=== PATIENT | female | born 1950 | race Hispanic/Latino ===

== ENCOUNTER 2021-02-21 16:14 | Inpatient (IN) | payer OTHER ==
--- NOTE | 2021-02-21 17:21 | RAD REPORT ---
EXAM DESCRIPTION: RAD - Chest Single View - 02/21/2021 5:13 pm CLINICAL HISTORY: DYSPNEA COMPARISON: No comparisons FINDINGS: Lines: None. Lungs: Diffuse prominence of the pulmonary interstitium. Vascular engorgement is present. Pleural: No significant pleural effusions or pneumothorax. Cardiac: Cardiomegaly. Bones: No acute fractures. Other: IMPRESSION: Findings most likely representing pulmonary edema. Pneumonia less likely.
[2021-02-21 17:45] LABS: Absolute Lymphocytes (CBC) 1.5 K/uL (0.7-4.9); Basophils % 0.9 % (0-1.3); Hematocrit 32.9 % (36.0-45.0); Lymphocytes % 19.5 % (15.3-44.8); MPV 8.3 fL (7.6-11.3); RBC Red Blood Cell Count 4.25 M/uL (3.86-4.86)
[2021-02-21] MEDS ORDERED: NA CHLORIDE 0.9% 1,000 ML ONE (18:04)
[2021-02-21] MEDS ORDERED: ACETAMINOPHEN 500 MG TAB ONE (18:04)
[2021-02-21] MEDS ORDERED: NA CHLORIDE 0.9% 500 ML ONE (18:05)
[2021-02-21 18:08] LABS: ALT/SGPT 41 U/L (12-78); AST/SGOT 24 U/L (15-37); Albumin 3.1 g/dL (3.4-5.0); Alkaline Phosphatase 175 U/L (45-117); BUN Blood Urea Nitrogen 14 mg/dL (7-18); Bicarbonate 23 mmol/L (21-32); Bilirubin Direct 0.2 mg/dL (0-0.2); Bilirubin Total 0.3 mg/dL (0.2-1.0); Glucose Level 124 mg/dL (74-106); NT PRO-BNP 5430 pg/mL (<125); Protein, Total 7.4 g/dL (6.4-8.2); Sodium Level 141 mmol/L (136-145); Troponin (Emerg Dept Use Only) < 0.02 ng/mL (0.0-0.045)
[2021-02-21 18:41] LABS: Protime INR 1.05
--- NOTE | 2021-02-21 19:33 | EDPHYS ---
Physician Documentation [facility] Name: Yokasta Hill Age: 70 yrs Sex: Female : 1950 Arrival Date: 02/21/2021 Time: 16:19 Bed 30 Private MD: ED Physician Yohan Lockett HPI: 02/21 17:45 This 70 yrs old Female presents to ER via Ambulatory with complaints of kb Breathing Difficulty. 17:45 The patient has shortness of breath at rest. Onset: The symptoms/episode began/occurred kb just prior to arrival. Duration: The symptoms are continuous. The patient's shortness of breath is aggravated by nothing, is alleviated by nothing. Associated signs and symptoms: Pertinent positives: productive cough. Severity of symptoms: At their worst the symptoms were mild moderate in the emergency department the symptoms are unchanged. The patient has not experienced similar symptoms in the past. The patient has not recently seen a physician. Son states pt started having a cough with phlem last night. Today started having shortness of breath. Historical: - Allergies: 16:29 Codeine; jl7 16:29 Ultram; jl7 20:57 Fentanyl; cc4 - Home Meds: 16:29 Metoprolol Tartrate Oral [Active]; leufonimaide [Active]; jl7 - PMHx: 16:29 Rheumatoid arthritis; Hypertensive disorder; Anemia; jl7 - PSHx: 16:29 Bilateral hips; bilateral knees; Cholecystectomy; jl7 - Immunization history:: Adult Immunizations not up to date. - Social history:: Smoking status: Patient denies any tobacco usage or history of. ROS: 17:45 Constitutional: Negative for fever, chills, and weight loss. kb 17:45 Respiratory: Positive for cough, shortness of breath, Negative for dyspnea on exertion, hemoptysis, orthopnea, pleurisy, sputum production, wheezing. 17:45 All other systems are negative. Exam: 17:13 Constitutional: This is a well developed, well nourished patient who is awake, alert, kb and in no acute distress. Head/Face: Normocephalic, atraumatic. ENT: Moist Mucous membranes Cardiovascular: Regular rate and rhythm with a normal S1 and S2. No gallops, murmurs, or rubs. No pulse deficits. Respiratory: Respirations even and unlabored. No increased work of breathing, no retractions or nasal flaring. Skin: Warm, dry with normal turgor. Normal color. MS/ Extremity: Pulses equal, no cyanosis. Neurovascular intact. Full, normal range of motion. Neuro: Awake and alert, GCS 15, oriented to person, place, time, and situation. Moves all extremities. Normal gait. Psych: Awake, alert, with orientation to person, place and time. Behavior, mood, and affect are within normal limits. 17:13 ECG was reviewed by the Attending Physician. Vital Signs: 16:25 BP 146 / 94; Pulse 136; Resp 24; Temp 98.3; Pulse Ox 91% ; Weight 64.86 kg; Height 5 jl7 ft. 8 in. (172.72 cm); Pain 9/10; 17:52 BP 138 / 89; Pulse 130; Resp 16; Temp 98.1(O); Pulse Ox 92% on R/A; kh1 19:44 BP 148 / 100; Pulse 125; Resp 22; Temp 97.1; Pulse Ox 93% on R/A; cc4 16:25 Body Mass Index 21.74 (64.86 kg, 172.72 cm) jl7 MDM: 16:27 Patient medically screened. kb 17:45 Data reviewed: vital signs, nurses notes. Data interpreted: Pulse oximetry: on room air kb is 91 %. Interpretation: borderline. 17:46 Differential diagnosis: Bronchitis pneumonia, pulmonary edema, covid. kb 19:31 Counseling: I had a detailed discussion with the patient and/or guardian regarding: the kb historical points, exam findings, and any diagnostic results supporting the discharge/admit diagnosis, lab results, radiology results, the need for further work-up and treatment in the hospital. Physician consultation: Benjamín ANDRADE was contacted at 19:31, regarding admission, to the telemetry unit. and will see patient in ED, shortly. 02/21 16:28 Order name: Basic Metabolic Panel; Complete Time: 18:13 kb 02/21 16:28 Order name: CBC with Diff; Complete Time: 18:13 kb 02/21 16:28 Order name: LFT's; Complete Time: 18:13 kb 02/21 16:28 Order name: Magnesium; Complete Time: 18:13 kb 02/21 16:28 Order name: NT PRO-BNP; Complete Time: 18:13 kb 02/21 16:28 Order name: PT-INR; Complete Time: 18:51 kb 02/21 16:28 Order name: Troponin (emerg Dept Use Only); Complete Time: 18:13 kb 02/21 19:23 Order name: SARS-COV-2 RT PCR; Complete Time: 19:23 EDMA 02/21 23:27 Order name: Thyroid Stimulating Hormone EDMA 02/22 06:05 Order name: CBC with Automated Diff EDMA 02/22 06:12 Order name: Comprehensive Metabolic Panel EDMA 02/22 06:12 Order name: Phosphorus EDMA 02/22 06:12 Order name: Troponin I EDMA 02/21 16:28 Order name: XRAY Chest (1 view); Complete Time: 17:25 kb 02/21 16:28 Order name: EKG; Complete Time: 16:29 kb 02/21 16:28 Order name: Cardiac monitoring; Complete Time: 17:50 kb 02/21 16:28 Order name: EKG - Nurse/Tech; Complete Time: 16:33 kb 02/21 16:28 Order name: IV Saline Lock; Complete Time: 17:50 kb 02/21 18:55 Order name: EKG; Complete Time: 18:55 kb 02/22 06:12 Order name: Lipid Profile EDMA 02/22 06:12 Order name: T4 Free EDMA 02/22 06:12 Order name: Magnesium EDMA 02/22 06:12 Order name: Transferrin Sat/Iron Binding EDMA 02/22 06:12 Order name: Ferritin EDMA 02/22 06:39 Order name: Hemoglobin A1c EDMA 02/21 16:28 Order name: Labs collected and sent; Complete Time: 17:51 kb 02/21 16:28 Order name: O2 Per Protocol; Complete Time: 17:51 kb 02/21 16:28 Order name: O2 Sat Monitoring; Complete Time: 17:51 kb 02/21 17:26 Order name: Labs - recollect needed: recollect labs; Complete Time: 17:50 bd 02/21 17:53 Order name: Labs - recollect needed: recollect blue top, please fill to the line; bd Complete Time: 18:49 02/21 18:55 Order name: EKG - Nurse/Tech kb 02/21 18:55 Order name: Vital Signs; Complete Time: 19:46 kb EC:13 Rate is 131 beats/min. Rhythm is regular. Left axis deviation noted. CT interval is kb normal at 130 msec. QRS interval is normal at 104 msec. QT interval is normal at 316 msec. Administered Medications: 17:25 CANCELLED (Duplicate Order): NS 0.9% 1000 ml IV at 1000 ml once kb 17:50 Drug: NS 0.9% 500 ml Route: IV; Rate: bolus; Site: right antecubital; kh1 19:38 Drug: Lasix (furosemide) 40 mg Route: IVP; Site: right antecubital; cc4 19:38 Drug: Nitro-Bid (nitroglycerin) Ointment 2 % 0.5 inches Route: Transdermal; Site: cc4 anterior chest wall; Disposition: 02/22 07:19 Co-signature as Attending Physician, Yohan Lockett MD I agree with the assessment and rn plan of care. Attestation: The patient's history, exam findings, diagnostics, and a summary of any interventions or procedures was reviewed in detail with Kathryn CONNELLY. Disposition Summary: 02/21/21 19:32 Hospitalization Ordered Hospitalization Status: Inpatient Admission kb Provider: Jerrell Reyez Condition: Stable kb Problem: new kb Symptoms: are unchanged kb Bed/Room Type: Standard kb Location: Telemetry/MedSurg (Inpatient)(02/22/21 16:37) Room Assignment: [facility](02/22/21 16:38) bd Diagnosis - Unspecified combined systolic (congestive) and diastolic (congestive) heart failure kb - Acute pulmonary edema kb Forms: - Medication Reconciliation Form kb - SBAR form kb Signatures: Dispatcher [employer] [facility] Kathryn White FNP-C FNP-CkSadie Masters Roman, MD MD rn Garcia, Cindy, RN RN cg Leal, Jahala, RN RN jl7 Harris, Kecia [facility] Eriak Mccormick [facility] Corrections: (The following items were deleted from the chart) 02/21 17:25 16:40 NS 0.9% 1000 ml IV at 1000 ml once ordered. kb kb 17:58 16:29 CORONAVIRUS+MR.LAB.BRZ ordered. EDMA EDMA 20:22 19:32 Telemetry/MedSurg (Inpatient) kb cg 20:22 19:32 kb 02/22 16:37 02/21 20:22 [facility] ER HOLD cg bd 02/22 16:37 02/21 20:22 ERHOLD- cg bd 02/22 16:38 16:37 427 bd bd
--- NOTE | 2021-02-21 19:33 | ER ---
Nurse's Notes [facility] Name: Yokasta Hill Age: 70 yrs Sex: Female : 1950 Arrival Date: 02/21/2021 Time: 16:19 Bed 30 Private MD: Diagnosis: Unspecified combined systolic (congestive) and diastolic (congestive) heart failure;Acute pulmonary edema Presentation: 02/21 16:25 Chief complaint: Patient states: Coughing since last night, Shortness of breath x 30 jl7 minutes, reports chest pain that radiates to back. Coronavirus screen: Vaccine status: Patient reports being unvaccinated. PCP suggested no vaccine. Ebola Screen: No symptoms or risks identified at this time. Initial Sepsis Screen: Does the patient meet any 2 criteria? RR > 20 per min. HR > 90 bpm. Yes Does the patient have a suspected source of infection? No. Patient's initial sepsis screen is negative. Risk Assessment: Do you want to hurt yourself or someone else? Patient reports no desire to harm self or others. Onset of symptoms was February 21, 2021 at 16:00. 16:25 Method Of Arrival: Ambulatory [facility] 16:25 Acuity: ROBERTO 2 jl7 Triage Assessment: 16:29 General: Appears in no apparent distress. uncomfortable, Behavior is calm, cooperative, jl7 appropriate for age. Pain: Complains of pain in mid-sternal area Pain radiates to back Pain currently is 9 out of 10 on a pain scale. Neuro: Level of Consciousness is awake, alert, obeys commands, Oriented to person, place, time, situation. Cardiovascular: Patient's skin is warm and dry. Respiratory: Reports shortness of breath Onset: The symptoms/episode began/occurred today, the patient has moderate shortness of breath. Derm: Skin is pink, warm \T\ dry. Historical: - Allergies: 16:29 Codeine; jl7 16:29 Ultram; jl7 20:57 Fentanyl; cc4 - Home Meds: 16:29 Metoprolol Tartrate Oral [Active]; leufonimaide [Active]; jl7 - PMHx: 16:29 Rheumatoid arthritis; Hypertensive disorder; Anemia; jl7 - PSHx: 16:29 Bilateral hips; bilateral knees; Cholecystectomy; jl7 - Immunization history:: Adult Immunizations not up to date. - Social history:: Smoking status: Patient denies any tobacco usage or history of. Screenin:54 Abuse screen: Denies threats or abuse. Nutritional screening: No deficits noted. kh1 Tuberculosis screening: No symptoms or risk factors identified. Fall Risk None identified. IV access (20 points). Ambulatory Aid- Gait- Weak (10 pts.). Assessment: 17:52 General: Appears in no apparent distress. comfortable, Behavior is calm, cooperative, kh1 appropriate for age. Pain: Complains of pain in back Pain radiates to left arm Pain currently is 6 out of 10 on a pain scale. Pain began gradually, 1 day ago. Neuro: No deficits noted. Level of Consciousness is awake, alert, obeys commands, Oriented to person, place, time, situation, Supervisor Particleboard are equal bilaterally Moves all extremities. Full function Gait is Speech is normal. Cardiovascular: No deficits noted. Reports shortness of breath, Capillary refill < 3 seconds. Respiratory: Reports shortness of breath cough that is Airway is patent Respiratory effort is even, unlabored. 17:57 Cardiovascular: Rhythm is sinus tachycardia. 1 17:57 Respiratory: [facility] 18:54 Reassessment: Patient appears in no apparent distress at this time. No changes from [facility] previously documented assessment. Patient and/or family updated on plan of care and expected duration. Pain level reassessed. Patient is alert, oriented x 3, equal unlabored respirations, skin warm/dry/pink. Patient is alert/active/playful, equal unlabored respirations, skin warm/dry/pink. Vital Signs: 16:25 BP 146 / 94; Pulse 136; Resp 24; Temp 98.3; Pulse Ox 91% ; Weight 64.86 kg; Height 5 jl7 ft. 8 in. (172.72 cm); Pain 9/10; 17:52 BP 138 / 89; Pulse 130; Resp 16; Temp 98.1(O); Pulse Ox 92% on R/A; kh1 19:44 BP 148 / 100; Pulse 125; Resp 22; Temp 97.1; Pulse Ox 93% on R/A; cc4 16:25 Body Mass Index 21.74 (64.86 kg, 172.72 cm) jl7 ED Course: 16:19 Patient arrived in ED. mr 16:27 Kathryn White, [facility] kb 16:27 Yohan Lockett MD is Attending Physician. kb 16:29 Triage completed. jl7 16:29 Arm band placed on right wrist. EKG completed in triage. Results shown to MD. jl7 17:13 XRAY Chest (1 view) In Process Unspecified. EDMS 17:28 Jyoti Joya is Primary Nurse. kh1 17:51 Basic Metabolic Panel Sent. kh1 17:51 CBC with Diff Sent. kh1 17:51 LFT's Sent. kh1 17:51 Magnesium Sent. kh1 17:51 NT PRO-BNP Sent. kh1 17:51 PT-INR Sent. kh1 17:51 Troponin (emerg Dept Use Only) Sent. kh1 17:56 Patient has correct armband on for positive identification. Fall risk band placed. kh1 Placed in gown. Bed in low position. Call light in reach. Side rails up X2. Adult w/ patient. cooperative education coordinator on. Pulse ox on. NIBP on. 17:56 No provider procedures requiring assistance completed. Inserted saline lock: 20 gauge kh1 in left antecubital area, using aseptic technique. Blood collected. 19:32 Jerrell Reyez is Hospitalizing Provider. kb 20:01 Gerard cath inserted, using sterile technique, 16 Fr., by ED staff, balloon inflated, to cc4 gravity drainage. Administered Medications: 17:25 CANCELLED (Duplicate Order): NS 0.9% 1000 ml IV at 1000 ml once kb 17:50 Drug: NS 0.9% 500 ml Route: IV; Rate: bolus; Site: right antecubital; kh1 19:38 Drug: Lasix (furosemide) 40 mg Route: IVP; Site: right antecubital; cc4 19:38 Drug: Nitro-Bid (nitroglycerin) Ointment 2 % 0.5 inches Route: Transdermal; Site: cc4 anterior chest wall; Outcome: 19:32 Decision to Hospitalize by Provider. kb 02/22 18:52 Patient left the ED. ss Signatures: Dispatcher [employer] EDMS Kathrny White, MARICEL ARRIAZAP-Hilary MuñozLashaun nogueraRamona, RN RN Kimberly Sanz RN RN jl7 Jyoti Joya 1 Erika Mccormick cc4 Corrections: (The following items were deleted from the chart) 02/21 17:58 17:50 CORONAVIRUS+MR.LAB.BRZ drawn and sent. kh1 EDMS
[2021-02-21] MEDS ORDERED: NITROGLYCERIN 1 GM PKT TD ONE (19:58)
[2021-02-21] MEDS ORDERED: FUROSEMIDE 40 MG/4 ML VIAL ONE (19:58)
--- NOTE | 2021-02-21 20:52 | P.HP ---
Certification for Inpatient Patient admitted to: Inpatient With expected LOS: <2 Midnights Patient will require the following post-hospital care: None Practitioner: I am a practitioner with admitting privileges, knowledge of patient current condition, hospital course, and medical plan of care. Services: Services provided to patient in accordance with Admission requirements found in Title 42 Section 412.3 of the Code of Federal Regulations Patient History Date of Service: 02/21/21 Primary Care Provider: Wendie Reason for admission: new onset CHF History of Present Illness: Ms. Hill is a 70 yo F with HTN, anemia and RA who presents with one day of SOB and BALLARD. She says this morning she was drinking a milkshake when it was suddenly difficult for her to talk. She reports wheezing. Also noted some chest pain which she describes as muscular pain which was relieved with Vicks vapor rub. She went to go lay down but had another episode of SOB so told her son to bring her to the ED. She reports fatigue, orthopnea and PND for the past week. Denies edema. CXR shows pulmonary edema. BNP 5430. - Past Medical/Surgical History Diabetic: No -: HTN -: RA -: anemia -: hip surgery -: knee surgery -: back surgery -: wrist surgery -: cholecystectomy Psychosocial/ Personal History: , two sons - Social History Smoking Status: Never smoker Alcohol use: No CD- Drugs: No Caffeine use: Yes Place of Residence: Home Review of Systems Respiratory: Shortness of Breath, SOB with Excertion, Wheezing Cardiovascular: Chest Pain, Orthopnea, Paroxysmal Noc. Dyspnea Physical Examination - Physical Exam General: Alert, In no apparent distress HEENT: Atraumatic, PERRLA, Mucous membr. moist/pink, EOMI, Sclerae nonicteric Neck: Supple, 2+ carotid pulse no bruit, No LAD, Without JVD or thyroid abnormality Respiratory: Normal air movement, Crackles/rales Cardiovascular: No edema, Normal pulses, Normal S1 S2, No gallops, No rubs, Other (tachycardia), Irregular heart rate/rhythm Gastrointestinal: Normal bowel sounds, No tenderness Musculoskeletal: No tenderness Integumentary: No rashes Neurological: Normal gait, Normal speech, Normal strength at 5/5 x4 extr, Normal tone, Normal affect Lymphatics: No axilla or inguinal lymphadenopathy - Studies Laboratory Data (last 24 hrs) 02/21/21 18:23: PT 12.1, INR 1.05 02/21/21 17:36: WBC 7.70, Hgb 10.6 L, Hct 32.9 L, Plt Count 292 02/21/21 17:36: Sodium 141, Potassium 4.0, BUN 14, Creatinine 0.48 L, Glucose 124 H, Magnesium 2.0, Total Bilirubin 0.3, AST 24, ALT 41, Alkaline Phosphatase 175 H Assessment and Plan - Problems (Diagnosis) (1) New onset of congestive heart failure Current Visit: Yes Status: Acute (2) HTN (hypertension) Current Visit: Yes Status: Chronic Qualifiers: Hypertension type: primary hypertension Qualified Code(s): I10 - Essential (primary) hypertension (3) Anemia Current Visit: Yes Status: Chronic Qualifiers: Anemia type: iron deficiency Iron deficiency anemia type: unspecified iron deficiency Qualified Code(s): D50.9 - Iron deficiency anemia, unspecified (4) Rheumatoid arthritis Current Visit: Yes Status: Chronic Qualifiers: Rheumatoid arthritis location: unspecified site Rheumatoid factor presence: unspecified presence Qualified Code(s): M06.9 - Rheumatoid arthritis, unspecified - Plan on telemetry, ECHO scheduled for the AM IV Lasix BID, low sodium diet, dietitian consulted, fluid restriction, daily weights repeat troponin in AM hydralazine PRN for BP spikes O2 as needed anemia workup pending, A1c pending reconcile and continue home medications DVT ppx Discharge Plan: Home Plan to discharge in: 48 Hours - Advance Directives Does patient have a Living Will: No Does patient have a Durable POA for Healthcare: No - Code Status/Comfort Care Code Status Assessed: Yes (full code ) Critical Care: No Time Spent Managing Pts Care (In Minutes): 70
[2021-02-21] MEDS ORDERED: ONDANSETRON 4 MG/2 ML VIAL IV PRN (21:49)
[2021-02-21] MEDS ORDERED: HYDRALAZINE HCL 20 MG/ML VIAL IV PRN (21:49)
[2021-02-22] MEDS: ACETAMINOPHEN 500 MG TAB PO PRN ×2 (00:25→22:28)
[2021-02-22] MEDS ORDERED: ACETAMINOPHEN 500 MG TAB ONE (00:37)
[2021-02-22 05:59] LABS: Absolute Lymphocytes (CBC) 2.2 K/uL (0.7-4.9); Basophils % 0.8 % (0-1.3); Hematocrit 32.9 % (36.0-45.0); Lymphocytes % 31.6 % (15.3-44.8); MPV 8.9 fL (7.6-11.3); RBC Red Blood Cell Count 4.22 M/uL (3.86-4.86)
[2021-02-22 06:12] LABS: ALT/SGPT 43 U/L (12-78); AST/SGOT 25 U/L (15-37); Albumin 3.1 g/dL (3.4-5.0); Alkaline Phosphatase 185 U/L (45-117); BUN Blood Urea Nitrogen 14 mg/dL (7-18); Bicarbonate 28 mmol/L (21-32); Bilirubin Total 0.5 mg/dL (0.2-1.0); Ferritin 270.9 ng/mL (8-388); Glucose Level 107 mg/dL (74-106); HDL Cholesterol 62 mg/dL (40-60); LDL Cholesterol, Calculated 73 (<130); Magnesium 2.2 mg/dL (1.8-2.4); Phosphorus 3.8 mg/dL (2.5-4.9); Potassium 3.8 mmol/L (3.5-5.1); Protein, Total 7.1 g/dL (6.4-8.2); Sodium Level 142 mmol/L (136-145); Transferrin 187 mg/dL (200-360); Troponin I 0.07 ng/mL (0.0-0.045)
[2021-02-22] MEDS: ENOXAPARIN 40 MG/0.4 ML SQ SCH (09:00)
[2021-02-22] MEDS: FUROSEMIDE 40 MG/4 ML VIAL IV SCH ×2 (09:00→17:00)
[2021-02-22] MEDS ORDERED: ENOXAPARIN 40 MG/0.4 ML SQ ONE (09:40)
[2021-02-22] MEDS ORDERED: FUROSEMIDE 40 MG/4 ML VIAL ONE ×2 (09:40→17:57)
--- NOTE | 2021-02-22 10:24 | EKG ---
Test Date: 2021-02-21 Test Time: 19:24:54 Cross Country Coach: KONSTANTIN MEASUREMENT RESULTS: Intervals: Rate: 121 WA: 158 QRSD: 106 QT: 332 QTc: 471 [place]: P: 68 WA: 158 QRS: -50 T: 104 INTERPRETIVE STATEMENTS: Sinus tachycardia with fusion complexes Left axis deviation Left ventricular hypertrophy with repolarization abnormality Abnormal ECG Compared to ECG 02/21/2021 16:30:06 No significant changes Electronically Signed On 02-22-21 10:21:55 CDT by Avery Moore
--- NOTE | 2021-02-22 10:25 | EKG ---
Test Date: 2021-02-21 Test Time: 16:30:06 Paper Cone Grader: GINGER MEASUREMENT RESULTS: Intervals: Rate: 131 ND: 130 QRSD: 104 QT: 316 QTc: 466 [place]: P: 25 ND: 130 QRS: -37 T: 119 INTERPRETIVE STATEMENTS: Sinus tachycardia with fusion complexes Left axis deviation Left ventricular hypertrophy with repolarization abnormality Abnormal ECG Compared to ECG 03/31/2010 16:14:30 Fusion complex(es) now present Left-axis deviation now present Early repolarization now present Sinus rhythm no longer present Electronically Signed On 02-22-21 10:22:04 CDT by Avery Moore
--- NOTE | 2021-02-22 13:57 | ECHO ---
HEIGHT: 5 ft 7 in WEIGHT: 143 lb 0 oz DATE OF STUDY: 02/22/[address]: Benjamín Quiles 2-DIMENSIONAL: YES M.MODE: YES DOPPLER: YES COLOR FLOW: YES TDS: NO PORTABLE: NO DEFINITY: NO BUBBLE STUDY: NO DIAGNOSIS: PULMONARY EDEMA CARDIAC HISTORY: CATHERIZATION: SURGERY: PROSTHETIC VALVE: PACEMAKER: MEASUREMENTS (cm) DIASTOLIC (NORMALS) SYSTOLIC (NORMALS) IVSd 1.2 (0.6-1.2) LA Diam 3.0 (1.9-4.0) LVEF 26% LVIDd 5.5 (3.5-5.7) LVIDs 4.9 (2.0-3.5) %FS 12% LVPWd 1.1 (0.6-1.2) Ao Diam 2.9 (2.0-3.7) 2 DIMENSIONAL ASSESSMENT: RIGHT ATRIUM: LEFT ATRIUM: RIGHT VENTRICLE: LEFT VENTRICLE: TRICUSPID VALVE: MITRAL VALVE: PULMONIC VALVE: AORTIC VALVE: PERICARDIAL EFFUSION: AORTIC ROOT: LEFT VENTRICULAR WALL MOTION: SEVERE GLOBAL HYPOKINESIS. DOPPLER/COLOR FLOW: NORMAL. COMMENTS: SEVERE GLOBAL HYPOKINESIS. EJECTION FRACTION 26%. NO EFFUSION. TECHNOLOGIST: GIOVANY BECK
--- NOTE | 2021-02-22 18:22 | P.PN ---
Subjective Date of Service: 02/22/21 Primary Care Provider: Wendie Chief Complaint: new onset CHF Patient states she is feeling much better today. She states her shortness of breath has improved. Troponin trended slightly up. She denies any chest pain. Physical Examination - Vital Signs Temperature: 98.4 F Blood Pressure: 106/70 Pulse: 117 Respirations: 16 Pulse Ox (%): 98 - Physical Exam General: Alert, In no apparent distress, Oriented x3 HEENT: Mucous membr. moist/pink Neck: Supple, JVD not distended Respiratory: Normal air movement, Crackles/rales (Mild bibasilar rales) Cardiovascular: No edema, Regular rate/rhythm, Normal S1 S2, No murmurs Gastrointestinal: Soft and benign, Non-distended, No tenderness Musculoskeletal: No swelling, No tenderness Integumentary: No rashes, No erythema Neurological: Normal strength at 5/5 x4 extr - Studies Laboratory Data (last 24 hrs) 02/21/21 18:23: PT 12.1, INR 1.05 Assessment And Plan - Current Problems (Diagnosis) (1) Acute systolic heart failure Current Visit: Yes Status: Acute (2) Anemia Current Visit: Yes Status: Chronic Qualifiers: Anemia type: iron deficiency Iron deficiency anemia type: unspecified iron deficiency Qualified Code(s): D50.9 - Iron deficiency anemia, unspecified (3) HTN (hypertension) Current Visit: Yes Status: Chronic Qualifiers: Hypertension type: primary hypertension Qualified Code(s): I10 - Essential (primary) hypertension (4) Rheumatoid arthritis Current Visit: Yes Status: Chronic Qualifiers: Rheumatoid arthritis location: unspecified site Rheumatoid factor presence: unspecified presence Qualified Code(s): M06.9 - Rheumatoid arthritis, unspecified - Plan Patient with newly diagnosed systolic heart failure. Unknown etiology. Troponin trended up only slightly. Awaiting cardiology input. Continue Lasix. Aspirin, Coreg, lisinopril. Anemia is stable.
[2021-02-23] MEDS: carvediloL 3.125 MG TAB PO SCH ×2 (05:44→17:43)
[2021-02-23] MEDS: ASPIRIN EC 81 MG TAB PO SCH (08:40)
[2021-02-23] MEDS: FUROSEMIDE 40 MG/4 ML VIAL IV SCH ×2 (08:41→17:00)
[2021-02-23] MEDS: ENOXAPARIN 40 MG/0.4 ML SQ SCH (08:42)
[2021-02-23] MEDS ORDERED: lisinopriL 5 MG TAB PO SCH (09:00)
--- NOTE | 2021-02-23 13:17 | P.PN ---
Subjective Date of Service: 02/23/21 Primary Care Provider: Wendie Chief Complaint: new onset CHF Patient with borderline low blood pressure. Nursing staff report patient fell dizzy and vomited when she attempted to stand up. No witnessed fall. She states her shortness of breath has improved. She denies any chest pain. Physical Examination - Vital Signs Temperature: 98.2 F Blood Pressure: 92/58 Pulse: 106 Respirations: 18 Pulse Ox (%): 97 - Physical Exam General: Alert, In no apparent distress, Oriented x3 HEENT: Mucous membr. moist/pink Neck: Supple, JVD not distended Respiratory: Normal air movement, Crackles/rales (Mild bibasilar rales.) Cardiovascular: Normal S1 S2, Other (Regular, tachycardic) Capillary refill: <2 Seconds Gastrointestinal: Normal bowel sounds, Soft and benign, Non-distended, No tenderness Musculoskeletal: No swelling, No tenderness Integumentary: No rashes, No erythema Neurological: Normal speech, Normal strength at 5/5 x4 extr Assessment And Plan - Current Problems (Diagnosis) (1) Acute systolic heart failure Current Visit: Yes Status: Acute (2) Anemia Current Visit: Yes Status: Chronic Qualifiers: Anemia type: iron deficiency Iron deficiency anemia type: unspecified iron deficiency Qualified Code(s): D50.9 - Iron deficiency anemia, unspecified (3) HTN (hypertension) Current Visit: Yes Status: Chronic Qualifiers: Hypertension type: primary hypertension Qualified Code(s): I10 - Essential (primary) hypertension (4) Rheumatoid arthritis Current Visit: Yes Status: Chronic Qualifiers: Rheumatoid arthritis location: unspecified site Rheumatoid factor presence: unspecified presence Qualified Code(s): M06.9 - Rheumatoid arthritis, unspecified - Plan Patient with newly diagnosed systolic heart failure. Unknown etiology. Troponin trended up only slightly. Case discussed with Dr. Moore who will see and evaluate her. Dr. Moore is recommended outpatient stress test Continue Lasix. Aspirin, Coreg, lisinopril. Anemia is stable. Orthostatic precautions. PT to evaluate.
--- NOTE | 2021-02-23 14:18 | RAD REPORT ---
EXAM DESCRIPTION: RAD - Chest Single View - 02/23/2021 2:05 pm CLINICAL HISTORY: Follow pulmonary edema COMPARISON: Chest Single View dated 02/21/2021 FINDINGS: Lines: None. Lungs: No evidence of edema or pneumonia. Pleural: No significant pleural effusions or pneumothorax. Cardiac: Mild cardiomegaly. Bones: No acute fractures. Other: IMPRESSION: No acute cardiopulmonary disease. Improved aeration from prior.
[2021-02-23] MEDS: ACETAMINOPHEN 500 MG TAB PO PRN (17:22)
[2021-02-23] MEDS ORDERED: POTASSIUM 25 MEQ EFFERV TAB PO ONE (20:06)
[2021-02-24] MEDS: MIDODRINE HCL 5 MG TABLET PO SCH ×4 (00:47→20:05)
[2021-02-24 04:58] LABS: Basophils % 0.4 % (0-1.3); Hematocrit 34.3 % (36.0-45.0); Lymphocytes % 35.9 % (15.3-44.8); MPV 8.4 fL (7.6-11.3); RBC Red Blood Cell Count 4.44 M/uL (3.86-4.86)
[2021-02-24 05:03] LABS: Potassium 3.5 mmol/L (3.5-5.1)
[2021-02-24] MEDS: ASPIRIN EC 81 MG TAB PO SCH (08:41)
[2021-02-24] MEDS: ENOXAPARIN 40 MG/0.4 ML SQ SCH (08:42)
[2021-02-24] MEDS: FUROSEMIDE 40 MG/4 ML VIAL IV SCH (08:43)
[2021-02-24] MEDS ORDERED: POTASSIUM 25 MEQ EFFERV TAB PO ONE (09:00)
[2021-02-24] MEDS ORDERED: ALBUMIN HUM 5% 500 ML IV ONE (11:00)
--- NOTE | 2021-02-24 12:08 | RAD REPORT ---
EXAM DESCRIPTION: US - Renal Ultrasound-Complete - 02/24/2021 11:55 am CLINICAL HISTORY: Acute renal failure COMPARISON: None. FINDINGS: The right kidney measures 11 cm with an increased echotexture. The left kidney measures 11 cm with an increased echotexture. Hydronephrosis is not seen. Gerard catheter is present within a collapsed bladder IMPRESSION: Mildly increased renal echotexture may indicate parenchymal disease
--- NOTE | 2021-02-24 13:37 | CON ---
Date of Consultation: 02/24/2021 Reason For Consultation: Elevated BUN and creatinine, fluid management. History Of Present Illness: This is a pleasant 70-year-old female with significant past medical history of hypertension, rheumatoid arthritis, on leflunomide, the patient apparently admitted to the hospital with shortness of breath and chest tightness. Primary workup found to have congestive heart failure with ejection fraction of 26%. The patient denied any cardiac history before. The patient denied taking any nonsteroidal. The patient was started on diuresis. Upon arrival to the hospital, her hemoglobin 10.6, currently 11.2, and creatinine upon admission 0.48, currently 1.2, GFR dropped from above 90 to 44. For that reason, we have been consulted. The patient again denied taking any nonsteroidal. The patient did not have any contrast. Past Medical History: Includes; 1. Hypertension. 2. Rheumatoid arthritis. Social History: Denied smoking, denied drinking, denied drugs abuse. Past Surgical History: Includes hip surgery, knee surgery, back surgery, wrist surgery, and cholecystectomy. Family History: Positive for hypertension. Review of Systems: Head and Neck: No red eye. No ear pain. GI: No nausea. No vomiting. : No polyuria. No dysuria. No hematuria. Rotary Surface Grinder: No vaginal discharge. Respiratory: Has shortness of breath. Cardiovascular: Has chest tightness. Orthopnea. Musculoskeletal: Has knee pain. Neuro: No weakness. No fall. Physical Examination: Vital Signs: When I saw the patient; blood pressure of 110/58. Reviewing the record for the blood pressure, the patient had low blood pressure yesterday down to 90. Pulse of 85, afebrile. Chest: Clear to auscultation. Heart: S1, S2. Regular. Abdomen: Soft, nontender. Extremity: No edema. Neurological: Alert, oriented x3. No focal. Laboratory Data: Upon admission to the hospital; sodium 141, potassium 4, bicarb 23, BUN 14, creatinine 0.4, calcium 8.2. H and H 10.6/32.9. Current lab data; sodium 132, potassium 3.5, bicarb 28, BUN 31, creatinine 1.2, calcium 8.5. Iron saturation 8.4, ferritin 270. TSH 1.7. Chest x-ray on the admission, cardiomegaly with congestion, currently no congestion. Current Medications: The patient on include midodrine, aspirin, Lovenox, Tylenol, Zofran. The patient received lisinopril 2.5 yesterday. She was on Lasix 40 mg b.i.d. Assessment And Plan: 1. Acute kidney injury, multifactorial, secondary to poor perfusion, ATN, low blood pressure/cardiorenal, currently looked to me on the dry side. I agree with holding CHELLE inhibitor, hold Lasix. I am going to go ahead and give the patient gentle hydration and we will follow up the patient closely. We will follow up renal ultrasound to rule out any obstruction. I am going to go ahead and send for CK and uric acid to rule out any other causes. We will send for urinalysis if we see any activity in the urine at that time. I am going to go ahead and send for serology to evaluate if there is any autoimmune disease given the history of rheumatoid arthritis. 2. Hypertension, currently with the presence of low blood pressure and acute kidney injury. I agree with holding all blood pressure medications, especially diuresis and CHELLE inhibitor. 3. Congestive heart failure, new onset. We will follow up with Cardiology. Currently looked to me normal volume. Hold Lasix, hold CHELLE inhibitor. Thank you, Dr. Reyez for allowing us to participate in the care of your patient. Time spent examining the patient [id number] placing order discussing with the patient reviewing data discussing the case with all of our subspecialty including hospitalist 55 minutes JORI Voice ID: [id number] Report ID: [id number] DEBBY
[2021-02-24] MEDS ORDERED: NA CHLORIDE 0.9% 250 ML IV SCH (14:00)
--- NOTE | 2021-02-24 15:32 | P.PN ---
Subjective Date of Service: 02/24/21 Primary Care Provider: Wendie Chief Complaint: new onset CHF Patient with poor urine output overnight. Blood pressure remain borderline low. Patient in Trendelenburg position when I saw her this morning. She has no new complain She states her shortness of breath has improved. She denies any chest pain. Physical Examination - Vital Signs Temperature: 97.1 F Blood Pressure: 110/58 Pulse: 85 Respirations: 16 Pulse Ox (%): 94 - Physical Exam General: Alert, In no apparent distress HEENT: Mucous membr. moist/pink Neck: JVD not distended Respiratory: Clear to auscultation bilaterally, Normal air movement Cardiovascular: No edema, Regular rate/rhythm, Normal S1 S2, No murmurs Gastrointestinal: Soft and benign, Non-distended, No tenderness Musculoskeletal: No swelling Integumentary: No rashes, No erythema Neurological: Normal speech, Normal strength at 5/5 x4 extr Assessment And Plan - Current Problems (Diagnosis) (1) Acute systolic heart failure Current Visit: Yes Status: Acute (2) Anemia Current Visit: Yes Status: Chronic Qualifiers: Anemia type: iron deficiency Iron deficiency anemia type: unspecified iron deficiency Qualified Code(s): D50.9 - Iron deficiency anemia, unspecified (3) HTN (hypertension) Current Visit: Yes Status: Chronic Qualifiers: Hypertension type: primary hypertension Qualified Code(s): I10 - Essential (primary) hypertension (4) Rheumatoid arthritis Current Visit: Yes Status: Chronic Qualifiers: Rheumatoid arthritis location: unspecified site Rheumatoid factor presence: unspecified presence Qualified Code(s): M06.9 - Rheumatoid arthritis, unspecified - Plan Patient with newly diagnosed systolic heart failure. Unknown etiology. Troponin trended negative. Patient seen by Dr. Camden macias planning cardiac catheterization tomorrow if patient and family will agree. Patient with acute renal failure which could be secondary to ATN from hypo tension or cardiorenal syndrome. Nephrology input appreciated. Hold Lasix. Patient is in need of lisinopril for systolic heart failure. Hold on lisinopril today and resume it tomorrow once her blood pressure is stabilize. Patient given albumin infusion for hypotension today. She appeared compensated for CHF. Chest x-ray demonstrates resolved pulmonary edema. Continue aspirin. Coreg discontinued. Anemia is stable. Orthostatic precautions.
--- NOTE | 2021-02-24 16:13 | CON ---
Date of Consultation: 02/24/2021 Reason For Consultation: New onset heart failure. History Of Present Illness: A 70-year-old female with history of hypertension, rheumatoid arthritis, and anemia, presented to the emergency room with shortness of breath and orthopnea, diagnosed with a cute congestive heart failure. Started on IV diuretics. NT-proBNP on admission was 5000 range. She feels much better. I saw her by bedside. She is lying flat without any orthopnea. Denies having a ny active chest pain. No known history of cardiac disease. Past Medical History: Hypertension, rheumatoid arthritis, anemia. Past Surgical History: Hip surgery, knee surgery, back surgery, wrist surgery, cholecystectomy. Medications: Refer reconciliation sheet for detailed list. Allergies: CODEINE, FENTANYL, AND TRAMADOL. Family History: No premature coronary artery disease or cancer. Social History: Does not smoke or drink. Does not use any drugs. Review of Systems: All systems reviewed and they were negative except for mentioned in the HPI. Physical Examination: Vital Signs: Temperature is 97.1, pulse 85, breathing at 16, blood pressure 110/58, saturating 94%. General: Pleasant middle-aged female, in no apparent distress. Head and Neck: Pupils are equal, reactive to light. Intact eye movements. No JVD. No cervical lym phadenopathy. Neck: Supple. Thyroid is not enlarged. Lungs: Clear to auscultation bilaterally. No rhonchi, rales, or crackles. No accessory muscle use. Heart: Regular rate and rhythm with S3. Abdomen: Soft, nontender. Bowel sounds positive. No organomegaly. No masses or hernia. No rigidi ty or rebound. Extremities: No edema, clubbing, or cyanosis. Intact pulses. Skin: No rash noted. Neurologic: Alert, awake, oriented x3. No acute focal deficits appreciated. Investigations: Creatinine 1.22. Troponin less than 0.02. On echo, EF is 20%. Assessment And Recommendations: New onset acute systolic congestive heart failure. She seems to be euvolemic now. Blood pressure is on the low side. I will discontinue IV Lasix, start on Lasix 20 mg once a day and to allow some room to introduce CHELLE inhibitor. Please start lisinopril 2.5 mg daily, gradually up titrate as the blood pressure allows, and recommend coronary angiogram to rule out michele nary artery disease as the etiology of her low ejection fraction. Discussed with the family and with the patient and if they agree, we will proceed with coronary angiogram tomorrow morning. Thank you for the consult. APURVA Voice ID: [id number] Report ID: [id number]
--- NOTE | 2021-02-25 05:31 | P.PN ---
Subjective Date of Service: 02/25/21 Primary Care Provider: Wendie Chief Complaint: new onset CHF Subjective: Other (she underwent left & right heart cath today.) Physical Examination - Vital Signs Temperature: 98.2 F Blood Pressure: 103/56 Pulse: 105 Respirations: 18 Pulse Ox (%): 96 - Physical Exam General: Other (appears as her stated age) HEENT: Atraumatic, Normocephalic Neck: Supple Respiratory: Other (symmetric chest expansion) Cardiovascular: No rubs, No murmurs Gastrointestinal: Soft and benign, No guarding Musculoskeletal: No clubbing Integumentary: No warmth Neurological: Normal tone Urinary: Other (no bladder distention) Assessment And Plan - Plan # PHILOMENA, multifactorial, secondary to poor perfusion, ATN, low blood pressure/cardiorenal Improving Renal ultrasound unremarkable CPK 19, no rhabdo BNP significantly elevated at [address] [place] po fluid intake Monitor input output, renal panel # Non-ischemic cardiomyopathy TTE showed low LVEF 26% LHC/RHC on 02/25 showed non-ischemic CM +Borderline elevated serum protein gap at 4.0; f/u urinalysis & random UPCR to assess for urine protein gap F/u MERCEDES Resume loop diuretic & ACEI prior to hosp dc Low-sodium diet # Htn BP currently low normal Monitor # Macrocytic anemia TSH wnl; LFT unremarkable F/u serum folate # Iron deficiency Tsat low Start po iron bid
[2021-02-25 05:41] LABS: Basophils % 0.8 % (0-1.3); Hematocrit 32.3 % (36.0-45.0); Lymphocytes % 29.6 % (15.3-44.8); MPV 8.3 fL (7.6-11.3); RBC Red Blood Cell Count 4.16 M/uL (3.86-4.86)
[2021-02-25 05:57] LABS: Albumin 3.5 g/dL (3.4-5.0); BUN Blood Urea Nitrogen 18 mg/dL (7-18); Bicarbonate 28 mmol/L (21-32); Creatine Phosphokinase 19 U/L (26-192); Glucose Level 108 mg/dL (74-106); Phosphorus 2.7 mg/dL (2.5-4.9); Potassium 3.9 mmol/L (3.5-5.1); Sodium Level 137 mmol/L (136-145); Uric Acid 5.7 mg/dL (2.6-6.0)
[2021-02-25] MEDS: ENOXAPARIN 40 MG/0.4 ML SQ SCH (08:45)
[2021-02-25] MEDS: MIDODRINE HCL 5 MG TABLET PO SCH (09:00)
[2021-02-25] MEDS ORDERED: POTASSIUM CL SA 10 MEQ TAB PO ONE (09:00)
[2021-02-25] MEDS: ASPIRIN EC 81 MG TAB PO SCH (09:00)
[2021-02-25] MEDS ORDERED: HEPA 1000U/500MLS 2,000 UNIT/1,000 ML BAG IV ONE (11:11)
[2021-02-25] MEDS ORDERED: LIDOCAINE 1% 20 ML MDV ONE (11:11)
[2021-02-25] MEDS ORDERED: NA CHLORIDE 0.9% 500 ML ONE (11:11)
[2021-02-25] MEDS ORDERED: ATROPINE SULF 1 MG/10 ML SYR IV ONE (11:17)
[2021-02-25] MEDS ORDERED: HEPARIN 5000 UNIT/ML 1 ML VIAL ONE (11:17)
[2021-02-25] MEDS ORDERED: VERAPAMIL HCL 10 MG/4 ML VIAL IV ONE (11:17)
[2021-02-25] MEDS ORDERED: MIDAZOLAM HCL 2 MG/2 ML INJ ONE (11:17)
[2021-02-25] MEDS ORDERED: NA CHLORIDE 0.9% 100 ML IV ONE (11:38)
--- NOTE | 2021-02-25 11:41 | P.PN ---
Subjective Date of Service: 02/25/21 Primary Care Provider: Wendie Chief Complaint: new onset CHF Urine output improved yesterday. Patient given IV fluid briefly. Blood pressure has been stable. She has no new complain She denies shortness of breath and chest pain. Physical Examination - Vital Signs Temperature: 98.5 F Blood Pressure: 112/65 Pulse: 111 Respirations: 16 Pulse Ox (%): 96 - Physical Exam General: Alert, In no apparent distress, Oriented x3 HEENT: Mucous membr. moist/pink, Sclerae nonicteric Neck: JVD not distended Respiratory: Clear to auscultation bilaterally, Normal air movement Cardiovascular: No edema, Regular rate/rhythm, Normal S1 S2, Other (Tachycardia) Gastrointestinal: Soft and benign, Non-distended, No tenderness Musculoskeletal: No swelling, No tenderness Integumentary: No rashes, No erythema Neurological: Normal speech, Normal strength at 5/5 x4 extr, Cranial nerves 3-12 intact Lymphatics: No axilla or inguinal lymphadenopathy Assessment And Plan - Current Problems (Diagnosis) (1) Acute systolic heart failure Current Visit: Yes Status: Acute (2) Anemia Current Visit: Yes Status: Chronic Qualifiers: Anemia type: iron deficiency Iron deficiency anemia type: unspecified iron deficiency Qualified Code(s): D50.9 - Iron deficiency anemia, unspecified (3) HTN (hypertension) Current Visit: Yes Status: Chronic Qualifiers: Hypertension type: primary hypertension Qualified Code(s): I10 - Essential (primary) hypertension (4) Rheumatoid arthritis Current Visit: Yes Status: Chronic Qualifiers: Rheumatoid arthritis location: unspecified site Rheumatoid factor presence: unspecified presence Qualified Code(s): M06.9 - Rheumatoid arthritis, unspecified - Plan Patient with newly diagnosed systolic heart failure. EF 26% by echocardiogram. Troponin trended negative. Patient seen by Dr. Hannah who is planning cardiac catheterization today. Patient with acute renal failure which could be secondary to ATN from hypotension or cardiorenal syndrome. Acute renal failure resolved with IV hydration. Nephrology input appreciated. Lasix on hold. Resume low dose lisinopril. Continue to hold Coreg. It appears patient's heart rate was quite sensitive to Coreg. Status post albumin infusion for hypotension yesterday. She appear compensated for CHF. Chest x-ray demonstrates resolved pulmonary edema. Continue aspirin. Anemia is stable. Orthostatic precautions.
[2021-02-25] MEDS ORDERED: NA CHLORIDE 0.9% 250 ML IV PRN (12:08)
--- NOTE | 2021-02-25 13:00 | OP ---
Date of Procedure: 02/25/2021 Surgeon: MICHAEL PERSAUD Procedures Performed: 1.Selective coronary angiogram. 2.Left heart catheterization. 3.Right heart catheterization. Indication: New-onset severe systolic heart failure with ejection fraction 26% Access: Right radial artery 6-Uzbek closed with TR band. Right femoral vein 7-Uzbek closed with m anual pressure. Complications: None. Bleeding: Less than 10 mL. Anesthesia: Total sedation time was 35 minutes. Description Of Procedure: After risks, benefits, and alternatives were explained, the patient agreed to proceed and signed informed consent. The patient was brought to the cardiac catheterization [facility], prepped and draped in usual sterile fashion. We accessed right radial artery using pediatric micropuncture kit to place a 6-Uzbek slender sheath and took a 5-Uzbek Woosung 4.0 catheter into the aortic root, engaged left main, right coronary artery, took standard views and then the catheter was advanced across aortic valve into the LV over the wire. LVEDP was measured and upon pullback, there was no gradient. Then, I accessed the right femoral vein using micropuncture kit and placed a 7-Jose [facility] [place] sheath and took a 7-Uzbek balloon tipped [place] catheter into the RA and took pressure wa veform, then RV, recorded pressure waveform, then PA, recorded pressure waveform to obtain PA sat and then wedge pressure waveforms were obtained and then obtained cardiac output through the thermodilut ion method. Then, we removed the [place] catheter. The femoral vein sheath was removed. Manual pressu re was done to obtain hemostasis and the right radial sheath was removed and placed TR band with good hemostasis. Findings: 1.Left main: Large, normal. 2.LAD: moderate to large size vessel, is normal entirely with the diagonal branches being normal. 3.Left circumflex is normal. 4.RCA: Dominant and normal. 5.LVEDP of 16 mmHg. 6.Right heart catheterization numbers: RA pressure was 3 mmHg. RV pressure was 34/2 with a mean of 3. PA pressure was 29/11 with a mean of 19 mmHg. Pulmonary wedge pressure was 11 mmHg. Cardiac ou tput mean was 6.1 L/minute. Conclusion: 1.Nonischemic cardiomyopathy. 2.Normal filling pressures and normal cardiac output. Recommendation: Guideline directed medical therapy for heart failure. SR/MODL Voice ID: [id number] Report ID: [id number]
[2021-02-25] MEDS: SACUBITRIL/VALSARTAN 24/26 MG TAB PO SCH ×2 (14:26→20:16)
--- NOTE | 2021-02-25 15:26 | PN ---
Date of Progress Note: 02/25/2021 Subjective: Seen by bedside. She is euvolemic, status post left and right heart cath today with a l ow filling pressures, Review of Systems: No chest pain, shortness of breath, orthopnea, cough. No nausea, vomiting, diarrhea. No abdominal p ain. All other systems reviewed are negative. Physical Examination: Vital Signs: Temperature is 98.5, pulse 111, breathing at 16, blood pressure is 112/65, satting 96%. General: Pleasant, elderly female, no apparent distress. Head and Neck: Pupils are equal, reactive to light. Intact eye movements. No JVD. No cervical lym phadenopathy. Neck: Supple. Thyroid is not enlarged. Lungs: Clear to auscultation bilaterally. No rhonchi, rales, or crackles. No accessory muscle use. Heart: Regular rate and rhythm. No extra sounds. Abdomen: Soft, nontender. Bowel sounds positive. No organomegaly. No masses or hernia. No rigidi ty or rebound. Extremities: No edema, clubbing, or cyanosis. Intact pulses. Skin: No rash noted. Neurologic: Alert, awake, oriented x3. No acute focal deficits appreciated. Investigations: Creatinine 0.58. Coronary angiogram showed normal coronary arteries with cardiac ou tput of 6.1 L/minute. Assessment And Recommendation: 1.Nonischemic severe cardiomyopathy. Filling pressures are low. Her RA pressure is only 3 and wedg e is below 10. Hold the Lasix and hold spironolactone and introduce a low-dose Entresto and also att empt to introduce a low-dose beta eliot with Toprol-XL 25 mg daily. She could not tolerate Coreg v lul well, it dropped her blood pressure significantly and I will plan to up titrate those medications slowly and discontinue the lisinopril and we will follow the patient with you on daily basis. Thank you for the consult. /JAYJAY Voice ID: [id number] Report ID: [id number]
[2021-02-25] MEDS: ACETAMINOPHEN 500 MG TAB PO PRN (20:16)
[2021-02-26 04:49] LABS: Absolute Lymphocytes (CBC) 2.2 K/uL (0.7-4.9); Basophils % 0.8 % (0-1.3); Hematocrit 33.2 % (36.0-45.0); Lymphocytes % 35.9 % (15.3-44.8); MPV 8.8 fL (7.6-11.3); RBC Red Blood Cell Count 4.25 M/uL (3.86-4.86)
[2021-02-26 05:16] LABS: Albumin 3.3 g/dL (3.4-5.0); BUN Blood Urea Nitrogen 15 mg/dL (7-18); Bicarbonate 24 mmol/L (21-32); Glucose Level 115 mg/dL (74-106); Magnesium 2.2 mg/dL (1.8-2.4); Phosphorus 2.8 mg/dL (2.5-4.9); Potassium 3.7 mmol/L (3.5-5.1); Sodium Level 136 mmol/L (136-145)
[2021-02-26 06:13] LABS: Urine Appearance CLEAR (Clear); Urine Bilirubin NEGATIVE (Negative); Urine Blood NEGATIVE (Negative); Urine Color YELLOW (Yellow); Urine Glucose NEGATIVE (Negative); Urine Protein TRACE (Negative); Urine Specific Gravity >=1.030 (1.005-1.030); Urine Urobilinogen 0.2 mg/dL (0.2-1.0)
[2021-02-26 06:14] LABS: Urine Microscopic Reflex ORDER UMIC
[2021-02-26 06:16] LABS: Urine Protein/Creatinine Ratio 0.4 ratio (<0.15)
[2021-02-26 07:41] LABS: Urine Bacteria >50 /HPF (<20); Urine RBC <5 /HPF (NONE SEEN); Urine Urothelial Cells <5 /HPF (NONE SEEN)
[2021-02-26] MEDS ORDERED: POTASSIUM CL SA 10 MEQ TAB PO ONE (09:00)
[2021-02-26] MEDS: ASPIRIN EC 81 MG TAB PO SCH (09:00)
[2021-02-26] MEDS ORDERED: lisinopriL 5 MG TAB PO SCH (09:00)
[2021-02-26] MEDS ORDERED: FERROUS SULFATE 325 MG TAB PO SCH (09:00)
[2021-02-26] MEDS: ENOXAPARIN 40 MG/0.4 ML SQ SCH (09:03)
[2021-02-26] MEDS: SACUBITRIL/VALSARTAN 24/26 MG TAB PO SCH (09:03)
[2021-02-26] MEDS ORDERED: CEFTRIAXONE 1 GM/NS 50 ML 1 GM/50 ML BAG IV SCH (12:00)
--- NOTE | 2021-02-26 12:13 | PN ---
Subjective: The patient was admitted with acute kidney injury secondary to over diuresis. The patie nt is lying flat. Kidney function after hydration has been normalized. Physical Examination: Vital Signs: When I saw the patient; blood pressure 102/63, pulse of 75, afebrile. The patient had good urine output of 2400, negative of 300. Chest: Clear to auscultation. Heart: S1, S2. Regular. Abdomen: Soft, nontender. Extremity: No edema. Neurological: Alert, oriented x3. No focal. Laboratory Data: WBC 6.2, H and H 10.8/33.2. Sodium 136, potassium 3.7, bicarb 24, BUN 15, creatini ne 0.4, calcium 8.9, phosphorus 2.8, magnesium 2.2, albumin 3.3. Corrected calcium is 9.6. Current Medications: The patient on include aspirin, Lovenox, ferrous sulfate, Entresto, hydralazine . Zofran. Assessment And Plan: 1.Acute kidney injury secondary to prerenal, recovered, resolved. Looked to me currently on the nor mal size. I am going to keep holding on the diuresis for the time being and we will monitor the ismael ent. I agree with Entresto. 2.Hypertension, controlled, optimal. Continue current treatment. We will follow up. 3.Hypokalemia. We will supplement. 4.Congestive heart failure, euvolemic. Keep holding Lasix. Continue Entresto. The patient cleared from the Renal standpoint for discharge planning. JORI Voice ID: [id number] Report ID: [id number]
--- NOTE | 2021-02-26 12:37 | P.DS ---
Admission Date: 02/21/21 Discharge Date: 02/26/21 Primary Care Provider: Wendie Disposition: ROUTINE DISCHARGE Discharge Condition: FAIR Reason for Admission: new onset CHF - Problems (1) Acute systolic heart failure Current Visit: Yes Status: Acute (2) Anemia Current Visit: Yes Status: Chronic Qualifiers: Anemia type: iron deficiency Iron deficiency anemia type: unspecified iron deficiency Qualified Code(s): D50.9 - Iron deficiency anemia, unspecified (3) HTN (hypertension) Current Visit: Yes Status: Chronic Qualifiers: Hypertension type: primary hypertension Qualified Code(s): I10 - Essential (primary) hypertension (4) Rheumatoid arthritis Current Visit: Yes Status: Chronic Qualifiers: Rheumatoid arthritis location: unspecified site Rheumatoid factor presence: unspecified presence Qualified Code(s): M06.9 - Rheumatoid arthritis, unspecified (5) Cardiogenic shock Current Visit: Yes Status: Acute (6) Acute renal failure Current Visit: Yes Status: Acute (7) UTI (urinary tract infection) Current Visit: Yes Status: Acute Brief History of Present Illness: Ms. Hill is a 70 yo F with HTN, anemia and RA who presents with one day of SOB and BALLARD. She says this morning she was drinking a milkshake when it was suddenly difficult for her to talk. She reports wheezing. Also noted some chest pain which she describes as muscular pain which was relieved with Vicks vapor rub. She went to go lay down but had another episode of SOB so told her son to bring her to the ED. She reports fatigue, orthopnea and PND for the past week. Denies edema. CXR shows pulmonary edema. BNP 5430. Hospital Course: Patient with newly diagnosed systolic heart failure. EF 26% by echocardiogram. Troponin trended negative. Patient treated with IV Lasix for pulmonary edema. Repeat chest x-ray showed resolution of the pulmonary edema. She was then placed on low-dose lisinopril and Coreg. She developed hypotension and bradycardia, so the lisinopril and Coreg were held. Patient seen by Dr. Hannah, cardiac catheterization performed which showed normal coronary arteries. Patient noted to have low filling volumes suggesting dehydration. She was initially given albumin infusion for hypotension and later given 250 mL normal saline bolus. She also developed acute renal failure which could be secondary to ATN from hypotension or cardiorenal syndrome. Acute renal failure resolved with IV hydration. Patient seen by nephrology who assisted with management. Lasix was held and patient later placed on Entresto per cardiology recommendation. It appears patient's heart rate was quite sensitive to Coreg. She is bradycardic today and have not been able to reintroduce beta-eliot. She currently appear compensated for CHF. Placed on aspirin. Anemia was stable. Also started on iron replacement for iron deficiency. UA suggested UTI. Patient given a dose of IV Rocephin and discharged with oral Levaquin. Patient was orthostatic. Orthostatic precautions advised. She will follow with Dr. Hannah for further CHF management. Vital Signs/Physical Exam: Temp Pulse Resp BP Pulse Ox 98.4 F 75 17 102/63 98 02/26/21 08:00 02/26/21 08:00 02/26/21 08:00 02/26/21 08:00 02/26/21 08:00 General: Alert, In no apparent distress, Oriented x3 HEENT: Mucous membr. moist/pink Neck: JVD not distended Respiratory: Clear to auscultation bilaterally, Normal air movement Cardiovascular: No edema, Regular rate/rhythm, Normal S1 S2 Gastrointestinal: Normal bowel sounds, Soft and benign, Non-distended, No tenderness Musculoskeletal: No swelling, No erythema Integumentary: No rashes Neurological: Normal strength at 5/5 x4 extr Laboratory Data at Discharge: WBC 6.20 K/uL (4.3-10.9) 02/26/21 04:08 Hgb 10.8 g/dL (12.0-15.0) L 02/26/21 04:08 Hct 33.2 % (36.0-45.0) L 02/26/21 04:08 Plt Count 301 K/uL (152-406) 02/26/21 04:08 PT 12.1 SECONDS (9.5-12.5) 02/21/21 18:23 INR 1.05 02/21/21 18:23 Sodium 136 mmol/L (136-145) 02/26/21 04:08 Potassium 3.7 mmol/L (3.5-5.1) 02/26/21 04:08 BUN 15 mg/dL (7-18) 02/26/21 04:08 Creatinine 0.45 mg/dL (0.55-1.3) L 02/26/21 04:08 Glucose 115 mg/dL (74-106) H 02/26/21 04:08 Uric Acid 5.7 mg/dL (2.6-6.0) 02/25/21 05:26 Phosphorus 2.8 mg/dL (2.5-4.9) 02/26/21 04:08 Magnesium 2.2 mg/dL (1.8-2.4) 02/26/21 04:08 Total Bilirubin 0.5 mg/dL (0.2-1.0) 02/22/21 05:00 AST 25 U/L (15-37) 02/22/21 05:00 ALT 43 U/L (12-78) 02/22/21 05:00 Alkaline Phosphatase 185 U/L (45-117) H 02/22/21 05:00 Troponin I < 0.02 ng/mL (0.0-0.045) 02/24/21 11:20 Triglycerides 98 mg/dL (<150) 02/22/21 05:00 Cholesterol 155 mg/dL (<200) 02/22/21 05:00 HDL Cholesterol 62 mg/dL (40-60) H 02/22/21 05:00 Cholesterol/HDL Ratio 2.50 02/22/21 05:00 Home Medications: Acetaminophen [Tylenol Extra Strength] 500 mg PO PRN PRN 02/22/21 Leflunomide 20 mg PO DAILY 02/22/21 Aspirin [Aspirin EC 81 MG] 81 mg PO DAILY #30 tablet. 02/26/21 Ferrous Sulfate [Ferrous Sulfate*] 325 mg PO BID #60 tab 02/26/21 Sacubitril/Valsartan [Entresto 24 mg-26 mg Tablet] 1 tab PO BID #60 tab 02/26/21 levoFLOXacin [Levaquin] 500 mg PO DAILY #5 tab 02/26/21 New Medications: Aspirin [Aspirin EC 81 MG] 81 mg PO DAILY #30 tablet.[address] Mcdanielitril/Valsartan [Entresto 24 mg-26 mg Tablet] 1 tab PO BID #60 tab Ferrous Sulfate [Ferrous Sulfate*] 325 mg PO BID #60 tab levoFLOXacin [Levaquin] 500 mg PO DAILY #5 tab Diet: AHA Activity: Ad socorro Followup: Gm CABELLOOT [Primary Care Provider] - Christoph Hannah MD [ACTIVE - CAN ADMIT] - 1-2 Weeks Time spent managing pt's care (in minutes): 45
[2021-02-26 17:13] VITALS: O2SAT 96
[2021-02-26 17:32] VITALS: BP 92/54; TEMP 97.5
== END 2021-02-26 17:41 | disposition home or self-care (01) | DRG 286 ==
LOC: ER 16:14 → ERHOLD 19:39 → 2ND 02-22 17:23
PROVIDERS: ADMIT Internal Medicine; ATTEND Internal Medicine
PROC: 4A023N8 Measurement of Cardiac Sampling and Pressure, Bilateral, Percutaneous Approach (ICD-10-PCS; principal; 2021-02-25)
PROC: B201YZZ Plain Radiography of Multiple Coronary Arteries using Other Contrast (ICD-10-PCS; 2021-02-25)
PROC: B206YZZ Plain Radiography of Right and Left Heart using Other Contrast (ICD-10-PCS; 2021-02-25)
DX: I11.0 Hypertensive heart disease with heart failure (principal); I50.21 Acute systolic (congestive) heart failure; N17.0 Acute kidney failure with tubular necrosis; R57.0 Cardiogenic shock; N39.0 Urinary tract infection, site not specified; D50.9 Iron deficiency anemia, unspecified; M06.9 Rheumatoid arthritis, unspecified; I42.8 Other cardiomyopathies; E87.6 Hypokalemia; Z20.822 Contact with and (suspected) exposure to COVID-19
CPT/HCPCS: 36415; 51702; 71045; 76770; 80048; 80053; 80061; 80069; 80076; 81003; 81015; 82550; 82570; 82728; 83036; 83540; 83735; 83880; 84100; 84156; 84439; 84443; 84466; 84484; 84550; 85025; 85610; 86038; 87077; 87086; 87088; 87186; 93005; 93306; 93460; 94760; 96374; 97116; 97161; 97530; 99285; C1893; J0696; J1644; J1650; J1940; J2250; J2405; J7030; J7040; P9045; U0003

== ENCOUNTER 2024-01-26 13:21 | Inpatient (IN) | payer OTHER ==
--- OUTSIDE RECORDS SUMMARY | 2024-01-26 13:24 | XMS REPORT | Clinical Summary ---
Author Name Unknown Organization [facility] Address [address] [place] [address] Care Team Providers Care Cartridge Belt Puncher Name Role Phone Xiomara Cardenas MD Primary Care Provider + [phone] Alexus Guerrero MD Unavailable [place] vailable Alexus Guerrero MD Unavailable [place] vailable Allergies Active Allergy Reactions Criticality Noted Date Comments Codeine GI Intolerance 01/17/2017 vomiting Medications Medication Sig Dispensed Refills Start Date End Date Status leflunomide (ARAVA) 20 mg tablet Take 20 mg by mouth daily. Active metoprolol tartrate (LOPRESSOR) 50 mg tablet Take 50 mg by mouth daily. Active acetaminophen (TYLENOL) 325 mg tablet Take 325 mg by mouth as needed for mild pain. Active Active Problems Problem Noted Date Diagnosed Date Mild cervical dysplasia 01/17/2017 Atypical squamous cells malaika ot exclude high grade squamous intraepithelial lesion on cytologic smear of vagina (ASC-H) 01/17/2017 Rheumatoid arthritis 01/17/2017 Personal history of immunosuppression therapy Surgical History Surgery Date Site/Laterality Comments KNEE DEBRIDEMENT Bilateral 2016 TOTAL KNEE ARTHROPLASTY 06/04/2016 - 07/04/2016 Left WRIST SURGERY 06/04/2006 - 06/03/2007 Left ROBOTIC ASSISTED CHOLYCYSTECTOMY 06/04/2006 - 06/03/2007 BACK SURGERY 06/04/1993 - 06/03/1994 Medical History Medical History Date Comments Hypertension Arthritis Family History Medical History Relation Name Comments -Breast cancer Mother Dx age 55 -Breast cancer Sister Dx age 53 Alzheimer's disease Sister Relation Name Status Comments Mother Sister Social History Tobacco Use Types Packs/Day Years Used Date Smoking Tobacco: Never Smokeless Tobacco: Never Alcohol Use Standard Drinks/Week Comments No 0 (1 standard drink = 0.6 oz pur e alcohol) Sex and Gender Information Value Date Recorded Sex Assigned at Not on file Gender Identity Not on file Sexual Orientation Not on file Obstetrics History Para Term AB IAB SAB Ectopic Multiple Livin g Live Births 4 4 4 4 Date Outcome GA Total Labor Labor/2nd/3rd Weight Sex Type Anes PTL Astrid A1 A5 Name Clin Term Term Term Term Plan of Treatment Health Maintenance Due Date Last Done Comments Pneumococcal Vaccine: 65+ Years (1 of 1 - PCV) 018 COVID-19 Vaccine ( season) 2023 Influenza Vaccine 02/03/2024 Care Teams Cartridge Belt Puncher Relationship Specialty Start Date End Date Xiomara Cardenas MD [email or web address] PCP - General Gynecologic Medical Oncology 12/22/16 Alexus Guerrero MD PCP - External Referring Obstetrics/Gynecology 12/22/16 Alexus Guerrero MD RUSTY - C[facility]ri[facility] Obstetrics/Gynecology 12/22/16
[2024-01-26] MEDS ORDERED: FUROSEMIDE 20 MG/ 2ML VIAL ONE (13:53)
[2024-01-26 14:18] LABS: Absolute Eosinophils 0.2 K/uL (0-0.5); Absolute Lymphocytes (CBC) 1.7 K/uL (0.7-4.9); Absolute Monocytes 0.3 K/uL (0.1-1.3); Absolute Neutrophil 3.9 K/uL (1.8-8.0); Basophils % 0.3 % (0-1.3); Eosinophils % 3.3 % (0-4.4); Hematocrit 33.5 % (36.0-45.0); Hemoglobin 10.7 g/dL (12.0-15.0); Lymphocytes % 28.1 % (15.3-44.8); MCH 27.9 pg (27.0-35.0); MCV 87.2 fL (80-100); MPV 9.7 fL (7.6-11.3); Neutrophils % 63.3 % (41.7-73.7); Platelets 241 thou/uL (152-406); RBC Red Blood Cell Count 3.84 M/uL (3.86-4.86); Red Cell Distribution Width 19.2 % (12.1-15.2)
[2024-01-26 14:31] LABS: SARS-CoV-2 Antigen CONTROL BLUE LINE VIS/BG OK; SARS-CoV-2 Antigen Rapid Res Negative (Negative)
[2024-01-26 14:32] LABS: PT Prothrombin Time 11.3 SECONDS (9.4-12.5); Protime INR 1.01
[2024-01-26 14:36] LABS: Albumin 3.7 g/dL (3.4-5.0); Albumin/Globulin Ratio 0.8 (1.1-1.8); Anion Gap 11.4 mEq/L (5.0-15.0); Bilirubin Direct 0.2 mg/dL (0-0.2); Bilirubin Indirect, Calculated 0.3 mg/dL (0.2-0.8); Bilirubin Total 0.5 mg/dL (0.2-1.0); Globulin 4.7 g/dL (2.3-3.5); Magnesium 2.1 mg/dL (1.6-2.4); Potassium 4.4 mEq/L (3.5-5.1); Protein, Total 8.4 g/dL (6.4-8.2); Troponin High Sensitivity 23.4 pg/mL (<58.9)
--- NOTE | 2024-01-26 15:44 | RAD REPORT ---
EXAM DESCRIPTION: RAD - Chest Single View - 01/26/2024 3:01 pm CLINICAL HISTORY: CHEST PAIN Chest pain. COMPARISON: Chest Single View dated 02/23/2021; Chest Single View dated 02/21/2021 FINDINGS: Portable technique limits examination quality. Moderate pulmonary edema is seen. The heart is moderately enlarged in size. No displaced fractures. IMPRESSION: Moderate CHF pattern.
--- NOTE | 2024-01-26 16:10 | EDPHYS ---
Physician Documentation [facility] Name: Yokasta Hill Age: 73 yrs Sex: Female : 1950 Arrival Date: 01/26/2024 Time: 13:21 Bed 14 Private MD: ED Physician Thaddeus Mary HPI: 01/25 13:50 This 73 yrs old Female presents to ER via Wheelchair with complaints of cp Shortness Of Breath, Chest Pain. 13:50 The patient has shortness of breath at rest. Onset: The symptoms/episode began/occurred cp gradually, and became worse today. Duration: The symptoms are continuous, and are steadily getting worse. The patient's shortness of breath is aggravated by light activity. Associated signs and symptoms: Pertinent positives: chest pain, productive cough, fever, Pertinent negatives: diaphoresis, vomiting, diarrhea. Severity of symptoms: in the emergency department the symptoms are unchanged despite home interventions. Historical: - Allergies: 13:24 Codeine; ll1 13:24 Fentanyl; ll1 13:24 Ultram; ll1 - PMHx: 13:24 Anemia; Hypertensive disorder; Rheumatoid Arthritis; ll1 - PSHx: 13:24 Bilateral hips; bilateral knees; Cholecystectomy; ll1 - Immunization history:: Adult Immunizations up to date. - Infectious Disease History:: Denies. - Social history:: Smoking status: Patient denies any tobacco usage or history of. ROS: 13:55 Constitutional: Positive for fever, Negative for body aches, chills, cp 13:55 Eyes: Negative for injury, pain, redness, and discharge, cp 13:55 ENT: Negative for drainage from ear(s), ear pain, difficulty swallowing, difficulty handling secretions, 13:55 Cardiovascular: Positive for chest pain, edema, palpitations, 13:55 Respiratory: Positive for cough, with white sputum, shortness of breath, at rest. 13:55 Abdomen/GI: Negative for abdominal pain, vomiting, diarrhea, constipation, 13:55 Neuro: Positive for weakness, Negative for altered mental status, dizziness, headache, syncope, 13:55 All other systems are negative, Exam: 14:00 Constitutional: The patient appears in no acute distress, alert, awake, cp non-diaphoretic, non-toxic, well developed, well nourished, uncomfortable, 14:00 Head/Face: Normocephalic, atraumatic. cp 14:00 Eyes: Periorbital structures: appear normal, Conjunctiva: normal, no exudate, no injection, Sclera: no appreciated abnormality, Lids and lashes: appear normal, bilaterally, 14:00 ENT: External ear(s): are unremarkable, Nose: is normal, Mouth: Lips: moist, Oral mucosa: pink and intact, moist, Posterior pharynx: Airway: no evidence of obstruction, patent, 14:00 Neck: ROM/movement: is normal, is supple, without pain, no range of motions limitations, 14:00 Chest/axilla: Inspection: normal, Palpation: is normal, no crepitus, no tenderness, 14:00 Cardiovascular: Rate: tachycardic, Rhythm: regular, Edema: ankle edema, that is mild, JVD: is not appreciated, 14:00 Respiratory: mild respiratory distress is noted, Respirations: labored breathing, that is mild, Breath sounds: rales, that are moderate, are heard in the right posterior middle lobe and right posterior lower lobe, decreased breath sounds, that are mild, throughout, stridor, is not appreciated, 14:00 Abdomen/GI: Inspection: abdomen appears normal, Palpation: abdomen is soft and non-tender, in all quadrants, 14:00 Back: pain, is absent, ROM is normal, 14:00 Neuro: Orientation: to person, place \T\ time. Mentation: is normal, Motor: moves all fours, no focal deficits, Vital Signs: 13:39 BP 148 / 90; Pulse 121; Resp 32; Temp 97.9; Pulse Ox 95% on 3 lpm NC; Weight 71.21 kg cm10 (M); Height 5 ft. 7 in. ; 14:00 BP 129 / 79; Pulse 111; Resp 22; Pulse Ox 100% on 3 lpm NC; cm10 14:30 BP 129 / 80; Pulse 108; Resp 22; Pulse Ox 100% on 3 lpm NC; cm10 15:00 BP 128 / 75; Pulse 103; Resp 25; Pulse Ox 100% on 3 lpm NC; cm10 15:30 BP 121 / 78; Pulse 104; Resp 25; Pulse Ox 96% on 3 lpm NC; cm10 17:22 BP 110 / 65; Pulse 87; Resp 15; Pulse Ox 97% on R/A; cm10 13:39 Body Mass Index 24.59 (71.21 kg, 170.18 cm) cm10 MDM: 13:27 Patient medically screened. 16:10 Data reviewed: vital signs, nurses notes, lab test result(s), EKG, radiologic studies, cp CT scan, plain films, and as a result, I will admit patient. 16:10 Consideration of Admission/Observation Patient was admitted/placed on observation. cp Management of patient was discussed with the following: Hospitalist: DR Garland will admit after discussion. 01/25 13:47 Order name: Basic Metabolic Panel; Complete Time: 15:48 cp 01/25 15:48 Interpretation: Normal except: NA 133; GLUC 150; GFR 67. cp 01/25 13:47 Order name: CBC with Diff; Complete Time: 15:48 cp 01/25 15:49 Interpretation: Normal except: RBC 3.84; HGB 10.7; HCT 33.5; RDW 19.2. 01/25 13:47 Order name: LFT's; Complete Time: 15:48 cp 01/25 13:47 Order name: Magnesium; Complete Time: 15:48 cp 01/25 13:47 Order name: NT PRO-BNP; Complete Time: 15:48 cp 01/25 15:49 Interpretation: Reviewed. 01/25 13:47 Order name: PT-INR; Complete Time: 15:48 cp 01/25 13:47 Order name: Troponin HS; Complete Time: 15:48 cp 01/25 13:47 Order name: Influenza Screen (a \T\ B); Complete Time: 15:48 cp 01/25 13:47 Order name: SARS RAPID; Complete Time: 15:48 cp 01/25 13:47 Order name: Lactate w/ 2H reflex if indic.; Complete Time: 15:48 cp 01/25 13:47 Order name: Blood Culture Adult (2) cp 01/25 13:47 Order name: Urinalysis w/ reflexes cp 01/25 17:08 Order name: CBC with Automated Diff EDMS 01/25 17:08 Order name: CBC with Automated Diff EDMS 01/25 17:08 Order name: Comprehensive Metabolic Panel EDMS 01/25 17:08 Order name: Comprehensive Metabolic Panel EDMS 01/25 17:08 Order name: Magnesium EDMS 01/25 17:08 Order name: Magnesium [facility] 01/25 17:08 Order name: NT PRO-BNP [facility] 01/25 17:08 Order name: NT PRO-BNP [facility] 01/25 17:08 Order name: Troponin High Sensitivity [facility] 01/25 17:08 Order name: Troponin High Sensitivity [facility] 01/25 17:09 Order name: Troponin High Sensitivity [facility] 01/25 13:47 Order name: XRAY Chest (1 view); Complete Time: 15:48 cp 01/25 16:01 Order name: CT Chest For PE Angio cp 01/25 17:08 Order name: Echo with Doppler [facility] 01/25 13:47 Order name: Cardiac monitoring; Complete Time: 13:47 cp 01/25 13:47 Order name: EKG - Nurse/Tech; Complete Time: 13:47 cp 01/25 13:47 Order name: IV Saline Lock; Complete Time: 14:03 cp 01/25 13:47 Order name: Labs collected and sent; Complete Time: 14:03 cp 01/25 13:47 Order name: O2 Per Protocol; Complete Time: 13:47 cp 01/25 13:47 Order name: O2 Sat Monitoring; Complete Time: 13:47 cp Administered Medications: 14:03 Drug: Furosemide IVP 20 mg IVP once; give over 2 minutes Route: IVP; Site: right cm10 antecubital; 14:17 Follow up: Response: No adverse reaction; Marked relief of symptoms cm10 Disposition Summary: 01/26/24 16:09 Hospitalization Ordered Notes: Hospitalization Status: Inpatient Admission cp Provider: Gabrielle Garland cp [facility] cp Condition: Fair cp Problem: an acute exacerbation cp Symptoms: have improved cp Bed/Room Type: Standard cp Room Assignment: 406(01/26/24 17:15) eb Diagnosis - Unspecified combined systolic (congestive) and diastolic (congestive) heart failure cp - Chest pain, unspecified cp - Hypoxemia cp Forms: - Medication Reconciliation Form cp - SBAR form cp - Leadership Thank You Letter cp Addendum: 02/06/2024 04:47 Co-signature as Attending Physician, Thaddeus Mary MD I agree with the assessment and c vernon plan of care. Signatures: Dispatcher [employer] Thaddeus Hawk MD MD cha Page, Corey, PA PA cp Botello, Elizabeth eb Felix, Lynsay, RN RN ll1 Caitlyn Welch RN RN cm10 Corrections: (The following items were deleted from the chart) 01/25 13:48 13:47 BASIC METABOLIC PANEL+C.LAB.BRZ ordered. EDMS EDMS 13:48 13:47 CBC+H.LAB.BRZ ordered. EDMS EDMS 13:48 13:47 HEPATIC FUNCTION+C.LAB.BRZ ordered. EDMS EDMS 13:48 13:47 MAGNESIUM+C.LAB.BRZ ordered. EDMS EDMS 13:48 13:47 PROBNP+C.LAB.BRZ ordered. EDMS EDMS 13:48 13:47 PROTIME (+INR)+COAG.LAB.BRZ ordered. EDMS EDMS 13:48 13:47 Troponin High Sensitivity+C.LAB.BRZ ordered. EDMS EDMS 13:48 13:47 Influenza Screen (A \T\ B)+BA.LAB.BRZ ordered. EDMS EDMS 13:48 13:47 SARS-COV-2 Antigen Rapid+I.LAB.BRZ ordered. EDMS EDMS 13:48 13:47 LACTATE+C.LAB.BRZ ordered. EDMS EDMS 13:48 13:47 BLOOD CULTURE*+BA.LAB.BRZ ordered. EDMS EDMS 13:48 13:47 Urinalysis+U.LAB.BRZ ordered. EDMS EDMS 16:01 16:01 Chest For PE Angio+CT.RAD.BRZ ordered. EDMS EDMS 17:15 16:09 marah sullivan
--- NOTE | 2024-01-26 16:10 | ER ---
Nurse's Notes [facility] Name: Yokasta Hill Age: 73 yrs Sex: Female : 1950 Arrival Date: 01/26/2024 Time: 13:21 Bed 14 Private MD: Diagnosis: Unspecified combined systolic (congestive) and diastolic (congestive) heart failure;Chest pain, unspecified;Hypoxemia Presentation: 01/25 13:39 Chief complaint: Patient states: Shortness of breath onset 2 hours [employer]. Pt's son cm10 reports giving patient lasix with no relief. Coronavirus screen: Client denies travel out of the [place] in the last 14 days. Ebola Screen: Patient denies travel to an Ebola-affected area in the 21 days before illness onset. No symptoms or risks identified at this time. Initial Sepsis Screen: Does the patient meet any 2 criteria? RR > 20 per min. HR > 90 bpm. Does the patient have a suspected source of infection? No. Patient's initial sepsis screen is negative. Risk Assessment: Do you want to hurt yourself or someone else? Patient reports no desire to harm self or others. Onset of symptoms was January 26, 2024. 13:39 Method Of Arrival: Wheelchair cm10 13:39 Acuity: ROBERTO 2 cm10 Triage Assessment: 13:40 General: Appears in no apparent distress. uncomfortable, Behavior is calm, appropriate cm10 for age. Neuro: No deficits noted. Level of Consciousness is awake, alert, obeys commands, Oriented to person, place, time, situation, Appropriate for age. Cardiovascular: Reports chest pain, shortness of breath, Rhythm is sinus tachycardia. Respiratory: Reports shortness of breath at rest Breath sounds are clear bilaterally. Onset: The symptoms/episode began/occurred today, the patient has moderate shortness of breath. 13:40 Respiratory: Airway is patent Respiratory effort is labored, Respiratory pattern is cm10 tachypnea. 18:03 Pain: Denies pain. cm10 Historical: - Allergies: 13:24 Codeine; ll1 13:24 Fentanyl; ll1 13:24 Ultram; ll1 - PMHx: 13:24 Anemia; Hypertensive disorder; Rheumatoid Arthritis; ll1 - PSHx: 13:24 Bilateral hips; bilateral knees; Cholecystectomy; ll1 - Immunization history:: Adult Immunizations up to date. - Infectious Disease History:: Denies. - Social history:: Smoking status: Patient denies any tobacco usage or history of. Screenin:41 [facility] ED Fall Risk Assessment (Adult) History of falling in the last 3 months, cm10 including since admission No falls in past 3 months (0 pts) Confusion or Disorientation No (0 pts) Intoxicated or Sedated No (0 pts) Impaired Gait Yes (1 pt) Mobility Assist Device Used Yes (1 pt) Altered Elimination No (0 pt) Score/Fall Risk Level 0 - 2 = Low Risk Oriented to surroundings, Maintained a safe environment, Hourly rounding (assess needs \T\ fall precautionary measures) done. Abuse screen: Denies threats or abuse. Denies injuries from another. Nutritional screening: No deficits noted. Tuberculosis screening: No symptoms or risk factors identified. Assessment: 14:17 Reassessment: No changes from previously documented assessment. Patient and/or family cm10 updated on plan of care and expected duration. Pain level reassessed. Pt reports that her shortness of breath has improved after receiving Lasix IV. 15:41 Reassessment: Pt taken off of NC at this time. Pt's O2 sat 94-96% on RA. cm10 17:22 Reassessment: Patient appears in no apparent distress at this time. No changes from cm10 previously documented assessment. Patient and/or family updated on plan of care and expected duration. Pain level reassessed. Patient states feeling better. Patient states symptoms have improved. Vital Signs: 13:39 BP 148 / 90; Pulse 121; Resp 32; Temp 97.9; Pulse Ox 95% on 3 lpm NC; Weight 71.21 kg cm10 (M); Height 5 ft. 7 in. ; 14:00 BP 129 / 79; Pulse 111; Resp 22; Pulse Ox 100% on 3 lpm NC; cm10 14:30 BP 129 / 80; Pulse 108; Resp 22; Pulse Ox 100% on 3 lpm NC; cm10 15:00 BP 128 / 75; Pulse 103; Resp 25; Pulse Ox 100% on 3 lpm NC; cm10 15:30 BP 121 / 78; Pulse 104; Resp 25; Pulse Ox 96% on 3 lpm NC; cm10 17:22 BP 110 / 65; Pulse 87; Resp 15; Pulse Ox 97% on R/A; cm10 13:39 Body Mass Index 24.59 (71.21 kg, 170.18 cm) cm10 ED Course: 13:23 Patient arrived in ED. ra3 13:24 Arm band placed on Patient placed in an exam room, on a stretcher. ll1 13:25 Caitlyn Welch, RN is Primary Nurse. cm10 13:26 Thaddeus Green PA is PHCP. cp 13:26 Thaddeus Mary MD is Attending Physician. cp 13:30 Oxygen administration via nasal cannula \T\ 3L/min Response to oxygen therapy: symptoms cm10 improved. 13:40 Triage completed. cm10 13:41 Patient has correct armband on for positive identification. Placed in gown. Bed in low cm10 position. Call light in reach. Side rails up X2. Provided Education on: ER process and procedures.. Client placed on continuous cardiac and pulse oximetry monitoring. NIBP monitoring applied. ekg monitor on. 13:41 Inserted saline lock: 20 gauge in right antecubital area, using aseptic technique. cm10 Blood collected. Flushed with 10 mL NS. 13:41 Initial lab(s) drawn, by me, sent to lab. First set of blood cultures drawn. cm10 13:48 EKG done, by ED staff, reviewed by Thaddeus ANDRADE. oh1 14:03 Lactate w/ 2H reflex if indic. Sent. cm10 14:03 SARS RAPID Sent. cm10 14:03 Influenza Screen (a \T\ B) Sent. cm10 14:03 Basic Metabolic Panel Sent. cm10 14:03 CBC with Diff Sent. cm10 14:03 LFT's Sent. cm10 14:03 Troponin HS Sent. cm10 14:03 PT-INR Sent. cm10 14:03 NT PRO-BNP Sent. cm10 14:03 Magnesium Sent. cm10 14:03 COVID swab sent to lab. Flu and/or RSV swab sent to lab. cm10 14:16 Warm blanket given. Cleaned of incontinence. Linen changed. Purewick placed. cm10 15:03 XRAY Chest (1 view) In Process Unspecified. EDMS 16:05 Second set of blood cultures drawn by me. cm10 16:08 Gabrielle Garland MD is Hospitalizing Provider. cp 16:30 CT Chest For PE Angio In Process Unspecified. EDMS 17:27 Report faxed to 4th floor at [phone]. Marbella confirmed fax was received. cm10 18:02 No provider procedures requiring assistance completed. Patient admitted, IV remains in cm10 place. Administered Medications: 14:03 Drug: Furosemide IVP 20 mg IVP once; give over 2 minutes Route: IVP; Site: right cm10 antecubital; 14:17 Follow up: Response: No adverse reaction; Marked relief of symptoms cm10 Medication: 13:41 VIS not applicable for this client. cm10 Output: 15:28 Urine: 1100ml; Total: 1100ml. cm10 17:03 Urine: 900ml (Voided); Total: 2000ml. cm10 18:02 Urine: 400ml (Voided); Total: 2400ml. cm10 Outcome: 16:09 Decision to Hospitalize by Provider. cp 18:02 Admitted to Tele accompanied by tech, via wheelchair, room 406, cm10 18:03 Condition: good cm10 18:03 Instructed on the need for admit, 18:03 Patient left the ED. cm10 Signatures: Dispatcher [employer] EDMS Thaddeus Green PA PA cp Margie Washington RN RN ll1 Caitlyn Welch RN RN cm10 Darcy Araujo ra3 Eryn Ashford oh1 Corrections: (The following items were deleted from the chart) 14:19 13:40 Cardiovascular: Reports chest pain, shortness of breath, Rhythm is sinus cm10 tachycardia cm10
--- NOTE | 2024-01-26 16:36 | RAD REPORT ---
EXAM DESCRIPTION: CT - Chest For Pe Angio - 01/26/2024 4:28 pm CLINICAL HISTORY: Chest pain. SOB COMPARISON: <Comparisons> TECHNIQUE: CT angiogram of the pulmonary arteries was performed with MIP. All CT scans are performed using dose optimization technique as appropriate and may include automated exposure control or mA/KV adjustment according to patient size. FINDINGS: No evidence of pulmonary thromboembolism. No acute aortic finding demonstrated. Mild pulmonary edema suspected. Trace bilateral pleural effusions. No concerning bony finding. IMPRESSION: No evidence of pulmonary thromboembolism. Mild CHF versus volume overload pattern.
[2024-01-26] MEDS ORDERED: ONDANSETRON 4 MG/2 ML VIAL IV PRN (16:57)
[2024-01-26] MEDS: FUROSEMIDE 40 MG/4 ML VIAL IV SCH (17:00)
[2024-01-26] MEDS: ACETAMINOPHEN 500 MG TAB PO PRN (19:04)
[2024-01-26 20:40] VITALS: BMI 24.5
[2024-01-26] MEDS: POTASSIUM 25 MEQ EFFERV TAB PO SCH (21:00)
[2024-01-26] MEDS ORDERED: PANTOPRAZOLE SODIUM 20 MG PO PRN (23:56)
[2024-01-26] MEDS ORDERED: [UNRECOGNIZED DRUG - REMARK] OPTH PRN (23:56)
[2024-01-26] MEDS ORDERED: CELECOXIB 100 MG CAPSULE PO PRN (23:56)
[2024-01-27] MEDS: GUAIFENESIN/DM 5 ML UCUP PO PRN (03:44)
[2024-01-27 03:50] LABS: Sqamous Epithelial <5 /HPF (None Seen); Urine Bacteria None Seen /HPF (<20); Urine Bilirubin NEGATIVE (Negative); Urine Blood Negative (Negative); Urine Clarity Clear (Clear); Urine Color Light-Yellow (Yellow); Urine Culture Reflex Order NOT NEEDED; Urine Glucose NEGATIVE (Negative); Urine Ketones NEGATIVE (Negative); Urine Microscopic Reflex YN ORDER UMIC; Urine Nitrite NEGATIVE (Negative); Urine Protein TRACE (Negative); Urine RBC <5 /HPF (None Seen); Urine Urobilinogen Normal (Normal); Urine WBC <5 /HPF (<5); Urine pH 5.5 (5.0-7.0)
[2024-01-27 04:01] LABS: Specific Gravity > 1.030 (1.005-1.030)
[2024-01-27 08:02] LABS: Absolute Eosinophils 0.2 K/uL (0-0.5); Absolute Lymphocytes (CBC) 1.7 K/uL (0.7-4.9); Absolute Monocytes 0.4 K/uL (0.1-1.3); Absolute Neutrophil 3.4 K/uL (1.8-8.0); Basophils % 0.4 % (0-1.3); Eosinophils % 3.4 % (0-4.4); Hematocrit 30.2 % (36.0-45.0); Hemoglobin 9.8 g/dL (12.0-15.0); MCH 28.1 pg (27.0-35.0); MCHC 32.4 g/dL (32.0-36.0); MCV 86.8 fL (80-100); MPV 9.5 fL (7.6-11.3); Monocytes % 7.3 % (3.3-12.3); Neutrophils % 58.9 % (41.7-73.7); Platelets 222 thou/uL (152-406); RBC Red Blood Cell Count 3.48 M/uL (3.86-4.86); Red Cell Distribution Width 19.4 % (12.1-15.2)
[2024-01-27] MEDS: FERROUS SULFATE 325 MG TAB PO SCH (08:27)
[2024-01-27] MEDS: ATORVASTATIN 80 MG TAB PO SCH (08:27)
[2024-01-27] MEDS: CLOPIDOGREL 75 MG TABLET PO SCH (08:27)
[2024-01-27] MEDS: ENOXAPARIN 40 MG/0.4 ML SQ SCH (08:28)
[2024-01-27] MEDS: ASPIRIN 81 MG CHEWABLE TABLET PO SCH (08:28)
[2024-01-27] MEDS: VALSARTAN 80 MG TAB PO SCH (08:28)
[2024-01-27] MEDS: LEFLUNOMIDE 20 MG PO SCH (08:28)
[2024-01-27 08:30] LABS: Albumin 3.5 g/dL (3.4-5.0); Albumin/Globulin Ratio 0.8 (1.1-1.8); Anion Gap 11.5 mEq/L (5.0-15.0); Bilirubin Total 0.5 mg/dL (0.2-1.0); Globulin 4.4 g/dL (2.3-3.5); Potassium 3.5 mEq/L (3.5-5.1); Protein, Total 7.9 g/dL (6.4-8.2)
[2024-01-27] MEDS: POTASSIUM CL SA 10 MEQ TAB PO ONE (08:47)
[2024-01-27] MEDS ORDERED: ASPIRIN EC 81 MG TAB PO SCH (09:00)
[2024-01-27] MEDS: METHYLPREDNISOLONE 40 MG INJ IV ONE (10:44)
[2024-01-27] MEDS: MIDODRINE HCL 5 MG TABLET PO ONE (11:18)
[2024-01-27] MEDS: MIDODRINE HCL 5 MG TABLET PO SCH (14:00)
[2024-01-27] MEDS: SPIRONOLACTONE 25 MG TABLET PO SCH (20:14)
[2024-01-27] MEDS: BENZONATATE 100 MG CAP PO PRN (22:22)
--- NOTE | 2024-01-27 22:43 | P.HP ---
Certification for Inpatient Patient admitted to: Inpatient With expected LOS: >2 Midnights Patient will require the following post-hospital care: Home Health Services Practitioner: I am a practitioner with admitting privileges, knowledge of patient current condition, hospital course, and medical plan of care. Services: Services provided to patient in accordance with Admission requirements found in Title 42 Section 412.3 of the Code of Federal Regulations Patient History Date of Service: 01/26/24 Reason for admission: Acute CHF exacerbation, systolic dysfunction History of Present Illness: Patient is a 73-year-old female who presents to the hospital with shortness of breath. Patient has been feeling short of breath for the last couple of days an d patient was seen by PCP and chest x-ray revealed pulmonary edema so patient was sent into the emergency room. In the ER patient was slightly hypoxic and was given IV diuretics. Patient's respiratory status has improved. Patient has a history of coronary artery disease with prior stent placement as well as mitral valve regurgitation. Patient also had an echocardiogram which revealed an ejection fraction of 25%. ADY was also performed which revealed patient's degree of mitral regurgitation. Patient has been on medication for cardiomyopathy, and patient has also been advised to get mitral clip. Patient has an appointment with her fruit and vegetable classer on Sunday. At this time, patient will be admitted to the hospital for acute CHF exacerbation, systolic dysfunction with severe mitral regurgitation. Patient will be admitted for inpatient hospitalization. Allergies adhesive tape Allergy (Verified 01/26/24 21:19) Rash Sulfa (Sulfonamide Antibiotics) Allergy (Verified 01/26/24 21:19) Rash dextromethorphan Adverse Reaction (Intermediate, Verified 01/27/24 09:20) Nausea/Vomiting codeine Adverse Reaction (Verified 01/26/24 21:19) Rash egg Adverse Reaction (Verified 01/26/24 21:19) Nausea/Vomiting fentanyl Adverse Reaction (Verified 01/26/24 21:19) Rash hydrocodone Adverse Reaction (Verified 01/26/24 21:19) Nausea/Vomiting sulfasalazine Adverse Reaction (Verified 01/26/24 21:20) caused anemia tramadol [From Ultram] Adverse Reaction (Verified 01/26/24 21:19) Rash Home Medications: Acetaminophen [Tylenol Extra Strength] 500 mg PO Q6HP PRN 01/26/24 Aspirin Chewable [Aspirin Chewable*] 81 mg PO DAILY 01/26/24 Atorvastatin Calcium [Lipitor] 80 mg PO DAILY 01/26/24 Celecoxib [Celebrex*] 100 mg PO Q12HP PRN 01/26/24 Clopidogrel Bisulfate [Plavix*] 75 mg PO DAILY 01/26/24 Ergocalciferol (Vitamin D2) [Vitamin D2] 50,000 unit PO Q7D 01/26/24 Ferrous Sulfate [Ferrous Sulfate*] 325 mg PO DAILY 01/26/24 Leflunomide [Arava] 20 mg PO DAILY 01/26/24 Olopatadine HCl [Eye Allergy Itch Relief] 1 gtt EACH EYE BID PRN 01/26/24 Pantoprazole Sodium [Protonix] 20 mg PO DAILY PRN 01/26/24 Spironolactone [Aldactone*] 25 mg PO BEDTIME 01/26/24 - Past Medical/Surgical History Has patient received pneumonia vaccine in the past: No Diabetic: No -: HTN -: RA -: Anemia of chronic disease -: Cardiomyopathy with an ejection fraction of 25% -: Coronary artery disease -: Mitral regurgitation -: hip surgery -: knee surgery -: back surgery -: wrist surgery -: cholecystectomy -: Cardiac catheterization -: ADY Psychosocial/ Personal History: , two sons - Family History Mother Medical History: Cancer Notes: breast cancer Father Medical History: Lung disease Notes: emphysema - Social History Smoking Status: Never smoker Alcohol use: No CD- Drugs: No Caffeine use: Yes Place of Residence: Home Review of Systems 10-point ROS is otherwise unremarkable Physical Examination - Vital Signs Temperature: 97.8 F Blood Pressure: 115/63 Pulse: 92 Respirations: 17 Pulse Ox (%): 95 - Physical Exam General: Alert, In no apparent distress, Oriented x3 HEENT: Atraumatic, PERRLA, Mucous membr. moist/pink, EOMI, Sclerae nonicteric Neck: Supple, 2+ carotid pulse no bruit, No LAD, Without JVD or thyroid abnormality Respiratory: Diminished, Crackles/rales Cardiovascular: Regular rate/rhythm, Normal S1 S2, Systolic murmur Gastrointestinal: Normal bowel sounds, Soft and benign, Non-distended, No tenderness Musculoskeletal: No clubbing, No swelling, No tenderness Integumentary: No rashes Neurological: Normal speech, Normal tone, Sensation intact, Cranial nerves 3-12 intact, Normal affect, Abnormal gait, Abnormal strength Lymphatics: No axilla or inguinal lymphadenopathy Assessment & Plan - Problems (Diagnosis) (1) Acute systolic heart failure Current Visit: No Status: Acute (2) Severe mitral regurgitation Current Visit: Yes Status: Acute (3) Anemia Current Visit: No Status: Chronic Qualifiers: Anemia type: iron deficiency Iron deficiency anemia type: unspecified iron deficiency Qualified Code(s): D50.9 - Iron deficiency anemia, unspecified (4) HTN (hypertension) Current Visit: No Status: Chronic Qualifiers: Hypertension type: primary hypertension Qualified Code(s): I10 - Essential (primary) hypertension (5) Rheumatoid arthritis Current Visit: No Status: Chronic Qualifiers: Rheumatoid arthritis location: unspecified site Rheumatoid factor presence: unspecified presence Qualified Code(s): M06.9 - Rheumatoid arthritis, unspecified - Plan PLAN: 1. Echocardiogram has been reviewed; ejection fraction of 25%; continue with diuresing. 2. Repeat chest x-ray. As long as respiratory status is stable anticipate discharge home soon 3. Continue with beta-eliot therapy along with Aldactone 4. Cardiology consultation appreciated; outpatient appointment on Sunday 5. Aggressive diuresis 6. Strict I's and O's 7. Repeat CXR 8. Daily weights 9. Education regarding diet and treatment of congestive heart failure 10. Patient will need outpatient follow-up with cardiology for possible mitral clip placement. Discharge Plan: Home Plan to discharge in: Greater than 2 days - Advance Directives Does patient have a Living Will: Yes Does patient have a Durable POA for Healthcare: No - Code Status/Comfort Care Code Status Assessed: Yes Code Status: Full Code Critical Care: No Time Spent Managing PTS Care (In Minutes): 45
--- NOTE | 2024-01-27 23:00 | P.PN ---
Date of Service: 01/27/24 Subjective Patient clinically doing well with no new complaints. Respiratory status is improved. Requesting wheelchair and outpatient PT. Anticipate discharge in the morning with outpatient cardiology follow-up. Physical Examination - Vital Signs Reviewed - Physical Exam General: Alert, In no apparent distress, Oriented x3 Respiratory: Clear bilaterally Cardiovascular: Regular rate/rhythm, Normal S1 S2, Systolic murmur 3/6 Gastrointestinal: Normal bowel sounds, Soft and benign, Non-distended, No tenderness Musculoskeletal: No clubbing, No swelling, No tenderness Neurological: No focal deficits Assessment & Plan - Problems (Diagnosis) (1) Acute systolic heart failure Current Visit: No Status: Acute (2) Severe mitral regurgitation Current Visit: Yes Status: Acute (3) Anemia Current Visit: No Status: Chronic Anemia type: iron deficiency Iron deficiency anemia type: unspecified iron deficiency Qualified Code(s): D50.9 - Iron deficiency anemia, unspecified (4) HTN (hypertension) Current Visit: No Status: Chronic Hypertension type: primary hypertension Qualified Code(s): I10 - Essential (primary) hypertension (5) Rheumatoid arthritis Current Visit: No Status: Chronic Rheumatoid arthritis location: unspecified site Rheumatoid factor presence: unspecified presence Qualified Code(s): M06.9 - Rheumatoid arthritis, unspecified - Plan Continue with plan of care as mentioned below: 1. Echocardiogram has been reviewed; ejection fraction of 25%; continue with diuresing. Clinically feeling much better. 2. Repeat chest x-ray. As long as respiratory status is stable anticipate discharge home soon 3. Continue with beta-eliot therapy along with Aldactone and Lasix 4. Cardiology consultation appreciated; outpatient appointment on Sunday 5. Continue with diuresing 6. Strict I's and O's 7. Repeat CXR 8. Daily weights 9. Education regarding diet and treatment of congestive heart failure 10. Patient will need outpatient follow-up with cardiology for possible mitral clip placement. Discharge Plan: Home Plan to discharge in: Greater than 2 days - Advance Directives Does patient have a Living Will: Yes Does patient have a Durable POA for Healthcare: No - Code Status/Comfort Care Code Status Assessed: Yes Code Status: Full Code Critical Care: No Time Spent Managing PTS Care (In Minutes): 30
--- NOTE | 2024-01-27 23:09 | P.DS ---
Discharge Date: 01/28/24 Disposition: ROUTINE DISCHARGE Discharge Condition: GOOD Reason for Admission: Acute CHF exacerbation, systolic dysfunction - Problems (1) Acute systolic heart failure Current Visit: No Status: Acute (2) Severe mitral regurgitation Current Visit: Yes Status: Acute (3) Anemia Current Visit: No Status: Chronic Qualifiers: Anemia type: iron deficiency Iron deficiency anemia type: unspecified iron deficiency Qualified Code(s): D50.9 - Iron deficiency anemia, unspecified (4) HTN (hypertension) Current Visit: No Status: Chronic Qualifiers: Hypertension type: primary hypertension Qualified Code(s): I10 - Essential (primary) hypertension (5) Rheumatoid arthritis Current Visit: No Status: Chronic Qualifiers: Rheumatoid arthritis location: unspecified site Rheumatoid factor presence: unspecified presence Qualified Code(s): M06.9 - Rheumatoid arthritis, unspecified Brief History of Present Illness: Patient is a 73-year-old female who presents to the hospital with shortness of breath. Patient has been feeling short of breath for the last couple of days and patient was seen by PCP and chest x-ray revealed pulmonary edema so patient was sent into the emergency room. In the ER patient was slightly hypoxic and was given IV diuretics. Patient's respiratory status has improved. Patient has a history of coronary artery disease with prior stent placement as well as mitral valve regurgitation. Patient also had an echocardiogram which revealed an ejection fraction of 25%. ADY was also performed which revealed patient's degree of mitral regurgitation. Patient has been on medication for cardiomyopathy, and patient has also been advised to get mitral clip. Patient has an appointment with her restaurant operations manager on Sunday. At this time, patient will be admitted to the hospital for acute CHF exacerbation, systolic dysfunction with severe mitral regurgitation. Patient will be admitted for inpatient hospitalization. Hospital Course: Patient is a 73-year-old female with a history of cardiomyopathy with an ej ection fraction of 25% and severe mitral regurgitation who came to the hospital with acute CHF exacerbation related to systolic dysfunction. Patient was diuresed and patient is clinically doing much better. Patient is scheduled for outpatient follow-up with his restaurant operations manager on Sunday for evaluation of a mitral clip. At this time, patient is clinically doing well and compensated from the heart failure. Patient will discharge home with outpatient follow-up. Patient will also get home health as an outpatient for her shoulder injury. Vital Signs/Physical Exam: Temp Pulse Resp BP Pulse Ox 97.8 F 92 H 17 115/63 95 01/27/24 22:49 01/27/24 22:49 01/27/24 22:49 01/27/24 22:49 01/27/24 22:49 General: Alert, In no apparent distress, Oriented x3 Laboratory Data at Discharge: WBC 5.80 thou/uL (4.3-10.9) 01/27/24 07:24 Hgb 9.8 g/dL (12.0-15.0) L D 01/27/24 07:24 Hct 30.2 % (36.0-45.0) L 01/27/24 07:24 Plt Count 222 thou/uL (152-406) 01/27/24 07:24 PT 11.3 SECONDS (9.4-12.5) 01/26/24 13:58 INR 1.01 01/26/24 13:58 Sodium 136 mEq/L (136-145) 01/27/24 07:24 Potassium 3.5 mEq/L (3.5-5.1) D 01/27/24 07:24 BUN 22 mg/dL (7-18) H 01/27/24 07:24 Creatinine 0.89 mg/dL (0.55-1.02) 01/27/24 07:24 Glucose 92 mg/dL (74-106) 01/27/24 07:24 Magnesium 2.0 mg/dL (1.6-2.4) 01/27/24 07:24 Total Bilirubin 0.5 mg/dL (0.2-1.0) 01/27/24 07:24 AST 13 U/L (15-37) L 01/27/24 07:24 ALT 20 U/L (13-56) 01/27/24 07:24 Alkaline Phosphatase 109 U/L (45-117) 01/27/24 07:24 Home Medications: Acetaminophen [Tylenol Extra Strength] 500 mg PO Q6HP PRN 01/26/24 Aspirin Chewable [Aspirin Chewable*] 81 mg PO DAILY 01/26/24 Atorvastatin Calcium [Lipitor] 80 mg PO DAILY 01/26/24 Celecoxib [Celebrex*] 100 mg PO Q12HP PRN 01/26/24 Clopidogrel Bisulfate [Plavix*] 75 mg PO DAILY 01/26/24 Ergocalciferol (Vitamin D2) [Vitamin D2] 50,000 unit PO Q7D 01/26/24 Ferrous Sulfate [Ferrous Sulfate*] 325 mg PO DAILY 01/26/24 Leflunomide [Arava] 20 mg PO DAILY 01/26/24 Olopatadine HCl [Eye Allergy Itch Relief] 1 gtt EACH EYE BID PRN 01/26/24 Pantoprazole Sodium [Protonix] 20 mg PO DAILY PRN 01/26/24 Spironolactone [Aldactone*] 25 mg PO BEDTIME 01/26/24 Benzonatate [Tessalon Perle*] 100 mg PO TID PRN #30 cap 01/27/24 Furosemide 40 mg PO BIDL #60 tab 01/27/24 Losartan Potassium 25 mg PO DAILY #30 tab 01/27/24 Midodrine HCl [Proamatine*] 5 mg PO BID #60 tab 01/27/24 Potassium Chloride 10 meq PO DAILY #30 tab 01/27/24 New Medications: Furosemide 40 mg PO BIDL #60 tab Losartan Potassium 25 mg PO DAILY #30 tab Potassium Chloride 10 meq PO DAILY #30 tab Midodrine HCl [Proamatine*] 5 mg PO BID #60 tab Benzonatate [Tessalon Perle*] 100 mg PO TID PRN #30 cap PRN Reason: Cough Physician Discharge Instructions: -DC IV and DC home -Follow-up with PCP in 1 to 2 weeks -Follow-up with Cardiology in 1 to 2 weeks -Please call Dr. Garland at [phone] if any questions regarding hospital stay -Please call nursing station at [phone] if any nursing or medication questions -Return to the emergency room if symptoms worsen Diet: Low sodium Activity: Fall precautions Followup: Shelbi Packer PA [Primary Care Provider] - Time spent managing pt's care (in minutes): 35
[2024-01-28 07:17] LABS: Anion Gap 8.3 mEq/L (5.0-15.0); Potassium 4.3 mEq/L (3.5-5.1)
--- NOTE | 2024-01-28 11:57 | P.DS ---
Discharge Date: 01/28/24 Disposition: ROUTINE DISCHARGE Discharge Condition: GOOD Reason for Admission: Acute CHF exacerbation, systolic dysfunction - Problems (1) Acute systolic heart failure Current Visit: No Status: Acute (2) Severe mitral regurgitation Current Visit: Yes Status: Acute (3) Anemia Current Visit: No Status: Chronic Qualifiers: Anemia type: iron deficiency Iron deficiency anemia type: unspecified iron deficiency Qualified Code(s): D50.9 - Iron deficiency anemia, unspecified (4) HTN (hypertension) Current Visit: No Status: Chronic Qualifiers: Hypertension type: primary hypertension Qualified Code(s): I10 - Essential (primary) hypertension (5) Rheumatoid arthritis Current Visit: No Status: Chronic Qualifiers: Rheumatoid arthritis location: unspecified site Rheumatoid factor presence: unspecified presence Qualified Code(s): M06.9 - Rheumatoid arthritis, unspecified Brief History of Present Illness: Patient is a 73-year-old female who presents to the hospital with shortness of breath. Patient has been feeling short of breath for the last couple of days and patient was seen by PCP and chest x-ray revealed pulmonary edema so patient was sent into the emergency room. In the ER patient was slightly hypoxic and was given IV diuretics. Patient's respiratory status has improved. Patient has a history of coronary artery disease with prior stent placement as well as mitral valve regurgitation. Patient also had an echocardiogram which revealed an ejection fraction of 25%. ADY was also performed which revealed patient's degree of mitral regurgitation. Patient has been on medication for cardiomyopathy, and patient has also been advised to get mitral clip. Patient has an appointment with her hair worker on Sunday. At this time, patient will be admitted to the hospital for acute CHF exacerbation, systolic dysfunction with severe mitral regurgitation. Patient will be admitted for inpatient hospitalization. Hospital Course: Patient is a 73-year-old female with a history of cardiomyopathy with an ej ection fraction of 25% and severe mitral regurgitation who came to the hospital with acute CHF exacerbation related to systolic dysfunction. Patient was diuresed and patient is clinically doing much better. Patient is scheduled for outpatient follow-up with his hair worker on Sunday for evaluation of a mitral clip. At this time, patient is clinically doing well and compensated from the heart failure. Patient will discharge home with outpatient follow-up. Patient will also get home health as an outpatient for her shoulder injury. Vital Signs/Physical Exam: Temp Pulse Resp BP Pulse Ox 97.0 F 81 12 110/68 92 01/28/24 08:00 01/28/24 08:57 01/28/24 08:00 01/28/24 08:57 01/28/24 08:00 General: Alert, In no apparent distress, Oriented x3 Laboratory Data at Discharge: WBC 5.80 thou/uL (4.3-10.9) 01/27/24 07:24 Hgb 9.8 g/dL (12.0-15.0) L D 01/27/24 07:24 Hct 30.2 % (36.0-45.0) L 01/27/24 07:24 Plt Count 222 thou/uL (152-406) 01/27/24 07:24 PT 11.3 SECONDS (9.4-12.5) 01/26/24 13:58 INR 1.01 01/26/24 13:58 Sodium 133 mEq/L (136-145) L 01/28/24 06:15 Potassium 4.3 mEq/L (3.5-5.1) D 01/28/24 06:15 BUN 30 mg/dL (7-18) H 01/28/24 06:15 Creatinine 1.03 mg/dL (0.55-1.02) H 01/28/24 06:15 Glucose 120 mg/dL (74-106) H 01/28/24 06:15 Magnesium 2.0 mg/dL (1.6-2.4) 01/27/24 07:24 Total Bilirubin 0.5 mg/dL (0.2-1.0) 01/27/24 07:24 AST 13 U/L (15-37) L 01/27/24 07:24 ALT 20 U/L (13-56) 01/27/24 07:24 Alkaline Phosphatase 109 U/L (45-117) 01/27/24 07:24 Home Medications: Acetaminophen [Tylenol Extra Strength] 500 mg PO Q6HP PRN 01/26/24 Aspirin Chewable [Aspirin Chewable*] 81 mg PO DAILY 01/26/24 Atorvastatin Calcium [Lipitor] 80 mg PO DAILY 01/26/24 Celecoxib [Celebrex*] 100 mg PO Q12HP PRN 01/26/24 Clopidogrel Bisulfate [Plavix*] 75 mg PO DAILY 01/26/24 Ergocalciferol (Vitamin D2) [Vitamin D2] 50,000 unit PO Q7D 01/26/24 Ferrous Sulfate [Ferrous Sulfate*] 325 mg PO DAILY 01/26/24 Leflunomide [Arava] 20 mg PO DAILY 01/26/24 Olopatadine HCl [Eye Allergy Itch Relief] 1 gtt EACH EYE BID PRN 01/26/24 Pantoprazole Sodium [Protonix] 20 mg PO DAILY PRN 01/26/24 Spironolactone [Aldactone*] 25 mg PO BEDTIME 01/26/24 Benzonatate [Tessalon Perle*] 100 mg PO TID PRN #30 cap 01/27/24 Furosemide 40 mg PO BIDL #60 tab 01/27/24 Losartan Potassium 25 mg PO DAILY #30 tab 01/27/24 Midodrine HCl [Proamatine*] 5 mg PO BID #60 tab 01/27/24 Potassium Chloride 10 meq PO DAILY #30 tab 01/27/24 New Medications: Furosemide 40 mg PO BIDL #60 tab Losartan Potassium 25 mg PO DAILY #30 tab Potassium Chloride 10 meq PO DAILY #30 tab Midodrine HCl [Proamatine*] 5 mg PO BID #60 tab Benzonatate [Tessalon Perle*] 100 mg PO TID PRN #30 cap PRN Reason: Cough Physician Discharge Instructions: -DC IV and DC home -Follow-up with PCP in 1 to 2 weeks -Follow-up with Cardiology in 1 to 2 weeks -Please call Dr. Garland at [phone] if any questions regarding hospital stay -Please call nursing station at [phone] if any nursing or medication questions -Return to the emergency room if symptoms worsen [facility]- [address] [place] [address] Diet: Low sodium Activity: Fall precautions Followup: Shelbi Packer PA [Primary Care Provider] - Time spent managing pt's care (in minutes): 35
[2024-01-28 12:10] VITALS: O2SAT 95
--- NOTE | 2024-01-28 12:40 | EKG ---
Test Date: 2024-01-26 Test Time: 13:34:22 Coating Mixer Supervisor: MINI MEASUREMENT RESULTS: Intervals: Rate: 127 TX: 192 QRSD: 140 QT: 308 QTc: 447 Tucker: P: -15 TX: 192 QRS: -32 T: 124 INTERPRETIVE STATEMENTS: Sinus tachycardia with fusion complexes Left axis deviation Left bundle branch block Abnormal ECG Compared to ECG 02/23/2021 17:46:45 Fusion complex(es) now present Left bundle-branch block now present Sinus rhythm no longer present Left ventricular hypertrophy no longer present Early repolarization no longer present Prolonged QT interval no longer present Electronically Signed On 01-28-24 12:38:59 CDT by Tarun Menjivar
[2024-01-28 14:06] VITALS: BP 106/64; TEMP 97.5
--- NOTE | 2024-01-29 07:08 | ECHO ---
HEIGHT: 5 ft 7 in WEIGHT: 157 lb 0 oz DATE OF STUDY: 01/28/[address]: Gabrielle Garland MD 2-DIMENSIONAL: YES M.MODE: YES DOPPLER: YES COLOR FLOW: YES TDS: PORTABLE: YES DEFINITY: BUBBLE STUDY: DIAGNOSIS: CONGESTIVE HEART FAILURE CARDIAC HISTORY: CATHERIZATION: YES SURGERY: NO PROSTHETIC VALVE: NO PACEMAKER: NO MEASUREMENTS (cm) DIASTOLIC (NORMALS) SYSTOLIC (NORMALS) IVSd 1.2 (0.6-1.2) LA Diam 2.6 (1.9-4.0) LVEF 10-15% LVIDd 4.5 (3.5-5.7) LVIDs 3.8 (2.0-3.5) %FS LVPWd 1.2 (0.6-1.2) Ao Diam 2.7 (2.0-3.7) 2 DIMENSIONAL ASSESSMENT: RIGHT ATRIUM: NORMAL LEFT ATRIUM: MILD DILATED RIGHT VENTRICLE: NORMAL LEFT VENTRICLE: SEVERE DILATED TRICUSPID VALVE: MILD TRICUSPID REGURGITATION MITRAL VALVE: MODERATE MITRAL REGURGITATION PULMONIC VALVE: NORMAL AORTIC VALVE: NORMAL PERICARDIAL EFFUSION: NONE AORTIC ROOT: NORMAL LEFT VENTRICULAR WALL MOTION: SEVERE GLOBAL HYPOKINESIS DOPPLER/COLOR FLOW: GRADE II DIASTOLIC DYSFUNCTION COMMENTS: 1. SEVERE REDUCED LEFT VENTRICULAR SYSTOLIC FUNCTION, EJECTION FRACTION 10-15%, SEVERE GLOBAL HYPOKINESIS 2. GRADE II DIASTOLIC DYSFUNCTION 3. NORMAL FILLING PRESSURE (RIGHT ATRIAL PRESSURE 0-5 mmHg) TECHNOLOGIST: DOUGIE OWEN
== END 2024-01-28 14:00 | disposition home or self-care (01) | DRG 291 ==
LOC: ER 13:21 → ERHOLD 16:57 → 4TH 17:31
PROVIDERS: ADMIT Hospitalist; ATTEND Hospitalist
DX: I11.0 Hypertensive heart disease with heart failure (principal); I50.23 Acute on chronic systolic (congestive) heart failure; D50.9 Iron deficiency anemia, unspecified; I42.9 Cardiomyopathy, unspecified; M06.9 Rheumatoid arthritis, unspecified; I34.0 Nonrheumatic mitral (valve) insufficiency; I25.10 Atherosclerotic heart disease of native coronary artery without angina pectoris; Z88.5 Allergy status to narcotic agent; Z88.2 Allergy status to sulfonamides; Z95.5 Presence of coronary angioplasty implant and graft; Z79.82 Long term (current) use of aspirin; Z11.52 Encounter for screening for COVID-19; Z79.02 Long term (current) use of antithrombotics/antiplatelets; Z90.49 Acquired absence of other specified parts of digestive tract; Z91.012 Allergy to eggs; Z79.899 Other long term (current) drug therapy; Z91.048 Other nonmedicinal substance allergy status
CPT/HCPCS: 36415; 71045; 71275; 80048; 80053; 80076; 81001; 83605; 83735; 83880; 84484; 85025; 85610; 87040; 87804; 87811; 93005; 93306; 96374; 99285; J1650; J1940; J2919; Q9967

== ENCOUNTER 2024-03-07 13:50 | Inpatient (IN) | payer OTHER ==
--- OUTSIDE RECORDS SUMMARY | 2024-03-07 13:54 | XMS REPORT | Clinical Summary ---
Author Name Unknown Organization [facility] [place] Address [address] [place] [address] Care Team Providers Care Material Planner Name Role Phone Xiomara Cardenas MD Primary Care Provider + [phone] Alexus Guerrero MD Unavailable Blossom vailable Alexus [...] 1 - PCV) 018 COVID-19 Vaccine ( - 2023- season) 2024 Influenza Vaccine (#1) 2024 Insurance Payer Benefit Plan / Group Subscriber ID Effective Dates Phone Address Type MEDICARE MEDICARE PART A AND B [id number] 2009-Pres ent [employer] [address] [facility] [id number] Medicare MEDICAID [place] TRADITIONAL MEDICA[place] [facility] STAR PLUS SSI [id number] 2016-Pres ent [address] [place] [address] Medicaid Care Teams Material Planner Relationship Specialty Start Date End Date Xiomara Cardenas MD [email or web address] PCP - General Gynecologic Medical Oncology 12/22/16 Alexus Guerrero MD PCP - External Referring Obstetrics/Gynecology 12/22/16 Alexus Guerrero MD RUSTY - [facility] Obstetrics/Gynecology 12/22/16
[2024-03-07] MEDS ORDERED: NA CHLORIDE 0.9% 250 ML ONE ×2 (14:06→14:07)
[2024-03-07] MEDS ORDERED: ACETAMINOPHEN 500 MG TAB ONE (14:06)
[2024-03-07] MEDS ORDERED: AZITHROMYCIN 500 MG INJ IVPB ONE (14:06)
[2024-03-07] MEDS ORDERED: CEFTRIAXONE 1000 MG/VIAL ONE (14:06)
[2024-03-07 14:25] LABS: Absolute Basophils 0.1 K/uL (0-0.5); Absolute Eosinophils 0.4 K/uL (0-0.5); Absolute Lymphocytes (CBC) 3.8 K/uL (0.7-4.9); Absolute Monocytes 0.7 K/uL (0.1-1.3); Absolute Neutrophil 6.5 K/uL (1.8-8.0); Basophils % 0.7 % (0-1.3); Eosinophils % 3.7 % (0-4.4); Hematocrit 33.2 % (36.0-45.0); Hemoglobin 10.7 g/dL (12.0-15.0); Lymphocytes % 32.7 % (15.3-44.8); MCH 28.3 pg (27.0-35.0); MCHC 32.4 g/dL (32.0-36.0); MCV 87.5 fL (80-100); MPV 9.6 fL (7.6-11.3); Monocytes % 6.3 % (3.3-12.3); Neutrophils % 56.6 % (41.7-73.7); Nucleated Red Blood Cells % 0.2 % (0-0); Platelets 346 thou/uL (152-406); RBC Red Blood Cell Count 3.79 M/uL (3.86-4.86); Red Cell Distribution Width 19.4 % (12.1-15.2)
[2024-03-07 14:32] LABS: PT Prothrombin Time 11.6 SECONDS (9.4-12.5); Protime INR 1.04
--- NOTE | 2024-03-07 14:39 | RAD REPORT ---
EXAMINATION: ONE VIEW CHEST XR CLINICAL INDICATION: DYSPNEA TECHNIQUE: Frontal chest projection is submitted. Examination is limited by patient positioning and t echnique. COMPARISON: 02/18/2024 FINDINGS: Moderate to severe bilateral pulmonary opacities are present suggesting pulmonary edema or pneumonia. The heart is moderately enlarged. Prominent degenerative change in both shoulders. IMPRESSION: Moderate bilateral pulmonary opacities may represent pulmonary edema or pneumonia.
[2024-03-07 14:47] LABS: Albumin 3.7 g/dL (3.4-5.0); Albumin/Globulin Ratio 0.8 (1.1-1.8); Anion Gap 15.7 mEq/L (5.0-15.0); Bilirubin Total 0.4 mg/dL (0.2-1.0); Globulin 4.9 g/dL (2.3-3.5); Protein, Total 8.6 g/dL (6.4-8.2)
[2024-03-07 14:48] LABS: Potassium 4.7 mEq/L (3.5-5.1)
[2024-03-07 14:53] LABS: Blood Gas Oxyhemoglobin 96.8 % (94-97); Blood Gas THB 9.9 g/dl (12-18); Blood O2 Saturation 99.3 % (92-98.5)
[2024-03-07 14:54] LABS: Arterial Blood Carboxyhemoglob 0.7 % (0-1.5)
[2024-03-07 14:55] LABS: Troponin High Sensitivity 24.5 pg/mL (<58.9)
--- NOTE | 2024-03-07 15:19 | ER ---
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 Pt's son states that patient took her lasix today. Coronavirus screen: Client denies travel out of the [place] in the last 14 days. Ebola Screen: No symptoms or risks identified at this time. Initial Sepsis Screen: Does the patient meet any 2 criteria? RR > 20 per min. HR > 90 bpm. Yes Does the patient have a suspected source of infection? No. Patient's initial sepsis screen is negative. Risk Assessment: Do you want to hurt yourself or someone else? Patient reports no desire to harm self or others. Onset of symptoms was March 07, 2024. 14:01 Acuity: ROBERTO 2 cm10 14:01 Method Of Arrival: Wheelchair cm10 Triage Assessment: 14:04 General: Appears distressed. cm10 Historical: - Allergies: 14:03 Codeine; cm10 14:03 Fentanyl; cm10 14:03 Ultram; cm10 14:03 Sulfa (Sulfonamide Antibiotics); cm10 14:03 dextromethorphan; cm10 14:03 EGG DERIVED; cm10 14:03 Sulfasalazine; cm10 - PMHx: 14:03 Anemia; Hypertensive disorder; Rheumatoid Arthritis; cm10 - PSHx: 14:03 Bilateral hips; bilateral knees; Cholecystectomy; cm10 - Immunization history:: Adult Immunizations up to date. - Infectious Disease History:: Denies. - Social history:: Smoking status: Patient denies any tobacco usage or history of. Screenin:23 [facility] ED Fall Risk Assessment (Adult) History of falling in the last 3 months, mb9 including since admission No falls in past 3 months (0 pts) Confusion or Disorientation No (0 pts) Intoxicated or Sedated No (0 pts) Impaired Gait Yes (1 pt) Mobility Assist Device Used No (0 pt) Altered Elimination No (0 pt) Score/Fall Risk Level 3 or more points = High Risk Oriented to surroundings, Maintained a safe environment, Educated pt \T\ family on fall prevention, incl call for assistance when getting out of bed, Assessed \T\ reinforced patient's understanding of fall precautions. Abuse screen: Denies threats or abuse. Nutritional screening: No deficits noted. Tuberculosis screening: No symptoms or risk factors identified. Assessment: 14:00 General: CODE SEPSIS CALLED AT THIS TIME.. cm10 14:39 Respiratory: Patient placed on BiPAP: Inspiratory Pressure: 14 Expiratory (EPAP) mb9 Pressure: 6 FiO2%: 40 Respiratory Rate: 18. 14:39 Pain: Denies pain. Neuro: Cullen Agitation-Sedation Scale (RASS): 0 - Alert and Calm mb9 Level of Consciousness is awake, alert, obeys commands, Oriented to person, place, time, situation, Appropriate for age. Cardiovascular: Heart tones S1 S2 present Patient's skin is warm and dry. Rhythm is sinus tachycardia. Respiratory: Airway is patent Respiratory effort is labored, Respiratory pattern is tachypnea Breath sounds are coarse bilaterally. Respiratory: Reports shortness of breath at rest. GI: Abdomen is round non-distended, Bowel sounds present X 4 quads. Abd is soft and non tender X 4 quads. : No signs and/or symptoms were reported regarding the genitourinary system. EENT: No signs and/or symptoms were reported regarding the EENT system. Derm: Skin is fragile, is thin, Skin is dry, Skin is pale, Skin temperature is cool. Musculoskeletal: Range of motion: intact in all extremities. 15:09 Reassessment: Patient appears in no apparent distress at this time. Patient and/or mb9 family updated on plan of care and expected duration. Pain level reassessed. Patient is alert, oriented x 3, equal unlabored respirations, skin warm/dry/pink. Patient states symptoms have improved. 16:15 Reassessment: Patient appears in no apparent distress at this time. No changes from mb9 previously documented assessment. Patient and/or family updated on plan of care and expected duration. Pain level reassessed. Patient is alert, oriented x 3, equal unlabored respirations, skin warm/dry/pink. Vital Signs: 14:01 BP 161 / 102; Pulse 160; Resp 29; Temp 97.6(O); Pulse Ox 89% on R/A; Weight 69.4 kg; cm10 Height 5 ft. 8 in. ; 14:38 BP 129 / 82; Pulse 122; Resp 24; Pulse Ox 100% on R/A; FiO2 40 %; mb9 15:32 BP 118 / 90; Pulse 111; Resp 20; Pulse Ox 100% ; FiO2 40 %; mb9 15:55 BP 121 / 71; Pulse 99; ec2 16:42 BP 125 / 79; Pulse 108; Resp 20; Temp 98; Pulse Ox 100% ; FiO2 40 %; mb9 14:01 Body Mass Index 23.26 (69.40 kg, 172.72 cm) cm10 ED Course: 13:52 Patient arrived in ED. sj2 13:55 Kelby Marquez MD is Attending Physician. ec2 14:03 Triage completed. cm10 14:04 Arm band placed on Patient placed in an exam room, on a stretcher, on oxygen, on pulse cm10 oximetry. 14:15 ABG Sent. ko1 14:15 Blood Culture Adult (2) Sent. ko1 14:15 CBC with Diff Sent. ko1 14:15 CMP Sent. ko1 14:15 Lactate w/ 2H reflex if indic. Sent. ko1 14:15 Protime (+inr) Sent. ko1 14:15 Ptt, Activated Sent. ko1 14:23 Placed in gown. Bed in low position. Call light in reach. Side rails up X 1. Provided mb9 Education on: press call light if needing anything. Client placed on continuous cardiac and pulse oximetry monitoring. NIBP monitoring applied. 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 14:23 Initial lab(s) drawn, by ny, sent to lab. Inserted saline lock: 18 gauge in left mb9 antecubital area, using aseptic technique. Blood collected. Flushed with 10 mL NS. 14:28 Chest Single View XRAY In Process Unspecified. EDMS 14:30 Lashaun Alvarado, SHERI is Primary Nurse. mb9 14:38 EKG done, by ED staff, reviewed by Kelby Marquez MD. mb9 14:41 No provider procedures requiring assistance completed. mb9 14:43 BiPap ([employer] Only) Sent. ko1 15:19 Gabrielle Garland MD is Hospitalizing Provider. ec2 15:32 Assisted to bathroom. Cleaned of incontinence. pt placed on pur wic. mb9 16:44 Patient admitted, IV remains in place. mb9 Administered Medications: 14:15 Drug: Rocephin IV 1 grams IV at calculated rate once; Given slow IV push per pharmacy ko1 instructions Route: IV; Rate: calculated rate; Site: left antecubital; 14:30 Follow up: Response: No adverse reaction; IV Status: Completed infusion; IV Intake: [id number] 14:15 Drug: NS 0.9% IV 250 ml IV at bolus once Route: IV; Rate: bolus; Site: left antecubital;ko1 14:51 Follow up: Response: No adverse reaction; IV Status: Completed infusion; IV Intake: ko1 250ml 14:45 Drug: AZITHromycin IVPB 500 mg IVPB once over 1 hrs; (mix in 250 mL NS) Route: IVPB; ko1 Infused Over: 1 hrs; Site: left antecubital; 16:45 Follow up: Response: No adverse reaction; IV Status: Completed infusion mb9 15:09 Drug: Acetaminophen PO 1000 mg PO once Route: PO; mb9 15:32 Follow up: Response: No adverse reaction mb9 Medication: 14:23 VIS not applicable for this client. mb9 Intake: 14:30 IV: 10ml; Total: 10ml. ko1 14:51 IV: 250ml; Total: 260ml. ko1 Outcome: 15:19 Decision to Hospitalize by Provider. ec2 16:44 Admitted to ICU accompanied by nurse, accompanied by tech, family with patient, via mb9 stretcher, room 1, Report called to marquis 16:44 Condition: stable 16:44 Instructed on the need for admit, 17:15 Patient left the ED. 9 Signatures: Dispatcher [employer] Georgina Weaver, RN RN ko1 Lashaun Alvarado RN RN mb9 Caitlyn Welch, RN RN cm10 Kelby Marquez MD MD ec2 Georgiana Bridges2 Corrections: (The following items were deleted from the chart) 14:03 14:01 Chief complaint: Patient states: Chest pressure and shortness of breath onset cm10 today. Pt's son states that patient took her lasix today. cm10
--- NOTE | 2024-03-07 15:19 | EDPHYS ---
Physician Documentation [facility] Name: Yokasta Hill Age: 73 yrs Sex: Female : 1950 Arrival Date: 03/07/2024 Time: 13:50 Bed 2 Private MD: ED Physician Kelby Marquez HPI: 03/07 14:02 This 73 yrs old Female presents to ER via Unassigned with complaints of ec2 Breathing Difficulty. 14:02 Patient with history of CHF arrives today for progressive shortness of breath. Patient ec2 with history of CHF, concerned that they are volume overloaded. Patient reports symptoms been progressively worse, complains of orthopnea as well.. Historical: - Allergies: 14:03 Codeine; cm10 14:03 Fentanyl; cm10 14:03 Ultram; cm10 14:03 Sulfa (Sulfonamide Antibiotics); cm10 14:03 dextromethorphan; cm10 14:03 EGG DERIVED; cm10 14:03 Sulfasalazine; cm10 - PMHx: 14:03 Anemia; Hypertensive disorder; Rheumatoid Arthritis; cm10 - PSHx: 14:03 Bilateral hips; bilateral knees; Cholecystectomy; cm10 - Immunization history:: Adult Immunizations up to date. - Infectious Disease History:: Denies. - Social history:: Smoking status: Patient denies any tobacco usage or history of. ROS: 14:02 Constitutional: as per hpi ec2 Exam: 14:02 Constitutional: Head: atraumatic Eyes: EOMI Ears: External ears are normal. CV: ec2 Tachycardia LUNGS: Tachypnea, rales in the bilateral lower lung briones. ABD: non-distended SKIN: no evidence of rashes MSK: no evidence of trauma Vital Signs: 14:01 BP 161 / 102; Pulse 160; Resp 29; Temp 97.6(O); Pulse Ox 89% on R/A; Weight 69.4 kg; cm10 Height 5 ft. 8 in. ; 14:38 BP 129 / 82; Pulse 122; Resp 24; Pulse Ox 100% on R/A; FiO2 40 %; mb9 15:32 BP 118 / 90; Pulse 111; Resp 20; Pulse Ox 100% ; FiO2 40 %; mb9 15:55 BP 121 / 71; Pulse 99; ec2 16:42 BP 125 / 79; Pulse 108; Resp 20; Temp 98; Pulse Ox 100% ; FiO2 40 %; mb9 14:01 Body Mass Index 23.26 (69.40 kg, 172.72 cm) cm10 MDM: 13:57 Patient medically screened. ec2 14:03 Data reviewed: vital signs. ED course: Patient arrives today for evaluation of ec2 worsening shortness of breath. Examination remarkable for tachypneic individual who is tachycardic. Will obtain a septic workup, start the patient on BiPAP given the patient's significant work of breathing. Differential includes CHF exacerbation, pneumonia, viral infection. Will give the patient 250 cc of crystalloid, will avoid giving aggressive fluid resuscitation given the patient is likely volume overloaded . 14:33 ED course: On reassessment after BiPAP initiation, patient with marked improvement in ec2 respiratory status. . 14:43 ED course: EKG independently reviewed and interpreted by me, shows tachycardia, sinus, ec2 rate of 120, left bundle branch block noted.. 15:05 ED course: CBC shows reassuring blood counts, metabolic profile shows slight anion gap ec2 elevation, renal dysfunction with a GFR 50. Lactic acid at 5.0. ABG shows slight acidosis at 7.34. BNP elevated at 9400. 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 Additionally we will not initiate pressors given patient's reassuring blood pressures and improving tachycardia . 15:18 ED course: Chest x-ray independently reviewed and interpreted by me, shows ec2 cardiomegaly, bilateral pulmonary opacities likely volume overload. Will admit for CHF exacerbation, volume overload. Discussed case with hospitalist, pending admission. . 03/07 14:01 Order name: Blood Culture Adult (2) ec2 03/07 14:01 Order name: CBC with Diff; Complete Time: 15:04 ec2 03/07 14:01 Order name: CMP; Complete Time: 15:04 ec2 03/07 14:01 Order name: Lactate w/ 2H reflex if indic.; Complete Time: 15:04 ec2 03/07 14:01 Order name: Protime (+inr); Complete Time: 15:04 ec2 03/07 14:01 Order name: Ptt, Activated; Complete Time: 15:04 ec2 03/07 14:01 Order name: ABG; Complete Time: 15: ec2 03/07 14:31 Order name: Troponin High Sensitivity; Complete Time: 15:04 ec2 03/07 14:40 Order name: NT PRO-BNP; Complete Time: 15:04 EDMS 03/07 16:18 Order name: Basic Metabolic Panel EDMS 03/07 16:18 Order name: Basic Metabolic Panel EDMS 03/07 16:18 Order name: Basic Metabolic Panel EDMS 03/07 16:18 Order name: Basic Metabolic Panel EDMS 03/07 16:18 Order name: Basic Metabolic Panel EDMS 03/07 16:18 Order name: CBC with Automated Diff EDMS 03/07 16:18 Order name: CBC with Automated Diff EDMS 03/07 16:18 Order name: CBC with Automated Diff EDMS 03/07 16:18 Order name: CBC with Automated Diff EDMS 03/07 16:18 Order name: CBC with Automated Diff EDMS 03/07 16:18 Order name: Lipid Profile EDMS 03/07 16:18 Order name: Lipid Profile EDMS 03/07 16:18 Order name: Magnesium EDMS 03/07 16:18 Order name: Magnesium EDMS 03/07 16:18 Order name: Magnesium EDMS 03/07 16:18 Order name: Magnesium EDMS 03/07 16:18 Order name: Magnesium EDMS 03/07 16:18 Order name: NT PRO-BNP EDMS 03/07 16:18 Order name: NT PRO-BNP EDMS 03/07 16:18 Order name: NT PRO-BNP EDMS 03/07 16:18 Order name: NT PRO-BNP EDMS 03/07 16:18 Order name: NT PRO-BNP EDMS 03/07 16:18 Order name: Troponin High Sensitivity EDMS 03/07 16:18 Order name: Troponin High Sensitivity EDMS 03/07 16:18 Order name: Troponin High Sensitivity EDMS 03/07 16:18 Order name: Troponin High Sensitivity EDMS 03/07 16:40 Order name: Lactate w/ 2H reflex if indic. EDMS 03/07 16:40 Order name: Lactate w/ 2H reflex if indic. EDMS 03/07 16:40 Order name: Lactate w/ 2H reflex if indic. EDMS 03/07 16:58 Order name: Ghost Lactate-NO COLLECT Timer EDMS 03/07 14:01 Order name: Chest Single View XRAY; Complete Time: 15:04 ec2 03/07 14:41 Order name: BiPap ([employer] Only) EDMS 03/07 14:01 Order name: EKG; Complete Time: 14:02 ec2 03/07 16:14 Order name: CONS Physician Consult EDHI 03/07 14:01 Order name: Accucheck; Complete Time: 14:16 ec2 03/07 14:01 Order name: Cardiac monitoring; Complete Time: 14:03 ec2 03/07 14:01 Order name: EKG - Nurse/Tech; Complete Time: 14:45 ec2 03/07 14:01 Order name: IV Saline Lock - Large Bore; Complete Time: 14:15 ec2 03/07 14:01 Order name: Labs collected and sent; Complete Time: 14:15 ec2 03/07 14:01 Order name: O2 Per Protocol; Complete Time: 14:03 ec2 03/07 14:01 Order name: O2 Sat Monitoring; Complete Time: 14:03 ec2 03/07 14:01 Order name: Vital Signs; Complete Time: 14:03 ec2 Administered Medications: 14:15 Drug: Rocephin IV 1 grams IV at calculated rate once; Given slow IV push per pharmacy ko1 instructions Route: IV; Rate: calculated rate; Site: left antecubital; 14:30 Follow up: Response: No adverse reaction; IV Status: Completed infusion; IV Intake: [id number] 14:15 Drug: NS 0.9% IV 250 ml IV at bolus once Route: IV; Rate: bolus; Site: left antecubital;ko1 14:51 Follow up: Response: No adverse reaction; IV Status: Completed infusion; IV Intake: ko1 250ml 14:45 Drug: AZITHromycin IVPB 500 mg IVPB once over 1 hrs; (mix in 250 mL NS) Route: IVPB; ko1 Infused Over: 1 hrs; Site: left antecubital; 16:45 Follow up: Response: No adverse reaction; IV Status: Completed infusion mb9 15:09 Drug: Acetaminophen PO 1000 mg PO once Route: PO; mb9 15:32 Follow up: Response: No adverse reaction mb9 Disposition: 14:46 Critical Care:. ec2 Disposition Summary: 03/07/24 15:19 Hospitalization Ordered Notes: Hospitalization Status: Inpatient Admission ec2 Provider: Gabrielle Garland ec2 Condition: Fair ec2 Problem: an acute exacerbation ec2 Symptoms: have improved ec2 Bed/Room Type: Standard ec2 Location: Intensive Care Unit(03/07/24 16:25) [facility] Room Assignment: 1-(03/07/24 16:25) [facility] Diagnosis - Acute on chronic systolic (congestive) heart failure ec2 Forms: - Medication Reconciliation Form ec2 - SBAR form ec2 - Leadership Thank You Letter ec2 Critical care time excluding procedures: 14:46 Critical care time: Bedside Care: 45 minutes, Consultation: 5 minutes. Total time: 50 ec2 minutes Signatures: Dispatcher [employer] EDNneka Donohue 4 Georgina Ta, RN RN ko1 Lashaun Alvarado, RN RN mb9 Caitlyn Welch RN RN cm10 Kelby Marquez MD MD ec2 Corrections: (The following items were deleted from the chart) 14:40 14:29 PROBNP+C.LAB.BRZ ordered. EDHI EDHI 16:25 15:19 Telemetry/MedSurg (Inpatient) ec2 4 16:25 15:19 ec2 4
--- NOTE | 2024-03-07 15:32 | P.HP ---
Certification for Inpatient Patient admitted to: Inpatient Practitioner: I am a practitioner with admitting privileges, knowledge of patient current condition, hospital course, and medical plan of care. Services: Services provided to patient in accordance with Admission requirements found in Title 42 Section 412.3 of the Code of Federal Regulations Patient History Date of Service: 03/07/24 Reason for admission: acute on chronic heart failure History of Present Illness: 73-year-old female with a past medical history systolic heart failure with reduced ejection fraction, HTN, anemia and RA presents to the emergency room with shortness of breath. Shortness of breath is worse with exertion. worse while laying flat, Son is a bedside is primary historian She reports frequent hospital admissions due to heart failure. He reports she is scheduled for pace maker in the near future.. No reported chest pain, abdominal pain, dizziness, fever. Plan to admit to ICU on BiPAP for acute systolic respiratory failure with reduced ejection fraction, hypoxic respiratory failure secondary to decompensated heart failure. Will cardiology to consult Allergies adhesive tape Allergy (Verified 01/26/24 21:19) Rash Sulfa (Sulfonamide Antibiotics) Allergy (Verified 01/26/24 21:19) Rash dextromethorphan Adverse Reaction (Intermediate, Verified 01/27/24 09:20) Nausea/Vomiting codeine Adverse Reaction (Verified 01/26/24 21:19) Rash egg Adverse Reaction (Verified 01/26/24 21:19) Nausea/Vomiting fentanyl Adverse Reaction (Verified 01/26/24 21:19) Rash hydrocodone Adverse Reaction (Verified 01/26/24 21:19) Nausea/Vomiting sulfasalazine Adverse Reaction (Verified 01/26/24 21:20) caused anemia tramadol [From Ultram] Adverse Reaction (Verified 01/26/24 21:19) Rash Home Medications: Acetaminophen [Tylenol Extra Strength] 500 mg PO Q6HP PRN 01/26/24 Aspirin Chewable [Aspirin Chewable*] 81 mg PO DAILY 01/26/24 Atorvastatin Calcium [Lipitor] 80 mg PO DAILY 01/26/24 Celecoxib [Celebrex*] 100 mg PO Q12HP PRN 01/26/24 Clopidogrel Bisulfate [Plavix*] 75 mg PO DAILY 01/26/24 Ergocalciferol (Vitamin D2) [Vitamin D2] 50,000 unit PO Q7D 01/26/24 Ferrous Sulfate [Ferrous Sulfate*] 325 mg PO DAILY 01/26/24 Leflunomide [Arava] 20 mg PO DAILY 01/26/24 Olopatadine HCl [Eye Allergy Itch Relief] 1 gtt EACH EYE BID PRN 01/26/24 Pantoprazole Sodium [Protonix] 20 mg PO DAILY PRN 01/26/24 Spironolactone [Aldactone*] 25 mg PO BEDTIME 01/26/24 Midodrine HCl [Proamatine*] 5 mg PO BID #60 tab 01/27/24 Potassium Chloride 10 meq PO DAILY #30 tab 01/27/24 Furosemide 20 mg PO BIDL 02/18/24 Losartan Potassium 25 mg PO DAILY PRN 02/18/24 carvediloL [Coreg*] 3.125 mg PO BID #60 tab 02/20/24 - Past Medical/Surgical History Diabetic: No -: HTN -: RA -: Anemia of chronic disease -: Cardiomyopathy with an ejection fraction of 25% -: Coronary artery disease -: Mitral regurgitation -: hip surgery -: knee surgery -: back surgery -: wrist surgery -: cholecystectomy -: Cardiac catheterization -: ADY Psychosocial/ Personal History: , two sons - Family History Mother -: Cancer Notes: breast cancer Father -: Lung disease Notes: emphysema - Social History Alcohol use: No CD- Drugs: No Caffeine use: Yes Review of Systems as per HPI Physical Examination - Vital Signs Pulse: 123 Pulse Ox (%): 100 - Physical Exam General: Alert, In no apparent distress, Moderate distress HEENT: Atraumatic, Normocephalic Neck: 2+ carotid pulse no bruit, JVD not distended Respiratory: Diminished, Crackles/rales Cardiovascular: Normal pulses, Regular rate/rhythm, Other (tachycardia) Gastrointestinal: Normal bowel sounds, Soft and benign Musculoskeletal: No swelling, No contractures Integumentary: No breakdown, No significant lesion Neurological: Normal speech, Normal strength at 5/5 x4 extr, Normal affect - Studies Laboratory Data (last 24 hrs) 03/07/24 03/07/24 03/07/24 14:12 14:12 14:12 WBC 11.60 H Hgb 10.7 L Hct 33.2 L Plt Count 346 PT 11.6 INR 1.04 APTT 30.0 Sodium 134 L Potassium 4.7 BUN 23 H Creatinine 1.03 H Glucose 214 H Total Bilirubin 0.4 AST 19 ALT 19 Alkaline Phosphatase 115 Assessment and Plan - Plan Assessment and Plan - Problems (Diagnosis) (1) Sinus tachycardia Current Visit: Yes Status: Acute - Problems (Diagnosis) (1) Acute systolic heart failure with reduced ejection fraction Current Visit: No Status: Acute (2) Severe mitral regurgitation Current Visit: Yes Status: Acute (3) Anemia Current Visit: No Status: Chronic Qualifiers: Anemia type: iron deficiency Iron deficiency anemia type: unspecified iron deficiency Qualified Code(s): D50.9 - Iron deficiency anemia, unspecified (5) HTN (hypertension) Current Visit: No Status: Chronic Qualifiers: Hypertension type: primary hypertension Qualified Code(s): I10 - Essential (primary) hypertension (6) Rheumatoid arthritis Current Visit: No Status: Chronic Qualifiers: Rheumatoid arthritis location: unspecified site Rheumatoid factor presence: unspecified presence Qualified Code(s): M06.9 - Rheumatoid arthritis, unspecified (7) hypokalemia Current Visit: Yes Status: Acute (8)PHILOMENA, CKD Current Visit: Yes Status: Acute - Plan -Admit to ICU on BiPAP -Cardiology consult -Aggressive diuresis, resume beta-eliot, along with Aldactone, -nephrology consult -Strict I&O's -Daily weights -Trend electrolytes replace as needed -Educate on low-sodium diet for congestive heart failure -Follow-up outpatient with cardiology for severe mitral stenosis, heart failure Discharge Plan: Home - Advance Directives Does patient have a Living Will: Yes Does patient have a Durable POA for Healthcare: No - Code Status/Comfort Care Code Status: Full Code Critical Care: Yes Time Spent Managing Pts Care (In Minutes): 65 Discharge Plan: Home - Advance Directives Does patient have a Living Will: Yes Does patient have a Durable POA for Healthcare: No - Code Status/Comfort Care Code Status: Full Code Critical Care: Yes Time Spent Managing Pts Care (In Minutes): 65
[2024-03-07 18:06] VITALS: BMI 24.5
[2024-03-07] MEDS: FUROSEMIDE 40 MG/4 ML VIAL IV SCH (18:24)
[2024-03-07] MEDS: ACETAMINOPHEN 500 MG TAB PO PRN (21:38)
[2024-03-08 05:35] LABS: Absolute Eosinophils 0.2 K/uL (0-0.5); Absolute Lymphocytes (CBC) 1.8 K/uL (0.7-4.9); Absolute Monocytes 0.4 K/uL (0.1-1.3); Absolute Neutrophil 3.3 K/uL (1.8-8.0); Basophils % 0.5 % (0-1.3); Eosinophils % 3.4 % (0-4.4); Hematocrit 26.4 % (36.0-45.0); Lymphocytes % 32.1 % (15.3-44.8); MCH 29.1 pg (27.0-35.0); MCHC 34.1 g/dL (32.0-36.0); MCV 85.5 fL (80-100); MPV 8.9 fL (7.6-11.3); Monocytes % 6.9 % (3.3-12.3); Neutrophils % 57.1 % (41.7-73.7); Nucleated Red Blood Cells % 0.1 % (0-0); Platelets 249 thou/uL (152-406); RBC Red Blood Cell Count 3.09 M/uL (3.86-4.86)
[2024-03-08 05:51] LABS: Anion Gap 10.6 mEq/L (5.0-15.0); Magnesium 2.1 mg/dL (1.6-2.4); Potassium 3.6 mEq/L (3.5-5.1)
[2024-03-08 06:13] LABS: Phosphorus 3.7 mg/dL (2.5-4.9)
[2024-03-08] MEDS: POTASSIUM CL SA 10 MEQ TAB PO ONE (07:44)
[2024-03-08] MEDS: ONDANSETRON 4 MG/2 ML VIAL IV PRN (12:11)
--- NOTE | 2024-03-08 13:39 | CON ---
Date of Consultation: 03/08/2024 Reason For Consultation: Elevated BUN, creatinine. Fluid management. History Of Present Illness: This is a 73-year-old female with significant past medical history of hypertension, rheumatoid arthritis, anemia, CAD complicated with congestive heart failure, ejection fraction of 25%. The patient came to the hospital complaining of shortness of breath, found to be over volume with elevated BUN and creatinine. For that reason, we have been consulted. Over the night, patient has been diuresed. The patient's shortness of breath has been subsided. Hypoxemia improved. The patient had good urine output of 1700. Past Medical History: Include: 1. Hypertension. 2. Rheumatoid arthritis. 3. CAD complicated with congestive heart failure, ejection fraction of 25%. 4. Mitral regurgitation. Allergies: SULFA, , CODEINE, FENTANYL, EGGSHELL, HYDROCODONE, SULFASALAZINE, TRAMADOL. Home Medications: Include Tylenol, aspirin, atorvastatin, Celebrex, Plavix, ferrous sulfate, spironolactone, pantoprazole, KCl, Lasix, losartan, carvedilol. Past Surgical History: Includes cholecystectomy, wrist surgery, back surgery, knee surgery, hip surgery, cardiac cath, ADY. Family History: Positive for cancer and lung disease. Social History: Denied smoking. Denied drinking. Denied drugs abuse. Lives with family. Review of Systems: Head and Neck: No red eye. No ear pain. GI: No nausea or vomiting. : No polyuria, no dysuria, no hematuria. LOCATOR SPECIALIST: No vaginal discharge. Respiratory: Has shortness of breath. Cardiovascular: Has orthopnea. Endocrine: No polydipsia. Skin: No rash. Physical Examination: Vital Signs: When I saw the patient, blood pressure 120/75, pulse of 98, afebrile. Chest: Crackles, bilateral in the base. Heart: S1, S2. Regular. Systolic murmur. Abdomen: Soft, nontender. Extremities: No edema. Neuro: Alert. No focality. Laboratory Data: WBC 5.7, hemoglobin of 9. Sodium 137, potassium 3.6, bicarb 26, BUN 23, creatinine 0.7, calcium 9.1. Phosphorus 3.7, magnesium 2.1. Current Medications: The patient is on include Lasix 40 mg, Tylenol. Assessment And Plan: 1. Acute kidney injury secondary to cardiorenal on the over volume side. I am going to agree with current dose of Lasix. We will continue to monitor the patient. 2. Hypertension. We will utilize blood pressure for more diuresis. 3. Hypokalemia. I am going to start the patient on spironolactone. 4. Congestive heart failure with advanced cardiomyopathy. Add spironolactone. We will add Entresto. Time spent examining the patient [id number], reviewing data, lab and radiology, placing order, discussing the case with the patient and patient's family by bedside, discussing the case with the juice bar team member including ICU and nursing staff in ICU more than 75 minutes. JORI Voice ID: [id number] Report ID: [id number] MTDD
[2024-03-09 05:33] LABS: Absolute Eosinophils 0.3 K/uL (0-0.5); Absolute Lymphocytes (CBC) 1.7 K/uL (0.7-4.9); Absolute Monocytes 0.5 K/uL (0.1-1.3); Absolute Neutrophil 3.4 K/uL (1.8-8.0); Basophils % 0.7 % (0-1.3); Eosinophils % 4.2 % (0-4.4); Hematocrit 27.6 % (36.0-45.0); Hemoglobin 9.2 g/dL (12.0-15.0); Lymphocytes % 29.2 % (15.3-44.8); MCH 28.9 pg (27.0-35.0); MCHC 33.3 g/dL (32.0-36.0); MCV 86.8 fL (80-100); MPV 8.7 fL (7.6-11.3); Monocytes % 8.5 % (3.3-12.3); Neutrophils % 57.4 % (41.7-73.7); Nucleated Red Blood Cells % 0.1 % (0-0); Platelets 219 thou/uL (152-406); RBC Red Blood Cell Count 3.18 M/uL (3.86-4.86); Red Cell Distribution Width 18.6 % (12.1-15.2)
[2024-03-09 05:54] LABS: Albumin 3.2 g/dL (3.4-5.0); Anion Gap 10.4 mEq/L (5.0-15.0); Phosphorus 4.5 mg/dL (2.5-4.9); Potassium 4.4 mEq/L (3.5-5.1)
[2024-03-09] MEDS: SPIRONOLACTONE 25 MG TABLET PO SCH (08:35)
[2024-03-09 10:09] VITALS: O2SAT 99
[2024-03-09 12:14] VITALS: BP 101/69; TEMP 97.5
--- NOTE | 2024-03-09 12:45 | RAD REPORT ---
EXAMINATION: ONE VIEW CHEST XR CLINICAL INDICATION: Female, 73 years old.,pneumonia TECHNIQUE: Frontal chest projection is submitted. Examination is limited by patient positioning and t echnique. COMPARISON: 03/07/2024 chest radiograph FINDINGS: The lungs are well inflated and clear with near complete improvement of Central predominant airspace and interstitial opacities seen on the prior exam. No pneumothorax or sizable effusion. The heart is normal in size. IMPRESSION: Interval improvement of probable pulmonary edema pattern seen on the prior exam. No acute findings
--- NOTE | 2024-03-09 13:54 | PN ---
Date of Progress Note: 03/09/2024 Subjective: The patient was admitted to the hospital with acute kidney injury secondary to cardiorenal. The patient was diuresed, very well responded. Yesterday, we added spironolactone, switched the patient to p.o. The patient on room air. Objective: Vital Signs: Blood pressure 101/69, pulse of 100, afebrile, saturation 100 on room air. Chest: Clear to auscultation. Heart: S1, S2. Systolic murmur. Abdomen: Soft, nontender. Extremity: Trace edema. Neurologic: Alert. No focality. Laboratory Data: Hemoglobin 9.2, sodium 135, potassium 4.4, bicarb 28, BUN 26, creatinine 1, GFR of 59, BNP 1200, albumin 3.2. Current Medications: The patient on, it includes spironolactone 25 mg daily, Lasix 40 b.i.d., KCl. Assessment And Plan: 1. Acute kidney injury secondary to cardiorenal, normal-sized kidney, currently normal volume. I am going to go ahead and switch the patient to oral. Continue spironolactone. We will monitor the patient. The patient cleared from the Renal standpoint for discharge planning. Follow up in the office in 2- 3 weeks. 2. Hypertension, controlled, optimal. Continue to utilize the blood pressure for more diuresis. 3. Congestive heart failure with ejection fraction of 26% with exacerbation. Continue current diuresis, currently normal volume. 4. Hyponatremia, dilutional, resolved. 5. Hypokalemia, status post adding spironolactone, resolved. Time spent examining the patient [id number], reviewing data, lab, and radiology, placing order, discussing the case with the patient, discussing the case with the store team member including hospitalist and nursing staff more than 55 minutes. JORI Voice ID: [id number] Report ID: [id number] DEBBY
[2024-03-09] MEDS ORDERED: FUROSEMIDE 40 MG TABLET PO SCH (17:00)
--- NOTE | 2024-03-10 12:01 | EKG ---
Test Date: 2024-03-07 Test Time: 14:34:59 Teacher Ballet: MB MEASUREMENT RESULTS: Intervals: Rate: 120 ID: [id number] QRSD: 136 QT: 304 QTc: 429 Benson: P: 35 ID: [id number] QRS: -8 T: 157 INTERPRETIVE STATEMENTS: Sinus tachycardia with fusion complexes Left ventricular hypertrophy with QRS widening and repolarization abnormality Abnormal ECG Compared to ECG 02/18/2024 02:20:08 Fusion complex(es) now present Left-axis deviation no longer present Electronically Signed On 03-10-24 11:55:40 CDT by Tarun Menjivar
== END 2024-03-09 14:30 | disposition home or self-care (01) | DRG 291 ==
LOC: ER 13:50 → 3RD-ICU 16:11
PROVIDERS: ADMIT Hospitalist; ATTEND Hospitalist
PROC: 4A033R1 Measurement of Arterial Saturation, Peripheral, Percutaneous Approach (ICD-10-PCS; principal; 2024-03-07)
PROC: 5A09457 Assistance with Respiratory Ventilation, 24-96 Consecutive Hours, Continuous Positive Airway Pressure (ICD-10-PCS; 2024-03-07)
DX: I13.0 Hypertensive heart and chronic kidney disease with heart failure and stage 1 through stage 4 chronic kidney disease, or unspecified chronic kidney disease (principal); I50.23 Acute on chronic systolic (congestive) heart failure; J96.01 Acute respiratory failure with hypoxia; E87.20 Acidosis, unspecified; N17.9 Acute kidney failure, unspecified; E87.1 Hypo-osmolality and hyponatremia; N18.9 Chronic kidney disease, unspecified; D63.1 Anemia in chronic kidney disease; D50.9 Iron deficiency anemia, unspecified; I44.7 Left bundle-branch block, unspecified; E87.6 Hypokalemia; I34.0 Nonrheumatic mitral (valve) insufficiency; M06.9 Rheumatoid arthritis, unspecified; I25.10 Atherosclerotic heart disease of native coronary artery without angina pectoris; Z88.2 Allergy status to sulfonamides; Z88.5 Allergy status to narcotic agent; Z88.8 Allergy status to other drugs, medicaments and biological substances; Z79.82 Long term (current) use of aspirin; Z79.02 Long term (current) use of antithrombotics/antiplatelets; Z90.49 Acquired absence of other specified parts of digestive tract; Z91.012 Allergy to eggs; Z79.899 Other long term (current) drug therapy
CPT/HCPCS: 36415; 36600; 71045; 80048; 80053; 80061; 80069; 82805; 83605; 83735; 83880; 84100; 84484; 85025; 85610; 85730; 87040; 93005; 94660; 96365; 96366; 96375; 99285; J0696; J1940; J2405; J7050

== ENCOUNTER 2024-03-18 23:18 | Emergency (ER) | payer OTHER ==
--- OUTSIDE RECORDS SUMMARY | 2024-03-18 23:21 | XMS REPORT | Clinical Summary ---
Author Name Unknown Organization [facility] [place] Address [address] [place] [address] Care Team Providers Care Cna Per Diem Name Role Phone Xiomara Cardenas MD Primary Care Provider + [phone] Alexus Guerrero MD Unavailable Blossom vailable Alexus [...] 2023- season) 2024 Influenza Vaccine (#1) 2024 Care Teams Cna Per Diem Relationship Specialty Start Date End Date Xiomara Cardenas MD [email or web address] PCP - General Gynecologic Medical Oncology 12/22/16 Alexus Guerrero MD PCP - External Referring Obstetrics/Gynecology 12/22/16 Alexus Guerrero MD RUSTY - Cipriano Shelton Obstetrics/Gynecology 12/22/16
--- NOTE | 2024-03-18 23:36 | EDPHYS ---
Physician Documentation [facility] Name: Yokasta Hill Age: 73 yrs Sex: Female : 1950 Arrival Date: 03/18/2024 Time: 23:18 Bed DX3 Private MD: ED Physician Parveen Fung HPI: 03/18 23:31 This 73 yrs old Female presents to ER via Unassigned with complaints of kb Allergic Reaction - Hives. 23:31 Pt is a 73 year old female who presents for rash that started while hospitalized last kb week. Son states pt is allergic to adhesives and they had a bandage to left chest that caused a rash. States pt has been home for 3 days and the rash has spread. Pt complains of itching. . Historical: - Allergies: 03/19 00:00 Codeine; vc1 00:00 dextromethorphan; vc1 00:00 Egg Derived; vc1 00:00 Fentanyl; vc1 00:00 Sulfa (Sulfonamide Antibiotics); vc1 00:00 Sulfasalazine; vc1 00:00 Ultram; vc1 - PMHx: 00:00 Anemia; Hypertensive disorder; Rheumatoid Arthritis; vc1 - PSHx: 00:00 Bilateral hips; bilateral knees; Cholecystectomy; vc1 - Immunization history:: Client reports receiving the 2nd dose of the Covid vaccine. - Infectious Disease History:: Denies. - Social history:: Smoking status: Patient denies any tobacco usage or history of. ROS: 03/18 23:30 Constitutional: As per HPI kb Exam: 23:30 Constitutional: This is a well developed, well nourished patient who is awake, alert, kb and in no acute distress. Head/Face: Normocephalic, atraumatic. ENT: Moist Mucous membranes Cardiovascular: Regular rate Respiratory: Respirations even and unlabored. No increased work of breathing. Talking in full sentences MS/ Extremity: Pulses equal, no cyanosis. Neurovascular intact. Full, normal range of motion. Neuro: Awake and alert, GCS 15, oriented to person, place, time, and situation. 23:30 Skin: rash a moderate rash is noted, consistent with contact dermatitis, Vital Signs: 03/19 00:00 BP 120 / 65; Pulse 81; Resp 15; Temp 96.8; Pulse Ox 98% ; Weight 67.59 kg; Height 5 ft. vc1 7 in. ; 00:00 Body Mass Index 23.34 (67.59 kg, 170.18 cm) vc1 MDM: 03/18 23:27 Medical Screening Exam initiated kb 23:31 Differential diagnosis: anaphylaxis, angioedema, urticaria, contact dermatitis. Data kb reviewed: vital signs, nurses notes. Historians other than the Patient: Daughter/Son: son. Counseling: I had a detailed discussion with the patient and/or guardian regarding the historical points, exam findings, and any diagnostic results supporting the discharge/admit diagnosis, the need for outpatient follow up, a family practitioner, to return to the emergency department if symptoms worsen or persist or if there are any questions or concerns that arise at home. Administered Medications: 03/19 00:14 Drug: Dexamethasone IM 10 mg IM once Route: IM; Site: right gluteus; vc1 00:38 Follow up: Response: No adverse reaction vc1 00:14 Drug: Famotidine PO 20 mg PO once Route: PO; vc1 00:38 Follow up: Response: No adverse reaction vc1 Disposition: 03:54 Co-signature as Attending Physician, Parveen Fung MD I agree with the assessment sp4 and plan of care. I reviewed the patient's care provided by the Advanced Practice Provider and agree with the diagnosis and treatment plan. Disposition Summary: 03/18/24 23:36 Discharge Ordered Notes: Location: Home kb Condition: Stable kb Diagnosis - Rash and other nonspecific skin eruption kb Followup: kb - With: Emergency Department - When: As needed - Reason: Worsening of condition Followup: kb - With: Private Physician - When: 2 - 3 days - Reason: Recheck today's complaints, Continuance of care, Re-evaluation by your physician Discharge Instructions: - Discharge Summary Sheet kb - Rash, Adult, [id number] kb Forms: - Medication Reconciliation Form kb - Antibiotic Education kb - Prescription Opioid Use kb - Patient Portal Instructions kb - Leadership Thank You Letter kb Prescriptions: - Pepcid 20 mg Oral Tablet - take 1 tablet ORAL route every 12 hours for 5 days; 10 tablet; Refills: 0, kb Product Selection Permitted - Prednisone 20 mg Oral Tablet - take 1 tablet ORAL route once daily for 5 days; 5 tablet; Refills: 0, Product kb Selection Permitted Signatures: Kathryn White FNP-C FNP-Ckb Opal Rucker, RN RN vc1 Parveen Fung MD MD sp4
[2024-03-19] MEDS ORDERED: dexAMETHasone 10 MG/ML VIAL ONE (00:02)
[2024-03-19] MEDS ORDERED: FAMOTIDINE 20 MG TAB ONE (00:03)
--- NOTE | 2024-03-19 00:39 | ER ---
Nurse's Notes [facility] Name: Yokasta Hill Age: 73 yrs Sex: Female : 1950 Arrival Date: 03/18/2024 Time: 23:18 Bed DX3 Private MD: Diagnosis: Rash and other nonspecific skin eruption Presentation: 03/19 00:00 Chief complaint: Patient's son or daughter states: She started taking bumex yesterday vc1 and after the 2nd dose she started breaking out in a rash. 00:00 Coronavirus screen: Client denies travel out of the [place] in the last 14 days. At this vc1 time, the client does not indicate any symptoms associated with coronavirus-19. Ebola Screen: Patient negative for fever greater than or equal to 101.5 degrees Fahrenheit, and additional compatible Ebola Virus Disease symptoms Patient denies exposure to infectious person. Patient denies travel to an Ebola-affected area in the 21 days before illness onset. No symptoms or risks identified at this time. Onset: The symptoms/episode began/occurred yesterday. Anaphylaxis evaluation, no signs or symptoms of anaphylaxis were noted. Initial Sepsis Screen: Does the patient meet any 2 criteria? No. Patient's initial sepsis screen is negative. Does the patient have a suspected source of infection? No. Patient's initial sepsis screen is negative. Risk Assessment: Do you want to hurt yourself or someone else? Patient reports no desire to harm self or others. Onset of symptoms was March 19, 2024. Care prior to arrival: None. Activity prior to arrival: None. 00:00 Method Of Arrival: Wheelchair vc1 00:00 Acuity: ROBERTO 4 vc1 Triage Assessment: 00:19 General: Appears in no apparent distress. uncomfortable, slender, well groomed, well vc1 developed, Behavior is calm, cooperative, appropriate for age. Pain: Denies pain. EENT: No deficits noted. No signs and/or symptoms were reported regarding the EENT system. Neuro: Level of Consciousness is awake, alert, obeys commands, Oriented to person, place, time, situation, Appropriate for age. Cardiovascular: Heart tones S1 S2 present Capillary refill < 3 seconds Patient's skin is warm and dry. Respiratory: Airway is patent Respiratory effort is even, unlabored, Respiratory pattern is regular, symmetrical, Breath sounds are clear bilaterally. GI: No deficits noted. No signs and/or symptoms were reported involving the gastrointestinal system. : No deficits noted. No signs and/or symptoms were reported regarding the genitourinary system. Derm: Skin is intact, is healthy with good turgor, Skin is dry, Skin is normal, Skin temperature is warm. Derm: Rash noted that is itchy, red, urticaria, on chest, abdomen and neck. Musculoskeletal:. Historical: - Allergies: 00:00 Codeine; vc1 00:00 dextromethorphan; vc1 00:00 Egg Derived; vc1 00:00 Fentanyl; vc1 00:00 Sulfa (Sulfonamide Antibiotics); vc1 00:00 Sulfasalazine; vc1 00:00 Ultram; vc1 - PMHx: 00:00 Anemia; Hypertensive disorder; Rheumatoid Arthritis; vc1 - PSHx: 00:00 Bilateral hips; bilateral knees; Cholecystectomy; vc1 - Immunization history:: Client reports receiving the 2nd dose of the Covid vaccine. - Infectious Disease History:: Denies. - Social history:: Smoking status: Patient denies any tobacco usage or history of. Screenin:00 [facility] ED Fall Risk Assessment (Adult) History of falling in the last 3 months, vc1 including since admission No falls in past 3 months (0 pts) Confusion or Disorientation No (0 pts) Intoxicated or Sedated No (0 pts) Impaired Gait Yes (1 pt) Mobility Assist Device Used Yes (1 pt) Altered Elimination No (0 pt) Score/Fall Risk Level 0 - 2 = Low Risk Oriented to surroundings, Maintained a safe environment, Educated pt \T\ family on fall prevention, incl call for assistance when getting out of bed. Abuse screen: Denies threats or abuse. Nutritional screening: No deficits noted. Tuberculosis screening: No symptoms or risk factors identified. Vital Signs: 00:00 BP 120 / 65; Pulse 81; Resp 15; Temp 96.8; Pulse Ox 98% ; Weight 67.59 kg; Height 5 ft. vc1 7 in. ; 00:00 Body Mass Index 23.34 (67.59 kg, 170.18 cm) vc1 ED Course: 03/18 23:21 Patient arrived in ED. ra3 23:27 Kathryn [facility]C [facility]. kb 23:27 Parveen Fung MD is Attending Physician. kb 03/19 00:14 Opal Rucker, SHERI is Primary Nurse. vc1 00:18 Triage completed. vc1 00:19 Arm band placed on right wrist. vc1 00:21 Patient has correct armband on for positive identification. Adult w/ patient. Seated in vc1 wheelchair. Provided Education on: dont use benadryl cream with benadryl oral. 00:37 No provider procedures requiring assistance completed. Patient did not have IV access vc1 during this emergency room visit. Administered Medications: 00:14 Drug: Dexamethasone IM 10 mg IM once Route: IM; Site: right gluteus; vc1 00:38 Follow up: Response: No adverse reaction vc1 00:14 Drug: Famotidine PO 20 mg PO once Route: PO; vc1 00:38 Follow up: Response: No adverse reaction vc1 Medication: 00:22 VIS not applicable for this client. vc1 Outcome: 03/18 23:36 Discharge ordered by . kb 03/19 00:37 Discharged to home via wheelchair, with family, vc1 Condition: good Discharge instructions given to patient, family, Instructed on discharge instructions, follow up and referral plans. medication usage, Demonstrated understanding of instructions, follow-up care, medications, Prescriptions given X 2, 00:38 Patient left the ED. vc1 Signatures: Kathryn White, CHRISTMAS TREE FARM MANAGER-C CHRISTMAS TREE FARM MANAGER-Ckb Opal Rucker, RN RN vc1 Darcy Araujo ra3
[2024-03-19 07:33] VITALS: BP 120/65; TEMP 96.8; O2SAT 98
== END 2024-03-19 00:38 | disposition home or self-care (01) ==
LOC: ER 23:18
DX: R21 Rash and other nonspecific skin eruption (principal)
CPT/HCPCS: 96372; 99284; J1100

== ENCOUNTER 2024-03-26 14:42 | Emergency (ER) | payer OTHER ==
--- OUTSIDE RECORDS SUMMARY | 2024-03-26 14:45 | XMS REPORT | Clinical Summary ---
Author Name Unknown Organization [facility] [place] Address [address] [place] [address] Care Team Providers Care Administrative Associate Name Role Phone Xiomara Cardenas MD Primary Care Provider + [phone] Alexus Guerrero MD Unavailable Blossom vailable Alexus [...] 2024 Influenza Vaccine (#1) 2024 Care Teams Administrative Associate Relationship Specialty Start Date End Date Xiomara Cardenas MD [email or web address] PCP - General Gynecologic Medical Oncology 12/22/16 Alexus Guerrero MD PCP - External Referring Obstetrics/Gynecology 12/22/16 Alexus Guerrero MD RUSTY - [facility] Obstetrics/Gynecology 12/22/16
[2024-03-26] MEDS ORDERED: dexAMETHasone 10 MG/ML VIAL ONE (14:50)
--- NOTE | 2024-03-26 14:55 | EDPHYS ---
Physician Documentation [facility] Name: Yokasta Hill Age: 73 yrs Sex: Female : 1950 Arrival Date: 03/26/2024 Time: 14:42 Bed IW5 Private MD: ED Physician Thaddeus Mary HPI: 03/26 14:50 This 73 yrs old Female presents to ER via Unassigned with complaints of Rash. kb 14:50 Pt is a 73 year old female who presents for continued rash and itching to face, neck kb and abd. Pt was seen here 7 days ago when the rash first started and given steroids. States they were helping but after completion the rash started spreading again, now it is affecting right upper eyelid. . Historical: - Allergies: 15:01 Codeine; cm10 15:01 dextromethorphan; cm10 15:01 Egg Derived; cm10 15:01 Fentanyl; cm10 15:01 Sulfa (Sulfonamide Antibiotics); cm10 15:01 Sulfasalazine; cm10 15:01 Ultram; cm10 - PMHx: 15:01 Hypertensive disorder; Rheumatoid Arthritis; Anemia; cm10 - PSHx: 15:01 Bilateral hips; bilateral knees; Cholecystectomy; cm10 - Immunization history:: Adult Immunizations up to date. - Infectious Disease History:: Denies. - Social history:: Smoking status: Patient denies any tobacco usage or history of. ROS: 14:50 Constitutional: As per HPI kb Exam: 14:50 Constitutional: This is a well developed, well nourished patient who is awake, alert, kb and in no acute distress. Head/Face: Normocephalic, atraumatic. ENT: Moist Mucous membranes Cardiovascular: Regular rate Respiratory: Respirations even and unlabored. No increased work of breathing. Talking in full sentences MS/ Extremity: Pulses equal, no cyanosis. Neurovascular intact. Full, normal range of motion. Neuro: Awake and alert, GCS 15, oriented to person, place, time, and situation. 14:50 Skin: rash a moderate rash is noted, contact dermatitis, on the right upper eyelid, chest, abdomen and neck, Vital Signs: 14:59 BP 110 / 55; Pulse 84; Resp 16; Temp 97.6; Pulse Ox 98% ; Weight 68.04 kg; Height 5 ft. cm10 7 in. ; Pain 0/10; 14:59 Body Mass Index 23.49 (68.04 kg, 170.18 cm) cm10 14:59 Pain Scale: Adult cm10 MDM: 14:45 Medical Screening Exam initiated kb 14:52 Differential diagnosis: allergic reaction, parasite infection, contact dermatitis, kb candidiasis. Data reviewed: vital signs, nurses notes. Historians other than the Patient: Daughter/Son: son. Counseling: I had a detailed discussion with the patient and/or guardian regarding the historical points, exam findings, and any diagnostic results supporting the discharge/admit diagnosis, the need for outpatient follow up, an allergy/auditing specialist, a criminal defense lawyer, to return to the emergency department if symptoms worsen or persist or if there are any questions or concerns that arise at home. ED course: I saw pt initially last week. Rash today has improved from first visit. The rash to upper eyelid is new. Will repeat steroids. Recommended follow up with dermatology if symptoms persist after that. Administered Medications: 14:58 Drug: Dexamethasone IM 10 mg IM once Route: IM; Site: right gluteus; cm10 14:58 Follow up: Response: Medication administered at discharge. cm10 Disposition Summary: 03/26/24 14:54 Discharge Ordered Notes: Location: Home kb Condition: Stable kb Diagnosis - Allergic contact dermatitis, unspecified cause kb Followup: kb - With: Emergency Department - When: As needed - Reason: Worsening of condition Followup: kb - With: Private Physician - When: 2 - 3 days - Reason: Recheck today's complaints, Continuance of care, Re-evaluation by your physician Discharge Instructions: - Discharge Summary Sheet kb - Contact Dermatitis, [id number] kb Forms: - Medication Reconciliation Form kb - Antibiotic Education kb - Prescription Opioid Use kb - Patient Portal Instructions kb - Leadership Thank You Letter kb Prescriptions: - Medrol (Adrian) 4 mg Oral Tablets, Dose Pack - take 1 tablet ORAL route as directed - follow package instructions; 1 packet; kb Refills: 0, Product Selection Permitted Signatures: Kathryn White FNP-C FNP-Ckb Martinez, Clarissa, RN RN cm10
--- NOTE | 2024-03-26 15:03 | ER ---
Nurse's Notes [facility] Name: Yokasta Hill Age: 73 yrs Sex: Female : 1950 Arrival Date: 03/26/2024 Time: 14:42 Bed IW5 Private MD: Diagnosis: Allergic contact dermatitis, unspecified cause Presentation: 03/26 14:59 Chief complaint: Patient states: rash to her chest, neck, abdomen and eyes onset 1 week cm10 ago. Pt reports that it was getting better but now getting worse. Coronavirus screen: Client denies travel out of the [place] in the last 14 days. Ebola Screen: Patient denies travel to an Ebola-affected area in the 21 days before illness onset. No symptoms or risks identified at this time. Initial Sepsis Screen: Does the patient meet any 2 criteria? No. Patient's initial sepsis screen is negative. Does the patient have a suspected source of infection? No. Patient's initial sepsis screen is negative. Risk Assessment: Do you want to hurt yourself or someone else? Patient reports no desire to harm self or others. Onset of symptoms was March 26, 2024. 14:59 Method Of Arrival: Wheelchair cm10 14:59 Acuity: ROBERTO 4 cm10 Triage Assessment: 15:01 General: Appears in no apparent distress. comfortable, Behavior is calm, cooperative. cm10 Pain: Denies pain. Neuro: No deficits noted. Level of Consciousness is awake, alert, obeys commands, Oriented to person, place, time, situation, Appropriate for age. Derm: Rash noted that is itchy, papular, on neck and abdomen and chest and right eye and right upper eyelid. Historical: - Allergies: 15:01 Codeine; cm10 15:01 dextromethorphan; cm10 15:01 Egg Derived; cm10 15:01 Fentanyl; cm10 15:01 Sulfa (Sulfonamide Antibiotics); cm10 15:01 Sulfasalazine; cm10 15:01 Ultram; cm10 - PMHx: 15:01 Hypertensive disorder; Rheumatoid Arthritis; Anemia; cm10 - PSHx: 15:01 Bilateral hips; bilateral knees; Cholecystectomy; cm10 - Immunization history:: Adult Immunizations up to date. - Infectious Disease History:: Denies. - Social history:: Smoking status: Patient denies any tobacco usage or history of. Screenin:02 [facility] ED Fall Risk Assessment (Adult) History of falling in the last 3 months, cm10 including since admission No falls in past 3 months (0 pts) Confusion or Disorientation No (0 pts) Intoxicated or Sedated No (0 pts) Impaired Gait Yes (1 pt) Mobility Assist Device Used Yes (1 pt) Altered Elimination No (0 pt) Score/Fall Risk Level 0 - 2 = Low Risk Oriented to surroundings, Maintained a safe environment, Hourly rounding (assess needs \T\ fall precautionary measures) done. Abuse screen: Denies threats or abuse. Denies injuries from another. Nutritional screening: No deficits noted. Tuberculosis screening: No symptoms or risk factors identified. Vital Signs: 14:59 BP 110 / 55; Pulse 84; Resp 16; Temp 97.6; Pulse Ox 98% ; Weight 68.04 kg; Height 5 ft. cm10 7 in. ; Pain 0/10; 14:59 Body Mass Index 23.49 (68.04 kg, 170.18 cm) cm10 14:59 Pain Scale: Adult cm10 ED Course: 14:44 Patient arrived in ED. im 14:45 [facility] kb 14:45 Thaddeus Mary MD is Attending Physician. kb 15:01 Triage completed. cm10 15:01 Arm band placed on Patient placed in waiting room. cm10 15:02 Patient has correct armband on for positive identification. Provided Education on: cm10 Follow-up instructions. 15:02 No provider procedures requiring assistance completed. Patient did not have IV access cm10 during this emergency room visit. Administered Medications: 14:58 Drug: Dexamethasone IM 10 mg IM once Route: IM; Site: right gluteus; cm10 14:58 Follow up: Response: Medication administered at discharge. cm10 Medication: 15:02 VIS not applicable for this client. cm10 Outcome: 14:54 Discharge ordered by . kb 15:02 Discharged to home via wheelchair, with family, cm10 15:02 Condition: good 15:02 Discharge instructions given to patient, Instructed on discharge instructions, follow up and referral plans. medication usage, Demonstrated understanding of instructions, follow-up care, medications, Prescriptions given X 1, 15:02 Patient left the ED. cm10 Signatures: Kathryn White FNP-C FNP-Ckb Sandy Gaytan Clarissa, RN RN cm10
[2024-03-26 19:40] VITALS: BP 110/55; TEMP 97.6; O2SAT 98
== END 2024-03-26 15:02 | disposition home or self-care (01) ==
LOC: ER 14:42
DX: L23.9 Allergic contact dermatitis, unspecified cause (principal); I10 Essential (primary) hypertension
CPT/HCPCS: 96372; 99284; J1100

== ENCOUNTER 2024-05-14 15:28 | Inpatient (IN) | payer OTHER ==
--- OUTSIDE RECORDS SUMMARY | 2024-05-14 15:33 | XMS REPORT | Clinical Summary ---
Author Name Unknown Organization [facility] Address [address] [place] [address] Care Team Providers Care Aquac[employer] Fis[employer] Professor Name Role Phone Xiomara Cardenas MD Primary Care Provider + [phone] Alexus Guerrero MD Unavailable Blossom vailable Alexus Guerrero MD Unavailable Blossom vailable Allergies Active Allergy Reactions Criticality Noted Date Comments Codeine GI Intolerance 01/17/2017 vomiting Medications leflunomide (ARAVA) 20 mg tablet Take 20 [...] drink = 0.6 oz pur e alcohol) Comments No Sex and Gender Information Value Date Recorded Sex Assigned at Not on file Legal Sex Female 11:13 AM CDT Gender Identity Not on file Sexual Orientation Not on file Obstetrics History Para Term AB IAB SAB Ectopic Multiple Livin g Live Births 4 4 4 4 Date Outcome GA Total Labor Labor/2nd/3rd Weight Sex Type Anes PTL Astrid A1 A5 Name Clin Term Term Term Term Plan of Treatment Health Maintenance Due Date Last Done Comments Pneumococcal Vaccine: 65+ Years (1 of - PCV) 018 COVID-19 Vaccine (2023- season) 2024 Influenza Vaccine (#1) 2024 Insurance MEDICARE [place] B [place] [employer]ITION[place] [employer] [employer] Care Teams Aqu[employer]ulture [employer] 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 PCP - General Gynecologic Medical Oncology 12/22/16 Alexus Guerrero MD PCP - External Referring Obstetrics/Gynecology 12/22/16 Alexus Guerrero MD PCP - Cipriano Shelton Obstetrics/Gynecology 12/22/16
--- NOTE | 2024-05-14 17:22 | RAD REPORT ---
EXAMINATION: ONE VIEW CHEST XR CLINICAL INDICATION: shortness of breath TECHNIQUE: Frontal chest projection is submitted. Examination is limited by patient positioning and t echnique. COMPARISON: 03/09/2024 FINDINGS: Mild pulmonary edema. The heart is moderately enlarged in size. No displaced fractures identified. M ultilead pacer/stimulator device. IMPRESSION: Mild CHF.
[2024-05-14 18:16] LABS: Absolute Eosinophils 0.1 K/uL (0-0.5); Absolute Lymphocytes (CBC) 1.1 K/uL (0.7-4.9); Absolute Monocytes 0.4 K/uL (0.1-1.3); Absolute Neutrophil 5.3 K/uL (1.8-8.0); Basophils % 0.5 % (0-1.3); Eosinophils % 2.1 % (0-4.4); Hematocrit 27.8 % (36.0-45.0); Hemoglobin 9.3 g/dL (12.0-15.0); Lymphocytes % 15.6 % (15.3-44.8); MCH 29.6 pg (27.0-35.0); MCHC 33.4 g/dL (32.0-36.0); MCV 88.8 fL (80-100); MPV 8.4 fL (7.6-11.3); Monocytes % 5.6 % (3.3-12.3); Neutrophils % 76.2 % (41.7-73.7); Nucleated Red Blood Cells % 0.1 % (0-0); Platelets 290 thou/uL (152-406); RBC Red Blood Cell Count 3.13 M/uL (3.86-4.86)
[2024-05-14 18:35] LABS: Anion Gap 10.1 mEq/L (5.0-15.0); Potassium 4.1 mEq/L (3.5-5.1); Troponin High Sensitivity 47.8 pg/mL (<58.9)
--- NOTE | 2024-05-14 19:25 | ER ---
Nurse's Notes [facility] Name: Yokasta Hill Age: 73 yrs Sex: Female : 1950 Arrival Date: 05/14/2024 Time: 15:28 Bed 23 Private MD: Diagnosis: Heart failure, unspecified Presentation: 05/14 15:44 Chief complaint: Patient's son or daughter states: he has been concerned about the ap3 patient wheezing when she sleeps for approx a week and a half. Coronavirus screen: At this time, the client does not indicate any symptoms associated with coronavirus-19. Ebola Screen: No symptoms or risks identified at this time. Initial Sepsis Screen: Does the patient meet any 2 criteria? HR > 90 bpm. Does the patient have a suspected source of infection? No. Patient's initial sepsis screen is negative. Risk Assessment: Do you want to hurt yourself or someone else? Patient reports no desire to harm self or others. Onset of symptoms is unknown. 15:44 Method Of Arrival: Wheelchair ap3 15:44 Acuity: ROBERTO 3 ap3 Triage Assessment: 15:45 General: Appears in no apparent distress. Behavior is calm, cooperative, appropriate ap3 for age. Pain: Denies pain. Neuro: Level of Consciousness is awake, alert, obeys commands, Oriented to person, place, time, situation, Appropriate for age. Cardiovascular: Patient's skin is warm and dry. Respiratory: Reports wheezing when sleeping for approx 1.5 weeks Airway is patent Respiratory effort is even, unlabored, Respiratory pattern is regular, symmetrical, Breath sounds are clear in left posterior upper lobe, right posterior upper lobe, left posterior lower lobe and right posterior middle lobe Onset: The symptoms/episode began/occurred gradually, the patient has mild shortness of breath. Historical: - Allergies: 15:45 Codeine; ap3 15:45 dextromethorphan; ap3 15:45 Egg Derived; ap3 15:45 Fentanyl; ap3 15:45 Sulfa (Sulfonamide Antibiotics); ap3 15:45 Sulfasalazine; ap3 15:45 Ultram; ap3 - PMHx: 15:45 Anemia; Hypertensive disorder; Rheumatoid Arthritis; ap3 - PSHx: 15:45 Bilateral hips; bilateral knees; Cholecystectomy; ap3 - Immunization history:: Client reports receiving the 2nd dose of the Covid vaccine. - Infectious Disease History:: Denies. - Social history:: Smoking status: Patient denies any tobacco usage or history of. Screenin:46 Abuse screen: Denies threats or abuse. Nutritional screening: No deficits noted. ap3 Tuberculosis screening: No symptoms or risk factors identified. Vital Signs: 15:43 Pulse 108; Resp 18; Temp 98.1; Pulse Ox 97% ; Weight 69.4 kg; Height 5 ft. 7 in. ; Pain ap3 0/10; 15:44 BP 122 / 66; ap3 18:56 BP 129 / 84; Pulse 116; Resp 24; Pulse Ox 95% ; bp 15:43 Body Mass Index 23.96 (69.40 kg, 170.18 cm) ap3 15:43 Pain Scale: Adult ap3 ED Course: 15:34 Patient arrived in ED. sj2 15:45 Triage completed. ap3 15:46 Arm band placed on left wrist. ap3 15:48 Luis Miguel Dennis DO is Attending Physician. ms3 17:14 XRAY Chest (1 view) In Process Unspecified. EDMS 17:21 Attending Physician role handed off by Luis Miguel Dennis DO ec2 17:21 Kelby Marquez MD is Attending Physician. ec2 17:49 Patient placed in an exam room, on a stretcher. ll1 17:51 Kali Mejia, SHERI is Primary Nurse. bp 18:18 Initial lab(s) drawn, by me, sent to lab. EKG done, by ED staff, reviewed by Kelby Marquez MD. Inserted saline lock: 22 gauge in right wrist, using aseptic technique. Blood collected. Flushed with 10 mL NS. 19:25 Gabrielle Garland MD is Hospitalizing Provider. ec2 05/15 12:28 Diet: Patient given a regular meal tray. ty 14:35 No provider procedures requiring assistance completed. Patient admitted, IV remains in rs5 place. Administered Medications: 05/14 21:31 Drug: Furosemide IVP 40 mg IVP once; give over 2 minutes Route: IVP; Site: right jb4 antecubital; 23:05 Follow up: Response: No adverse reaction al5 Outcome: 19:25 Decision to Hospitalize by Provider. ec2 05/15 14:35 Admitted to Med/surg accompanied by tech, with chart, rs5 Condition: stable Instructed on the need for admit, Demonstrated understanding of instructions, 14:43 Patient left the ED. rs5 Signatures: Dispatcher [employer] Marcelo Avila, RN RN jb4 Kali Mejia RN RN bp Mague Robb RN RN ap3 Margie Washington RN RN ll1 Luis Miguel Dennis, DO ms3 Luis Alberto Jorge RN RN rs5 Kelby Marquez MD MD 2 Anatoliy Khan Amanda, RN RN al5 Georgiana Bridges 2 Corrections: (The following items were deleted from the chart) 05/14 15:45 15:44 Chief complaint: Patient's son or daughter states: he has been concerned about ap3 the patient wheezing when she sleeps. ap3 17:49 17:37 Patient placed in an exam room, on a stretcher, ll1 ll1
--- NOTE | 2024-05-14 19:25 | EDPHYS ---
Physician Documentation [facility] Name: Yokasta Hill Age: 73 yrs Sex: Female : 1950 Arrival Date: 05/14/2024 Time: 15:28 Bed 23 Private MD: ED Physician Kelby Marquez HPI: 05/14 16:36 This 73 yrs old Female presents to ER via Wheelchair with complaints of ms3 Wheezing > 1 Year, Congestion, GOT PACEMAKER 2 MONTHS AGO. 16:36 73 year old female with a history of bronchitis, rheumatoid arthritis, and congestive ms3 heart failure. She had a defibrillator and pacemaker placement approximately three months ago. Her son reported that about a week ago, he noticed the patient breathing heavily and wheezing at night. Upon waking her, her heart rate was elevated, though her blood pressure remained normal. Throughout the night, her heart rate decreased. She has been experiencing excessive sweating for the past two nights. The patient also reports difficulty breathing while lying down.. Historical: - Allergies: 15:45 Codeine; ap3 15:45 dextromethorphan; ap3 15:45 Egg Derived; ap3 15:45 Fentanyl; ap3 15:45 Sulfa (Sulfonamide Antibiotics); ap3 15:45 Sulfasalazine; ap3 15:45 Ultram; ap3 - PMHx: 15:45 Anemia; Hypertensive disorder; Rheumatoid Arthritis; ap3 - PSHx: 15:45 Bilateral hips; bilateral knees; Cholecystectomy; ap3 - Immunization history:: Client reports receiving the 2nd dose of the Covid vaccine. - Infectious Disease History:: Denies. - Social history:: Smoking status: Patient denies any tobacco usage or history of. ROS: 16:36 Constitutional: Negative for fever, and chills. Cardiovascular: Negative for chest ms3 pain, and palpitations. 16:36 Abdomen/GI: Negative for abdominal pain, nausea, vomiting, diarrhea, and constipation, MS/Extremity: Negative for injury and deformity, Skin: Negative for injury, rash, and discoloration, 16:36 Respiratory: Positive for shortness of breath, Exam: 16:36 Constitutional: This is a well developed, well nourished patient who is awake, alert, ms3 and in no acute distress. Head/Face: Normocephalic, atraumatic. Chest/axilla: Normal chest wall appearance and motion. Nontender with no deformity. Cardiovascular: Regular rate and rhythm with a normal S1 and S2. No gallops, murmurs, or rubs. Normal PMI, no JVD. No pulse deficits. Respiratory: Lungs have equal breath sounds bilaterally, clear to auscultation and percussion. No rales, rhonchi or wheezes noted. No increased work of breathing, no retractions or nasal flaring. Abdomen/GI: Soft, non-tender, with normal bowel sounds. No distension or tympany. No guarding or rebound. No evidence of tenderness throughout. Skin: Warm, dry with normal turgor. Normal color with no rashes, no lesions, and no evidence of cellulitis. Vital Signs: 15:43 Pulse 108; Resp 18; Temp 98.1; Pulse Ox 97% ; Weight 69.4 kg; Height 5 ft. 7 in. ; Pain ap3 0/10; 15:44 BP 122 / 66; ap3 18:56 BP 129 / 84; Pulse 116; Resp 24; Pulse Ox 95% ; bp 15:43 Body Mass Index 23.96 (69.40 kg, 170.18 cm) ap3 15:43 Pain Scale: Adult ap3 MDM: 16:04 Medical Screening Exam initiated ms3 16:36 Differential diagnosis: reactive airway, CHF, URI. ms3 17:22 ED course: Patient signed out to me by previous physician, in brief arrives today for ec2 dyspnea, reports that she has some orthopnea. Plans to follow-up lab work and reassess.. 17:27 Transition of care: After a detail discussion of the patient's case, care is ms3 transferred to Kelbysuzi Marquez MD. 18:17 Data reviewed: vital signs, nurses notes. ED course: EKG independently reviewed and ec2 interpreted by me, shows sinus tachycardia, rate 116, no acute ST segment elevations, intervals are nonactionable, does have ST depressions in the inferolateral leads.. 18:49 ED course: Lab work revealing for reassuring metabolic profile, CBC with slight anemia, ec2 BNP elevation at 18,000, troponin within normal ranges. Chest x-ray shows some component of CHF. . 19:24 ED course: On reassessment patient with slight tachypnea, slight tachycardia, will ec2 admit for diuresis, will give 40 of IV Lasix, discussed with hospitalist who will accept for admission. Patient and family updated on the plan of care.. 05/14 16:03 Order name: Basic Metabolic Panel; Complete Time: 18:48 ms3 05/14 16:03 Order name: CBC with Diff; Complete Time: 18:48 ms3 05/14 16:03 Order name: NT PRO-BNP; Complete Time: 18:48 ms3 05/14 16:03 Order name: Troponin HS; Complete Time: 18:48 ms3 05/14 22:00 Order name: Urinalysis w/ reflexes EDMS 05/14 22:00 Order name: CBC with Automated Diff EDMS 05/14 22:00 Order name: CBC with Automated Diff EDMS 05/14 22:00 Order name: Comprehensive Metabolic Panel EDMS 05/14 22:00 Order name: Comprehensive Metabolic Panel EDMS 05/14 22:00 Order name: Troponin High Sensitivity EDMS 05/14 22:00 Order name: Troponin High Sensitivity EDMS 05/14 22:00 Order name: Troponin High Sensitivity EDMS 05/14 22:00 Order name: Troponin High Sensitivity EDMS 05/14 22:01 Order name: Influenza Screen (A EDMS 05/14 16:03 Order name: XRAY Chest (1 view); Complete Time: 17:27 ms3 05/14 22:00 Order name: Thorax Wo Con EDMS 05/14 22:00 Order name: Echo without Doppler (2D) EDMS 05/14 16:03 Order name: EKG; Complete Time: 16:04 ms3 05/14 16:03 Order name: Cardiac monitoring; Complete Time: 18:17 ms3 05/14 16:03 Order name: EKG - Nurse/Tech; Complete Time: 18:17 ms3 05/14 16:03 Order name: IV Saline Lock; Complete Time: 18:17 ms3 05/14 16:03 Order name: Labs collected and sent; Complete Time: 18:18 ms3 05/14 16:03 Order name: O2 Per Protocol; Complete Time: 18:17 ms3 05/14 16:03 Order name: O2 Sat Monitoring; Complete Time: 18:17 ms3 Administered Medications: 21:31 Drug: Furosemide IVP 40 mg IVP once; give over 2 minutes Route: IVP; Site: right jb4 antecubital; 23:05 Follow up: Response: No adverse reaction al5 Disposition Summary: 05/14/24 19:25 Hospitalization Ordered Notes: Hospitalization Status: Inpatient Admission ec2 Provider: Gabrielle Garland ec2 Condition: Stable ec2 Problem: an acute exacerbation ec2 Symptoms: have improved ec2 Bed/Room Type: Standard ec2 Location: Telemetry/MedSurg (observation)(05/15/24 13:06) bc6 Room Assignment: 224(05/15/24 13:06) 6 Diagnosis - Heart failure, unspecified ec2 Forms: - Medication Reconciliation Form ec2 - SBAR form ec2 - Leadership Thank You Letter ec2 Signatures: Dispatcher [employer] Marcelo Avila RN RN jb4 Mague Robb RN RN ap3 Luis Miguel Dennis DO DO ms3 Yesenia Archibald rv1 Guadalupe Walter bc6 Kelby Marquez MD MD ec2 Mague Wilson RN al5 Corrections: (The following items were deleted from the chart) 05/15 04:18 05/14 19:25 Telemetry/MedSurg (Inpatient) ec2 rv1 05/15 04:18 05/14 19:25 ec2 rv1 05/15 13:06 04:18 [facility] ER HOLD rv1 bc6 13:06 04:18 ERHOLD- rv1 bc6
[2024-05-14] MEDS ORDERED: FUROSEMIDE 40 MG/4 ML VIAL ONE (21:21)
--- NOTE | 2024-05-14 21:49 | P.HP ---
Certification for Inpatient Patient admitted to: Inpatient With expected LOS: >2 Midnights Practitioner: I am a practitioner with admitting privileges, knowledge of patient current condition, hospital course, and medical plan of care. Services: Services provided to patient in accordance with Admission requirements found in Title 42 Section 412.3 of the Code of Federal Regulations Patient History Date of Service: 05/14/24 Reason for admission: chf exacerbation History of Present Illness: 73-year-old female history of rheumatoid arthritis, severe systolic heart failure with defibrillator, coronary artery disease presents to the ER with 10- day history of progressive shortness of breath. She did report having a productive cough with clear and white sputum. She does have some orthopnea and dyspnea on exertion. She follows with cardiology in [facility]. Reports that her defibrillator was placed March 2024. Her last echocardiogram in the EMR was January 2024 which showed an EF between 10 and 15%. She does report feeling feverish. Allergies adhesive tape Allergy (Verified 01/26/24 21:19) Rash Sulfa (Sulfonamide Antibiotics) Allergy (Verified 01/26/24 21:19) Rash dextromethorphan Adverse Reaction (Intermediate, Verified 01/27/24 09:20) Nausea/Vomiting codeine Adverse Reaction (Verified 01/26/24 21:19) Rash egg Adverse Reaction (Verified 01/26/24 21:19) Nausea/Vomiting fentanyl Adverse Reaction (Verified 01/26/24 21:19) Rash hydrocodone Adverse Reaction (Verified 01/26/24 21:19) Nausea/Vomiting sulfasalazine Adverse Reaction (Verified 01/26/24 21:20) caused anemia tramadol [From Ultram] Adverse Reaction (Verified 01/26/24 21:19) Rash Home Medications: Acetaminophen [Tylenol Extra Strength] 500 mg PO Q6HP PRN 01/26/24 Aspirin Chewable [Aspirin Chewable*] 81 mg PO DAILY 01/26/24 Atorvastatin Calcium [Lipitor] 80 mg PO DAILY 01/26/24 Celecoxib [Celebrex*] 100 mg PO Q12HP PRN 01/26/24 Clopidogrel Bisulfate [Plavix*] 75 mg PO DAILY 01/26/24 Ergocalciferol (Vitamin D2) [Vitamin D2] 50,000 unit PO Q7D 01/26/24 Ferrous Sulfate [Ferrous Sulfate*] 325 mg PO DAILY 01/26/24 Leflunomide [Arava] 20 mg PO DAILY 01/26/24 Olopatadine HCl [Eye Allergy Itch Relief] 1 gtt EACH EYE BID PRN 01/26/24 Pantoprazole Sodium [Protonix] 20 mg PO DAILY PRN 01/26/24 Spironolactone [Aldactone*] 25 mg PO BEDTIME 01/26/24 Midodrine HCl [Proamatine*] 5 mg PO BID #60 tab 01/27/24 Potassium Chloride 10 meq PO DAILY #30 tab 01/27/24 Furosemide 20 mg PO BIDL 02/18/24 carvediloL [Coreg*] 3.125 mg PO BID #60 tab 02/20/24 Ondansetron [Zofran] 4 mg PO Q6H PRN #20 tab 03/09/24 - Past Medical/Surgical History Diabetic: No -: HTN -: RA -: Anemia of chronic disease -: Cardiomyopathy with an ejection fraction of 25% -: Coronary artery disease -: Mitral regurgitation -: hip surgery -: knee surgery -: back surgery -: wrist surgery -: cholecystectomy -: Cardiac catheterization -: ADY Psychosocial/ Personal History: , two sons - Family History Mother -: Cancer Notes: breast cancer Father -: Lung disease Notes: emphysema - Social History Alcohol use: No CD- Drugs: No Caffeine use: Yes Review of Systems 10-point ROS is otherwise unremarkable Respiratory: Cough, Shortness of Breath Physical Examination - Physical Exam General: Alert, Oriented x3 HEENT: Atraumatic, Normocephalic Respiratory: Normal air movement, Crackles/rales Cardiovascular: Regular rate/rhythm, Normal S1 S2 Gastrointestinal: Soft and benign Musculoskeletal: Other (deformities noted) Integumentary: No rashes Neurological: Normal speech - Studies Laboratory Data (last 24 hrs) 05/14/24 05/14/24 18:11 18:11 WBC 7.00 Hgb 9.3 L Hct 27.8 L Plt Count 290 Sodium 135 L Potassium 4.1 BUN 20 H Creatinine 0.83 Glucose 128 H Assessment and Plan - Problems (Diagnosis) (1) Acute on chronic systolic heart failure Current Visit: No Status: Acute - Plan #acute on chronic systolic heart failure #Dyspnea on exertion #history of defibrillator #CAD #abnormal EKG #Rheumatoid arthritis plan: 1. admit to med surg with telemetry 2 check ECHO 3. order iv lasix 4. check CT chest wo contrast 5. consider cardiology consultation 6. await medication reconciliation 7. check viral panel code:full - Advance Directives Does patient have a Living Will: No Does patient have a Durable POA for Healthcare: No - Code Status/Comfort Care Code Status: Full Code
--- NOTE | 2024-05-14 22:32 | RAD REPORT ---
EXAMINATION: CT CHEST WITHOUT CONTRAST CLINICAL INDICATION: dyspnea TECHNIQUE: Routine CT scan of the chest without intravenous contrast. One or more of the following do se reduction techniques were used: Automated exposure control, adjustment of the mA and/or kV according to patient size, and/or iterative reconstruction. Unless otherwise specified, incidental fi ndings do not require dedicated imaging follow-up. COMPARISON: No prior exam. FINDINGS: LOWER NECK: Several small thyroid nodules noted. LUNGS: Mild interstitial pulmonary edema. The heart is mildly enlarged in size. Pacer wires are prese nt. PLEURA: No pleural effusion. No pneumothorax. . MEDIASTINUM AND LYMPH NODES: No mediastinal mass or fluid collection. Normal size mediastinal, hilar, and axillary lymph nodes. OSSEOUS STRUCTURES AND CHEST WALL: Intact. UPPER ABDOMEN: Cholecystectomy clips. IMPRESSION: Mild CHF is possible. Examination limited by lack of IV contrast.
[2024-05-15 03:55] VITALS: BMI 23.9
[2024-05-15] MEDS: FLU (Fluarix Triv) TS24-25(6MOS UP)/PF 45 MCG/0.5 ML Syringe IM ONE (07:15)
[2024-05-15] MEDS ORDERED: FUROSEMIDE 40 MG/4 ML VIAL ONE (07:46)
[2024-05-15] MEDS ORDERED: ENOXAPARIN 40 MG/0.4 ML SQ ONE (07:47)
--- NOTE | 2024-05-15 07:49 | P.PN ---
Subjective Date of Service: 05/17/24 Chief Complaint: chf exacerbation Reports shortness of breath with exertion improving, pending echo, <Michelle Taylor - Last Filed: 05/17/24 21:55> Date of Service: 05/15/24 <Gabrielle Garland - Last Filed: 05/19/24 16:36> Review of Systems 10-point ROS is otherwise unremarkable <Michelle Taylor - Last Filed: 05/17/24 21:55> Physical Examination - Vital Signs Temperature: 98 F Blood Pressure: 116/70 Pulse: 100 Respirations: 19 Pulse Ox (%): 96 - Physical Exam General: Alert, Oriented x3, Mild distress, Other (Rheumatoid arthritis, chronic pain) HEENT: Atraumatic, Normocephalic Neck: Supple, 2+ carotid pulse no bruit Respiratory: Diminished, Crackles/rales Cardiovascular: Normal pulses, Regular rate/rhythm, Normal S1 S2 Capillary refill: <2 Seconds Gastrointestinal: Normal bowel sounds, Soft and benign Musculoskeletal: Other (Rheumatoid arthritis, moderate generalized weakness,) Neurological: Normal speech, Normal strength at 5/5 x4 extr, Cranial nerves 3-12 intact, Abnormal gait, Abnormal strength - Studies Laboratory Data (last 24 hrs) 05/14/24 05/14/24 18:11 18:11 WBC 7.00 Hgb 9.3 L Hct 27.8 L Plt Count 290 Sodium 135 L Potassium 4.1 BUN 20 H Creatinine 0.83 Glucose 128 H <BrandonMichelle - Last Filed: 05/17/24 21:55> Assessment And Plan - Current Problems (Diagnosis) (1) Heart failure with reduced ejection fraction (HFrEF, <= 40%) Status: Acute (2) Hypotension Status: Acute Qualifiers: Hypotension type: unspecified hypotension type Qualified Code(s): I95.9 - Hypotension, unspecified (3) Rheumatoid arthritis Status: Chronic Qualifiers: Rheumatoid arthritis location: unspecified site Rheumatoid factor presence: unspecified presence Qualified Code(s): M06.9 - Rheumatoid arthritis, unspecified - Plan Assessment plan Admit to MedSurg, telemetry, Cardiology consult, echo ordered Daily weights, midodrine for hypotension Gentle diuretics, As needed analgesics patient refused pain meds, Tylenol, lidocaine patches ordered Patient will need to follow-up with cardiology after discharge Fall precautions, Full code DVT SCD Diet cardiac Disposition Home independent prior Discharge Plan: Home - Code Status/Comfort Care Code Status: Full Code Critical Care: No Time Spent Managing PTS Care (In Minutes): 35 <Michelle Taylor - Last Filed: 05/17/24 21:55> Date of Service: 05/15/24 Patient was seen and examined. Events of the last 24 hours have been noted. Spoke with with ROMANA regarding patient's clinical picture after evaluating and examining the patient independently. I performed a substantial part of the MDM during this patient's care today. I personally made or approved the documented management plan and acknowledge its risk of complications. I agree with the findings and documentation provided in the ROMANA's notes. <Gabrielle Garland - Last Filed: 05/19/24 16:36>
[2024-05-15] MEDS: ENOXAPARIN 40 MG/0.4 ML SQ SCH (08:04)
[2024-05-15] MEDS: FUROSEMIDE 40 MG/4 ML VIAL IV SCH (08:04)
[2024-05-15] MEDS: MIDODRINE HCL 5 MG TABLET PO PRN (08:30)
[2024-05-15] MEDS ORDERED: MIDODRINE HCL 5 MG TABLET ONE (08:44)
[2024-05-15] MEDS: ACETAMINOPHEN 500 MG TAB PO SCH (09:00)
[2024-05-15] MEDS ORDERED: SPIRONOLACTONE 25 MG TABLET PO SCH (09:00)
[2024-05-15] MEDS: FUROSEMIDE 20 MG TABLET PO SCH (09:00)
[2024-05-15] MEDS ORDERED: FUROSEMIDE 40 MG/4 ML VIAL IV SCH (09:00)
[2024-05-15] MEDS ORDERED: ACETAMINOPHEN 500 MG TAB ONE (09:20)
[2024-05-15 11:38] LABS: Absolute Eosinophils 0.3 K/uL (0-0.5); Absolute Lymphocytes (CBC) 1.3 K/uL (0.7-4.9); Absolute Monocytes 0.6 K/uL (0.1-1.3); Absolute Neutrophil 7.9 K/uL (1.8-8.0); Basophils % 0.4 % (0-1.3); Eosinophils % 2.5 % (0-4.4); Hematocrit 29.9 % (36.0-45.0); Hemoglobin 9.5 g/dL (12.0-15.0); Lymphocytes % 12.8 % (15.3-44.8); MCH 28.5 pg (27.0-35.0); MCHC 31.8 g/dL (32.0-36.0); MCV 89.4 fL (80-100); MPV 9.1 fL (7.6-11.3); Monocytes % 5.8 % (3.3-12.3); Neutrophils % 78.5 % (41.7-73.7); Platelets 330 thou/uL (152-406); RBC Red Blood Cell Count 3.34 M/uL (3.86-4.86); Red Cell Distribution Width 17.3 % (12.1-15.2)
[2024-05-15 11:55] LABS: Albumin 3.4 g/dL (3.4-5.0); Albumin/Globulin Ratio 0.7 (1.1-1.8); Anion Gap 11.6 mEq/L (5.0-15.0); Bilirubin Total 0.7 mg/dL (0.2-1.0); Globulin 4.9 g/dL (2.3-3.5); Potassium 3.6 mEq/L (3.5-5.1); Protein, Total 8.3 g/dL (6.4-8.2)
[2024-05-15] MEDS: PANTOPRAZOLE 40MG TABLET PO ONE (18:02)
[2024-05-15] MEDS: GUAIFENESIN 600 MG SA TAB PO SCH (23:11)
[2024-05-16 04:41] LABS: Absolute Eosinophils 0.3 K/uL (0-0.5); Absolute Lymphocytes (CBC) 1.5 K/uL (0.7-4.9); Absolute Monocytes 0.5 K/uL (0.1-1.3); Absolute Neutrophil 6.3 K/uL (1.8-8.0); Basophils % 0.6 % (0-1.3); Eosinophils % 3.1 % (0-4.4); Hematocrit 27.6 % (36.0-45.0); Hemoglobin 9.5 g/dL (12.0-15.0); Lymphocytes % 16.9 % (15.3-44.8); MCH 30.2 pg (27.0-35.0); MCHC 34.5 g/dL (32.0-36.0); MCV 87.7 fL (80-100); MPV 8.5 fL (7.6-11.3); Monocytes % 5.4 % (3.3-12.3); Platelets 316 thou/uL (152-406); RBC Red Blood Cell Count 3.15 M/uL (3.86-4.86); Red Cell Distribution Width 17.2 % (12.1-15.2)
[2024-05-16 04:52] LABS: Albumin 3.2 g/dL (3.4-5.0); Anion Gap 7.6 mEq/L (5.0-15.0); Phosphorus 3.9 mg/dL (2.5-4.9); Potassium 3.6 mEq/L (3.5-5.1); Troponin High Sensitivity 53.1 pg/mL (<58.9)
[2024-05-16] MEDS: PANTOPRAZOLE 40MG TABLET PO SCH (08:32)
[2024-05-16 12:50] VITALS: O2SAT 98
--- NOTE | 2024-05-16 15:49 | EKG ---
Test Date: 2024-05-14 Test Time: 18:07:41 District Fire Chief: BP MEASUREMENT RESULTS: Intervals: Rate: 116 CT: 122 QRSD: 122 QT: 354 QTc: 492 [place]: P: 63 CT: 122 QRS: 19 T: 188 INTERPRETIVE STATEMENTS: Sinus tachycardia Anterior infarct, age undetermined Marked ST abnormality, possible inferior subendocardial injury Abnormal ECG Compared to ECG 03/07/2024 14:34:59 Myocardial infarct finding now present ST (T wave) deviation now present Fusion complex(es) no longer present Left ventricular hypertrophy no longer present Early repolarization no longer present Electronically Signed On 05-16-24 15:47:31 MOVING CONSULTANT by Tarun Menjivar
--- NOTE | 2024-05-16 16:46 | P.CNS ---
Date of Consult: 05/16/24 Chief Complaint: chf exacerbation History of Present Illness: Patient with PMH of CAD s/p PCI, HFrEF s/p ICD/PM, presented with wheezes, mild SOB, denies chest pain, no palpitations, no syncope. Allergies adhesive tape Allergy (Verified 01/26/24 21:19) Rash Sulfa (Sulfonamide Antibiotics) Allergy (Verified 01/26/24 21:19) Rash dextromethorphan Adverse Reaction (Intermediate, Verified 01/27/24 09:20) Nausea/Vomiting bumetanide [From Bumex] Adverse Reaction (Verified 05/15/24 16:43) Rash codeine Adverse Reaction (Verified 01/26/24 21:19) Rash egg Adverse Reaction (Verified 01/26/24 21:19) Nausea/Vomiting fentanyl Adverse Reaction (Verified 01/26/24 21:19) Rash hydrocodone Adverse Reaction (Verified 01/26/24 21:19) Nausea/Vomiting sulfasalazine Adverse Reaction (Verified 01/26/24 21:20) caused anemia tramadol [From Ultram] Adverse Reaction (Verified 01/26/24 21:19) Rash Home medications list reviewed: Yes Home Medications: Aspirin Chewable [Aspirin Chewable*] 81 mg PO DAILY 01/26/24 Atorvastatin Calcium [Lipitor] 80 mg PO BEDTIME 01/26/24 Clopidogrel Bisulfate [Plavix*] 75 mg PO DAILY 01/26/24 Ergocalciferol (Vitamin D2) [Vitamin D2] 50,000 unit PO Q7D 01/26/24 Ferrous Sulfate [Ferrous Sulfate*] 325 mg PO DAILY 01/26/24 Spironolactone [Aldactone*] 25 mg PO DAILY 01/26/24 Midodrine HCl [Proamatine*] 5 mg PO BID #60 tab 01/27/24 Potassium Chloride 10 meq PO DAILY #30 tab 01/27/24 Furosemide 20 mg PO BID PRN 02/18/24 Folic Acid 1 mg PO DAILY 05/15/24 Magnesium Oxide [Mag 0X Tab] 400 mg PO DAILY PRN 05/15/24 - Past Medical/Surgical History Diabetic: No -: HTN -: RA -: Anemia of chronic disease -: Cardiomyopathy with an ejection fraction of 25% -: Coronary artery disease -: Mitral regurgitation -: hip surgery -: knee surgery -: back surgery -: wrist surgery -: cholecystectomy -: Cardiac catheterization -: ADY Psychosocial/ Personal History: , two sons - Family History Mother Medical History: Cancer Notes: breast cancer Father Medical History: Lung disease Notes: emphysema - Social History Alcohol use: No CD- Drugs: No Caffeine use: Yes Review of Systems 10-point ROS is otherwise unremarkable Physical Examination Temp Pulse Resp BP Pulse Ox 98.1 F 120 H 16 119/70 95 05/16/24 16:00 05/16/24 16:00 05/16/24 16:00 05/16/24 16:00 05/16/24 16:00 General: Alert, In no apparent distress HEENT: Atraumatic, PERRLA, Mucous membr. moist/pink, EOMI, Sclerae nonicteric Neck: Supple, 2+ carotid pulse no bruit, No LAD, Without JVD or thyroid abnormality Respiratory: Clear to auscultation bilaterally, Normal air movement Cardiovascular: Regular rate/rhythm, Normal S1 S2 Gastrointestinal: Normal bowel sounds, No tenderness Musculoskeletal: No tenderness Integumentary: No rashes Neurological: Normal gait, Normal speech, Normal tone, Normal affect Lymphatics: No axilla or inguinal lymphadenopathy - Problems (1) Chronic combined systolic and diastolic heart failure Current Visit: Yes Status: Acute Plan: Patient looks euvolemic on exam, she takes lasix 40 alternating with 20 , advised family to give her lasix 40 mg daily for 7 days, use midodrine if BP is low, continue her home medications
[2024-05-16] MEDS: LIDOCAINE 4% PATCH TOP SCH (17:10)
--- NOTE | 2024-05-16 17:24 | P.DS ---
Admission Date: 05/14/24 Discharge Date: 05/16/24 Reason for Admission: chf exacerbation Brief History of Present Illness: 73-year-old female history of rheumatoid arthritis, severe systolic heart failure with defibrillator, coronary artery disease presents to the ER with 10- day history of progressive shortness of breath. She did report having a productive cough with clear and white sputum. She does have some orthopnea and dyspnea on exertion. She follows with cardiology in [facility]. Reports that her defibrillator was placed March 2024. Her last echocardiogram in the EMR was January 2024 which showed an EF between 10 and 15%. She does report feeling feverish. Physical Exam General: Alert, Oriented x3 HEENT: Atraumatic, Normocephalic Respiratory: Normal air movement, Crackles/rales Cardiovascular: Regular rate/rhythm, Normal S1 S2 Gastrointestinal: Soft and benign Musculoskeletal: Other (deformities noted) Integumentary: No rashes Neurological: Normal speech Hospital Course: 73-year-old female history of rheumatoid arthritis, severe systolic heart failure with defibrillator, coronary artery disease presents to the ER with 10- day history of progressive shortness of breath. She did report having a productive cough with clear and white sputum. She does have some orthopnea and dyspnea on exertion. She follows with cardiology in [facility]. Reports that her defibrillator was placed March 2024. Her last echocardiogram in the EMR was January 2024 which showed an EF between 10 and 15%. Noted to have acute on chronic heart failure, hypotension, was last seen by cardiology, stable to discharge home, follow-up with cardiology after discharge. Discharge medications Lasix 40 mg daily for 7 days, use midodrine for hypotension, Then return to Lasix 40 mg daily alternate with 20 mg every other day Prescription, Mucinex 3 times daily as needed for cough Prescription of Lasix 20 mg tablets take as instructed Potassium 20 mg daily Midodrine as needed hypotension systolic blood pressure less than 100 Lidocaine patch for chronic pain Assessment Acute on chronic heart failure with reduced ejection fraction Hypotension-midrodine for systolic less than 100 Rheumatoid arthritis, patient will only take Tylenol for pain, refused as needed analgesics, discharged home on lidocaine patch Echo completed, pending report Continue home medicines as previously prescribed GOAL: Clear understanding of disease process INSTRUCTIONS: Physician Discharge Instructions: -Cardiology after discharge-call office for appointment -Follow-up with PCP in 1 to 2 weeks -Please call Dr. Garland at [phone] if any questions regarding hospital stay -Please call nursing station at [phone] if any nursing or medication questions -Return to the emergency room if symptoms worsen Diet: ADA, low sodium Activity: Fall precautions <Michelle Taylor - Last Filed: 05/17/24 21:45> Admission Date: 05/14/24 Discharge Date: 05/16/24 Hospital Course: Patient was seen and examined. Events of the last 24 hours have been noted. Spoke with with ROMANA regarding patient's clinical picture after evaluating and examining the patient independently. I performed a substantial part of the MDM during this patient's care today. I personally made or approved the documented management plan and acknowledge its risk of complications. I agree with the findings and documentation provided in the ROMANA's notes. <Gabrielle Garland - Last Filed: 05/19/24 16:38> Disposition: ROUTINE DISCHARGE Discharge Condition: GOOD Vital Signs/Physical Exam: Temp Pulse Resp BP Pulse Ox 98.1 F 120 H 16 119/70 95 05/16/24 16:00 05/16/24 17:12 05/16/24 16:00 05/16/24 17:12 05/16/24 16:00 Laboratory Data at Discharge: WBC 8.60 thou/uL (4.3-10.9) 05/16/24 04:14 Hgb 9.5 g/dL (12.0-15.0) L 05/16/24 04:14 Hct 27.6 % (36.0-45.0) L 05/16/24 04:14 Plt Count 316 thou/uL (152-406) 05/16/24 04:14 Sodium 132 mEq/L (136-145) L 05/16/24 04:14 Potassium 3.6 mEq/L (3.5-5.1) 05/16/24 04:14 BUN 26 mg/dL (7-18) H 05/16/24 04:14 Creatinine 0.83 mg/dL (0.55-1.02) 05/16/24 04:14 Glucose 119 mg/dL (74-106) H 05/16/24 04:14 Phosphorus 3.9 mg/dL (2.5-4.9) 05/16/24 04:14 Total Bilirubin 0.7 mg/dL (0.2-1.0) 05/15/24 11:16 AST 13 U/L (15-37) L 05/15/24 11:16 ALT 20 U/L (13-56) 05/15/24 11:16 Alkaline Phosphatase 141 U/L (45-117) H 05/15/24 11:16 <Michelle Taylor - Last Filed: 05/17/24 21:45> Vital Signs/Physical Exam: Temp Pulse Resp BP Pulse Ox 98 F 100 H 19 116/70 96 05/17/24 21:55 05/17/24 21:55 05/17/24 21:55 05/17/24 21:55 05/17/24 21:55 Laboratory Data at Discharge: WBC 8.60 thou/uL (4.3-10.9) 05/16/24 04:14 Hgb 9.5 g/dL (12.0-15.0) L 05/16/24 04:14 Hct 27.6 % (36.0-45.0) L 05/16/24 04:14 Plt Count 316 thou/uL (152-406) 05/16/24 04:14 Sodium 132 mEq/L (136-145) L 05/16/24 04:14 Potassium 3.6 mEq/L (3.5-5.1) 05/16/24 04:14 BUN 26 mg/dL (7-18) H 05/16/24 04:14 Creatinine 0.83 mg/dL (0.55-1.02) 05/16/24 04:14 Glucose 119 mg/dL (74-106) H 05/16/24 04:14 Phosphorus 3.9 mg/dL (2.5-4.9) 05/16/24 04:14 Total Bilirubin 0.7 mg/dL (0.2-1.0) 05/15/24 11:16 AST 13 U/L (15-37) L 05/15/24 11:16 ALT 20 U/L (13-56) 05/15/24 11:16 Alkaline Phosphatase 141 U/L (45-117) H 05/15/24 11:16 <Gabrielle Garland - Last Filed: 05/19/24 16:38> Diet: AHA Activity: Fall precautions Time spent managing pt's care (in minutes): 45 <Michelle Taylor - Last Filed: 05/17/24 21:45> <Gabrielle Garland - Last Filed: 05/19/24 16:38> Home Medications: Aspirin Chewable [Aspirin Chewable*] 81 mg PO DAILY 01/26/24 Atorvastatin Calcium [Lipitor] 80 mg PO BEDTIME 01/26/24 Clopidogrel Bisulfate [Plavix*] 75 mg PO DAILY 01/26/24 Ergocalciferol (Vitamin D2) [Vitamin D2] 50,000 unit PO Q7D 01/26/24 Ferrous Sulfate [Ferrous Sulfate*] 325 mg PO DAILY 01/26/24 Spironolactone [Aldactone*] 25 mg PO DAILY 01/26/24 Midodrine HCl [Proamatine*] 5 mg PO BID #60 tab 01/27/24 Potassium Chloride 10 meq PO DAILY #30 tab 01/27/24 Furosemide 20 mg PO BID PRN 02/18/24 Folic Acid 1 mg PO DAILY 05/15/24 Magnesium Oxide [Mag 0X Tab] 400 mg PO DAILY PRN 05/15/24 Furosemide [Lasix] 20 mg PO BIDL 30 Days #60 tab 05/16/24 Lidocaine 4% Patch [Lidoderm 5% Patch*] 1 patch TOP DAILY 30 Days #30 pat 05/16/24 Midodrine HCl 10 mg PO TID PRN 30 Days #90 tab 05/16/24 Nystatin Cream [Mycostatin 100MU/Gm Cream*] 15 appl TOP BID 7 Days #1 tube 05/16/24 Potassium Chloride 20 meq PO DAILY #30 05/16/24 guaiFENesin [Guaifenesin] 400 mg PO BID 30 Days #60 tab 05/16/24 New Medications: guaiFENesin [Guaifenesin] 400 mg PO BID 30 Days #60 tab Furosemide [Lasix] 20 mg PO BIDL 30 Days #60 tab Lidocaine 4% Patch [Lidoderm 5% Patch*] 1 patch TOP DAILY 30 Days #30 pat Midodrine HCl 10 mg PO TID PRN 30 Days #90 tab PRN Reason: Titrate To Sbp (Must Define) Nystatin Cream [Mycostatin 100MU/Gm Cream*] 15 appl TOP BID 7 Days #1 tube Potassium Chloride 20 meq PO DAILY #30 Followup: Tarun Menjivar MD [ACTIVE - CAN ADMIT] - Shelbi Packer PA [Primary Care Provider] -
[2024-05-17 21:53] VITALS: BP 116/70; TEMP 98
--- NOTE | 2024-05-20 14:36 | ECHO ---
HEIGHT: 5 ft 7 in WEIGHT: 153 lb 0.013 oz DATE OF STUDY: 05/16/[address]: Norma Starkey MD 2-DIMENSIONAL: YES M.MODE: YES DOPPLER: YES COLOR FLOW: YES TDS: NO PORTABLE: YES DEFINITY: NO BUBBLE STUDY: NO DIAGNOSIS: CONGESTIVE HEART FAILURE EXACERBATION CARDIAC HISTORY: CATHERIZATION:YES SURGERY: NO PROSTHETIC VALVE: NO PACEMAKER: YES MEASUREMENTS (cm) DIASTOLIC (NORMALS) SYSTOLIC (NORMALS) IVSd 1.2 (0.6-1.2) LA Diam 2.5 (1.9-4.0) LVEF 15-20% LVIDd 6.1 (3.5-5.7) LVIDs 5.6 (2.0-3.5) %FS 8% LVPWd 1.2 (0.6-1.2) Ao Diam 3.0 (2.0-3.7) 2 DIMENSIONAL ASSESSMENT: RIGHT ATRIUM: NORMAL LEFT ATRIUM: NORMAL RIGHT VENTRICLE: NORMAL LEFT VENTRICLE: SEVERELY DILATED TRICUSPID VALVE: TRACE TRICUSPID REGURGITATION MITRAL VALVE: MILD TO MODERATE MITRAL REGURGITATION PULMONIC VALVE: NORMAL AORTIC VALVE: NORMAL PERICARDIAL EFFUSION: NONE AORTIC ROOT: NORMAL LEFT VENTRICULAR WALL MOTION: SEVERE GLOBAL HYPOKINESIS. DOPPLER/COLOR FLOW: DIASTOLIC DYSFUNCTION. COMMENTS: 1. SEVERELY REDUCED LEFT VENTRICULAR SYSTOLIC FUNCTION. LEFT VENTRICULAR EJECTION FRACTION 15-20%. SEVERE GLOBAL HYPOKINESIS. 2. DIASTOLIC DYSFUNCTION. 3. MILD TO MODERATE MITRAL REGURGITATION. 4. NORMAL FILLING PRESSURES. TECHNOLOGIST: DOUGIE OWEN
== END 2024-05-16 07:20 | disposition home or self-care (01) | DRG 291 ==
LOC: ER 15:28 → ERHOLD 21:53 → 2ND 05-15 13:39
PROVIDERS: ADMIT Internal Medicine; ATTEND Hospitalist
DX: I11.0 Hypertensive heart disease with heart failure (principal); I50.43 Acute on chronic combined systolic (congestive) and diastolic (congestive) heart failure; I25.10 Atherosclerotic heart disease of native coronary artery without angina pectoris; Z98.61 Coronary angioplasty status; Z90.49 Acquired absence of other specified parts of digestive tract; Z95.810 Presence of automatic (implantable) cardiac defibrillator; M06.9 Rheumatoid arthritis, unspecified; Z88.5 Allergy status to narcotic agent; Z88.2 Allergy status to sulfonamides; Z88.6 Allergy status to analgesic agent; Z88.1 Allergy status to other antibiotic agents; Z91.012 Allergy to eggs; I42.9 Cardiomyopathy, unspecified; I34.0 Nonrheumatic mitral (valve) insufficiency; G89.29 Other chronic pain; I95.9 Hypotension, unspecified
CPT/HCPCS: 36415; 71045; 71250; 80048; 80053; 80069; 83880; 84484; 85025; 93005; 93306; 96374; 97110; 97161; 99285; J1650; J1940; J2003

== ENCOUNTER 2024-05-27 12:27 | Emergency (ER) | payer OTHER ==
--- OUTSIDE RECORDS SUMMARY | 2024-05-27 12:31 | XMS REPORT | Clinical Summary ---
Author Name Unknown Organization [facility] Address [address] [place] [address] Care Team Providers Care Bridge Ironworker Name Role Phone Xiomara Cardenas MD Primary Care Provider + [phone] Alexus Guerrero MD Unavailable Blossom vailable Alexus [...] [place] [employer] Care Teams Bridge Ironworker Relationship Specialty Start Date End Date Xiomara Cardenas MD [email or web address] PCP - General Gynecologic Medical Oncology 12/22/16 Alexus Guerrero MD PCP - External Referring Obstetrics/Gynecology 12/22/16 Alexus Guerrero MD PCP - Cipriano Shelton Obstetrics/Gynecology 12/22/16
--- NOTE | 2024-05-27 15:00 | RAD REPORT ---
Procedure: Chest Single View HISTORY: Cough COMPARISON: May 14, 2024 FINDINGS: Mild bilateral interstitial lung opacities. No significant pleural effusion noted. The heart is moderately to markedly enlarged. Pacemaker leads in place. IMPRESSION: These findings probably indicate mild CHF
[2024-05-27] MEDS ORDERED: PANTOPRAZOLE 40 MG INJ ONE (16:35)
[2024-05-27] MEDS ORDERED: ACETAMINOPHEN 500 MG TAB ONE (16:36)
[2024-05-27] MEDS ORDERED: NA CHLORIDE 0.9% 500 ML ONE (16:36)
[2024-05-27 16:39] LABS: Absolute Basophils 0.1 K/uL (0-0.5); Absolute Eosinophils 0.2 K/uL (0-0.5); Absolute Lymphocytes (CBC) 1.4 K/uL (0.7-4.9); Absolute Monocytes 0.4 K/uL (0.1-1.3); Absolute Neutrophil 4.2 K/uL (1.8-8.0); Basophils % 0.8 % (0-1.3); Eosinophils % 2.5 % (0-4.4); Hematocrit 25.5 % (36.0-45.0); Hemoglobin 8.6 g/dL (12.0-15.0); Lymphocytes % 22.9 % (15.3-44.8); MCH 29.5 pg (27.0-35.0); MCHC 33.7 g/dL (32.0-36.0); MCV 87.6 fL (80-100); MPV 8.8 fL (7.6-11.3); Monocytes % 5.7 % (3.3-12.3); Neutrophils % 68.1 % (41.7-73.7); Nucleated Red Blood Cells % 0.1 % (0-0); Platelets 300 thou/uL (152-406); RBC Red Blood Cell Count 2.91 M/uL (3.86-4.86); Red Cell Distribution Width 17.3 % (12.1-15.2)
[2024-05-27 16:43] LABS: Specific Gravity 1.006 (1.005-1.030); Sqamous Epithelial <5 /HPF (None Seen); Urine Bacteria <20 /HPF (<20); Urine Bilirubin NEGATIVE (Negative); Urine Blood Negative (Negative); Urine Clarity Clear (Clear); Urine Color Colorless (Yellow); Urine Culture Reflex Order NOT NEEDED; Urine Glucose NEGATIVE (Negative); Urine Ketones NEGATIVE (Negative); Urine Microscopic Reflex YN ORDER UMIC; Urine Nitrite NEGATIVE (Negative); Urine Protein NEGATIVE (Negative); Urine RBC <5 /HPF (None Seen); Urine Urobilinogen Normal (Normal); Urine WBC <5 /HPF (<5); Urine Yeast (Budding) Trace /HPF (None Seen); Urine pH 5.5 (5.0-7.0)
[2024-05-27 17:01] LABS: PT Prothrombin Time 13.3 SECONDS (9.4-12.5); Protime INR 1.19
[2024-05-27 17:04] LABS: Albumin 3.2 g/dL (3.4-5.0); Albumin/Globulin Ratio 0.8 (1.1-1.8); Bilirubin Direct 0.2 mg/dL (0-0.2); Bilirubin Indirect, Calculated 0.3 mg/dL (0.2-0.8); Bilirubin Total 0.5 mg/dL (0.2-1.0); Magnesium 2.4 mg/dL (1.6-2.4); Protein, Total 7.2 g/dL (6.4-8.2)
[2024-05-27 17:10] LABS: SARS-CoV-2 Antigen CONTROL BLUE LINE VIS/BG OK; SARS-CoV-2 Antigen Rapid Res Negative (Negative)
--- NOTE | 2024-05-27 17:33 | ER ---
Nurse's Notes [facility] Name: Yokasta Hill Age: 73 yrs Sex: Female : 1950 Arrival Date: 05/27/2024 Time: 12:27 Bed 20 Private MD: Diagnosis: Combined systolic (congestive) and diastolic (congestive) heart failure;Hypoxemia;Presence of cardiac pacemaker;Dyspnea;Non ST elevation ID Presentation: 05/27 12:41 Chief complaint: Patient's son or daughter states: difficulty breathing x 3-4 days, jl7 worse when laying down, denies cough, denies fever, reports nasal congestion. Coronavirus screen: Client presents with at least one sign or symptom that may indicate coronavirus-19. Ebola Screen: No symptoms or risks identified at this time. Initial Sepsis Screen: Does the patient meet any 2 criteria? HR > 90 bpm. No. Patient's initial sepsis screen is negative. Does the patient have a suspected source of infection? No. Patient's initial sepsis screen is negative. Risk Assessment: Do you want to hurt yourself or someone else? Patient reports no desire to harm self or others. Onset of symptoms was May 23, 2024. 12:41 Method Of Arrival: Wheelchair jl7 12:41 Acuity: ROBERTO 3 jl7 Triage Assessment: 12:43 General: Appears in no apparent distress. uncomfortable, Behavior is calm, cooperative, jl7 appropriate for age. Pain: Complains of pain in chronic joint pain. Respiratory: Reports shortness of breath at rest Airway is patent Respiratory effort is even, unlabored, Respiratory pattern is regular, symmetrical, Onset: The symptoms/episode began/occurred gradually, the patient has mild shortness of breath. Historical: - Allergies: 12:43 Codeine; jl7 12:43 dextromethorphan; jl7 12:43 Egg Derived; jl7 12:43 Fentanyl; jl7 12:43 Sulfa (Sulfonamide Antibiotics); jl7 12:43 Sulfasalazine; jl7 12:43 Ultram; jl7 - PMHx: 12:43 Anemia; Hypertensive disorder; Rheumatoid Arthritis; Congestive heart failure; jl7 - PSHx: 12:43 Bilateral hips; bilateral knees; Cholecystectomy; jl7 - Immunization history:: Adult Immunizations unknown. - Infectious Disease History:: Denies. - Social history:: Smoking status: Patient denies any tobacco usage or history of. Screenin:00 [facility] ED Fall Risk Assessment (Adult) History of falling in the last 3 months, tm6 including since admission No falls in past 3 months (0 pts) Confusion or Disorientation No (0 pts) Intoxicated or Sedated No (0 pts) Impaired Gait No (0 pts) Mobility Assist Device Used No (0 pt) Altered Elimination No (0 pt) Score/Fall Risk Level 0 - 2 = Low Risk Oriented to surroundings, Maintained a safe environment, Educated pt \T\ family on fall prevention, incl call for assistance when getting out of bed. Abuse screen: Denies threats or abuse. Denies injuries from another. Nutritional screening: No deficits noted. Tuberculosis screening: No symptoms or risk factors identified. Assessment: 13:00 General: Appears in no apparent distress. Behavior is calm, cooperative. Pain: Denies tm6 pain. Neuro: Level of Consciousness is awake, alert, obeys commands, Oriented to person, place, time, situation. Cardiovascular: Reports shortness of breath, Patient's skin is warm and dry. Rhythm is regular. Respiratory: Reports shortness of breath since 2-3 days Airway is patent Respiratory effort is even, unlabored, Respiratory pattern is regular, symmetrical, Breath sounds are clear. GI: No signs and/or symptoms were reported involving the gastrointestinal system. Abdomen is flat, non-distended. : No signs and/or symptoms were reported regarding the genitourinary system. EENT: No signs and/or symptoms were reported regarding the EENT system. Derm: No signs and/or symptoms reported regarding the dermatologic system. Musculoskeletal: No signs and/or symptoms reported regarding the musculoskeletal system. 19:30 General: Appears in no apparent distress. comfortable, Behavior is calm, cooperative. rg5 19:30 Pain: Denies pain. Neuro: Level of Consciousness is awake, alert, Oriented to person, rg5 place. Cardiovascular: Patient's skin is warm and dry. Respiratory: Airway is patent Trachea midline Respiratory effort is Respiratory pattern is regular, symmetrical. Respiratory: Breath sounds are clear bilaterally. GI: Abdomen is flat, non-distended. : No signs and/or symptoms were reported regarding the genitourinary system. EENT: No signs and/or symptoms were reported regarding the EENT system. Derm: No signs and/or symptoms reported regarding the dermatologic system. Musculoskeletal: Range of motion: limited in all extremities. Vital Signs: 12:41 BP 115 / 76; Pulse 105; Resp 19; Temp 97.2; Pulse Ox 95% ; Weight 69.4 kg; Height 5 ft. jl7 0 in. ; Pain 8/10; 16:31 BP 111 / 69; Pulse 110; Pulse Ox 93% on R/A; MAP 82 mmHg; Pain 5/10; tm6 19:30 BP 127 / 77; Pulse 100; Resp 18; Temp 98.3; Pulse Ox 99% on R/A; Pain 0/10; rg5 12:41 Body Mass Index 29.88 (69.40 kg, 152.4 cm) jl7 12:41 Pain Scale: Adult jl7 16:31 Pain Scale: Adult tm6 19:30 Pain Scale: Adult rg5 ED Course: 12:30 Patient arrived in ED. al6 12:31 Thaddeus Mary MD is Attending Physician. [facility] 12:43 Triage completed. jl7 12:43 Arm band placed on right wrist. Patient placed in waiting room, Patient notified of jl7 wait time. 13:00 Patient has correct armband on for positive identification. Bed in low position. Call tm6 light in reach. Side rails up X2. Provided Education on: plan of care. Client placed on continuous cardiac and pulse oximetry monitoring. NIBP monitoring applied. quality assurance monitor chassis on. Pulse ox on. NIBP on. Door closed. Noise minimized. Warm blanket given. Pillow given. 13:57 XRAY Chest (1 view) In Process Unspecified. EDMS 15:31 Carlito Lauren, RN is Primary Nurse. tm6 16:32 Flu Sent. tm6 16:32 SARS RAPID Sent. tm6 16:32 Basic Metabolic Panel Sent. tm6 16:32 CBC with Diff Sent. tm6 16:32 LFT's Sent. tm6 16:32 Magnesium Sent. tm6 16:32 NT PRO-BNP Sent. tm6 16:32 Troponin HS Sent. tm6 16:32 PT-INR Sent. tm6 16:33 Urinalysis w/ reflexes Sent. tm6 16:33 Type And Screen Sent. tm6 16:33 Blood Culture Adult (2) Sent. tm6 16:50 Inserted saline lock: 20 gauge in right antecubital area, using aseptic technique. tm6 Blood collected. Flushed with 10 mL NS. 17:[address] Mary with [facility] from the [facility].eb 20:24 No provider procedures requiring assistance completed. Patient transferred, IV remains rg5 in place. intact. Administered Medications: 17:24 Discontinued: ns 0.9% 500 ml 500 ml IV at 1 bolus once; to be given as a bolus over 30 letty minutes 16:49 Drug: Pantoprazole IVP 40 mg IVP once Route: IVP; Site: right antecubital; tm6 17:53 Follow up: Response: No adverse reaction tm6 16:49 Drug: Acetaminophen PO 1000 mg PO once Route: PO; tm6 17:53 Follow up: Response: No adverse reaction tm6 16:50 Drug: NS 0.9% IV 500 ml 500 ml IV at 1 bolus once; to be given as a bolus over 30 tm6 minutes Volume: 500 ml; Route: IV; Rate: 1 bolus; Site: right antecubital; 17:53 Follow up: IV Status: Order to discontinue infusion tm6 17:46 Drug: Furosemide IVP 40 mg IVP once; give over 2 minutes Route: IVP; Site: right tm6 antecubital; 18:52 Follow up: Response: No adverse reaction tm6 17:46 Drug: Enoxaparin Sub-Q 50 mg Sub-Q once Route: Sub-Q; Site: right lower abdomen; tm6 18:52 Follow up: Response: No adverse reaction tm6 18:52 Drug: Aspirin PO Chewable Tablet 81 mg PO once Route: PO; tm6 19:21 Follow up: Response: No adverse reaction rg5 Medication: 13:00 VIS not applicable for this client. tm6 Outcome: 17:32 ER care complete, transfer ordered by . letty 20:24 Transferred by ground EMS to [facility], [facility], rg5 20:24 Condition: stable 20:24 Instructed on the need for transfer, 20:25 Patient left the ED. rg5 Signatures: Dispatcher [employer] Thaddeus Hawk MD MD cha Leal, Jahala RN RN jl7 Stacy Hall Tawney RN RN tm6 Clayton Cox RN RN rg5 Sonya, Guadalupe al6
--- NOTE | 2024-05-27 17:33 | EDPHYS ---
Physician Documentation [facility] Name: Yokasta Hill Age: 73 yrs Sex: Female : 1950 Arrival Date: 05/27/2024 Time: 12:27 Bed 20 Private MD: ED Physician Thaddeus Mary HPI: 05/27 15:31 This 73 yrs old Female presents to ER via Wheelchair with complaints of ltety Breathing Difficulty. Historical: - Allergies: 12:43 Codeine; jl7 12:43 dextromethorphan; jl7 12:43 Egg Derived; jl7 12:43 Fentanyl; jl7 12:43 Sulfa (Sulfonamide Antibiotics); jl7 12:43 Sulfasalazine; jl7 12:43 Ultram; jl7 - PMHx: 12:43 Anemia; Hypertensive disorder; Rheumatoid Arthritis; Congestive heart failure; jl7 - PSHx: 12:43 Bilateral hips; bilateral knees; Cholecystectomy; jl7 - Immunization history:: Adult Immunizations unknown. - Infectious Disease History:: Denies. - Social history:: Smoking status: Patient denies any tobacco usage or history of. ROS: 15:35 Constitutional: Negative for fever, chills, and weight loss, Eyes: Negative for injury, letty pain, redness, and discharge, ENT: Negative for injury, pain, and discharge, Neck: Negative for injury, pain, and swelling, Cardiovascular: Negative for chest pain, palpitations, and edema, Abdomen/GI: Negative for abdominal pain, nausea, vomiting, diarrhea, and constipation, Back: Negative for injury and pain, : Negative for injury, bleeding, discharge, and swelling, MS/Extremity: Negative for injury and deformity, Neuro: Negative for headache, weakness, numbness, tingling, and seizure, Psych: Negative for depression, anxiety, suicide ideation, homicidal ideation, and hallucinations, Allergy/Immunology: Negative for hives, rash, and allergies, Endocrine: Negative for neck swelling, polydipsia, polyuria, polyphagia, and marked weight changes, Hematologic/Lymphatic: Negative for swollen nodes, abnormal bleeding, and unusual bruising, 15:35 Respiratory: Positive for cough, shortness of breath, at rest. 15:35 Skin: Positive for pallor, Exam: 15:35 Constitutional: This is a well developed, well nourished patient who is awake, alert, letty and in no acute distress. Head/Face: Normocephalic, atraumatic. Eyes: Pupils equal round and reactive to light, extra-ocular motions intact. Lids and lashes normal. Conjunctiva and sclera are non-icteric and not injected. Cornea within normal limits. Periorbital areas with no swelling, redness, or edema. ENT: Nares patent. No nasal discharge, no septal abnormalities noted. Tympanic membranes are normal and external auditory canals are clear. Oropharynx with no redness, swelling, or masses, exudates, or evidence of obstruction, uvula midline. Mucous membranes moist. Neck: Trachea midline, no thyromegaly or masses palpated, and no cervical lymphadenopathy. Supple, full range of motion without nuchal rigidity, or vertebral point tenderness. No Meningismus. Chest/axilla: Normal chest wall appearance and motion. Nontender with no deformity. No lesions are appreciated. Respiratory: Lungs have equal breath sounds bilaterally, clear to auscultation and percussion. No rales, rhonchi or wheezes noted. No increased work of breathing, no retractions or nasal flaring. Abdomen/GI: Soft, non-tender, with normal bowel sounds. No distension or tympany. No guarding or rebound. No evidence of tenderness throughout. Back: No spinal tenderness. No costovertebral tenderness. Full range of motion. Female : Normal external genitalia. MS/ Extremity: Pulses equal, no cyanosis. Neurovascular intact. Full, normal range of motion., bilateral aka Neuro: Awake and alert, GCS 15, oriented to person, place, time, and situation. Cranial nerves II-XII grossly intact. Motor strength 5/5 in all extremities. Sensory grossly intact. Cerebellar exam normal. Normal gait. Psych: Awake, alert, with orientation to person, place and time. Behavior, mood, and affect are within normal limits. 15:35 Cardiovascular: Rate: tachycardic, actual rate is 105 bpm, 15:35 Skin: Appearance: Color: pale, 17:46 ECG was reviewed by the Attending Physician. [facility] Vital Signs: 12:41 BP 115 / 76; Pulse 105; Resp 19; Temp 97.2; Pulse Ox 95% ; Weight 69.4 kg; Height 5 ft. jl7 0 in. ; Pain 8/10; 16:31 BP 111 / 69; Pulse 110; Pulse Ox 93% on R/A; MAP 82 mmHg; Pain 5/10; tm6 19:30 BP 127 / 77; Pulse 100; Resp 18; Temp 98.3; Pulse Ox 99% on R/A; Pain 0/10; rg5 12:41 Body Mass Index 29.88 (69.40 kg, 152.4 cm) jl7 12:41 Pain Scale: Adult jl7 16:31 Pain Scale: Adult tm6 19:30 Pain Scale: Adult rg5 MDM: 12:31 Medical Screening Exam initiated [facility] 12:42 Medical Screening Exam initiated [facility] 15:37 Differential diagnosis: Anemia CHF exacerbation, Chronic Obstructive Pulmonary Disease letty Myocardial Infarction pneumonia, Psychogenic reactive airway disease, Sepsis Unstable Angina. Antibiotic administration: Rocephin and Zithromax given. Immunization status: Pneumococcal vaccine: within last 5 years. Influenza vaccine: Data reviewed: vital signs, nurses notes, lab test result(s), EKG, radiologic studies, plain films. Consideration of Admission/Observation Patient was admitted/placed on observation. Escalation of care including admission/observation considered. I considered the following discharge prescriptions or medication management in the emergency department Medications were administered in the Emergency Department. See MAR. Independent interpretation of the following test(s) in the Emergency Department EKG: See my EKG interpretation above. Test considered but Not performed: CT: ct pe. 05/27 12:31 Order name: Basic Metabolic Panel; Complete Time: 17:24 [facility] 05/27 12:31 Order name: CBC with Diff; Complete Time: 17:24 [facility] 05/27 12:31 Order name: LFT's; Complete Time: 17:24 [facility] 05/27 12:31 Order name: Magnesium; Complete Time: 17:24 [facility] 05/27 12:31 Order name: NT PRO-BNP; Complete Time: 17:24 [facility] 05/27 12:31 Order name: PT-INR; Complete Time: 17:24 [facility] 05/27 12:31 Order name: Troponin HS; Complete Time: 17:24 [facility] 05/27 12:31 Order name: Flu [facility] 05/27 12:31 Order name: SARS RAPID; Complete Time: 17:24 [facility] 05/27 12:32 Order name: Urinalysis w/ reflexes; Complete Time: 17:24 [facility] 05/27 15:05 Order name: Type And Screen; Complete Time: 18:35 [facility] 05/27 15:05 Order name: Blood Culture Adult (2) [facility] 05/27 18:16 Order name: ABO/RH no charge; Complete Time: 18:35 EDPR 05/27 12:31 Order name: XRAY Chest (1 view); Complete Time: 17:24 [facility] 05/27 12:31 Order name: Cardiac monitoring; Complete Time: 16:32 [facility] 05/27 12:31 Order name: EKG - Nurse/Tech; Complete Time: 16:32 [facility] 05/27 12:31 Order name: IV Saline Lock; Complete Time: 16:32 [facility] 05/27 12:31 Order name: Labs collected and sent; Complete Time: 16:32 [facility] 05/27 12:31 Order name: O2 Per Protocol; Complete Time: 16:32 [facility] 05/27 12:31 Order name: O2 Sat Monitoring; Complete Time: 16:32 [facility] EC:46 Rate is 104 beats/min. Rhythm is regular. QRS [place] is Normal. [place] interval is normal. [facility] QRS interval is normal. QT interval is normal. No Q waves. T waves are Normal. No ST changes noted. Clinical impression: Abnormal EKG without significant change and No evidence of ischemia. Interpreted by me. Reviewed by me. Administered Medications: 17:24 Discontinued: ns 0.9% 500 ml 500 ml IV at 1 bolus once; to be given as a bolus over 30 letty minutes 16:49 Drug: Pantoprazole IVP 40 mg IVP once Route: IVP; Site: right antecubital; tm6 17:53 Follow up: Response: No adverse reaction tm6 16:49 Drug: Acetaminophen PO 1000 mg PO once Route: PO; tm6 17:53 Follow up: Response: No adverse reaction tm6 16:50 Drug: NS 0.9% IV 500 ml 500 ml IV at 1 bolus once; to be given as a bolus over 30 tm6 minutes Volume: 500 ml; Route: IV; Rate: 1 bolus; Site: right antecubital; 17:53 Follow up: IV Status: Order to discontinue infusion tm6 17:46 Drug: Furosemide IVP 40 mg IVP once; give over 2 minutes Route: IVP; Site: right tm6 antecubital; 18:52 Follow up: Response: No adverse reaction tm6 17:46 Drug: Enoxaparin Sub-Q 50 mg Sub-Q once Route: Sub-Q; Site: right lower abdomen; tm6 18:52 Follow up: Response: No adverse reaction tm6 18:52 Drug: Aspirin PO Chewable Tablet 81 mg PO once Route: PO; tm6 19:21 Follow up: Response: No adverse reaction rg5 Disposition Summary: 05/27/24 17:32 Transfer Ordered Notes: Transfer Location: [facility] letty Reason: Higher level of care letty Condition: Fair letty Problem: new letty Symptoms: have improved letty Accepting Physician: to ccu(05/27/24 20:25) rg5 Diagnosis - Combined systolic (congestive) and diastolic (congestive) heart failure letty - Hypoxemia letty - Presence of cardiac pacemaker letty - Dyspnea letty - Non ST elevation [place] letty Forms: - Medication Reconciliation Form letty - SBAR form letty Signatures: Dispatcher [employer] EDMS Thaddeus Mary MD MD cha Leal, Jahala RN RN jl7 Carlito Lauren RN RN tm6 Clayton Cox RN RN rg5 Corrections: (The following items were deleted from the chart) 12:32 12:32 BASIC METABOLIC PANEL+C.LAB.BRZ ordered. EDMS EDMS 12:32 12:32 CBC+H.LAB.BRZ ordered. EDMS EDMS 12:32 12:32 HEPATIC FUNCTION+C.LAB.BRZ ordered. EDMS EDMS 12:32 12:32 MAGNESIUM+C.LAB.BRZ ordered. EDMS EDMS 12:32 12:32 PROBNP+C.LAB.BRZ ordered. EDMS EDMS 12:32 12:32 PROTIME (+INR)+COAG.LAB.BRZ ordered. EDMS EDMS 12:32 12:32 Troponin High Sensitivity+C.LAB.BRZ ordered. EDMS EDMS 12:32 12:32 Influenza Screen (A \T\ B)+BA.LAB.BRZ ordered. EDMS EDMS 12:32 12:32 SARS-COV-2 Antigen Rapid+I.LAB.BRZ ordered. EDMS EDMS 12:32 12:32 Chest Single View+RAD.RAD.BRZ ordered. EDMS EDMS 12:32 12:32 Urinalysis+U.LAB.BRZ ordered. EDMS EDMS 20:25 17:32 to ccu letty rg5
[2024-05-27] MEDS ORDERED: FUROSEMIDE 40 MG/4 ML VIAL ONE (17:39)
[2024-05-27] MEDS ORDERED: ENOXAPARIN 60 MG/0.6 ML SQ ONE (17:40)
[2024-05-27] MEDS ORDERED: ASPIRIN 81 MG CHEWABLE TABLET ONE (18:48)
[2024-05-27 20:54] VITALS: BP 127/77; TEMP 98.3; O2SAT 99
--- NOTE | 2024-05-30 13:43 | EKG ---
Test Date: 2024-05-27 Test Time: 15:47:14 Pulley Man: TM MEASUREMENT RESULTS: Intervals: Rate: 104 TN: 122 QRSD: 118 QT: 384 QTc: 504 Stanley: P: 75 TN: 122 QRS: 51 T: 153 INTERPRETIVE STATEMENTS: Sinus tachycardia Septal infarct, age undetermined ST & T wave abnormality, consider inferior ischemia Abnormal ECG Compared to ECG 05/14/2024 18:07:41 Possible ischemia now present Myocardial infarct finding still present ST (T wave) deviation still present Electronically Signed On 05-30-24 13:37:48 [employer] by Christoph Hannah
== END 2024-05-27 20:25 | disposition short-term general hospital (02) ==
LOC: ER 12:27
DX: I21.4 Non-ST elevation (NSTEMI) myocardial infarction (principal); I11.0 Hypertensive heart disease with heart failure; I50.40 Unspecified combined systolic (congestive) and diastolic (congestive) heart failure; R09.02 Hypoxemia; R06.00 Dyspnea, unspecified; D64.9 Anemia, unspecified; M06.9 Rheumatoid arthritis, unspecified; Z95.0 Presence of cardiac pacemaker; Z88.2 Allergy status to sulfonamides; Z88.5 Allergy status to narcotic agent; Z88.8 Allergy status to other drugs, medicaments and biological substances; Z91.012 Allergy to eggs
CPT/HCPCS: 96361; 93005; 87040 ×2; 85025; 81001; 80048; 36415; 86900; 83735; 86850; 85610; 86901; 80076; 84484; 83880; 87804 ×2; 71045; 96375; 96372; 96374; 99285; 87811; J1650; J1940; J2470; J7040

== ENCOUNTER 2024-06-12 14:59 | Inpatient (IN) | payer OTHER ==
--- OUTSIDE RECORDS SUMMARY | 2024-06-12 15:03 | XMS REPORT | Clinical Summary ---
Author Name Unknown Organization [facility] Address [address] [place] [address] Care Team Providers Care Gas Meter Installer Helper Name Role Phone Xiomara Cardenas MD Primary Care Provider + [phone] Alexus Guerrero MD Unavailable Blossom vailable Alexus [...] [place] [employer] Care Teams Gas Meter Installer Helper Relationship Specialty Start Date End Date Xiomara Cardenas MD [email or web address] PCP - General Gynecologic Medical Oncology 12/22/16 Alexus Guerrero MD PCP - External Referring Obstetrics/Gynecology 12/22/16 Alexus Guerrero MD PCP - Cipriano Shelton Obstetrics/Gynecology 12/22/16
[2024-06-12 15:42] LABS: Absolute Eosinophils 0.1 K/uL (0-0.5); Absolute Lymphocytes (CBC) 1.6 K/uL (0.7-4.9); Absolute Monocytes 0.3 K/uL (0.1-1.3); Absolute Neutrophil 3.4 K/uL (1.8-8.0); Basophils % 0.8 % (0-1.3); Eosinophils % 2.4 % (0-4.4); Hematocrit 27.6 % (36.0-45.0); Lymphocytes % 28.9 % (15.3-44.8); MCH 29.6 pg (27.0-35.0); MCHC 32.7 g/dL (32.0-36.0); MCV 90.4 fL (80-100); MPV 9.6 fL (7.6-11.3); Monocytes % 6.1 % (3.3-12.3); Neutrophils % 61.8 % (41.7-73.7); Nucleated Red Blood Cells % 0.2 % (0-0); Platelets 240 thou/uL (152-406); RBC Red Blood Cell Count 3.05 M/uL (3.86-4.86); Red Cell Distribution Width 18.6 % (12.1-15.2)
[2024-06-12 15:46] LABS: PT Prothrombin Time 13.4 SECONDS (9.4-12.5); Protime INR 1.2
--- NOTE | 2024-06-12 16:12 | RAD REPORT ---
EXAMINATION: ONE VIEW CHEST XR CLINICAL INDICATION: vomiting TECHNIQUE: Frontal chest projection is submitted. Examination is limited by patient positioning and t echnique. COMPARISON: 05/27/2024 FINDINGS: Mild interstitial pulmonary edema. The heart is moderately enlarged. No displaced fractures identifie d. Multilead pacer/defibrillator device present. IMPRESSION: Mild CHF.
[2024-06-12 16:13] LABS: Albumin 3.3 g/dL (3.4-5.0); Albumin/Globulin Ratio 0.8 (1.1-1.8); Anion Gap 9.8 mEq/L (5.0-15.0); Bilirubin Direct 0.3 mg/dL (0-0.2); Bilirubin Indirect, Calculated 0.3 mg/dL (0.2-0.8); Bilirubin Total 0.6 mg/dL (0.2-1.0); Globulin 3.9 g/dL (2.3-3.5); Magnesium 2.3 mg/dL (1.6-2.4); Phosphorus 3.2 mg/dL (2.5-4.9); Potassium 3.8 mEq/L (3.5-5.1); Protein, Total 7.2 g/dL (6.4-8.2)
[2024-06-12 16:15] LABS: Troponin High Sensitivity 60.4 pg/mL (<58.9)
[2024-06-12] MEDS ORDERED: ONDANSETRON 4 MG/2 ML VIAL ONE (16:41)
[2024-06-12] MEDS ORDERED: FAMOTIDINE 20 MG/2 ML VIAL IV ONE (16:41)
--- NOTE | 2024-06-12 17:23 | RAD REPORT ---
EXAM: CT brain without contrast HISTORY: vomiting;Headache COMPARISON: None TECHNIQUE: Multiple contiguous axial images were obtained and a CT of the brain without contrast. Sag ittal and coronal reformats were performed. One or more of the following dose reduction techniques were used: Automated exposure control, adjust ment of the mA and/or kV according to patient size, and/or iterative reconstruction. FINDINGS: No evidence of hydrocephalus, intracranial hemorrhage, or extra-axial fluid collection. Mild brain atrophy with mild periventricular and deep white matter chronic microvascular ischemic ch anges present. No evidence of midline shift or areas of brain edema. The calvarium is intact. The visualized paranasal sinuses and mastoid air cells are essentially clear . IMPRESSION: No evidence of acute intracranial abnormality.
--- NOTE | 2024-06-12 17:26 | RAD REPORT ---
EXAM: CT CHEST, ABDOMEN AND PELVIS WITH CONTRAST CLINICAL INDICATION: nausea/vomiting TECHNIQUE: CT chest, abdomen and pelvis was performed, following the administration of contrast, as p er department protocol. Axial, sagittal and coronal reconstructions were obtained. One or more of the following dose reduction techniques were used: Automated exposure control, adjustment of the mA a nd/or kV according to patient size, and/or iterative reconstruction. Unless otherwise specified, incidental findings do not require dedicated imaging follow-up. COMPARISON: No prior exam. FINDINGS: LUNGS: Mild interstitial edema suspected. Cardiac size is prominent with pacer device present. PLEURA: No pleural effusion. No pneumothorax. MEDIASTINUM AND LYMPH NODES: No mediastinal mass or fluid collection. Normal size mediastinal, hilar, and axillary lymph nodes. OSSEOUS STRUCTURES AND CHEST WALL: Intact. LIVER: The liver demonstrates mild fatty infiltration. No focal lesion or biliary dilatation is seen. Cholecystectomy clips. PANCREAS: No mass, ductal dilation, or bernardo-pancreatic fluid. SPLEEN: Normal size. No focal lesion. ADRENALS: Normal; no mass. KIDNEYS: Normal size and contour. No hydronephrosis. URINARY BLADDER: Normal contour. GASTROINTESTINAL TRACT: No bowel obstruction, free air, significant free fluid or abscess. APPENDIX: Appendix not visualized, but no inflammatory changes in region of appendix. LYMPH NODES: No lymphadenopathy. MUSCULOSKELETAL: Advanced dextroscoliosis of the lumbar spine. Bilateral total hip arthroplasties. OTHER: IMPRESSION: No acute or significant abnormalities seen in the chest, abdomen or pelvis. Mild CHF.
[2024-06-12] MEDS ORDERED: CLOPIDOGREL 75 MG TABLET ONE (18:08)
[2024-06-12] MEDS ORDERED: FUROSEMIDE 20 MG/ 2ML VIAL ONE (18:08)
--- NOTE | 2024-06-12 18:45 | ER ---
Nurse's Notes [facility] Name: Yokasta Hill Age: 73 yrs Sex: Female : 1950 Arrival Date: 06/12/2024 Time: 14:59 Bed 5 Private MD: Diagnosis: Nausea with vomiting, unspecified;Unspecified combined systolic (congestive) and diastolic (congestive) heart failure;Orthopnea Presentation: 06/12 15:13 Chief complaint: Patient's son or daughter states: N/V x 3 weeks. Pt was seen in ER 2 ss weeks ago and admitted to electrolyte imbalance. Coronavirus screen: Client denies travel out of the [place] in the last 14 days. Ebola Screen: Patient denies exposure to infectious person. Patient denies travel to an Ebola-affected area in the 21 days before illness onset. Initial Sepsis Screen: Does the patient meet any 2 criteria? No. Patient's initial sepsis screen is negative. Does the patient have a suspected source of infection? No. Patient's initial sepsis screen is negative. Risk Assessment: Do you want to hurt yourself or someone else? Patient reports no desire to harm self or others. Onset of symptoms was May 22, 2024. 15:13 Method Of Arrival: Wheelchair ss 15:13 Acuity: ROBERTO 3 ss Triage Assessment: 15:15 General: Appears in no apparent distress. Behavior is cooperative, appropriate for age, bp anxious. Pain: Denies pain. EENT: No deficits noted. Neuro: No deficits noted. Cardiovascular: No deficits noted. Respiratory: No deficits noted. GI: Reports nausea, vomiting. : No signs and/or symptoms were reported regarding the genitourinary system. Derm: No deficits noted. Musculoskeletal: No deficits noted. Historical: - Allergies: 15:13 Codeine; ss 15:13 dextromethorphan; ss 15:13 Egg Derived; ss 15:13 Fentanyl; ss 15:13 Sulfa (Sulfonamide Antibiotics); ss 15:13 Sulfasalazine; ss 15:13 Ultram; ss - PMHx: 15:13 Anemia; Congestive heart failure; Hypertensive disorder; Rheumatoid Arthritis; ss - PSHx: 15:13 Bilateral hips; bilateral knees; Cholecystectomy; ss - Immunization history:: Adult Immunizations up to date. - Infectious Disease History:: Denies. - Social history:: Smoking status: Patient denies any tobacco usage or history of. Screenin:15 [facility] ED Fall Risk Assessment (Adult) History of falling in the last 3 months, bp including since admission No falls in past 3 months (0 pts) Confusion or Disorientation No (0 pts) Intoxicated or Sedated No (0 pts) Impaired Gait No (0 pts) Mobility Assist Device Used No (0 pt) Altered Elimination No (0 pt) Score/Fall Risk Level 0 - 2 = Low Risk Oriented to surroundings. Abuse screen: Denies threats or abuse. Denies injuries from another. Nutritional screening: No deficits noted. Tuberculosis screening: No symptoms or risk factors identified. Assessment: 15:15 General: Appears in no apparent distress. Behavior is calm, cooperative, appropriate bp for age. GI: Abdomen is non-distended. 17:00 Reassessment: Patient appears in no apparent distress at this time. Patient is alert, bp oriented x 3, equal unlabored respirations, skin warm/dry/pink. 18:33 Reassessment: pt placed on purewick at this time and provided dinner tray. kc6 18:34 Reassessment: Patient appears in no apparent distress at this time. No changes from kc6 previously documented assessment. Patient and/or family updated on plan of care and expected duration. Pain level reassessed. Patient is alert, oriented x 3, equal unlabored respirations, skin warm/dry/pink. 19:51 Reassessment: Patient appears in no apparent distress at this time. No changes from cp4 previously documented assessment. Patient and/or family updated on plan of care and expected duration. Pain level reassessed. Patient is alert, oriented x 3, equal unlabored respirations, skin warm/dry/pink. 21:00 Reassessment: Patient appears in no apparent distress at this time. Patient and/or cp4 family updated on plan of care and expected duration. Pain level reassessed. Patient is alert, oriented x 3, equal unlabored respirations, skin warm/dry/pink. 21:50 Reassessment: Admission orders not complete to flip patient. Charge nurse notified. cp4 22:00 Reassessment: Patient appears in no apparent distress at this time. Patient and/or cp4 family updated on plan of care and expected duration. Pain level reassessed. Patient is alert, oriented x 3, equal unlabored respirations, skin warm/dry/pink. 23:00 Reassessment: Patient appears in no apparent distress at this time. Patient and/or cp4 family updated on plan of care and expected duration. Pain level reassessed. Patient is alert, oriented x 3, equal unlabored respirations, skin warm/dry/pink. Vital Signs: 15:17 Pulse 106; Resp 16; Temp 97.7(TE); Pulse Ox 98% on R/A; Weight 67.59 kg; Height 5 ft. 7 ss in. ; Pain 0/10; 15:19 BP 105 / 69; ss 17:38 BP 111 / 75; Pulse 89; Resp 16; Pulse Ox 97% ; bp 18:34 BP 107 / 77; Pulse 112; Resp 16 S; Pulse Ox 100% on R/A; kc6 19:30 BP 114 / 88; Pulse 112; Resp 17; Pulse Ox 96% ; cp4 20:30 BP 112 / 78; Pulse 110; Resp 16; Pulse Ox 100% ; cp4 21:30 BP 106 / 68; Pulse 105; Resp 16; Pulse Ox 100% ; cp4 22:30 BP 96 / 83; Pulse 113; Resp 16; Pulse Ox 99% ; cp4 23:30 BP 110 / 80; Pulse 108; Resp 16; Pulse Ox 97% ; cp4 15:17 Body Mass Index 23.34 (67.59 kg, 170.18 cm) ss 15:17 Pain Scale: Adult ss ED Course: 15:04 Patient arrived in ED. sj2 15:05 Linda Green PA is PHCP. cp 15:05 Yohan Lockett MD is Attending Physician. cp 15:13 Triage completed. ss 15:13 Arm band placed on right wrist. ss 15:15 Patient has correct armband on for positive identification. bp 15:35 Initial lab(s) drawn, by me, sent to lab. Inserted saline lock: 22 gauge in left ap3 antecubital area, using aseptic technique. Blood collected. Flushed with 10 mL NS. 15:35 CBC with Diff Sent. ap3 15:35 LFT's Sent. ap3 15:35 Magnesium Sent. ap3 15:35 NT PRO-BNP Sent. ap3 15:35 PT-INR Sent. ap3 15:35 Troponin HS Sent. ap3 15:46 Kali Mejia, SHERI is Primary Nurse. bp 16:00 XRAY Chest (1 view) In Process Unspecified. EDMS 16:20 EKG done, by ED staff, reviewed by Yohan Lockett MD. ap3 16:21 Client placed on continuous cardiac and pulse oximetry monitoring. NIBP monitoring ap3 applied. as400 consultant on. Pulse ox on. NIBP on. 17:09 CT Head Brain wo Cont In Process Unspecified. EDMS 17:10 CT Chest, Abdomen, Pelvis - W/Contrast In Process Unspecified. EDMS 18:33 Patient has correct armband on for positive identification. Bed in low position. Call kc6 light in reach. Side rails up X2. Adult w/ patient. as400 consultant on. Pulse ox on. NIBP on. Door closed. Noise minimized. Lights dimmed. Warm blanket given. Pillow given. Diet tray given. Verbal reassurance given. Head of bed elevated. Diet: Patient given a heart healthy meal tray. Tolerated well. 18:42 Norma Starkey MD is Hospitalizing Provider. cp 19:[address] LEON FOR LINDA ANDRADE. kmf 06/13 00:18 Provided Education on: admission. cp4 00:18 No provider procedures requiring assistance completed. Patient admitted, IV remains in cp4 place. Administered Medications: 06/12 15:45 Drug: Ondansetron IVP 4 mg IVP once; over 2 minutes Route: IVP; Site: left antecubital; bp 18:51 Follow up: Response: No adverse reaction bp 16:56 Drug: Famotidine IVP 20 mg IVP once; dilute with 10 mL 0.9% NaCl; give over 2 minutes bp Route: IVP; Site: left antecubital; 18:52 Follow up: Response: No adverse reaction bp 18:14 Drug: Clopidogrel PO 75 mg PO once Route: PO; bp 18:51 Follow up: Response: No adverse reaction bp 18:14 Drug: Furosemide IVP 20 mg IVP once; give over 2 minutes Route: IVP; Site: left bp antecubital; 18:51 Follow up: Response: No adverse reaction bp Medication: 06/13 00:18 VIS not applicable for this client. cp4 Outcome: 06/12 18:44 Decision to Hospitalize by Provider. cp 06/13 00:18 Admitted to Med/surg accompanied by nurse, via wheelchair, with chart, cp4 Condition: stable Instructed on the need for admit, 00:21 Patient left the ED. cp4 Signatures: Dispatcher [employer] EDMS Ramona Suárez, RN RN ss Linda Green PA PA cp Peltier, Brian, RN RN Mague Shafer RN RN ap3 Brianne Owens RN RN kc6 Meghna Turner cp4 Nhung Kelly [facility] Georgiana Bridges [facility]
--- NOTE | 2024-06-12 18:45 | EDPHYS ---
Physician Documentation [facility] Name: Yokasta Hill Age: 73 yrs Sex: Female : 1950 Arrival Date: 06/12/2024 Time: 14:59 Bed 5 Private MD: ED Physician Yohan Lockett HPI: 06/12 15:19 This 73 yrs old Female presents to ER via Wheelchair with complaints of cp Nausea/Vomiting, Abnormal Lab Results. 15:19 The patient presents to the emergency department with nausea, that is moderate, cp vomiting, that is intermittent, reports diarrhea yesterday with no episodes today. Onset: The symptoms/episode began/occurred 3 week(s) ago. Possible causes: unknown. 15:20 Associated signs and symptoms: Pertinent positives: anorexia, nausea, shortness of cp breath, Pertinent negatives: constipation, fever, GI bleeding, active vomiting. 15:20 Severity of symptoms: in the emergency department the symptoms are unchanged despite cp home interventions. Son reports recent hospitalization for similar symptoms of vomiting and low electrolytes. Historical: - Allergies: 15:13 Codeine; ss 15:13 dextromethorphan; ss 15:13 Egg Derived; ss 15:13 Fentanyl; ss 15:13 Sulfa (Sulfonamide Antibiotics); ss 15:13 Sulfasalazine; ss 15:13 Ultram; ss - PMHx: 15:13 Anemia; Congestive heart failure; Hypertensive disorder; Rheumatoid Arthritis; ss - PSHx: 15:13 Bilateral hips; bilateral knees; Cholecystectomy; ss - Immunization history:: Adult Immunizations up to date. - Infectious Disease History:: Denies. - Social history:: Smoking status: Patient denies any tobacco usage or history of. ROS: 15:20 Constitutional: Positive for poor PO intake, Negative for body aches, chills, fever, cp 15:20 Eyes: Negative for injury, pain, redness, and discharge, cp 15:20 ENT: Negative for drainage from ear(s), ear pain, sore throat, difficulty swallowing, difficulty handling secretions, 15:20 Cardiovascular: Negative for chest pain, palpitations, 15:20 Respiratory: Positive for orthopnea, shortness of breath, 15:20 Abdomen/GI: Positive for nausea and vomiting, anorexia, Negative for constipation, hematemesis, black/tarry stool, rectal bleeding, 15:20 Neuro: Negative for altered mental status, 15:20 All other systems are negative, Exam: 15:25 Constitutional: The patient appears in no acute distress, alert, awake, cp non-diaphoretic, non-toxic, well developed, well nourished, 15:25 Head/Face: Normocephalic, atraumatic. cp 15:25 Eyes: Periorbital structures: appear normal, Conjunctiva: normal, no exudate, no injection, Sclera: no appreciated abnormality, Lids and lashes: appear normal, bilaterally, 15:25 ENT: External ear(s): are unremarkable, Nose: is normal, Mouth: Lips: moist, Oral mucosa: moist, Posterior pharynx: Airway: no evidence of obstruction, patent, 15:25 Chest/axilla: Inspection: normal, 15:25 Cardiovascular: Rate: tachycardic, Rhythm: regular, Edema: ankle edema, that is very mild, JVD: is not appreciated, 15:25 Respiratory: the patient does not display signs of respiratory distress, Respirations: shallow respirations, that is mild, Breath sounds: decreased breath sounds, that are mild, throughout, 15:25 Abdomen/GI: Inspection: abdomen appears normal, Bowel sounds: active, all quadrants, Palpation: soft, in all quadrants, mild abdominal tenderness, in the epigastric area, rebound tenderness, is not appreciated, involuntary guarding, is not appreciated, 15:25 Back: CVA tenderness, is absent, 15:25 Neuro: Orientation: to person, place \T\ time. Mentation: is normal, Motor: moves all fours, no focal deficits, Sensation: no obvious gross deficits, 15:25 Psych: Behavior/mood is pleasant, cooperative, Affect is calm, Oriented to person, place, time, 16:23 ECG was reviewed by the Attending Physician. cp Vital Signs: 15:17 Pulse 106; Resp 16; Temp 97.7(TE); Pulse Ox 98% on R/A; Weight 67.59 kg; Height 5 ft. 7 ss in. ; Pain 0/10; 15:19 BP 105 / 69; ss 17:38 BP 111 / 75; Pulse 89; Resp 16; Pulse Ox 97% ; bp 18:34 BP 107 / 77; Pulse 112; Resp 16 S; Pulse Ox 100% on R/A; kc6 19:30 BP 114 / 88; Pulse 112; Resp 17; Pulse Ox 96% ; cp4 20:30 BP 112 / 78; Pulse 110; Resp 16; Pulse Ox 100% ; cp4 21:30 BP 106 / 68; Pulse 105; Resp 16; Pulse Ox 100% ; cp4 22:30 BP 96 / 83; Pulse 113; Resp 16; Pulse Ox 99% ; cp4 23:30 BP 110 / 80; Pulse 108; Resp 16; Pulse Ox 97% ; cp4 15:17 Body Mass Index 23.34 (67.59 kg, 170.18 cm) ss 15:17 Pain Scale: Adult ss MDM: 15:12 Medical Screening Exam initiated 16:30 Differential diagnosis: gastritis, viral gastroenteritis, gastroenteritis, dehydration, cp acute [place], electrolyte abnormality. 18:45 Data reviewed: vital signs, nurses notes, lab test result(s), EKG, radiologic studies, cp CT scan, plain films, and as a result, I will admit patient. 18:45 I considered the following discharge prescriptions or medication management in the emergency department Medications were administered in the Emergency Department. See MAR. Independent interpretation of the following test(s) in the Emergency Department EKG: See my EKG interpretation above. Care significantly affected by the following chronic conditions: Hypertension, Congestive Heart Failure. Counseling: I had a detailed discussion with the patient and/or guardian regarding the historical points, exam findings, and any diagnostic results supporting the discharge/admit diagnosis, lab results, radiology results, the need for further work-up and treatment in the hospital. Response to treatment: the patient's symptoms have mildly improved after treatment. 20:00 Management of patient was discussed with the following: Hospitalist: DR Starkey who will cp accept admission after discussion and consult with cardiology DR Menjivar who will consult. 06/12 15:21 Order name: Basic Metabolic Panel; Complete Time: 16:15 06/12 16:15 Interpretation: Normal except: NA 134; GLUC 132; GFR 66. 06/12 15:21 Order name: CBC with Diff; Complete Time: 16:13 06/12 16:13 Interpretation: Normal except: RBC 3.05; HGB 9.0; HCT 27.6; RDW 18.6. 06/12 15:21 Order name: LFT's; Complete Time: 16:16 06/12 16:16 Interpretation: Normal except: AST 14; BILID 0.3; ALB 3.3; GLOB 3.9; A/G 0.8. cp 06/12 15:21 Order name: Magnesium; Complete Time: 16:17 cp 06/12 15:21 Order name: NT PRO-BNP; Complete Time: 16:16 cp 06/12 16:16 Interpretation: Reviewed. cp 06/12 15:21 Order name: PT-INR; Complete Time: 16:13 cp 06/12 17:33 Interpretation: Reviewed. cp 06/12 15:21 Order name: Troponin HS; Complete Time: 16:17 cp 06/12 15:21 Order name: Lipase; Complete Time: 16:17 cp 06/12 15:21 Order name: Phosphorus; Complete Time: 16:17 cp 06/12 15:21 Order name: Urinalysis w/ reflexes cp 06/12 20:47 Order name: Urinalysis w/ reflexes EDMS 06/12 20:47 Order name: Basic Metabolic Panel EDMS 06/12 20:47 Order name: Basic Metabolic Panel EDMS 06/12 20:47 Order name: CBC with Automated Diff EDMS 06/12 20:47 Order name: CBC with Automated Diff EDMS 06/12 20:47 Order name: Magnesium EDMS 06/12 20:47 Order name: Magnesium EDMS 06/12 20:47 Order name: Troponin High Sensitivity EDMS 06/12 20:47 Order name: Troponin High Sensitivity EDMS 06/12 20:47 Order name: Troponin High Sensitivity EDMS 06/12 20:47 Order name: Troponin High Sensitivity EDMS 06/12 15:21 Order name: XRAY Chest (1 view); Complete Time: 16:13 cp 06/12 16:19 Order name: CT Head Brain wo Cont; Complete Time: 17:32 cp 06/12 16:19 Order name: CT Chest, Abdomen, Pelvis - W/Contrast; Complete Time: 17:32 cp 06/12 20:47 Order name: Echo with Doppler EDMS 06/12 15:21 Order name: Cardiac monitoring; Complete Time: 16:12 cp 06/12 15:21 Order name: EKG - Nurse/Tech; Complete Time: 16:20 cp 06/12 15:21 Order name: IV Saline Lock; Complete Time: 15:35 cp 06/12 15:21 Order name: Labs collected and sent; Complete Time: 15:35 cp 06/12 15:21 Order name: O2 Per Protocol; Complete Time: 16:12 cp 06/12 15:21 Order name: O2 Sat Monitoring; Complete Time: 16:12 cp EC:23 Rate is 103 beats/min. Rhythm is regular with Ventricular paced. VT interval is normal. cp QRS interval is prolonged at 118 msec. QT interval is normal. T waves are Inverted in leads I, aVL. Administered Medications: 15:45 Drug: Ondansetron IVP 4 mg IVP once; over 2 minutes Route: IVP; Site: left antecubital; bp 18:51 Follow up: Response: No adverse reaction bp 16:56 Drug: Famotidine IVP 20 mg IVP once; dilute with 10 mL 0.9% NaCl; give over 2 minutes bp Route: IVP; Site: left antecubital; 18:52 Follow up: Response: No adverse reaction bp 18:14 Drug: Clopidogrel PO 75 mg PO once Route: PO; bp 18:51 Follow up: Response: No adverse reaction bp 18:14 Drug: Furosemide IVP 20 mg IVP once; give over 2 minutes Route: IVP; Site: left bp antecubital; 18:51 Follow up: Response: No adverse reaction bp Disposition Summary: 06/12/24 18:44 Hospitalization Ordered Notes: Hospitalization Status: Inpatient Admission cp Provider: Norma Starkey [facility] Condition: Stable cp Problem: an acute exacerbation cp Symptoms: have improved cp Bed/Room Type: Standard Room Assignment: 412(06/12/24 21:22) [facility] Diagnosis - Nausea with vomiting, unspecified cp - Unspecified combined systolic (congestive) and diastolic (congestive) heart failure cp - Orthopnea cp Forms: - Medication Reconciliation Form cp - SBAR form cp - Leadership Thank You Letter cp Addendum: 06/15/2024 11:51 Co-signature as Attending Physician, Yohan Lockett MD I reviewed the patient's care r n provided by the Advanced Practice Provider and agree with the diagnosis and treatment plan. Signatures: Dispatcher [employer] Yohan Ramirez MD MD rn Blanchard, Shelby, RN RN ss Thaddeus Green PA PA Kali Lantigua RN RN Meghna Higginbotham cp4 Nhung Kelly km Corrections: (The following items were deleted from the chart) 06/12 15:21 15:21 BASIC METABOLIC PANEL+C.LAB.BRZ ordered. EDMS EDMS 15:21 15:21 CBC+H.LAB.BRZ ordered. EDMS EDMS 15:21 15:21 HEPATIC FUNCTION+C.LAB.BRZ ordered. EDMS EDMS 15:21 15:21 MAGNESIUM+C.LAB.BRZ ordered. EDMS EDMS 15:21 15:21 PROBNP+C.LAB.BRZ ordered. EDMS EDMS 15:21 15:21 PROTIME (+INR)+COAG.LAB.BRZ ordered. EDMS EDMS 15:21 15:21 Troponin High Sensitivity+C.LAB.BRZ ordered. EDMS EDMS 15:21 15:21 LIPASE+C.LAB.BRZ ordered. EDMS EDMS 15:21 15:21 PHOSPHORUS+C.LAB.BRZ ordered. EDMS EDMS 15:21 15:21 Urinalysis+U.LAB.BRZ ordered. EDMS EDMS 15:22 15:22 Chest Single View+RAD.RAD.BRZ ordered. EDMS EDMS 16:19 16:19 Chest Abdomen Pelvis W Con+CT.RAD.BRZ ordered. EDMS EDMS 21:22 18:44 cp kmf
--- NOTE | 2024-06-12 20:29 | P.HP ---
Certification for Inpatient Patient admitted to: Inpatient With expected LOS: >2 Midnights Practitioner: I am a practitioner with admitting privileges, knowledge of patient current condition, hospital course, and medical plan of care. Services: Services provided to patient in accordance with Admission requirements found in Title 42 Section 412.3 of the Code of Federal Regulations Patient History Date of Service: 06/12/24 Reason for admission: SOB, N/V History of Present Illness: 73-year-old female with history of congestive heart failure, hypertension, RA presented to the ER with complaints of nausea vomiting. She reports symptoms ongoing for last 3 weeks. Reported having a few episodes of diarrhea. She mobilizes usually with a wheelchair. She follows with cardiology at [facility]. She recently was admitted in May. Noted to have an ejection fraction between 10 and 15%. She does have a defibrillator. The patient denies chest pain. In the ER imaging was done. Cardiology was contacted. The patient does take Lasix at home alternating doses. Most recently increased her dose to 40 mg daily Allergies adhesive tape Allergy (Verified 01/26/24 21:19) Rash Sulfa (Sulfonamide Antibiotics) Allergy (Verified 01/26/24 21:19) Rash dextromethorphan Adverse Reaction (Intermediate, Verified 01/27/24 09:20) Nausea/Vomiting bumetanide [From Bumex] Adverse Reaction (Verified 05/15/24 16:43) Rash codeine Adverse Reaction (Verified 01/26/24 21:19) Rash egg Adverse Reaction (Verified 01/26/24 21:19) Nausea/Vomiting fentanyl Adverse Reaction (Verified 01/26/24 21:19) Rash hydrocodone Adverse Reaction (Verified 01/26/24 21:19) Nausea/Vomiting sulfasalazine Adverse Reaction (Verified 01/26/24 21:20) caused anemia tramadol [From Ultram] Adverse Reaction (Verified 01/26/24 21:19) Rash Home Medications: Aspirin Chewable [Aspirin Chewable*] 81 mg PO DAILY 01/26/24 Atorvastatin Calcium [Lipitor] 80 mg PO BEDTIME 01/26/24 Clopidogrel Bisulfate [Plavix*] 75 mg PO DAILY 01/26/24 Ergocalciferol (Vitamin D2) [Vitamin D2] 50,000 unit PO Q7D 01/26/24 Ferrous Sulfate [Ferrous Sulfate*] 325 mg PO DAILY 01/26/24 Spironolactone [Aldactone*] 25 mg PO DAILY 01/26/24 Midodrine HCl [Proamatine*] 5 mg PO BID #60 tab 01/27/24 Potassium Chloride 10 meq PO DAILY #30 tab 01/27/24 Furosemide 20 mg PO BID PRN 02/18/24 Folic Acid 1 mg PO DAILY 05/15/24 Magnesium Oxide [Mag 0X Tab] 400 mg PO DAILY PRN 05/15/24 Furosemide [Lasix] 20 mg PO BIDL 30 Days #60 tab 05/16/24 Lidocaine 4% Patch [Lidoderm 5% Patch*] 1 patch TOP DAILY 30 Days #30 pat 05/16/24 Midodrine HCl 10 mg PO TID PRN 30 Days #90 tab 05/16/24 Nystatin Cream [Mycostatin 100MU/Gm Cream*] 15 appl TOP BID 7 Days #1 tube 05/16/24 Potassium Chloride 20 meq PO DAILY #30 05/16/24 guaiFENesin [Guaifenesin] 400 mg PO BID 30 Days #60 tab 05/16/24 - Past Medical/Surgical History Diabetic: No -: HTN -: RA -: Anemia of chronic disease -: Cardiomyopathy with an ejection fraction of 25% -: Coronary artery disease -: Mitral regurgitation -: hip surgery -: knee surgery -: back surgery -: wrist surgery -: cholecystectomy -: Cardiac catheterization -: ADY Psychosocial/ Personal History: , two sons - Family History Mother -: Cancer Notes: breast cancer Father -: Lung disease Notes: emphysema - Social History Alcohol use: No CD- Drugs: No Caffeine use: Yes Review of Systems 10-point ROS is otherwise unremarkable Physical Examination - Physical Exam General: Alert, Oriented x3 HEENT: Atraumatic, Normocephalic Respiratory: Clear to auscultation bilaterally, Normal air movement Cardiovascular: No edema, Normal pulses Gastrointestinal: Soft and benign Musculoskeletal: Other - Studies Laboratory Data (last 24 hrs) 06/12/24 06/12/24 06/12/24 15:32 15:32 15:32 WBC 5.50 Hgb 9.0 L Hct 27.6 L Plt Count 240 PT 13.4 H INR 1.20 Sodium 134 L Potassium 3.8 BUN 16 Creatinine 0.93 Glucose 132 H Phosphorus 3.2 Magnesium 2.3 Total Bilirubin 0.6 AST 14 L ALT 21 Alkaline Phosphatase 114 Lipase 20 Assessment and Plan - Problems (Diagnosis) (1) Acute on chronic systolic heart failure Current Visit: No Status: Acute - Plan 73-year-old female history of CHF, reduced ejection fraction, hypertension, RA presents with complaints of nausea vomiting and shortness of breath for last 3 weeks. Recently admitted in May #acute on chronic systolic heart failure #Dyspnea on exertion #history of defibrillator #CAD #N/V #Rheumatoid arthritis plan: 1. admit to med surg with telemetry 2 check ECHO 3. order iv lasix 4. PRN antiemetics 5. cardiology consultation 6. await medication reconciliation 7. consider Discussion about goals of care with cardiology and her primary drafter mechanical - Advance Directives Does patient have a Living Will: No Does patient have a Durable POA for Healthcare: No
[2024-06-12] MEDS ORDERED: ACETAMINOPHEN 500 MG TAB ONE (23:03)
[2024-06-12] MEDS: ACETAMINOPHEN 500 MG TAB PO PRN (23:43)
[2024-06-13 00:52] VITALS: BMI 23.3
[2024-06-13 07:23] LABS: Absolute Basophils 0.1 K/uL (0-0.5); Absolute Eosinophils 0.2 K/uL (0-0.5); Absolute Lymphocytes (CBC) 1.2 K/uL (0.7-4.9); Absolute Monocytes 0.3 K/uL (0.1-1.3); Absolute Neutrophil 3.6 K/uL (1.8-8.0); Basophils % 1.1 % (0-1.3); Eosinophils % 3.8 % (0-4.4); Hematocrit 25.4 % (36.0-45.0); Hemoglobin 8.4 g/dL (12.0-15.0); Lymphocytes % 21.9 % (15.3-44.8); MCH 29.9 pg (27.0-35.0); MCHC 33.1 g/dL (32.0-36.0); MCV 90.6 fL (80-100); MPV 9.8 fL (7.6-11.3); Monocytes % 6.3 % (3.3-12.3); Neutrophils % 66.9 % (41.7-73.7); Nucleated Red Blood Cells % 0.2 % (0-0); Platelets 191 thou/uL (152-406); RBC Red Blood Cell Count 2.81 M/uL (3.86-4.86); Red Cell Distribution Width 18.6 % (12.1-15.2)
[2024-06-13] MEDS: FLU (Fluarix Triv) TS24-25(6MOS UP)/PF 45 MCG/0.5 ML Syringe IM ONE (07:30)
[2024-06-13 07:42] LABS: Anion Gap 10.5 mEq/L (5.0-15.0); Magnesium 2.3 mg/dL (1.6-2.4); Potassium 3.5 mEq/L (3.5-5.1); Troponin High Sensitivity 48.9 pg/mL (<58.9)
[2024-06-13] MEDS: PNEUMOCOCCAL VACCINE 0.5 ML IMVAC ONE (08:00)
[2024-06-13] MEDS: FUROSEMIDE 40 MG/4 ML VIAL IV SCH ×2 (09:17→21:00)
[2024-06-13] MEDS: ONDANSETRON 4 MG/2 ML VIAL IV PRN (14:44)
--- NOTE | 2024-06-13 16:16 | P.CNS ---
Date of Consult: 06/13/24 Chief Complaint: SOB, N/V History of Present Illness: Patient with history of advanced combined heart failure, non ischemic in nature, severe rheumatoid arthritis, presented with nausea, vomitting, denies chest pain, no palpitations, no SOB, no BALLARD, patient usually follows up in medical center and family had lot of questions about advanced heart failure management. Allergies adhesive tape Allergy (Verified 01/26/24 21:19) Rash Sulfa (Sulfonamide Antibiotics) Allergy (Verified 01/26/24 21:19) Rash dextromethorphan Adverse Reaction (Intermediate, Verified 01/27/24 09:20) Nausea/Vomiting bumetanide [From Bumex] Adverse Reaction (Verified 05/15/24 16:43) Rash codeine Adverse Reaction (Verified 01/26/24 21:19) Rash egg Adverse Reaction (Verified 01/26/24 21:19) Nausea/Vomiting fentanyl Adverse Reaction (Verified 01/26/24 21:19) Rash hydrocodone Adverse Reaction (Verified 01/26/24 21:19) Nausea/Vomiting sulfasalazine Adverse Reaction (Verified 01/26/24 21:20) caused anemia tramadol [From Ultram] Adverse Reaction (Verified 01/26/24 21:19) Rash Home medications list reviewed: Yes Home Medications: Aspirin Chewable [Aspirin Chewable*] 81 mg PO DAILY 01/26/24 Atorvastatin Calcium [Lipitor] 80 mg PO BEDTIME 01/26/24 Clopidogrel Bisulfate [Plavix*] 75 mg PO DAILY 01/26/24 Ergocalciferol (Vitamin D2) [Vitamin D2] 50,000 unit PO Q7D 01/26/24 Ferrous Sulfate [Ferrous Sulfate*] 325 mg PO DAILY 01/26/24 Spironolactone [Aldactone*] 25 mg PO DAILY 01/26/24 Midodrine HCl [Proamatine*] 5 mg PO BID #60 tab 01/27/24 Potassium Chloride 10 meq PO DAILY #30 tab 01/27/24 Furosemide 20 mg PO BID PRN 02/18/24 Folic Acid 1 mg PO DAILY 05/15/24 Magnesium Oxide [Mag 0X Tab] 400 mg PO DAILY PRN 05/15/24 Furosemide [Lasix] 20 mg PO BIDL 30 Days #60 tab 05/16/24 Lidocaine 4% Patch [Lidoderm 5% Patch*] 1 patch TOP DAILY 30 Days #30 pat 05/16/24 Midodrine HCl 10 mg PO TID PRN 30 Days #90 tab 05/16/24 Nystatin Cream [Mycostatin 100MU/Gm Cream*] 15 appl TOP BID 7 Days #1 tube 05/16/24 Potassium Chloride 20 meq PO DAILY #30 05/16/24 guaiFENesin [Guaifenesin] 400 mg PO BID 30 Days #60 tab 05/16/24 - Past Medical/Surgical History Diabetic: No -: HTN -: RA -: Anemia of chronic disease -: Cardiomyopathy with an ejection fraction of 25% -: Coronary artery disease -: Mitral regurgitation -: hip surgery -: knee surgery -: back surgery -: wrist surgery -: cholecystectomy -: Cardiac catheterization -: ADY Psychosocial/ Personal History: , two sons - Family History Mother Medical History: Cancer Notes: breast cancer Father Medical History: Lung disease Notes: emphysema - Social History Alcohol use: No CD- Drugs: No Caffeine use: Yes Place of Residence: Home Review of Systems 10-point ROS is otherwise unremarkable Physical Examination Temp Pulse Resp BP Pulse Ox 97.7 F 88 18 100/68 99 06/13/24 12:00 06/13/24 12:00 06/13/24 12:00 06/13/24 12:00 06/13/24 12:00 General: Alert, In no apparent distress HEENT: Atraumatic, PERRLA, Mucous membr. moist/pink, EOMI, Sclerae nonicteric Neck: Supple, 2+ carotid pulse no bruit, No LAD, Without JVD or thyroid abnormality Respiratory: Clear to auscultation bilaterally, Normal air movement Cardiovascular: Regular rate/rhythm, Normal S1 S2 Gastrointestinal: Normal bowel sounds, No tenderness Musculoskeletal: No tenderness Integumentary: No rashes Neurological: Normal gait, Normal speech, Normal tone, Normal affect Lymphatics: No axilla or inguinal lymphadenopathy Laboratory Data (last 24 hrs) 06/12/24 15:32 Sodium 134 L Potassium 3.8 BUN 16 Creatinine 0.93 Glucose 132 H Phosphorus 3.2 Magnesium 2.3 Total Bilirubin 0.6 AST 14 L ALT 21 Alkaline Phosphatase 114 Lipase 20 - Problems (1) Acute on chronic combined systolic and diastolic heart failure Current Visit: Yes Status: Acute Plan: Patient and family (Sons) had lot of questions about advanced heart failure treatment, explained in details that her treatment is limited by soft BP, she recently had 3 lead device, most likely VISCERA WASHER-D to help imrpve her heart function, advised them to follow up with heart failure specialist for more options. at this time, would try to adjust her medications - continue Lasix 40 mg IV daily - Monitor input and output and electrolytes. - start patient on scheduled Midodrine 5 mg TID to help improve her BP - start Aldactone 25 mg daily - start Coreg 3.125 mg po BID (2) Troponin level elevated Current Visit: Yes Status: Acute Plan: mild elevated and back to normal, type 2 ID from heart failuure, patient had coronary angiogram done in 2020 that shows normal coronaries.
--- NOTE | 2024-06-13 19:00 | P.PN ---
Subjective Date of Service: 06/13/24 Chief Complaint: SOB, N/V Patient reports some improvement in her nausea. She denies any chest pain. She denies any change in her shortness of breath. Physical Examination - Vital Signs Temperature: 98 F Blood Pressure: 100/68 Pulse: 98 Respirations: 18 Pulse Ox (%): 97 Assessment And Plan - Plan Physical examination General: Alert and oriented x3, NAD, HEENT: Conjunctiva not pale, anicteric sclera Neck: Supple, no elevated JVD Heart: Heart sounds 1 and 2 normal, regular rhythm, normal rate, no pedal edema Lungs: Clear to auscultation bilaterally, adequate breath sounds bilaterally, no rhonchi or crackles. Abdomen: Soft, nondistended, nontender, normal bowel sounds. Extremities: No tenderness, no deformity Skin: Normal skin turgor, no rash, no nodules or ulcers. Neuro: No focal motor deficit. Normal speech. Psychiatry: Normal mood, no agitation. Diagnosis Acute on chronic systolic heart failure Status post AICD/[employer] Nausea and vomiting Rheumatoid arthritis Acute on chronic systolic heart failure Patient with a history of advanced heart failure. Most recent echocardiogram showed EF of 15 to 20% Status post AICD and suspected [employer]. Cardiology consult Patient with significantly elevated BNP. Continue IV Lasix Monitor intake and output. Resume midodrine for hypotension. Nausea and vomiting Unknown etiology. Trial of PPI and antacid for gastritis. Diet as tolerated. Rheumatoid arthritis Analgesics as needed. DVT prophylaxis: SCD Advanced directive: Full code.
[2024-06-13] MEDS: MIDODRINE HCL 5 MG TABLET PO SCH (21:00)
[2024-06-14 06:40] LABS: Anion Gap 13.1 mEq/L (5.0-15.0); Potassium 3.1 mEq/L (3.5-5.1)
[2024-06-14] MEDS: HOME MED 1 EA UNK (Leflunomide [Leflunomide] 20 MG Tablet) PO SCH (09:06)
[2024-06-14] MEDS: ASPIRIN 81 MG CHEWABLE TABLET PO SCH (09:41)
[2024-06-14] MEDS: CLOPIDOGREL 75 MG TABLET PO SCH (09:41)
[2024-06-14] MEDS: CELECOXIB 100 MG CAPSULE PO SCH (09:41)
[2024-06-14] MEDS: MAGNESIUM OXIDE 400 MG TAB PO SCH (09:41)
[2024-06-14] MEDS: FOLIC ACID 1 MG TABLET PO SCH (09:42)
[2024-06-14] MEDS: POTASSIUM CL SA 10 MEQ TAB PO ONE (12:30)
--- NOTE | 2024-06-14 19:26 | P.DS ---
Admission Date: 06/12/24 Discharge Date: 06/14/24 Disposition: ROUTINE DISCHARGE Discharge Condition: FAIR Reason for Admission: SOB, N/V Brief History of Present Illness: 73-year-old female with history of congestive heart failure, hypertension, RA presented to the ER with complaints of nausea vomiting of 3 weeks duration. She reported having a few episodes of diarrhea. She mobilizes usually with a wheelchair. She follows with cardiology at [facility]. She recently was admitted in May. Noted to have an ejection fraction between 10 and 15%, recent AICD/HOMEMAKER COMPANION placement. Patient was evaluated in the ED, chest x-ray showed mild CHF. Patient was hospitalized for further management. Hospital Course: Diagnosis Acute on chronic systolic heart failure Status post AICD/HOMEMAKER COMPANION Nausea and vomiting Rheumatoid arthritis Patient admitted to the medical floor and the following medical problems addressed: Acute on chronic systolic heart failure Patient with a history of advanced heart failure. Most recent echocardiogram showed EF of 15 to 20% Status post recent AICD and suspected HOMEMAKER COMPANION. Patient treated with IV Lasix She was evaluated by cardiology-Dr. Menjivar Patient with significantly elevated BNP. Patient respiratory status improved and currently appears compensated for CHF. She is midodrine for hypotension. Nausea and vomiting Unknown etiology. Patient symptoms have been related to electrolyte abnormalities. Hypokalemia was replaced with oral potassium. Patient daily oral potassium dose resumed on discharge. She is also on Aldactone. Magnesium level was normal. Patient symptoms have resolved. She has tolerated diet. Rheumatoid arthritis Continued home analgesics as needed. Vital Signs/Physical Exam: Temp Pulse Resp BP Pulse Ox 98.5 F 91 H 18 98/63 98 06/14/24 12:00 06/14/24 12:00 06/14/24 12:00 06/14/24 12:06/14/24 12:00 General: Alert, In no apparent distress, Oriented x3 HEENT: Mucous membr. moist/pink Neck: JVD not distended Respiratory: Clear to auscultation bilaterally, Normal air movement Cardiovascular: No edema, Regular rate/rhythm, Normal S1 S2, Systolic murmur Gastrointestinal: Normal bowel sounds, Soft and benign, Non-distended, No tenderness Musculoskeletal: Other (Ulnar deviation of fingers of both hands) Integumentary: No rashes, No cyanosis Neurological: Normal strength at 5/5 x4 extr Laboratory Data at Discharge: WBC 5.30 thou/uL (4.3-10.9) 06/13/24 05:49 Hgb 8.4 g/dL (12.0-15.0) L 06/13/24 05:49 Hct 25.4 % (36.0-45.0) L 06/13/24 05:49 Plt Count 191 thou/uL (152-406) 06/13/24 05:49 PT 13.4 SECONDS (9.4-12.5) H 06/12/24 15:32 INR 1.20 06/12/24 15:32 Sodium 136 mEq/L (136-145) 06/14/24 05:00 Potassium 3.1 mEq/L (3.5-5.1) L 06/14/24 05:00 BUN 16 mg/dL (7-18) 06/14/24 05:00 Creatinine 0.89 mg/dL (0.55-1.02) 06/14/24 05:00 Glucose 120 mg/dL (74-106) H 06/14/24 05:00 Phosphorus 3.2 mg/dL (2.5-4.9) 06/12/24 15:32 Magnesium 2.3 mg/dL (1.6-2.4) 06/13/24 05:49 Total Bilirubin 0.6 mg/dL (0.2-1.0) 06/12/24 15:32 AST 14 U/L (15-37) L 06/12/24 15:32 ALT 21 U/L (13-56) 06/12/24 15:32 Alkaline Phosphatase 114 U/L (45-117) 06/12/24 15:32 Lipase 20 U/L (13-75) 06/12/24 15:32 Home Medications: Aspirin Chewable [Aspirin Chewable*] 81 mg PO DAILY 01/26/24 Atorvastatin Calcium [Lipitor] 80 mg PO DAILY 01/26/24 Clopidogrel Bisulfate [Plavix*] 75 mg PO DAILY 01/26/24 Spironolactone [Aldactone*] 25 mg PO BEDTIME 01/26/24 Midodrine HCl [Proamatine*] 5 mg PO BID #60 tab 01/27/24 Folic Acid 1 mg PO DAILY 05/15/24 Magnesium Oxide [Mag 0X*] 400 mg PO DAILY 05/15/24 Potassium Chloride 20 meq PO DAILY #30 05/16/24 Celecoxib 100 mg PO DAILY 06/14/24 Furosemide [Lasix] 40 mg PO DAILY #30 tab 06/14/24 Leflunomide 20 mg PO DAILY 06/14/24 Ondansetron [Zofran*] 4 mg IV Q6HP PRN vial 06/14/24 Ondansetron [Zofran] 4 mg PO Q6H PRN #30 tab 06/14/24 Sucralfate 10 ml PO AC #414 ml 06/14/24 New Medications: Furosemide [Lasix] 40 mg PO DAILY #30 tab Sucralfate 10 ml PO AC #414 ml Ondansetron [Zofran] 4 mg PO Q6H PRN #30 tab PRN Reason: Nausea / Vomiting Diet: AHA Activity: Fall precautions Followup: Tarun Menjivar MD [ACTIVE - CAN ADMIT] - (Within 2-4 weeks) Paulo Lundberg MD [Primary Care Provider] - 1-2 Weeks (Call for appointment.) Time spent managing pt's care (in minutes): 34
[2024-06-14] MEDS ORDERED: SPIRONOLACTONE 25 MG TABLET PO SCH (21:00)
[2024-06-15] MEDS ORDERED: ATORVASTATIN 80 MG TAB PO SCH (09:00)
[2024-06-15] MEDS ORDERED: POTASSIUM CL SA 10 MEQ TAB PO SCH (09:00)
--- NOTE | 2024-06-16 10:55 | EKG ---
Test Date: 2024-06-12 Test Time: 16:17:22 Ceramic Painter: ALP MEASUREMENT RESULTS: Intervals: Rate: 103 [place]: 156 QRSD: 118 QT: 382 QTc: 500 [place]: P: 73 [place]: 156 QRS: -3 T: 161 INTERPRETIVE STATEMENTS: Suspect unspecified pacemaker failure Atrial-sensed ventricular-paced rhythm Abnormal ECG Compared to ECG 05/27/2024 15:47:14 Sinus tachycardia no longer present Myocardial infarct finding no longer present ST (T wave) deviation no longer present Possible ischemia no longer present Electronically Signed On 06-16-24 10:51:07 COUNTY DEMONSTRATOR by Tarun Menjivar
[2024-06-17 15:07] VITALS: BP 98/63; TEMP 98.5; O2SAT 98
== END 2024-06-14 15:30 | disposition home or self-care (01) | DRG 280 ==
LOC: ER 14:59 → 4TH 23:13
PROVIDERS: ADMIT Emergency Medicine; ATTEND Internal Medicine
DX: I11.0 Hypertensive heart disease with heart failure (principal); I50.23 Acute on chronic systolic (congestive) heart failure; I21.A1 Myocardial infarction type 2; M06.9 Rheumatoid arthritis, unspecified; I25.10 Atherosclerotic heart disease of native coronary artery without angina pectoris; Z88.5 Allergy status to narcotic agent; Z88.2 Allergy status to sulfonamides; Z88.8 Allergy status to other drugs, medicaments and biological substances; Z88.1 Allergy status to other antibiotic agents; Z91.012 Allergy to eggs; Z90.49 Acquired absence of other specified parts of digestive tract; Z95.810 Presence of automatic (implantable) cardiac defibrillator; Z79.82 Long term (current) use of aspirin; Z79.02 Long term (current) use of antithrombotics/antiplatelets; Z79.899 Other long term (current) drug therapy
CPT/HCPCS: 36415; 70450; 71045; 71260; 74177; 80048; 80076; 83690; 83735; 83880; 84100; 84484; 85025; 85610; 93005; 96374; 96375; 99285; J1940; J2405; Q9967

== ENCOUNTER 2024-06-25 17:00 | Inpatient (IN) | payer OTHER ==
--- OUTSIDE RECORDS SUMMARY | 2024-06-25 17:04 | XMS REPORT | Clinical Summary ---
Author Name Unknown Organization [facility] Address [address] [place] [address] Care Team Providers Care Supervisor Dry Paste Name Role Phone Xiomara Cardenas MD Primary Care Provider + [phone] Alexus Guerrero MD Unavailable Blossom vailable Alexus [...] [place] [employer] Care Teams Supervisor Dry Paste Relationship Specialty Start Date End Date Xiomara Cardenas MD [email or web address] PCP - General Gynecologic Medical Oncology 12/22/16 Alexus Guerrero MD PCP - External Referring Obstetrics/Gynecology 12/22/16 Alexus Guerrero MD PCP - Cipriano Shelton Obstetrics/Gynecology 12/22/16
[2024-06-25] MEDS ORDERED: NA CHLORIDE 0.9% 50 ML ONE (17:44)
[2024-06-25] MEDS ORDERED: CEFTRIAXONE 1000 MG/VIAL ONE (17:44)
[2024-06-25 18:15] LABS: Specific Gravity 1.006 (1.005-1.030); Sqamous Epithelial <5 /HPF (None Seen); Urine Bacteria <20 /HPF (<20); Urine Bilirubin NEGATIVE (Negative); Urine Blood 2+ (Negative); Urine Clarity Extremely Turbid (Clear); Urine Color Light-Yellow (Yellow); Urine Crystals Unidentified Few /HPF (None Seen); Urine Culture Reflex Order REFLEXED; Urine Glucose NEGATIVE (Negative); Urine Ketones NEGATIVE (Negative); Urine Microscopic Reflex YN ORDER UMIC; Urine Mucus Slight /HPF (None Seen); Urine Nitrite 2+ (Negative); Urine Protein TRACE (Negative); Urine RBC 21-50 /HPF (None Seen); Urine Urobilinogen Normal (Normal); Urine WBC >50 /HPF (<5); Urine WBC Clump Rare /HPF (None Seen); Urine Yeast (Budding) Moderate /HPF (None Seen); Urine pH 6.5 (5.0-7.0)
[2024-06-25 18:25] LABS: Absolute Eosinophils 0.1 K/uL (0-0.5); Absolute Lymphocytes (CBC) 1.2 K/uL (0.7-4.9); Absolute Monocytes 0.4 K/uL (0.1-1.3); Absolute Neutrophil 3.7 K/uL (1.8-8.0); Basophils % 0.7 % (0-1.3); Eosinophils % 2.2 % (0-4.4); Hematocrit 28.2 % (36.0-45.0); Hemoglobin 9.4 g/dL (12.0-15.0); Lymphocytes % 22.9 % (15.3-44.8); MCH 29.6 pg (27.0-35.0); MCHC 33.3 g/dL (32.0-36.0); MCV 88.9 fL (80-100); MPV 9.3 fL (7.6-11.3); Monocytes % 6.6 % (3.3-12.3); Neutrophils % 67.6 % (41.7-73.7); Nucleated Red Blood Cells % 0.1 % (0-0); Platelets 235 thou/uL (152-406); RBC Red Blood Cell Count 3.18 M/uL (3.86-4.86); Red Cell Distribution Width 19.1 % (12.1-15.2)
[2024-06-25 18:38] LABS: PT Prothrombin Time 12.8 SECONDS (9.4-12.5); PTT, Activated Partial Thromb 28.8 SECONDS (24.3-36.9); Protime INR 1.22
[2024-06-25 18:43] LABS: Albumin 3.2 g/dL (3.4-5.0); Albumin/Globulin Ratio 0.9 (1.1-1.8); Anion Gap 11.5 mEq/L (5.0-15.0); Bilirubin Total 0.8 mg/dL (0.2-1.0); Globulin 3.6 g/dL (2.3-3.5); Potassium 3.5 mEq/L (3.5-5.1); Protein, Total 6.8 g/dL (6.4-8.2)
--- NOTE | 2024-06-25 19:02 | RAD REPORT ---
EXAMINATION: CT ABDOMEN AND PELVIS WITHOUT CONTRAST CLINICAL INDICATION: BL flank pain;Abd pain TECHNIQUE: CT abdomen and pelvis was performed, without IV contrast, as per department protocol. Axia l, sagittal and coronal reconstructions were obtained. One or more of the following dose reduction techniques were used: Automated exposure control, adjustment of the mA and kV according to the patien t size, and iterative reconstruction. Unless otherwise specified, incidental findings do not require dedicated imaging follow-up. COMPARISON: No prior exam. FINDINGS: The lack of intravenous contrast limits the sensitivity of this exam for evaluation of solid visceral organs, vascular structures, and retroperitoneum. LOWER CHEST: The visualized lung bases are clear. Cardiac wires are present. LIVER:Normal in size and contour. No focal lesion. Cholecystectomy clips. SPLEEN: Normal size. No focal lesion. PANCREAS: No mass, ductal dilation, or bernardo-pancreatic fluid. ADRENALS: Normal; no mass. KIDNEYS AND URETERS: Mild bilateral renal atrophy. URINARY BLADDER: Normal contour. GASTROINTESTINAL TRACT: No evidence of bowel obstruction, significant free fluid, free air or abscess . There is mild diverticulosis coli of the sigmoid colon without diverticulitis. APPENDIX: Normal appendix. LYMPH NODES: No lymphadenopathy. MUSCULOSKELETAL: Bilateral total hip arthroplasties. Moderate lumbar degenerative changes. ADDITIONAL FINDINGS: Small fat-containing clinical hernia. IMPRESSION: No acute or concerning abnormalities in the abdomen or pelvis, with evaluation limited by lack of IV contrast. Sigmoid diverticulosis coli.
--- NOTE | 2024-06-25 19:08 | ER ---
Nurse's Notes [facility] Name: Yokasta Hill Age: 73 yrs Sex: Female : 1950 Arrival Date: 06/25/2024 Time: 17:00 Bed 18 Private MD: Diagnosis: UTI/ Urinary tract infection, site not specified;Sepsis, unspecified organism Presentation: 06/25 17:14 Chief complaint: Patient states: Recent hospitalization for dehydration due to ld1 furosemide. Pt reports burning with urination, MARIEL flank pain, LRQ pain. Coronavirus screen: At this time, the client does not indicate any symptoms associated with coronavirus-19. Ebola Screen: No symptoms or risks identified at this time. Initial Sepsis Screen: Does the patient meet any 2 criteria? No. Patient's initial sepsis screen is negative. Does the patient have a suspected source of infection? No. Patient's initial sepsis screen is negative. Risk Assessment: Do you want to hurt yourself or someone else? Patient reports no desire to harm self or others. Onset of symptoms was June 25, 2024. 17:14 Method Of Arrival: Wheelchair ld1 17:14 Acuity: ROBERTO 3 ld1 Triage Assessment: 17:16 General: Appears in no apparent distress. comfortable, Behavior is calm, cooperative, ld1 appropriate for age. Pain: Complains of pain in low back area and right lower quadrant Pain does not radiate. Pain currently is 8 out of 10 on a pain scale. Quality of pain is described as throbbing, Pain began suddenly, Is continuous. EENT: No signs and/or symptoms were reported regarding the EENT system. Neuro: Level of Consciousness is awake, alert, obeys commands, Oriented to person, place, time, situation, Appropriate for age. Cardiovascular: Capillary refill < 3 seconds Patient's skin is warm and dry. Respiratory: Airway is patent Respiratory effort is even, unlabored. GI: Abdomen is round non-distended. : No signs and/or symptoms were reported regarding the genitourinary system. Derm: No signs and/or symptoms reported regarding the dermatologic system. Musculoskeletal: No signs and/or symptoms reported regarding the musculoskeletal system. Historical: - Allergies: 17:16 Codeine; ld1 17:16 dextromethorphan; ld1 17:16 Egg Derived; ld1 17:16 Fentanyl; ld1 17:16 Sulfa (Sulfonamide Antibiotics); ld1 17:16 Sulfasalazine; ld1 17:16 Ultram; ld1 - PMHx: 17:16 Congestive heart failure; Anemia; Hypertensive disorder; Rheumatoid Arthritis; ld1 - PSHx: 17:16 Bilateral hips; bilateral knees; Cholecystectomy; ld1 - Immunization history:: Adult Immunizations up to date. - Infectious Disease History:: Denies. - Social history:: Smoking status: Patient denies any tobacco usage or history of. Screenin:36 [facility] ED Fall Risk Assessment (Adult) History of falling in the last 3 months, kc6 including since admission No falls in past 3 months (0 pts) Confusion or Disorientation No (0 pts) Intoxicated or Sedated No (0 pts) Impaired Gait Yes (1 pt) Mobility Assist Device Used Yes (1 pt) Altered Elimination No (0 pt) Score/Fall Risk Level 0 - 2 = Low Risk Oriented to surroundings, Maintained a safe environment, Educated pt \T\ family on fall prevention, incl call for assistance when getting out of bed. Abuse screen: Denies threats or abuse. Denies injuries from another. Nutritional screening: No deficits noted. Tuberculosis screening: No symptoms or risk factors identified. Assessment: 18:00 General: Appears in no apparent distress. comfortable, well groomed, well developed, kc6 Behavior is calm, cooperative, appropriate for age. Neuro: Level of Consciousness is awake, alert, obeys commands, Oriented to person, place, time, situation, Appropriate for age Reports dizziness. Cardiovascular: Reports lightheadedness, Denies chest pain, shortness of breath, Capillary refill < 3 seconds Rhythm is ventricular pacer. Respiratory: Airway is patent Trachea midline Respiratory effort is even, labored, Respiratory pattern is symmetrical, tachypnea. GI: Abdomen is round non-distended, Bowel sounds present X 4 quads. Abd is soft and non tender X 4 quads. Reports lower abdominal pain, Patient currently denies diarrhea, nausea, vomiting. : Urine is cloudy, Reports burning with urination. EENT: Reports nasal congestion. Derm: No signs and/or symptoms reported regarding the dermatologic system. Skin is intact, is fragile, is thin, with poor turgor Skin is dry, Skin is pale, yellow, Skin temperature is warm. Musculoskeletal: No signs and/or symptoms reported regarding the musculoskeletal system. Circulation, motion, and sensation intact. Range of motion: intact in all extremities. 18:00 Pain: Complains of pain in back and abdomen. kc6 18:19 Reassessment: pt placed on purewick at this time. kc6 18:55 Reassessment: Patient appears in no apparent distress at this time. No changes from kc6 previously documented assessment. Patient and/or family updated on plan of care and expected duration. Pain level reassessed. Patient is alert, oriented x 3, equal unlabored respirations, skin warm/dry/pink. Vital Signs: 17:14 BP 115 / 80; Pulse 111; Resp 18; Temp 97.9(TE); Pulse Ox 97% on R/A; Weight 65.77 kg; ld1 Height 5 ft. 7 in. ; Pain 8/10; 17:48 BP 115 / 76; Pulse 115; Resp 26 S; Pulse Ox 100% on R/A; kc6 19:49 BP 92 / 72; Pulse 110; Resp 24; Pulse Ox 100% ; cp4 17:14 Body Mass Index 22.71 (65.77 kg, 170.18 cm) ld1 17:14 Pain Scale: Adult ld1 ED Course: 17:03 Patient arrived in ED. mr 17:04 Kelby Marquez MD is Attending Physician. ec2 17:16 Triage completed. ld1 17:16 Arm band placed on right wrist. ld1 17:23 Brianne Owens, RN is Primary Nurse. kc6 17:35 EKG done, by ED staff, reviewed by Kelby Marquez MD. Patient maintains SpO2 saturation kc6 greater than 95% on room air. 17:36 Patient has correct armband on for positive identification. Placed in gown. Bed in low kc6 position. Call light in reach. Side rails up X2. Adult w/ patient. process safety manager on. Pulse ox on. NIBP on. Door closed. Noise minimized. Lights dimmed. Warm blanket given. Pillow given. 17:59 Urine collected: clean catch specimen, cloudy. kc6 18:10 Initial lab(s) drawn, by me, sent to lab. First set of blood cultures drawn Second set kb4 of blood cultures drawn by me. 18:19 Verbal reassurance given. Repositioned patient. Cleaned of incontinence. Linen changed. kc6 18:40 Inserted saline lock: 22 gauge in left wrist, using aseptic technique. Blood collected. kb4 Flushed with 10 mL NS. 18:42 CT Abd/Pelvis - Without Contrast In Process Unspecified. EDMS 19:03 Report given to Lizet Turner RN. kc6 19:07 Ubaldo Vasquez MD is Hospitalizing Provider. ec2 21:21 Provided Education on: admission. cp4 21:21 No provider procedures requiring assistance completed. Patient admitted, IV remains in cp4 place. Administered Medications: 18:19 Drug: Rocephin IV 1 grams IV at bolus once; Given slow IV push per pharmacy kc6 instructions Route: IV; Rate: bolus; Site: left hand; 19:03 Follow up: Response: No adverse reaction; IV Status: Completed infusion; IV Intake: [id number] Medication: 21:21 VIS not applicable for this client. cp4 Intake: 19:03 IV: 50ml; Total: 50ml. kc6 Outcome: 19:07 Decision to Hospitalize by Provider. ec2 21:21 Patient left the ED. vc1 21:21 Admitted to Med/surg accompanied by tech, via stretcher, with chart, cp4 21:21 Condition: stable 21:21 Instructed on the need for admit, Signatures: Dispatcher [employer] EDNE Lashaun Rojo, Reg Reg Monica Dennis, RN RN ld1 Opal Rucker RN RN vc1 Brianne Owens RN RN kc6 Kelby Marquez MD MD ecMeghna Cramer 4 Nora Botello kb4 Corrections: (The following items were deleted from the chart) 18:02 18:00 GI: No signs and/or symptoms were reported involving the gastrointestinal system. kc6 kc6
--- NOTE | 2024-06-25 19:08 | EDPHYS ---
Physician Documentation [facility] Name: Yokasta Hill Age: 73 yrs Sex: Female : 1950 Arrival Date: 06/25/2024 Time: 17:00 Bed 18 Private MD: ED Physician Kelby Marquez HPI: 06/25 17:33 This 73 yrs old Female presents to ER via Wheelchair with complaints of ec2 Urinary Problem. 17:33 Patient arrives today for evaluation of dysuria. Patient having urinary frequency and ec2 dysuria. Reports bilateral flank pain as well as abdominal pain.. Historical: - Allergies: 17:16 Codeine; ld1 17:16 dextromethorphan; ld1 17:16 Egg Derived; ld1 17:16 Fentanyl; ld1 17:16 Sulfa (Sulfonamide Antibiotics); ld1 17:16 Sulfasalazine; ld1 17:16 Ultram; ld1 - PMHx: 17:16 Congestive heart failure; Anemia; Hypertensive disorder; Rheumatoid Arthritis; ld1 - PSHx: 17:16 Bilateral hips; bilateral knees; Cholecystectomy; ld1 - Immunization history:: Adult Immunizations up to date. - Infectious Disease History:: Denies. - Social history:: Smoking status: Patient denies any tobacco usage or history of. ROS: 17:33 Constitutional: as per hpi ec2 Exam: 17:33 Constitutional: GEN: NAD Head: atraumatic Eyes: EOMI Ears: External ears are ec2 normal. CV: Tachycardia LUNGS: no respiratory distress ABD: non-distended, soft, nontender, not guarding, not rigid SKIN: no evidence of rashes MSK: no evidence of trauma Vital Signs: 17:14 BP 115 / 80; Pulse 111; Resp 18; Temp 97.9(TE); Pulse Ox 97% on R/A; Weight 65.77 kg; ld1 Height 5 ft. 7 in. ; Pain 8/10; 17:48 BP 115 / 76; Pulse 115; Resp 26 S; Pulse Ox 100% on R/A; kc6 19:49 BP 92 / 72; Pulse 110; Resp 24; Pulse Ox 100% ; cp4 17:14 Body Mass Index 22.71 (65.77 kg, 170.18 cm) ld1 17:14 Pain Scale: Adult ld1 MDM: 17:17 Medical Screening Exam initiated ec2 17:33 Data reviewed: vital signs, nurses notes. ED course: Patient arrives today for ec2 evaluation of dysuria as well as bilateral flank pain. Examination yields well-appearing nontoxic individual with slight tachycardia. Will obtain a abdominal workup, CT imaging as well as urine studies. Will empirically rx w/ abx as well. 17:35 ED course: EKG independently reviewed and interpreted by me, shows ventricularly paced ec2 rhythm. Rate of 121. Nonactionable EKG.. 18:35 ED course: CBC with slight anemia. Urine is infectious appearing with nitrates. Patient ec2 already received antibiotic coverage. Patient will require admission for UTI sepsis.. 06/25 17:22 Order name: Blood Culture Adult (2) [facility] 06/25 17:22 Order name: CBC with Diff; Complete Time: 18:35 2 06/25 17:22 Order name: CMP; Complete Time: 18:46 2 06/25 17:22 Order name: Lactate w/ 2H reflex if indic.; Complete Time: 18:46 2 06/25 17:22 Order name: Protime (+inr); Complete Time: 18:46 2 06/25 17:22 Order name: Ptt, Activated; Complete Time: 18:46 2 06/25 17:48 Order name: Urinalysis w/ reflexes; Complete Time: 18:35 kc6 06/25 18:21 Order name: Urine Culture [facility] 06/25 19:26 Order name: Urinalysis w/ reflexes [facility] 06/25 19:26 Order name: CBC with Automated Diff [facility] 06/25 19:26 Order name: CBC with Automated Diff [facility] 06/25 19:26 Order name: Comprehensive Metabolic Panel [facility] 06/25 19:26 Order name: Comprehensive Metabolic Panel [facility] 06/25 17:23 Order name: CT Abd/Pelvis - Without Contrast; Complete Time: 19:06 2 06/25 17:22 Order name: EKG; Complete Time: 17:23 2 06/25 17:22 Order name: Accucheck; Complete Time: 18:18 2 06/25 17:22 Order name: Cardiac monitoring; Complete Time: 17:35 2 06/25 17:22 Order name: EKG - Nurse/Tech; Complete Time: 17:35 2 06/25 17:22 Order name: IV Saline Lock - Large Bore; Complete Time: 18:19 ec2 06/25 17:22 Order name: Labs collected and sent; Complete Time: 18:19 ec2 06/25 17:22 Order name: O2 Per Protocol; Complete Time: 17:24 ec2 06/25 17:22 Order name: O2 Sat Monitoring; Complete Time: 17:24 ec2 06/25 17:22 Order name: Vital Signs; Complete Time: 17:24 ec2 Administered Medications: 18:19 Drug: Rocephin IV 1 grams IV at bolus once; Given slow IV push per pharmacy kc6 instructions Route: IV; Rate: bolus; Site: left hand; 19:03 Follow up: Response: No adverse reaction; IV Status: Completed infusion; IV Intake: [id number] Disposition Summary: 06/25/24 19:07 Hospitalization Ordered Notes: Hospitalization Status: Inpatient Admission ec2 Provider: Ubaldo Vasquez ec2 Location: Telemetry/[facility] (Inpatient) ec2 Condition: Stable ec2 Problem: new ec2 Symptoms: have improved ec2 Bed/Room Type: Standard ec2 Room Assignment: 401(06/25/24 19:32) [facility] Diagnosis - UTI/ Urinary tract infection, site not specified ec2 - Sepsis, unspecified organism ec2 Forms: - Medication Reconciliation Form ec2 - SBAR form ec2 - Leadership Thank You Letter ec2 Critical care time excluding procedures: 18:35 Critical care time: Bedside Care: 30 minutes, Consultation: 5 minutes. Total time: 35 ec2 minutes Signatures: Dispatcher [employer] EDMonica Teran RN RN ld1 Brianne Owens RN RN kc6 Kelby Marquez MD MD ec2 Nhung Kelly [facility] Corrections: (The following items were deleted from the chart) 17:23 17:23 BLOOD CULTURE*+BA.LAB.BRZ ordered. EDMS EDMS 17:23 17:23 CBC+H.LAB.BRZ ordered. EDMS EDMS 17:23 17:23 COMPREHENSIVE METABOLIC PANEL+C.LAB.BRZ ordered. EDMS EDMS 17:23 17:23 LACTATE+C.LAB.BRZ ordered. EDMS EDMS 17:23 17:23 PROTIME (+INR)+COAG.LAB.BRZ ordered. EDMS EDMS 17:23 17:23 PTT, ACTIVATED+COAG.LAB.BRZ ordered. EDMS EDMS 19:32 19:07 ec2 kmf
--- NOTE | 2024-06-25 19:21 | P.HP ---
Certification for Inpatient Patient admitted to: Inpatient With expected LOS: >2 Midnights Practitioner: I am a practitioner with admitting privileges, knowledge of patient current condition, hospital course, and medical plan of care. Services: Services provided to patient in accordance with Admission requirements found in Title 42 Section 412.3 of the Code of Federal Regulations Patient History Date of Service: 06/25/24 Reason for admission: Dysuria History of Present Illness: 73-year-old female history of rheumatoid arthritis, severe systolic heart failure with defibrillator, coronary artery disease , Anemia ,Hypertension ,presents to the ER with generalized weakness and dysuria . Patient having urinary frequency and dysuria. Reports bilateral flank pain as well as abdominal pain.. Patient has a h/o CHF . Recent EF between 10 and 15%. She does report feeling feverish. Patient has recent UTI and has been treated , but symptoms worsened in the last 2 days . Patient was seen in ER and was admitted for further management of UTI Allergies adhesive tape Allergy (Verified 06/25/24 22:02) Rash latex Allergy (Verified 06/25/24 22:02) Itching/Hives/Rash Sulfa (Sulfonamide Antibiotics) Allergy (Verified 06/25/24 22:02) Rash dextromethorphan Adverse Reaction (Intermediate, Verified 06/25/24 22:02) Nausea/Vomiting bumetanide [From Bumex] Adverse Reaction (Verified 06/25/24 22:02) Rash codeine Adverse Reaction (Verified 06/25/24 22:02) Rash egg Adverse Reaction (Verified 06/25/24 22:02) Nausea/Vomiting fentanyl Adverse Reaction (Verified 06/25/24 22:02) Rash hydrocodone Adverse Reaction (Verified 06/25/24 22:02) Nausea/Vomiting sulfasalazine Adverse Reaction (Verified 06/25/24 22:02) caused anemia tramadol [From Ultram] Adverse Reaction (Verified 06/25/24 22:02) Rash Home medications list reviewed: Yes Home Medications: Aspirin Chewable [Aspirin Chewable*] 81 mg PO DAILY 01/26/24 Atorvastatin Calcium [Lipitor] 80 mg PO DAILY 01/26/24 Clopidogrel Bisulfate [Plavix*] 75 mg PO DAILY 01/26/24 Spironolactone [Aldactone*] 25 mg PO BEDTIME 01/26/24 Midodrine HCl [Proamatine*] 5 mg PO BID #60 tab 01/27/24 Folic Acid 1 mg PO DAILY 05/15/24 Magnesium Oxide [Mag 0X*] 400 mg PO DAILY 05/15/24 Potassium Chloride 20 meq PO DAILY #30 05/16/24 Celecoxib 100 mg PO DAILY 06/14/24 Furosemide [Lasix] 40 mg PO DAILY #30 tab 06/14/24 Leflunomide 20 mg PO DAILY 06/14/24 Ondansetron [Zofran*] 4 mg IV Q6HP PRN vial 06/14/24 Ondansetron [Zofran] 4 mg PO Q6H PRN #30 tab 06/14/24 Magnesium Citrate [Citroma*] 300 ml PO ONCE #1 btl 06/16/24 Polyethylene Glycol 3350 [Miralax] 17 gm PO BID PRN #30 packet 06/16/24 Sennosides [Senokot] 17.2 mg PO BID #120 tab 06/16/24 Sucralfate [Carafate*] 1 gm PO AC #90 tab 06/16/24 - Past Medical/Surgical History Diabetic: No Past Medical History: Reviewed- Non-Contributory -: HTN -: RA -: Anemia of chronic disease -: Cardiomyopathy with an ejection fraction of 25% -: Coronary artery disease -: Mitral regurgitation Past Surgical History: Reviewed- Non-Contributory -: hip surgery -: knee surgery -: back surgery -: wrist surgery -: cholecystectomy -: Cardiac catheterization -: ADY Psychosocial/ Personal History: , two sons - Family History Family History: Reviewed- Non-Contributory - Family History Mother -: Cancer Notes: breast cancer Father -: Lung disease Notes: emphysema - Social History Smoking Status: Never smoker Alcohol use: No CD- Drugs: No Caffeine use: Yes Review of Systems 10-point ROS is otherwise unremarkable Physical Examination - Physical Exam General: Alert, In no apparent distress, Oriented x3 HEENT: Atraumatic, Normocephalic Neck: Supple, 2+ carotid pulse no bruit Respiratory: Clear to auscultation bilaterally, Normal air movement Cardiovascular: Regular rate/rhythm, Normal S1 S2 Capillary refill: <2 Seconds Gastrointestinal: Soft and benign, W/out hepatosplenomegaly Musculoskeletal: No clubbing, No swelling Integumentary: No rashes, No breakdown Neurological: Normal speech, Normal strength at 5/5 x4 extr, Cranial nerves 3-12 intact, Normal reflexes 2+ Lymphatics: No axilla or inguinal lymphadenopathy - Studies Laboratory Data (last 24 hrs) 06/25/24 06/25/24 06/25/24 18:10 18:10 18:10 WBC 5.40 Hgb 9.4 L Hct 28.2 L Plt Count 235 PT 12.8 H INR 1.22 APTT 28.8 Sodium 136 Potassium 3.5 BUN 15 Creatinine 0.86 Glucose 108 H Total Bilirubin 0.8 AST 13 L ALT 23 Alkaline Phosphatase 111 Assessment and Plan - Plan UTI Recurrent UTI Last culture showed Morganella Morgagni and Enterococcus faecalis Will start on antibiotic Monitor closely under telemetry Chronic systolic CHF Monitor closely on telemetry Continue home medications Titrate as needed Hypertension Antihypertensives titrated Continue home medications and titrate as needed Anemia of chronic disease Monitor H&H closely No overt bleeding at this time History of rheumatoid arthritis History of CAD Continue home medications and titrate as needed GI/DVT prophylaxis Advanced directive full code Discharge Plan: Home Plan to discharge in: 48 Hours - Advance Directives Does patient have a Living Will: No Does patient have a Durable POA for Healthcare: No - Code Status/Comfort Care Code Status: Full Code Time Spent Managing Pts Care (In Minutes): 48
[2024-06-25 23:59] VITALS: O2SAT 97; BMI 23.0
[2024-06-26] MEDS: GUAIFENESIN 600 MG SA TAB PO PRN (04:13)
[2024-06-26] MEDS: AMPICILLIN SODIUM 1 GM in NA CHLORIDE 0.9% 100 ML IVPB SCH (06:30)
[2024-06-26] MEDS: PIPER TAZO 3.375 GM in NA CHLORIDE 0.9% 100 ML IV SCH (06:38)
[2024-06-26 07:18] LABS: Absolute Eosinophils 0.2 K/uL (0-0.5); Absolute Lymphocytes (CBC) 1.6 K/uL (0.7-4.9); Absolute Monocytes 0.4 K/uL (0.1-1.3); Absolute Neutrophil 5.4 K/uL (1.8-8.0); Basophils % 0.5 % (0-1.3); Eosinophils % 2.9 % (0-4.4); Hematocrit 27.2 % (36.0-45.0); Hemoglobin 9.1 g/dL (12.0-15.0); Lymphocytes % 20.8 % (15.3-44.8); MCH 29.9 pg (27.0-35.0); MCHC 33.4 g/dL (32.0-36.0); MCV 89.4 fL (80-100); MPV 9.3 fL (7.6-11.3); Monocytes % 5.4 % (3.3-12.3); Neutrophils % 70.4 % (41.7-73.7); Platelets 221 thou/uL (152-406); RBC Red Blood Cell Count 3.04 M/uL (3.86-4.86); Red Cell Distribution Width 19.2 % (12.1-15.2)
[2024-06-26 07:35] LABS: Albumin 3.1 g/dL (3.4-5.0); Albumin/Globulin Ratio 0.9 (1.1-1.8); Anion Gap 9.3 mEq/L (5.0-15.0); Bilirubin Total 0.7 mg/dL (0.2-1.0); Globulin 3.4 g/dL (2.3-3.5); Potassium 3.3 mEq/L (3.5-5.1); Protein, Total 6.5 g/dL (6.4-8.2)
[2024-06-26] MEDS ORDERED: CEFTRIAXONE 1,000 MG in NA CHLORIDE 0.9% 50 ML IVPB SCH (09:00)
[2024-06-26] MEDS: ENOXAPARIN 40 MG/0.4 ML SQ SCH (10:23)
[2024-06-26] MEDS: POTASSIUM CL SA 10 MEQ TAB PO ONE (10:24)
[2024-06-26] MEDS: NA CHLORIDE 0.9% 250 ML IV STA (11:21)
[2024-06-26] MEDS: NA CHLORIDE 0.9% 1,000 ML IV SCH (11:46)
[2024-06-26] MEDS: ONDANSETRON 4 MG/2 ML VIAL IV PRN (11:58)
--- NOTE | 2024-06-26 15:11 | CON ---
History Of Present Illness: This is a 73-year-old female, I was consulted for urinary tract infectio n and urosepsis. Patient was recently admitted to hospital in [place] where she was told that all her GI workup has been negative and that her heart condition has been very poor. She was discharged from there, even though patient was not feeling well. She was admitted to our hospital with signifi cant past medical history of rheumatoid arthritis, severe systolic heart failure with defibrillator, coronary artery disease, anemia, hypertension, coming in with burning urination and generalized weakn ess. Denies any headache, nausea, vomiting, chest pain, abdominal pain, constipation, or diarrhea. Past Medical History: As per HPI. Social History: Nonsmoker. Nondrinker. Family History: Noncontributory. Medications: Zosyn. See MARs for other medications. Allergies: ADHESIVE TAPE, LATEX, SULFA DRUGS. Review of Systems: A 10-point review was performed. Physical Examination: General: This is a 73-year-old female, sitting in bed, family by the bedside, not in any acute cardi opulmonary distress. Vital Signs: Temperature 97.2, pulse 100, respirations 19, blood pressure 102/68. HEENT: Unremarkable. Neck: Supple. Lungs: Basal crackles. Heart: S1, S2. Regular. Abdomen: Soft, nontender. Bowel sounds present. Extremities: Multiple acral joint deformity noted. Laboratory Data: Shows WBC 7.7, hemoglobin 9.1, platelets 221. Chemistry shows BUN of 17, creatinin e 0.8. Albumin level is 3.1. CT abdomen and pelvis shows no acute or concerning abnormalities of th e abdomen and pelvis with the sigmoid diverticulosis also noted. Urine cultures are growing gram-neg ative rods 4+. Assessment And Plan: Urosepsis secondary to gram-negative rods, most likely Escherichia coli or pseu domonas. Patient with multiple medical problems including severe rheumatoid arthritis involving the acral joints and severe systolic heart failure, anemia of chronic disease, moderate protein-calorie m alnourishment. Continue Zosyn for total of 5-7 days depending on culture results. We will fine tune her antibiotic. Continue supportive care and current treatment. We will follow the patient as need ed. Thank you for consult. NF/MODL Voice ID: [id number] Report ID: [id number]
[2024-06-26] MEDS ORDERED: ONDANSETRON 4 MG (ODT) TAB PO PRN (15:55)
[2024-06-26] MEDS ORDERED: POLYETHYL GLY 3350 17 GM/DOSE PO PRN (15:55)
[2024-06-26] MEDS: SUCRALFATE 1 GM TABLET PO SCH (16:48)
[2024-06-26] MEDS: MIDODRINE HCL 5 MG TABLET PO SCH (20:21)
[2024-06-26] MEDS: SPIRONOLACTONE 25 MG TABLET PO SCH (20:21)
[2024-06-26] MEDS: SENOSIDES 8.6 MG TAB PO SCH (20:22)
[2024-06-27] MEDS: ACETAMINOPHEN 325 MG TABLET PO PRN (00:21)
[2024-06-27] MEDS: ASPIRIN 81 MG CHEWABLE TABLET PO SCH (08:45)
[2024-06-27] MEDS: FOLIC ACID 1 MG TABLET PO SCH (08:45)
[2024-06-27] MEDS: FUROSEMIDE 40 MG TABLET PO SCH (08:45)
[2024-06-27] MEDS: ATORVASTATIN 80 MG TAB PO SCH (08:45)
[2024-06-27] MEDS: MAGNESIUM OXIDE 400 MG TAB PO SCH (08:46)
[2024-06-27] MEDS: CLOPIDOGREL 75 MG TABLET PO SCH (08:46)
[2024-06-27] MEDS: CELECOXIB 100 MG CAPSULE PO SCH (08:46)
[2024-06-27] MEDS: POTASSIUM CL SA 10 MEQ TAB PO SCH (08:47)
[2024-06-27] MEDS: LEFLUNOMIDE 20 MG PO SCH (08:51)
[2024-06-27] MEDS ORDERED: HOME MED 1 EA UNK (Potassium Chloride [Potassium Chloride] 20 MEQ Tab.Er.Prt) PO SCH (09:00)
[2024-06-27] MEDS: METOPROLOL TAR 25 MG TAB PO ONE (13:04)
--- NOTE | 2024-06-27 15:11 | EKG ---
Test Date: 2024-06-25 Test Time: 17:30:38 System Safety Manager: SANDRA MEASUREMENT RESULTS: Intervals: Rate: 121 AR: 136 QRSD: 118 QT: 352 QTc: 499 Polo: P: 75 AR: 136 QRS: 104 T: -61 INTERPRETIVE STATEMENTS: Suspect unspecified pacemaker failure Atrial-sensed ventricular-paced rhythm Abnormal ECG Compared to ECG 06/12/2024 16:17:22 No significant changes Electronically Signed On 06-27-24 15:07:08 COMPRESS MACHINE OPERATOR by Christoph Hannah
[2024-06-27] MEDS: CHOLESTYRAMINE/ASP 4 GM/PKT PO SCH (16:17)
[2024-06-27] MEDS: DIGOXIN 0.25 MG/ML AMP IV SCH (16:17)
[2024-06-27] MEDS: CIPROFLOXACIN HCL 500 MG TAB PO SCH (16:17)
[2024-06-27] MEDS: METOPROLOL TAR 25 MG TAB PO SCH (16:18)
[2024-06-27] MEDS: DIGOXIN 0.25 MG TABLET PO ONE (17:41)
--- NOTE | 2024-06-27 17:50 | PN ---
Subjective: Patient lying in bed. by the bedside. Complains of diarrhea. Denies any other problems. Objective: Vital Signs: Temperature 97, pulse 106, respirations 16, blood pressure 139/96. Lungs: Basal crackles. Heart: S1, S2. Regular. Abdomen: Bowel sounds hyperactive. Extremities: No edema. Laboratory Data: Shows WBC 7.7, hemoglobin 9.1, platelets 221. Urine shows wbc more than 50, rbc's 21-50. Urine cultures are growing E coli. Stool cultures are pending. Assessment And Plan: Rule out Clostridium difficile colitis in a 73-year-old female who is being lawrence ated for E coli urinary tract infection. Currently, on Zosyn. Consider switching to Rocephin. Prob iotic and Questran was added. Continue supportive care and current treatment. We will follow the rigoberto vazquez closely. NF/MODL Voice ID: [id number] Report ID: [id number]
[2024-06-27 18:11] LABS: Phosphorus 2.8 mg/dL (2.5-4.9); Potassium 3.6 mEq/L (3.5-5.1)
[2024-06-27] MEDS: LACTOBACILLUS/ACIDOPHILUS TAB PO SCH (22:23)
[2024-06-28 04:11] LABS: C.diff Antigen/Toxin Ag neg : Tox neg (NEG : NEG); CDIFF INTERNAL NEG CONTROL White Background (WHITE BKGD); STOOL CONSISTENCY Liquid/Semi-Solid
[2024-06-28] MEDS: DIGOXIN 0.125 MG TABLET PO SCH (08:51)
[2024-06-28] MEDS: FUROSEMIDE 20 MG TABLET PO SCH (08:51)
[2024-06-28 13:52] VITALS: BP 121/75; TEMP 98.1
== END 2024-06-28 16:50 | disposition home or self-care (01) | DRG 872 ==
LOC: ER 17:00 → 4TH 19:21
PROVIDERS: ADMIT Family Medicine; ATTEND Hospitalist
DX: A41.9 Sepsis, unspecified organism (principal); N39.0 Urinary tract infection, site not specified; I50.22 Chronic systolic (congestive) heart failure; I11.0 Hypertensive heart disease with heart failure; D64.9 Anemia, unspecified; M06.9 Rheumatoid arthritis, unspecified; I25.10 Atherosclerotic heart disease of native coronary artery without angina pectoris; K57.30 Diverticulosis of large intestine without perforation or abscess without bleeding; R35.0 Frequency of micturition; B96.20 Unspecified Escherichia coli [E. coli] as the cause of diseases classified elsewhere; Z88.5 Allergy status to narcotic agent; Z88.1 Allergy status to other antibiotic agents; Z95.1 Presence of aortocoronary bypass graft; Z88.8 Allergy status to other drugs, medicaments and biological substances; Z79.82 Long term (current) use of aspirin; Z79.02 Long term (current) use of antithrombotics/antiplatelets; Z90.49 Acquired absence of other specified parts of digestive tract; Z91.012 Allergy to eggs; Z79.899 Other long term (current) drug therapy; Z95.810 Presence of automatic (implantable) cardiac defibrillator
CPT/HCPCS: 36415; 74176; 80053; 81001; 83605; 83735; 84100; 84132; 85025; 85610; 85730; 87040; 87045; 87046; 87077; 87086; 87088; 87186; 87324; 89055; 93005; 96365; 99285; J0290; J0696; J1160; J1650; J2405; J2543; J7030

== ENCOUNTER 2024-09-08 17:28 | Emergency (ER) | payer OTHER ==
--- OUTSIDE RECORDS SUMMARY | 2024-09-08 17:30 | XMS REPORT | Clinical Summary ---
Author Name Unknown Organization [facility] [place] Address [address] [place] [address] Care Team Providers Care Machinery Mechanic Name Role Phone Xiomara Cardenas MD Primary Care Provider + [phone] Alexus Guerrero MD Unavailable Blossom vailable Alexus [...] Due Date Last Done Comments Pneumococcal Vaccine: 50+ Years (1 of - PCV) 003 COVID-19 Vaccine (2023- season) 2024 Influenza Vaccine (#1) 2024 Insurance MEDICARE PART [place] B [place]ICAID [place] [employer] [place] [employer] [place] [employer] Care Teams Machinery Mechanic Relationship Specialty Start Date End Date Xiomara Cardenas MD [email or web address] PCP - General Gynecologic Medical Oncology 12/22/16 Alexus Guerrero MD PCP - External Referring Obstetrics/Gynecology 12/22/16 Alexus Guerrero MD PCP - Cipriano Shelton Obstetrics/Gynecology 12/22/16
--- NOTE | 2024-09-08 17:50 | EDPHYS ---
Physician Documentation [facility] Name: Yokasta Hill Age: 73 yrs Sex: Female : 1950 Arrival Date: 09/08/2024 Time: 17:28 Bed 19 Private MD: ED Physician Kellie Turcios HPI: 09/08 17:52 This 73 yrs old Female presents to ER via Wheelchair with complaints of kb Shoulder Pain. 17:52 Pt is a 73 year old female who presents for bilateral shoulder pain and pain across kb upper back that has been ongoing for 6 months. Denies injury or trauma. States she does have known rotator cuff injuries bilaterally so she has not been able to raise her arms up. Son states he massages pt's back and shoulders which relieves the pain for a while, but it comes back. States she has knots in her muscles that he is able to massage out, but they return as well. Came to see if she could get something for the pain besides diclofenac and tylenol that she is already taking. . Historical: - Allergies: 17:48 Codeine; ap3 17:48 dextromethorphan; ap3 17:48 Egg Derived; ap3 17:48 Fentanyl; ap3 17:48 Sulfa (Sulfonamide Antibiotics); ap3 17:48 Sulfasalazine; ap3 17:48 Ultram; ap3 - PMHx: 17:48 Congestive heart failure; Anemia; Hypertensive disorder; Rheumatoid Arthritis; ap3 - PSHx: 17:48 bilateral knees; Bilateral hips; Cholecystectomy; ap3 - Immunization history:: Client reports receiving the 2nd dose of the Covid vaccine. - Infectious Disease History:: Denies. - Social history:: Smoking status: unknown. ROS: 17:50 Constitutional: As per HPI kb Exam: 17:50 Constitutional: This is a well developed, well nourished patient who is awake, alert, kb and in no acute distress. Head/Face: Normocephalic, atraumatic. ENT: Moist Mucous membranes Cardiovascular: Regular rate Respiratory: Respirations even and unlabored. No increased work of breathing. Talking in full sentences Skin: Warm, dry with normal turgor. Normal color. Neuro: Awake and alert, GCS 15, oriented to person, place, time, and situation. 17:50 Musculoskeletal/extremity: Extremities: grossly normal except: noted in the left trapezius, right trapezius, left scapular area and right scapular area: pain, ROM: limited active range of motion, in the anterior aspect of right shoulder and anterior aspect of left shoulder, Circulation is intact in all extremities. Sensation intact. Vital Signs: 17:46 BP 128 / 57; Pulse 84; Resp 17; Temp 97.9; Pulse Ox 98% ; Weight 64.86 kg; ap3 MDM: 17:36 Medical Screening Exam initiated kb 17:51 Differential diagnosis: muscle strain, fracture, radiculopathy, arthritis. Data kb reviewed: vital signs, nurses notes. Test considered but Not performed: X-ray: xrays considered but pt has no bony tenderness, symptoms have been ongoing for 6+ months. Historians other than the Patient: Daughter/Son: son. Counseling: I had a detailed discussion with the patient and/or guardian regarding the historical points, exam findings, and any diagnostic results supporting the discharge/admit diagnosis, the need for outpatient follow up, a family practitioner, to return to the emergency department if symptoms worsen or persist or if there are any questions or concerns that arise at home. Administered Medications: No medications were administered Disposition Summary: 09/08/24 17:49 Discharge Ordered Notes: Location: Home kb Condition: Stable kb Diagnosis - Pain in left shoulder kb - Pain in right shoulder kb Followup: kb - With: Emergency Department - When: As needed - Reason: Worsening of condition Followup: kb - With: Private Physician - When: 2 - 3 days - Reason: Recheck today's complaints, Continuance of care, Re-evaluation by your physician Discharge Instructions: - Discharge Summary Sheet kb - Musculoskeletal Pain kb - Shoulder Pain, [id number] kb Forms: - Medication Reconciliation Form kb - Antibiotic Education kb - Prescription Opioid Use kb - Patient Portal Instructions kb - Leadership Thank You Letter kb Prescriptions: - Prednisone 20 mg Oral Tablet - take 1 tablet ORAL route once daily for 5 days; 5 tablet; Refills: 0, Product kb Selection Permitted - orphenadrine citrate 100 mg Oral Tablet Sustained Release - take 1 tablet ORAL route 2 times per day As needed; 20 tablet; Refills: 0, kb Product Selection Permitted Signatures: Kathryn White, MARICEL COTTO-Mague Downs RN RN ap3
--- NOTE | 2024-09-08 17:50 | ER ---
Nurse's Notes [facility] Name: Yokasta Hill Age: 73 yrs Sex: Female : 1950 Arrival Date: 09/08/2024 Time: 17:28 Bed 19 Private MD: Diagnosis: Pain in left shoulder;Pain in right shoulder Presentation: 09/08 17:46 Chief complaint: Patient's son or daughter states: his mother has been having shoulder ap3 and mid back pain for "some time". patient son reports that he massages her to ease the pain, but is here to see if there is anything else we can do to help with the muscle pain. Coronavirus screen: At this time, the client does not indicate any symptoms associated with coronavirus-19. Ebola Screen: No symptoms or risks identified at this time. Initial Sepsis Screen: Does the patient meet any 2 criteria? No. Patient's initial sepsis screen is negative. Does the patient have a suspected source of infection? No. Patient's initial sepsis screen is negative. Risk Assessment: Do you want to hurt yourself or someone else? Patient reports no desire to harm self or others. Onset of symptoms is unknown. 17:46 Method Of Arrival: Wheelchair ap3 17:46 Acuity: ROBERTO 4 ap3 Triage Assessment: 17:49 General: Appears in no apparent distress. Behavior is calm, cooperative, appropriate ap3 for age. Pain: Complains of pain in back, left \\T\\ right shoulder, left \\T\\ right arm. Neuro: Level of Consciousness is awake, alert, obeys commands, Oriented to person, place, time, situation, Appropriate for age. Cardiovascular: Patient's skin is warm and dry. Respiratory: Airway is patent Respiratory effort is even, unlabored, Respiratory pattern is regular, symmetrical. Historical: - Allergies: 17:48 Codeine; ap3 17:48 dextromethorphan; ap3 17:48 Egg Derived; ap3 17:48 Fentanyl; ap3 17:48 Sulfa (Sulfonamide Antibiotics); ap3 17:48 Sulfasalazine; ap3 17:48 Ultram; ap3 - PMHx: 17:48 Congestive heart failure; Anemia; Hypertensive disorder; Rheumatoid Arthritis; ap3 - PSHx: 17:48 bilateral knees; Bilateral hips; Cholecystectomy; ap3 - Immunization history:: Client reports receiving the 2nd dose of the Covid vaccine. - Infectious Disease History:: Denies. - Social history:: Smoking status: unknown. Screenin:49 Abuse screen: Denies threats or abuse. Nutritional screening: No deficits noted. ap3 Tuberculosis screening: No symptoms or risk factors identified. 18:05 [facility] ED Fall Risk Assessment (Adult) History of falling in the last 3 months, bp including since admission No falls in past 3 months (0 pts) Confusion or Disorientation No (0 pts) Intoxicated or Sedated No (0 pts) Impaired Gait Yes (1 pt) Mobility Assist Device Used Yes (1 pt) Altered Elimination No (0 pt) Score/Fall Risk Level 0 - 2 = Low Risk Oriented to surroundings. Assessment: 18:05 Reassessment: Patient appears in no apparent distress at this time. Patient is alert, bp oriented x 3, equal unlabored respirations, skin warm/dry/pink. Vital Signs: 17:46 BP 128 / 57; Pulse 84; Resp 17; Temp 97.9; Pulse Ox 98% ; Weight 64.86 kg; ap3 ED Course: 17:32 Patient arrived in ED. cj3 17:35 Kathryn White F[facility]-C is [facility] kb 17:35 Kellie Turcios MD is Attending Physician. kb 17:48 Triage completed. ap3 17:49 Arm band placed on left wrist. ap3 17:50 Kali Mejia, RN is Primary Nurse. bp 18:05 Patient has correct armband on for positive identification. bp 18:05 No provider procedures requiring assistance completed. Patient did not have IV access bp during this emergency room visit. Administered Medications: No medications were administered Medication: 18:05 VIS not applicable for this client. bp Outcome: 17:49 Discharge ordered by . kb 18:05 Discharged to home via wheelchair, with family, bp 18:05 Condition: stable 18:05 Discharge instructions given to patient, family, Instructed on discharge instructions, follow up and referral plans. medication usage, Demonstrated understanding of instructions, follow-up care, medications, Prescriptions given X 2, 18:06 Patient left the ED. bp Signatures: Kathryn White FNP-C FNP-Ckb Peltier, Brian RN RN Mague Shafer RN RN ap3 Luh Quiles 3
[2024-09-08 18:27] VITALS: BP 128/57; TEMP 97.9; O2SAT 98
== END 2024-09-08 18:06 | disposition home or self-care (01) ==
LOC: ER 17:28
DX: M25.512 Pain in left shoulder (principal); M25.511 Pain in right shoulder
CPT/HCPCS: 99283

== ENCOUNTER 2024-10-01 02:36 | Inpatient (IN) | payer OTHER ==
--- OUTSIDE RECORDS SUMMARY | 2024-10-01 02:39 | XMS REPORT | Clinical Summary ---
Author Name Unknown Organization [facility] [place] Address [address] [place] [address] Care Team Providers Care Technical Solutions Consultant Name Role Phone Xiomara Cardenas MD Primary Care Provider + [phone] Alexus Guerrero MD Unavailable Blossom vailable Alexus [...] [place] [employer] Care Teams Technical Solutions Consultant Relationship Specialty Start Date End Date Xiomara [email or web address] MD [email or web address] PCP - General Gynecologic Medical Oncology 12/22/16 Alexus Guerrero MD PCP - External Referring Obstetrics/Gynecology 12/22/16 Alexus Guerrero MD PCP - Cipriano Shelton Obstetrics/Gynecology 12/22/16
[2024-10-01] MEDS ORDERED: FUROSEMIDE 20 MG/ 2ML VIAL ONE (03:31)
[2024-10-01 04:09] LABS: Absolute Eosinophils 0.1 K/uL (0-0.5); Absolute Lymphocytes (CBC) 1.3 K/uL (0.7-4.9); Absolute Monocytes 0.4 K/uL (0.1-1.3); Basophils % 0.5 % (0-1.3); Eosinophils % 1.3 % (0-4.4); Hematocrit 30.8 % (36.0-45.0); Hemoglobin 10.6 g/dL (12.0-15.0); Lymphocytes % 21.9 % (15.3-44.8); MCH 31.2 pg (27.0-35.0); MCHC 34.4 g/dL (32.0-36.0); MCV 90.6 fL (80-100); MPV 10.6 fL (7.6-11.3); Monocytes % 6.2 % (3.3-12.3); Neutrophils % 70.1 % (41.7-73.7); Nucleated Red Blood Cells % 0.1 % (0-0); Platelets 185 thou/uL (152-406); Red Cell Distribution Width 17.9 % (12.1-15.2)
[2024-10-01 04:13] LABS: PT Prothrombin Time 12.9 SECONDS (10-13.0); PTT, Activated Partial Thromb 27.5 SECONDS (27.2-37.4); Protime INR 1.14
[2024-10-01 04:23] LABS: Albumin 3.3 g/dL (3.4-5.0); Albumin/Globulin Ratio 0.9 (1.1-1.8); Anion Gap 10.7 mEq/L (5.0-15.0); Bilirubin Direct 0.3 mg/dL (0-0.2); Bilirubin Indirect, Calculated 0.3 mg/dL (0.2-0.8); Bilirubin Total 0.6 mg/dL (0.2-1.0); Globulin 3.7 g/dL (2.3-3.5); Magnesium 1.9 mg/dL (1.6-2.4); Potassium 3.7 mEq/L (3.5-5.1)
[2024-10-01 04:27] LABS: Troponin High Sensitivity 73.1 pg/mL (<58.9)
[2024-10-01 04:28] LABS: Thyroid Stimulating Hormone 2.27 uIU/mL (0.358-3.740)
--- NOTE | 2024-10-01 04:37 | EDPHYS ---
Physician Documentation [facility] Name: Yokasta Hill Age: 73 yrs Sex: Female : 1950 Arrival Date: 10/01/2024 Time: 02:36 Bed 20 Private MD: ED Physician Parveen Fung HPI: 10/01 02:47 This 73 yrs old Female presents to ER via Unassigned with complaints of sp4 Breathing Difficulty. 03:11 DCE 1-bxbi-[age]-year-old female with severe rheumatoid arthritis systolic heart failure sp4 with AICD, coronary artery disease with 3 stents, anemia, hypertension, EF 10 to 15% presents with worsening dyspnea for the past week associated with orthopnea and dyspnea on exertion.. 03:12 Patient's last admission for congestive heart failure or 06/28/2024. 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 Patient's list of medications include aspirin 81 mg daily, atorvastatin 80 mg daily, clopidogrel 75 mg p.o. daily, spironolactone 25 mg p.o. bedtime, midodrine 5 mg p.o. twice daily, folic acid 1 mg p.o. daily, magnesium oxide 400 mg p.o. daily, potassium chloride 20 mEq daily, Celebrex 100 mg p.o. daily, Lasix 40 mg p.o. daily, leflunomide 20 mg p.o. daily, ondansetron 4 mg p.o. as needed, polyethylene glycol 17 g p.o. twice daily as needed, Senokot 17.2 mg p.o. twice daily as needed, sucralfate 1 g p.o. AC, digoxin 1.25 mcg daily, cefdinir 300 mg p.o. twice daily. Historical: - Allergies: 02:55 Codeine; vc1 02:55 dextromethorphan; vc1 02:55 Egg Derived; vc1 02:55 Fentanyl; vc1 02:55 Sulfa (Sulfonamide Antibiotics); vc1 02:55 Sulfasalazine; vc1 02:55 Ultram; vc1 - PMHx: 02:55 Anemia; Congestive heart failure; Hypertensive disorder; Rheumatoid Arthritis; vc1 - PSHx: 02:55 Bilateral hips; bilateral knees; Cholecystectomy; vc1 - Immunization history:: Client reports having NOT received the Covid vaccine. Flu vaccine is not up to date. - Infectious Disease History:: Denies. - Family history:: not pertinent. - Social history:: Smoking status: Patient denies any tobacco usage or history of. ROS: 03:14 Constitutional: Negative for fever, chills, and weight loss, positive for dyspnea on sp4 exertion, positive for orthopnea, positive worsening dyspnea at rest Eyes: Negative for injury, pain, redness, and discharge, 03:14 All other systems are negative, Exam: 03:14 Constitutional: Patient is frail elderly female presents visibly short of breath. sp4 Moderate to severe diffuse joint deformities secondary to chronic rheumatoid arthritis. Ambulatory with assistance. Left-sided chest wall AICD implanted under the skin. Head/Face: Normocephalic, atraumatic. Eyes: Pupils equal round and reactive to light, extra-ocular motions intact. Lids and lashes normal. Conjunctiva and sclera are not injected. Cornea within normal limits. Periorbital areas with no swelling, redness, or edema. ENT: Nares patent. No nasal discharge, no septal abnormalities noted. Tympanic membranes are normal and external auditory canals are clear. Oropharynx with no redness, swelling, or masses, exudates, or evidence of obstruction, uvula midline. Mucous membranes moist. Neck: Trachea midline, no thyromegaly or masses palpated, and no cervical lymphadenopathy. Supple, full range of motion without nuchal rigidity, or vertebral point tenderness. Chest/axilla: Normal chest wall appearance and motion. Nontender with no deformity. No lesions are appreciated. Cardiovascular: Regular rate and rhythm with a normal S1 and S2. No gallops, murmurs, or rubs. Normal PMI, no JVD. No pulse deficits. Respiratory: Lungs have equal breath sounds bilaterally, clear to auscultation and percussion. No rales, rhonchi or wheezes noted. No increased work of breathing, no retractions or nasal flaring. Abdomen/GI: Soft, with normal bowel sounds. No distension or tympany. No guarding or rebound. No evidence of tenderness throughout. Back: No spinal tenderness. No costovertebral tenderness. Skin: Warm, dry with normal turgor. Normal color with no rashes, no lesions, and no evidence of cellulitis. MS/ Extremity: Pulses equal, no cyanosis. Neurovascular intact. Full, normal range of motion. Neuro: Awake and alert, GCS 15, oriented to person, place, time, and situation. Cranial nerves II-XII grossly intact. Motor strength 5/5 in all extremities. Sensory grossly intact. Psych: Awake, alert, with orientation to person, place and time. Behavior, mood, and affect are within normal limits 03:14 ECG was reviewed by the Attending Physician. EKG 0303 tachycardia paced rhythm 104 Vital Signs: 02:55 BP 115 / 87; Pulse 104; Resp 18; Temp 98.4; Pulse Ox 95% ; Weight 60 kg; vc1 03:15 BP 118 / 74; Pulse 98; Resp 23; Pulse Ox 98% ; al5 03:30 BP 116 / 73; Pulse 98; Resp 28; Pulse Ox 97% ; al5 04:00 BP 91 / 69; Pulse 105; Resp 23; Pulse Ox 96% ; al5 04:30 BP 108 / 91; Pulse 98; Resp 15; Pulse Ox 97% ; al5 05:00 BP 90 / 76; Pulse 100; Resp 19; Pulse Ox 95% ; al5 05:30 BP 115 / 71; Pulse 89; Resp 17; Pulse Ox 98% ; al5 06:00 BP 106 / 89; Pulse 97; Resp 17; Pulse Ox 96% ; al5 [place] Coma Score: 03:14 Eye Response: spontaneous(4). Motor Response: obeys commands(6). Verbal Response: sp4 oriented(5). Total: 15. MDM: 02:48 Medical Screening Exam initiated sp4 04:32 Differential diagnosis: Anemia Anxiety Reaction asthma, Bronchitis CHF exacerbation, sp4 Chronic Obstructive Pulmonary Disease Pneumothorax Psychogenic pulmonary edema. Data reviewed: vital signs, nurses notes, old medical records, lab test result(s), EKG, radiologic studies, plain films. 04:32 Consideration of Admission/Observation Escalation of care including sp4 admission/observation considered. ED course: Patient has mild elevation of troponin. Likely secondary to CHF systolic heart failure. Patient stable for admission with cardiology consult.. 04:59 ED course: Patient stable for admission to [facility] with telemetry. sp4 06:30 ED course: EXAM: Chest Single View HISTORY: 73 years Female CHEST PAIN COMPARISON: sp4 07/16/2024 FINDINGS: LUNGS/PLEURA: Mild prominence of the pulmonary interstitium. CARDIAC/MEDIASTINUM: Moderate cardiomegaly. UPPER ABDOMEN: No significant abnormality. BONES: No acute abnormality. LINES/TUBES/OTHER: Pacemaker/AICD. IMPRESSION: Mild congestive heart failure. . 10/01 02:48 Order name: BMP; Complete Time: 04:30 sp4 10/01 02:48 Order name: Blood Culture Adult (2) sp4 10/01 02:48 Order name: CBC with Diff; Complete Time: 04:30 sp4 10/01 02:48 Order name: CPK; Complete Time: 04:30 sp4 10/01 02:48 Order name: Hepatic Function; Complete Time: 04:30 sp4 10/01 02:48 Order name: Lipase; Complete Time: 04:30 sp4 10/01 02:48 Order name: Magnesium; Complete Time: 04:30 sp4 10/01 02:48 Order name: NT PRO-BNP; Complete Time: 04:30 sp4 10/01 02:48 Order name: PT-INR; Complete Time: 04:30 sp4 10/01 02:48 Order name: Ptt, Activated; Complete Time: 04:30 sp4 10/01 02:48 Order name: Troponin HS; Complete Time: 04:30 sp4 10/01 03:08 Order name: TSH; Complete Time: 04:30 sp4 10/01 03:08 Order name: T4 Free; Complete Time: 04:30 sp4 10/01 03:12 Order name: Urinalysis W/Microscopic sp4 10/01 03:14 Order name: Digoxin; Complete Time: 04:36 sp4 10/01 03:19 Order name: Lactate w/ 2H reflex if indic.; Complete Time: 04:30 cp4 10/01 06:27 Order name: CBC with Automated Diff EDMS 10/01 06:27 Order name: CBC with Automated Diff EDMS 10/01 06:27 Order name: Comprehensive Metabolic Panel EDMS 10/01 06:27 Order name: Comprehensive Metabolic Panel EDMS 10/01 06:27 Order name: Lipid Profile EDMS 10/01 06:27 Order name: Lipid Profile EDMS 10/01 06:27 Order name: Magnesium EDMS 10/01 06:27 Order name: Magnesium EDMS 10/01 06:27 Order name: NT PRO-BNP EDMS 10/01 06:27 Order name: NT PRO-BNP EDAL 10/01 06:27 Order name: Troponin High Sensitivity EDAL 10/01 06:27 Order name: Troponin High Sensitivity EDAL 10/01 06:27 Order name: Troponin High Sensitivity EDAL 10/01 06:27 Order name: Troponin High Sensitivity EDAL 10/01 08:30 Order name: Glucose, Ancillary Testing EDAL 10/01 12:41 Order name: Glucose, Ancillary Testing EDAL 10/01 04:30 Order name: Chest Single View XRAY; Complete Time: 06:29 sp4 10/01 06:27 Order name: Echo with Doppler EDAL 10/01 02:48 Order name: EKG; Complete Time: 02:49 sp4 10/01 06:26 Order name: CONS Physician Consult EDAL 10/01 06:27 Order name: CONS Physician Consult EDAL 10/01 02:48 Order name: Cardiac monitoring; Complete Time: 03:11 sp4 10/01 02:48 Order name: EKG - Nurse/Tech; Complete Time: 03:11 sp4 10/01 02:48 Order name: IV Saline Lock; Complete Time: 03:11 sp4 10/01 02:48 Order name: Labs collected and sent; Complete Time: 03:11 sp4 10/01 02:48 Order name: O2 Per Protocol; Complete Time: 03:11 sp4 10/01 02:48 Order name: O2 Sat Monitoring; Complete Time: 03:11 sp4 EC:03 Rate is 104 beats/min. Rhythm is regular, Paced. No ST changes noted. Clinical sp4 impression: No evidence of ischemia. Interpreted by me. Reviewed by me. Administered Medications: 03:35 Drug: Furosemide IVP 20 mg IVP once; give over 2 minutes Route: IVP; Site: right al5 antecubital; 06:30 Follow up: Response: No adverse reaction al5 Disposition Summary: 10/01/24 04:36 Hospitalization Ordered Notes: Hospitalization Status: Inpatient Admission sp4 Provider: Gabrielle Garland sp4 Condition: Serious(10/01/24 04:36) sp4 Problem: new(10/01/24 04:36) sp4 Symptoms: are unchanged(10/01/24 04:36) sp4 Bed/Room Type: Standard sp4 Location: Telemetry/MedSurg (Inpatient)(10/01/24 15:37) bd Room Assignment: 211(10/01/24 15:37) bd Diagnosis - Acute on chronic systolic (congestive) heart failure(10/01/24 04:36) sp4 - Elevated troponin I level sp4 Forms: - Medication Reconciliation Form sp4 - SBAR form sp4 - Leadership Thank You Letter sp4 Signatures: Dispatcher [employer] EDMS Sadie Rodriguez bd Opal Rucker RN RN vc1 Yesenia Archibald rv1 Parveen Fung MD MD sp4 Mague Wilson RN RN al5 Corrections: (The following items were deleted from the chart) 02:49 02:49 BASIC METABOLIC PANEL+C.LAB.BRZ ordered. EDMS EDMS 02:49 02:49 BLOOD CULTURE*+BA.LAB.BRZ ordered. EDMS EDMS 02:49 02:49 CBC+H.LAB.BRZ ordered. EDMS EDMS 02:49 02:49 CREATINE PHOSPHOKINASE+C.LAB.BRZ ordered. EDMS EDMS 02:49 02:49 HEPATIC FUNCTION+C.LAB.BRZ ordered. EDMS EDMS 02:49 02:49 LIPASE+C.LAB.BRZ ordered. EDMS EDMS 02:49 02:49 MAGNESIUM+C.LAB.BRZ ordered. EDMS EDMS 02:49 02:49 PROBNP+C.LAB.BRZ ordered. EDMS EDMS 02:49 02:49 PROTIME (+INR)+COAG.LAB.BRZ ordered. EDMS EDMS 02:49 02:49 PTT, ACTIVATED+COAG.LAB.BRZ ordered. EDMS EDMS 02:49 02:49 Troponin High Sensitivity+C.LAB.BRZ ordered. EDMS EDMS 04:34 04:34 Home sp4 sp4 04:34 04:34 new sp4 sp4 04:34 04:34 have improved sp4 sp4 04:34 04:34 Stable sp4 sp4 04:34 04:34 Acute on chronic systolic heart failure, elevated troponin I sp4 sp4 04:34 04:34 Acute on chronic systolic (congestive) heart failure sp4 sp4 05:25 04:36 Telemetry/MedSurg (Inpatient) sp4 rv1 05:25 04:36 sp4 rv1 15:37 05:25 [facility] ER HOLD rv1 bd 15:37 05:25 ERHOLD- rv1 bd
--- NOTE | 2024-10-01 04:37 | ER ---
Nurse's Notes [facility] Name: Yokasta Hill Age: 73 yrs Sex: Female : 1950 Arrival Date: 10/01/2024 Time: 02:36 Bed 20 Private MD: Diagnosis: Acute on chronic systolic (congestive) heart failure;Elevated troponin I level Presentation: 10/01 02:55 Chief complaint: Patient states: shortness of breath times one week. Coronavirus vc1 screen: Client denies travel out of the [place] in the last 14 days. At this time, the client does not indicate any symptoms associated with coronavirus-19. Ebola Screen: Patient negative for fever greater than or equal to 101.5 degrees Fahrenheit, and additional compatible Ebola Virus Disease symptoms Patient denies exposure to infectious person. Patient denies travel to an Ebola-affected area in the 21 days before illness onset. No symptoms or risks identified at this time. Initial Sepsis Screen: Does the patient meet any 2 criteria? No. Patient's initial sepsis screen is negative. Does the patient have a suspected source of infection? No. Patient's initial sepsis screen is negative. Risk Assessment: Do you want to hurt yourself or someone else? Patient reports no desire to harm self or others. Onset of symptoms is unknown. Care prior to arrival: None. 02:55 Method Of Arrival: Wheelchair vc1 02:55 Acuity: ROBERTO 3 vc1 Triage Assessment: 02:55 General: Appears distressed, uncomfortable, Behavior is calm, cooperative, appropriate vc1 for age. Pain: Denies pain. EENT: No deficits noted. No signs and/or symptoms were reported regarding the EENT system. Neuro: Level of Consciousness is awake, alert, obeys commands, Oriented to person, place, time, situation, Appropriate for age. Cardiovascular: Capillary refill < 3 seconds Patient's skin is warm and dry. Respiratory: Reports shortness of breath at rest since 1 week Airway is patent Respiratory effort is even, labored, Respiratory pattern is symmetrical, tachypnea Breath sounds are diminished bilaterally. Onset: The symptoms/episode began/occurred i week ago, the patient has moderate shortness of breath. GI: Abdomen is round non-distended. : No deficits noted. No signs and/or symptoms were reported regarding the genitourinary system. Derm: Skin is intact, is healthy with good turgor, Skin is dry, Skin is pink, warm \T\ dry. Skin temperature is warm. Musculoskeletal: Circulation, motion, and sensation intact. Range of motion: intact in all extremities. Historical: - Allergies: 02:55 Codeine; vc1 02:55 dextromethorphan; vc1 02:55 Egg Derived; vc1 02:55 Fentanyl; vc1 02:55 Sulfa (Sulfonamide Antibiotics); vc1 02:55 Sulfasalazine; vc1 02:55 Ultram; vc1 - PMHx: 02:55 Anemia; Congestive heart failure; Hypertensive disorder; Rheumatoid Arthritis; vc1 - PSHx: 02:55 Bilateral hips; bilateral knees; Cholecystectomy; vc1 - Immunization history:: Client reports having NOT received the Covid vaccine. Flu vaccine is not up to date. - Infectious Disease History:: Denies. - Family history:: not pertinent. - Social history:: Smoking status: Patient denies any tobacco usage or history of. Screenin:36 [facility] ED Fall Risk Assessment (Adult) History of falling in the last 3 months, al5 including since admission No falls in past 3 months (0 pts) Confusion or Disorientation No (0 pts) Intoxicated or Sedated No (0 pts) Impaired Gait Yes (1 pt) Mobility Assist Device Used Yes (1 pt) Altered Elimination No (0 pt) Score/Fall Risk Level 0 - 2 = Low Risk Oriented to surroundings, Maintained a safe environment, Hourly rounding (assess needs \T\ fall precautionary measures) done. Abuse screen: Denies threats or abuse. Denies injuries from another. Nutritional screening: No deficits noted. Tuberculosis screening: No symptoms or risk factors identified. Assessment: 03:35 General: Appears in no apparent distress. comfortable, Behavior is calm, cooperative. al5 Pain: Denies pain. Neuro: Level of Consciousness is awake, alert, obeys commands, Oriented to person, place, time, situation. Cardiovascular: Capillary refill < 3 seconds Patient's skin is warm and dry. Rhythm is sinus tachycardia. Respiratory: Airway is patent Respiratory effort is even, unlabored, Respiratory pattern is regular, symmetrical. GI: No signs and/or symptoms were reported involving the gastrointestinal system. : No signs and/or symptoms were reported regarding the genitourinary system. EENT: No signs and/or symptoms were reported regarding the EENT system. Derm: Skin is intact, Skin is pink, warm \T\ dry. normal. Musculoskeletal: deformity in fingers due to rheumatoid arthritis, limited mobility in shoulders. 06:30 Reassessment: Patient appears in no apparent distress at this time. No changes from al5 previously documented assessment. Patient and/or family updated on plan of care and expected duration. Pain level reassessed. Patient is alert, oriented x 3, equal unlabored respirations, skin warm/dry/pink. Vital Signs: 02:55 BP 115 / 87; Pulse 104; Resp 18; Temp 98.4; Pulse Ox 95% ; Weight 60 kg; vc1 03:15 BP 118 / 74; Pulse 98; Resp 23; Pulse Ox 98% ; al5 03:30 BP 116 / 73; Pulse 98; Resp 28; Pulse Ox 97% ; al5 04:00 BP 91 / 69; Pulse 105; Resp 23; Pulse Ox 96% ; al5 04:30 BP 108 / 91; Pulse 98; Resp 15; Pulse Ox 97% ; al5 05:00 BP 90 / 76; Pulse 100; Resp 19; Pulse Ox 95% ; al5 05:30 BP 115 / 71; Pulse 89; Resp 17; Pulse Ox 98% ; al5 06:00 BP 106 / 89; Pulse 97; Resp 17; Pulse Ox 96% ; al5 [place] Coma Score: 03:14 Eye Response: spontaneous(4). Motor Response: obeys commands(6). Verbal Response: sp4 oriented(5). Total: 15. ED Course: 02:42 Patient arrived in ED. gm2 02:47 Parveen Fung MD is Attending Physician. sp4 02:55 Arm band placed on left wrist. vc1 03:30 Mague Wilson RN is Primary Nurse. al5 03:36 Patient has correct armband on for positive identification. Bed in low position. Call al5 light in reach. Side rails up X2. Provided Education on: plan of care. Warm blanket given. 03:36 No provider procedures requiring assistance completed. Inserted saline lock: 20 gauge al5 in right antecubital area, using aseptic technique. Blood collected. Flushed with 10 mL NS. 04:35 Gabrielle Garland MD is Hospitalizing Provider. sp4 05:02 Chest Single View XRAY In Process Unspecified. EDMS 05:14 Triage completed. vc1 07:00 Patient admitted, IV remains in place. intact, No redness/swelling at site. jl7 Administered Medications: 03:35 Drug: Furosemide IVP 20 mg IVP once; give over 2 minutes Route: IVP; Site: right al5 antecubital; 06:30 Follow up: Response: No adverse reaction al5 Medication: 03:36 VIS not applicable for this client. al5 Outcome: 04:34 Discharge ordered by . sp4 04:36 Decision to Hospitalize by Provider. sp4 07:00 Admitted to ER Hold. Please see [facility] for further documentation. jl7 07:00 Condition: stable 07:00 Discharge instructions given to patient, Instructed on the need for admit, Demonstrated understanding of instructions, 16:45 Patient left the ED. jl7 Signatures: Dispatcher [employer] EDMS Kimberly Nickerson RN RN jl7 Opal Rucker RN RN vc1 Parveen Fung MD MD sp4 Nancy Sullivan 2 Mague Wilson RN RN al5
--- NOTE | 2024-10-01 06:09 | RAD REPORT ---
EXAM: Chest Single View HISTORY: 73 years Female CHEST PAIN COMPARISON: 07/16/2024 FINDINGS: LUNGS/PLEURA: Mild prominence of the pulmonary interstitium. CARDIAC/MEDIASTINUM: Moderate cardiomegaly. UPPER ABDOMEN: No significant abnormality. BONES: No acute abnormality. LINES/TUBES/OTHER: Pacemaker/AICD. IMPRESSION: Mild congestive heart failure.
--- NOTE | 2024-10-01 06:31 | P.HP ---
Certification for Inpatient Patient admitted to: Inpatient With expected LOS: >2 Midnights Patient will require the following post-hospital care: None Practitioner: I am a practitioner with admitting privileges, knowledge of patient current condition, hospital course, and medical plan of care. Services: Services provided to patient in accordance with Admission requirements found in Title 42 Section 412.3 of the Code of Federal Regulations Patient History Date of Service: 10/01/24 Reason for admission: Acute CHF exacerbation History of Present Illness: Patient is a 73-year-old female who comes into the emergency room with acute CHF exacerbation. Patient's had numerous admissions for similar complaints and her last echocardiogram revealed an ejection fraction of 10 to 15%. Patient's had a defibrillator placed as well. Patient also has had issues with being over diuresed at times and has developed cardiorenal syndrome. Currently, her renal function is stable. She came in with complaints of shortness of breath with orthopnea and PND. Patient also had lower extremity edema. She was seen in the emergency room and workup revealed acute CHF exacerbation. Patient's BNP was significantly elevated and patient had mildly elevated troponin which is most likely related to type II myocardial infarction. Chest x-ray also showed pulmonary edema. At this time, patient will be admitted for inpatient hospitalization for continued diuresing. Patient will get a repeat echocardiogram will get cardiology consultation. Monitor patient closely for cardiorenal syndrome. Allergies adhesive tape Allergy (Verified 06/25/24 22:02) Rash latex Allergy (Verified 06/25/24 22:02) Itching/Hives/Rash Sulfa (Sulfonamide Antibiotics) Allergy (Verified 06/25/24 22:02) Rash dextromethorphan Adverse Reaction (Intermediate, Verified 06/25/24 22:02) Nausea/Vomiting bumetanide [From Bumex] Adverse Reaction (Verified 06/25/24 22:02) Rash codeine Adverse Reaction (Verified 06/25/24 22:02) Rash egg Adverse Reaction (Verified 06/25/24 22:02) Nausea/Vomiting fentanyl Adverse Reaction (Verified 06/25/24 22:02) Rash hydrocodone Adverse Reaction (Verified 06/25/24 22:02) Nausea/Vomiting sulfasalazine Adverse Reaction (Verified 06/25/24 22:02) caused anemia tramadol [From Ultram] Adverse Reaction (Verified 06/25/24 22:02) Rash Home Medications: Aspirin Chewable [Aspirin Chewable*] 81 mg PO DAILY 01/26/24 Atorvastatin Calcium [Lipitor] 80 mg PO DAILY 01/26/24 Clopidogrel Bisulfate [Plavix*] 75 mg PO DAILY 01/26/24 Spironolactone [Aldactone*] 25 mg PO BEDTIME 01/26/24 Midodrine HCl [Proamatine*] 5 mg PO BID #60 tab 01/27/24 Folic Acid 1 mg PO DAILY 05/15/24 Magnesium Oxide [Mag 0X*] 400 mg PO DAILY 05/15/24 Potassium Chloride 20 meq PO DAILY #30 05/16/24 Celecoxib 100 mg PO DAILY 06/14/24 Furosemide [Lasix*] 40 mg PO DAILY #30 tab 06/14/24 Leflunomide 20 mg PO DAILY 06/14/24 Ondansetron [Zofran (Odt)*] 4 mg PO Q6H PRN #30 tab 06/14/24 Polyethylene Glycol 3350 [Miralax] 17 gm PO BID PRN #30 packet 06/16/24 Sennosides [Senokot] 17.2 mg PO BID #120 tab 06/16/24 Sucralfate [Carafate*] 1 gm PO AC #90 tab 06/16/24 Ciprofloxacin HCl [Cipro 500 MG Tablet] 500 mg PO BID #20 tab 06/27/24 Digoxin 125 mcg PO DAILY #30 tab 06/28/24 Cefdinir [Cefdinir*] 300 mg PO BID #14 cap 07/07/24 - Past Medical/Surgical History Diabetic: No -: HTN -: RA -: Anemia of chronic disease -: Cardiomyopathy with an ejection fraction of 25% -: Coronary artery disease -: Mitral regurgitation -: hip surgery -: knee surgery -: back surgery -: wrist surgery -: cholecystectomy -: Cardiac catheterization -: ADY Psychosocial/ Personal History: , two sons - Family History Mother Medical History: Cancer Notes: breast cancer Father Medical History: Lung disease Notes: emphysema - Social History Smoking Status: Former smoker Alcohol use: No CD- Drugs: No Caffeine use: Yes Review of Systems 10-point ROS is otherwise unremarkable Physical Examination - Vital Signs Temperature: 98 F Blood Pressure: 150/90 Pulse: 80 Respirations: 22 Pulse Ox (%): 95 - Physical Exam General: Alert, Oriented x3, Mild distress HEENT: Atraumatic, PERRLA, Mucous membr. moist/pink, EOMI, Sclerae nonicteric Neck: Supple, 2+ carotid pulse no bruit, No LAD, Without JVD or thyroid abnormality Respiratory: Diminished, Crackles/rales Cardiovascular: Regular rate/rhythm, Normal S1 S2, Systolic murmur Gastrointestinal: Normal bowel sounds, Soft and benign, Non-distended, No tenderness Musculoskeletal: No clubbing, No tenderness, Swelling Integumentary: No rashes, Tenderness/swelling Neurological: Normal speech, Normal tone, Normal affect, Abnormal gait, Abnormal strength Lymphatics: No axilla or inguinal lymphadenopathy - Studies Laboratory Data (last 24 hrs) 10/01/24 10/01/24 10/01/24 03:16 03:16 03:16 WBC 5.70 Hgb 10.6 L Hct 30.8 L Plt Count 185 PT 12.9 INR 1.14 APTT 27.5 Sodium 134 L Potassium 3.7 BUN 19 H Creatinine 0.88 Glucose 118 H Magnesium 1.9 Total Bilirubin 0.6 AST 12 L ALT 18 Alkaline Phosphatase 111 Lipase 22 Assessment & Plan - Problems (Diagnosis) (1) Chronic combined systolic and diastolic heart failure Current Visit: No Status: Acute (2) Heart failure with reduced ejection fraction (HFrEF, <= 40%) Current Visit: No Status: Acute (3) HTN (hypertension) Current Visit: No Status: Chronic Qualifiers: (4) Rheumatoid arthritis Current Visit: No Status: Chronic Qualifiers: (5) Type 2 myocardial infarction Current Visit: Yes Status: Acute (6) CAD (coronary artery disease) Current Visit: No Status: Acute (7) Mitral regurgitation Current Visit: No Status: Acute (8) Anemia Current Visit: No Status: Chronic Qualifiers: Anemia type: iron deficiency Iron deficiency anemia type: unspecified iron deficiency Qualified Code(s): D50.9 - Iron deficiency anemia, unspecified - Plan Plan: 1. Acute CHF exacerbation; patient with history of systolic dysfunction with an EF of 10 to 15% with defibrillator in place. Patient also with mild to moderate mitral regurgitation. Continue with gentle diuresing and consult cardiology. Will monitor patient closely with cardiorenal syndrome as patient developed acute on chronic kidney disease in the past after diuresing. Repeat echocardiogram pending as well 2. Type II myocardial infarction; troponins mildly elevated. Continue with trending troponins and will give further recommendation per cardiology. Continue with antiplatelet therapy and statin therapy and strict blood pressure control 3. History of hypertension; resume antihypertensives 4. History of anemia of chronic disease; monitor H&H. Hemoglobin stable 5. History of rheumatoid arthritis; will review patient's home medications and resume her immunosuppressants 6. GI DVT prophylaxis Discharge Plan: Home Plan to discharge in: Greater than 2 days - Advance Directives Does patient have a Living Will: No Does patient have a Durable POA for Healthcare: No - Code Status/Comfort Care Code Status Assessed: Yes Code Status: Full Code Critical Care: No Time Spent Managing PTS Care (In Minutes): 45
[2024-10-01 06:56] LABS: Specific Gravity 1.006 (1.005-1.030); Sqamous Epithelial <5 /HPF (None Seen); Urine Bacteria <20 /HPF (<20); Urine Bilirubin NEGATIVE (Negative); Urine Blood Negative (Negative); Urine Clarity Clear (Clear); Urine Color Colorless (Yellow); Urine Glucose NEGATIVE (Negative); Urine Ketones NEGATIVE (Negative); Urine Micro Reflex YN NO BILL MICROSCOPIC; Urine Nitrite NEGATIVE (Negative); Urine Protein NEGATIVE (Negative); Urine RBC <5 /HPF (None Seen); Urine Urobilinogen Normal (Normal); Urine WBC <5 /HPF (<5); Urine pH 5.5 (5.0-7.0)
[2024-10-01] MEDS: POTASSIUM 25 MEQ EFFERV TAB PO SCH (08:00)
[2024-10-01] MEDS: ENOXAPARIN 40 MG/0.4 ML SQ SCH (09:00)
[2024-10-01] MEDS: METOPROLOL TAR 25 MG TAB PO SCH (09:00)
[2024-10-01] MEDS: FUROSEMIDE 40 MG/4 ML VIAL IV SCH (09:00)
[2024-10-01] MEDS ORDERED: HYDRALAZINE HCL 20 MG/ML VIAL IV PRN (09:08)
[2024-10-01] MEDS ORDERED: POTASSIUM 25 MEQ EFFERV TAB ONE (10:33)
[2024-10-01] MEDS ORDERED: FUROSEMIDE 40 MG/4 ML VIAL ONE (10:33)
[2024-10-01] MEDS ORDERED: ENOXAPARIN 40 MG/0.4 ML SQ ONE (10:34)
[2024-10-01] MEDS ORDERED: ACETAMINOPHEN 500 MG TAB ONE (11:03)
--- NOTE | 2024-10-01 12:25 | P.CNS ---
Date of Consult: 10/01/24 Chief Complaint: Acute CHF exacerbation History of Present Illness: Patient with PMH of HFrEF, no ischemic in nature, presented with worsening SOB, BALLARD and bilateral lower extremities edema, denies chest pain, no palpitations, no syncope. Allergies adhesive tape Allergy (Verified 06/25/24 22:02) Rash latex Allergy (Verified 06/25/24 22:02) Itching/Hives/Rash Sulfa (Sulfonamide Antibiotics) Allergy (Verified 06/25/24 22:02) Rash dextromethorphan Adverse Reaction (Intermediate, Verified 06/25/24 22:02) Nausea/Vomiting bumetanide [From Bumex] Adverse Reaction (Verified 06/25/24 22:02) Rash codeine Adverse Reaction (Verified 06/25/24 22:02) Rash egg Adverse Reaction (Verified 06/25/24 22:02) Nausea/Vomiting fentanyl Adverse Reaction (Verified 06/25/24 22:02) Rash hydrocodone Adverse Reaction (Verified 06/25/24 22:02) Nausea/Vomiting sulfasalazine Adverse Reaction (Verified 06/25/24 22:02) caused anemia tramadol [From Ultram] Adverse Reaction (Verified 06/25/24 22:02) Rash Home medications list reviewed: Yes Home Medications: Aspirin Chewable [Aspirin Chewable*] 81 mg PO DAILY 01/26/24 Atorvastatin Calcium [Lipitor] 80 mg PO DAILY 01/26/24 Clopidogrel Bisulfate [Plavix*] 75 mg PO DAILY 01/26/24 Spironolactone [Aldactone*] 25 mg PO BEDTIME 01/26/24 Midodrine HCl [Proamatine*] 5 mg PO BID #60 tab 01/27/24 Folic Acid 1 mg PO DAILY 05/15/24 Magnesium Oxide [Mag 0X*] 400 mg PO DAILY 05/15/24 Potassium Chloride 20 meq PO DAILY #30 05/16/24 Celecoxib 100 mg PO DAILY 06/14/24 Furosemide [Lasix*] 40 mg PO DAILY #30 tab 06/14/24 Leflunomide 20 mg PO DAILY 06/14/24 Ondansetron [Zofran (Odt)*] 4 mg PO Q6H PRN #30 tab 06/14/24 Polyethylene Glycol 3350 [Miralax] 17 gm PO BID PRN #30 packet 06/16/24 Sennosides [Senokot] 17.2 mg PO BID #120 tab 06/16/24 Sucralfate [Carafate*] 1 gm PO AC #90 tab 06/16/24 Ciprofloxacin HCl [Cipro 500 MG Tablet] 500 mg PO BID #20 tab 06/27/24 Digoxin 125 mcg PO DAILY #30 tab 06/28/24 Cefdinir [Cefdinir*] 300 mg PO BID #14 cap 07/07/24 - Past Medical/Surgical History Diabetic: No -: HTN -: RA -: Anemia of chronic disease -: Cardiomyopathy with an ejection fraction of 25% -: Coronary artery disease -: Mitral regurgitation -: hip surgery -: knee surgery -: back surgery -: wrist surgery -: cholecystectomy -: Cardiac catheterization -: ADY Psychosocial/ Personal History: , two sons - Family History Mother Medical History: Cancer Notes: breast cancer Father Medical History: Lung disease Notes: emphysema - Social History Smoking Status: Unknown if ever smoked Alcohol use: No CD- Drugs: No Caffeine use: Yes Review of Systems 10-point ROS is otherwise unremarkable Physical Examination Temp Pulse Resp BP Pulse Ox 98 F 80 22 H 150/90 H 95 10/01/24 06:34 10/01/24 06:34 10/01/24 06:34 10/01/24 06:34 10/01/24 06:34 General: Alert, In no apparent distress HEENT: Atraumatic, PERRLA, Mucous membr. moist/pink, EOMI, Sclerae nonicteric Neck: Supple, 2+ carotid pulse no bruit, No LAD, Without JVD or thyroid abnormality Respiratory: Clear to auscultation bilaterally, Normal air movement Cardiovascular: Regular rate/rhythm, Normal S1 S2 Gastrointestinal: Normal bowel sounds, No tenderness Musculoskeletal: No tenderness Integumentary: No rashes Neurological: Normal gait, Normal speech, Normal tone, Normal affect Lymphatics: No axilla or inguinal lymphadenopathy Laboratory Data (last 24 hrs) 10/01/24 10/01/24 10/01/24 03:16 03:16 03:16 WBC 5.70 Hgb 10.6 L Hct 30.8 L Plt Count 185 PT 12.9 INR 1.14 APTT 27.5 Sodium 134 L Potassium 3.7 BUN 19 H Creatinine 0.88 Glucose 118 H Magnesium 1.9 Total Bilirubin 0.6 AST 12 L ALT 18 Alkaline Phosphatase 111 Lipase 22 - Problems (1) Acute on chronic combined systolic and diastolic heart failure Current Visit: No Status: Acute Plan: continue Lasix 40 mg IV BID continue Aldactone 25 mg daily continue to monitor input and output and electrolytes. (2) CAD (coronary artery disease) Current Visit: No Status: Acute Plan: mild in nature, patient had coronary angiogram in 2022 that shown very mild CAD. continue ASA 81 mg daily Continue statins (3) Mitral regurgitation Current Visit: No Status: Acute Plan: Moderate in nature, MR is secondary to LV dilation, continue to optimize medical management and outpatient follow up with echo
--- NOTE | 2024-10-01 12:25 | ECHO ---
HEIGHT: ft in WEIGHT: lb oz DATE OF STUDY: 10/01/[address]: Gabrielle Garland MD 2-DIMENSIONAL: YES M.MODE: YES DOPPLER: YES COLOR FLOW: YES TDS: PORTABLE: YES DEFINITY: BUBBLE STUDY: DIAGNOSIS: CONGESTIVE HEART FAILURE CARDIAC HISTORY: CATHERIZATION: YES SURGERY: NO PROSTHETIC VALVE: NO PACEMAKER: YES MEASUREMENTS (cm) DIASTOLIC (NORMALS) SYSTOLIC (NORMALS) IVSd 1.2 (0.6-1.2) LA Diam 3.0 (1.9-4.0) LVEF 15-20% LVIDd 6.3 (3.5-5.7) LVIDs 5.7 (2.0-3.5) %FS 9% LVPWd 1.2 (0.6-1.2) Ao Diam 2.8 (2.0-3.7) 2 DIMENSIONAL ASSESSMENT: RIGHT ATRIUM: NORMAL LEFT ATRIUM: NORMAL RIGHT VENTRICLE: NORMAL LEFT VENTRICLE: SEVERELY DILATED TRICUSPID VALVE: MILD TRICUSPID REGURIGTATION MITRAL VALVE: MODERATE MITRAL REGURGITATION PULMONIC VALVE: NORMAL AORTIC VALVE: NORMAL PERICARDIAL EFFUSION: NONE AORTIC ROOT: NORMAL LEFT VENTRICULAR WALL MOTION: SEVERE GLOBAL HYPOKINESIS DOPPLER/COLOR FLOW: DIASTOLIC DYFUNCTION COMMENTS: 1. SEVERELY REDUCED LEFT VENTRICULAR SYSTOLIC FUNCTION, EJECTION FRACTION 15-20%, SEVERE GLOBAL HYPOKINESIS 2. DIASTOLIC DYFUNCTION 3. MODERATE MITRAL REGURGITATION 4. ELEVATED FILLING PRESSURE (RIGHT ATRIAL PRESSURE 15-20 mmHg) TECHNOLOGIST: DOUGIE OWEN
[2024-10-01 13:35] VITALS: BMI 25.7
[2024-10-01] MEDS: FLU (Fluarix Triv) TS24-25(6MOS UP)/PF 45 MCG/0.5 ML Syringe IM ONE (14:30)
[2024-10-01] MEDS: PNEUMOCOCCAL VACCINE 0.5 ML IMVAC ONE (15:00)
--- NOTE | 2024-10-01 16:34 | P.PN ---
Subjective Date of Service: 10/01/24 Chief Complaint: Acute CHF exacerbation Subjective: No chest pain. shortness of breath improving. No nausea or vomiting. No abdominal pain. No obvious bleeding. Looks comfortable in the bed. Objective: General appearance: Alert and comfortable CVS: Normal S1 and S2 Lungs: Clear to auscultation bilaterally Abdomen: Soft, bowel sounds present, no tenderness Extremities: No lower extremity edema Physical Examination - Vital Signs Temperature: 97 F Blood Pressure: 118/70 Pulse: 83 Respirations: 15 Pulse Ox (%): 95 - Studies Laboratory Data (last 24 hrs) 10/01/24 10/01/24 10/01/24 03:16 03:16 03:16 WBC 5.70 Hgb 10.6 L Hct 30.8 L Plt Count 185 PT 12.9 INR 1.14 APTT 27.5 Sodium 134 L Potassium 3.7 BUN 19 H Creatinine 0.88 Glucose 118 H Magnesium 1.9 Total Bilirubin 0.6 AST 12 L ALT 18 Alkaline Phosphatase 111 Lipase 22 Assessment And Plan - Plan 1. Acute systolic CHF exacerbation; patient with history of systolic dysfunction with an EF of 10 to 15% with defibrillator in place. - Continue IV diuretics, metoprolol and Aldactone. -Repeat echo today showed 15 to 20% EF, moderate mitral regurgitation -Add Entresto, cardiology agrees. 2. Type II myocardial infarction; troponins mildly elevated. Cardiology is following. 3. History of hypertension: Continue current medications. 4. History of anemia of chronic disease; monitor H&H. Hemoglobin stable 5. History of rheumatoid arthritis; resume her immunosuppressants soon Plan discussed with patient, answered all questions.
--- NOTE | 2024-10-01 16:38 | CON ---
Date of Consultation: 10/01/2024 Consulting Physician: Hospitalist. Reason For Consultation: Elevated BUN and creatinine, fluid management, and overvolume. History Of Present Illness: This is a 73-year-old female, well known to me from the office with sign ificant past medical history of hypertension, rheumatoid arthritis, congestive heart failure with eje ction fraction of 26%, status post PTCA in February 2022. 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 At that time, creatini ne jumped to 1.3, then recovered down to 0.9. The patient came to the hospital complaining from shor tness of breath and orthopnea, found to be overvolume. For that reason, we have been consulted the p clarence. According to her, she has been compliant with her medications. No recent change. No eating outside. Still complying with her fluid restriction. Past Medical History: Includes: 1. Rheumatoid arthritis. 2. CAD complicated with congestive heart failure, ejection fraction of 26%, status post PTCA. 3. Hypertension. 4. Hyperlipidemia. 5. 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 Past Surgical History: Includes hip surgery, knee surgery, back surgery, wrist surgery, cholecystect tamra, cardiac cath with PTCA. Family History: Positive for hypertension, CAD, and cancer. Social History: Lives with family. Ex-smoker. No alcohol. No drug abuse. Home Medications: Include aspirin, atorvastatin, Plavix, spironolactone, midodrine, KCl, Celebrex, l eflunomide, digoxin, and cefdinir. Review of Systems: Head and Neck: No red eye. No ear pain. GI: No nausea. No vomiting. : No polyuria. No dysuria. No hematuria. VISITING TEACHER: No vaginal discharge. Respiratory: Has shortness of breath. Has cough. Cardiovascular: Has orthopnea. Neuro: Has neuropathy. Musculoskeletal: Has multiple joint pain. Physical Examination: Vital Signs: When I saw the patient, blood pressure 150/90, pulse of 80, afebrile. Chest: Crackles bilateral. Heart: S1, S2. Systolic murmur. Abdomen: Soft, nontender. Extremities: Trace edema. Neurologic: Alert. No focality. Joint inspection: Multiple deformities on the hand. Laboratory Data: Sodium 134, potassium 3.7, bicarb 22, BUN 19, creatinine 0.8, calcium 8.7, magnesiu m 1.9. Troponin 73, trending up. BNP 32,000. TSH 2.2. Current Medications: The patient on include Lovenox, hydralazine, Lasix 40 b.i.d., KCl. Assessment And Plan: 1. Acute kidney injury secondary to cardiorenal, overvolume. I agree with current diuresis dose. I am going to resume her Aldactone given advanced cardiac disease and hypokalemia, and we will monitor the patient. 2. Hypertension, controlled. We will utilize blood pressure for more diuresis. 3. Hypokalemia. We are adding spironolactone. We will follow up the patient. 4. Congestive heart failure with exacerbation, advanced. Follow up with Cardiology. We will try to optimize fluid status for the patient. 5. Rheumatoid arthritis, as by primary. Thank you for allowing us to participate in the care of your patient. JORI Voice ID: [id number] Report ID: [id number]
[2024-10-01] MEDS: SACUBITRIL/VALSARTAN 24/26 MG TAB PO SCH (20:28)
[2024-10-01] MEDS: SPIRONOLACTONE 25 MG TABLET PO SCH (20:28)
[2024-10-01] MEDS: METOPROLOL XL 25 MG TAB PO SCH (20:29)
[2024-10-02 08:33] LABS: Absolute Eosinophils 0.1 K/uL (0-0.5); Absolute Monocytes 0.4 K/uL (0.1-1.3); Absolute Neutrophil 3.4 K/uL (1.8-8.0); Basophils % 0.5 % (0-1.3); Eosinophils % 2.5 % (0-4.4); Hematocrit 32.4 % (36.0-45.0); Hemoglobin 11.1 g/dL (12.0-15.0); Lymphocytes % 20.6 % (15.3-44.8); MCHC 34.4 g/dL (32.0-36.0); MCV 90.3 fL (80-100); Monocytes % 8.8 % (3.3-12.3); Neutrophils % 67.6 % (41.7-73.7); Nucleated Red Blood Cells % 0.2 % (0-0); Platelets 185 thou/uL (152-406); RBC Red Blood Cell Count 3.59 M/uL (3.86-4.86); Red Cell Distribution Width 18.3 % (12.1-15.2)
[2024-10-02 09:54] LABS: Albumin 3.3 g/dL (3.4-5.0); Anion Gap 11.7 mEq/L (5.0-15.0); Bilirubin Total 0.9 mg/dL (0.2-1.0); Globulin 3.4 g/dL (2.3-3.5); Magnesium 1.8 mg/dL (1.6-2.4); Phosphorus 2.2 mg/dL (2.5-4.9); Potassium 3.7 mEq/L (3.5-5.1); Protein, Total 6.7 g/dL (6.4-8.2)
--- NOTE | 2024-10-02 11:23 | P.PN ---
Subjective Date of Service: 10/02/24 Chief Complaint: Acute CHF exacerbation Subjective: No new changes, No C/O voiced, Tolerating diet, Ambulating, Improving Review of Systems 10-point ROS is otherwise unremarkable Physical Examination - Vital Signs Temperature: 97.4 F Blood Pressure: 134/74 Pulse: 100 Respirations: 22 Pulse Ox (%): 93 - Physical Exam General: Alert, In no apparent distress HEENT: Atraumatic, PERRLA, EOMI Neck: Supple, JVD not distended Respiratory: Clear to auscultation bilaterally, Normal air movement Cardiovascular: Regular rate/rhythm, Normal S1 S2 Gastrointestinal: Normal bowel sounds, No tenderness Musculoskeletal: No tenderness Integumentary: No rashes Neurological: Normal speech, Normal tone, Normal affect Lymphatics: No axilla or inguinal lymphadenopathy - Studies Medications List Reviewed: Yes Assessment And Plan - Current Problems (Diagnosis) (1) Acute on chronic combined systolic and diastolic heart failure Current Visit: No Status: Acute Plan: continue Lasix 40 mg IV BID continue Aldactone 25 mg daily continue Toprol XL 25 mg daily continue Entresto 24 mg po BID Patient follow up with HF in [place] and plan for IV Milrinone infusion. continue to monitor input and output and electrolytes. (2) CAD (coronary artery disease) Current Visit: No Status: Acute Plan: mild in nature, patient had coronary angiogram in 2022 that shown very mild CAD. continue ASA 81 mg daily Continue statins (3) Mitral regurgitation Current Visit: No Status: Acute Plan: Moderate in nature, MR is secondary to LV dilation, continue to optimize medical management and outpatient follow up with echo
--- NOTE | 2024-10-02 11:57 | EKG ---
Test Date: 2024-10-01 Test Time: 03:03:47 Infrastructure Project Manager: LIZANDRO MEASUREMENT RESULTS: Intervals: Rate: 104 MS: 100 QRSD: 156 QT: 376 QTc: 494 [place]: P: 97 MS: 100 QRS: 12 T: 201 INTERPRETIVE STATEMENTS: Sinus tachycardia with short MS Nonspecific intraventricular block Abnormal ECG Compared to ECG 06/25/2024 17:30:38 Short MS interval now present Ventricular-paced complex(es) or rhythm no longer present Atrial-sensed ventricular-paced complex(es) or rhythm no longer present Electronically Signed On 10-02-24 11:53:45 CDT by Tarun Menjivar
--- NOTE | 2024-10-02 14:45 | P.PN ---
Subjective Date of Service: 10/02/24 Chief Complaint: Acute CHF exacerbation Subjective: No chest pain. shortness of breath improving. No nausea or vomiting. No abdominal pain. No obvious bleeding. Looks comfortable in the bed. Objective: General appearance: Alert and comfortable CVS: Normal S1 and S2 Lungs: Clear to auscultation bilaterally Abdomen: Soft, bowel sounds present, no tenderness Extremities: No lower extremity edema Physical Examination - Vital Signs Temperature: 97.9 F Blood Pressure: 106/60 Pulse: 103 Respirations: 20 Pulse Ox (%): 95 - Studies Medications List Reviewed: Yes Assessment And Plan - Plan 1. Acute systolic CHF exacerbation; patient with history of systolic dysfunction with an EF of 10 to 15% with defibrillator in place. - Continue IV diuretics, metoprolol, Entresto and Aldactone. -Repeat echo today showed 15 to 20% EF, moderate mitral regurgitation - Clinically slowly improving - Cardiology is on board, appreciate recommendations 2. Type II myocardial infarction; troponins mildly elevated. Cardiology is following. 3. History of hypertension: Continue current medications. 4. History of anemia of chronic disease; monitor H&H. Hemoglobin stable 5. History of rheumatoid arthritis; resume her immunosuppressants soon 6. Hypophosphatemia: Replace and monitor. Plan discussed with patient, answered all questions. Discussed with family at bedside. 73-year-old patient admitted with acute on chronic systolic heart failure, currently on IV diuretics, Entresto added, she is slowly improving, DC home once volume status better and cleared by cardiology.
[2024-10-02] MEDS: POTASS/SODIUM PHOSPHATE 1 PKT POWD.PACK PO ONE (15:49)
[2024-10-02] MEDS: ACETAMINOPHEN 325 MG TABLET PO PRN (15:50)
[2024-10-02] MEDS ORDERED: OXYCODONE HCL 5 MG TAB PO PRN (16:23)
--- NOTE | 2024-10-02 16:24 | PN ---
Date of Progress Note: 10/02/2024 Subjective: The patient was admitted to the hospital with acute kidney injury secondary to cardioren al over-volume. Patient was started on diuresis. The patient seen by Cardiology. Physical Examination: Vital Signs: When I saw the patient, blood pressure 106/60, pulse of 103, afebrile. Chest: Crackles in bilateral bases. Heart: S1, S2 systolic murmur. Abdomen: Soft, nontender. Extremities: Trace edema. Neurologic: No focality. Laboratory Data: WBC 5, hemoglobin 11.1. Sodium 137, potassium 3.7, bicarb 28, BUN 18, creatinine 0 .6, calcium 8.9, magnesium 1.8, phosphorus 2.2. BNP 23,000 trending down. Current Medications: The patient on include, 1. Hydralazine. 2. Spironolactone. 3. Entresto. 4. Lasix. Assessment And Plan: 1. Acute kidney injury secondary to cardiorenal, still on the overvolume side. I am going to continu e current diuresis and will follow up with primary. 2. Hypertension. Try to utilize the blood pressure for more diuresis. 3. Hypokalemia. Continue spironolactone. 4. Congestive heart failure with exacerbation. Continue to optimize the fluid status. Follow up wit h Cardiology. CANDI/JAYJAY Voice ID: [id number] Report ID: [id number]
[2024-10-02] MEDS: ATORVASTATIN 40 MG TAB PO SCH (20:48)
[2024-10-03] MEDS: MIDODRINE HCL 5 MG TABLET PO PRN (00:19)
[2024-10-03 07:25] LABS: Absolute Eosinophils 0.2 K/uL (0-0.5); Absolute Lymphocytes (CBC) 1.6 K/uL (0.7-4.9); Absolute Monocytes 0.7 K/uL (0.1-1.3); Absolute Neutrophil 4.7 K/uL (1.8-8.0); Basophils % 0.6 % (0-1.3); Eosinophils % 2.6 % (0-4.4); Hemoglobin 12.3 g/dL (12.0-15.0); Lymphocytes % 22.2 % (15.3-44.8); MCH 30.8 pg (27.0-35.0); MCHC 34.1 g/dL (32.0-36.0); MCV 90.3 fL (80-100); MPV 9.9 fL (7.6-11.3); Monocytes % 10.1 % (3.3-12.3); Neutrophils % 64.5 % (41.7-73.7); Nucleated Red Blood Cells % 0.1 % (0-0); Platelets 239 thou/uL (152-406); RBC Red Blood Cell Count 3.98 M/uL (3.86-4.86); Red Cell Distribution Width 18.7 % (12.1-15.2)
[2024-10-03 07:37] LABS: Albumin 3.4 g/dL (3.4-5.0); Anion Gap 11.8 mEq/L (5.0-15.0); Phosphorus 3.6 mg/dL (2.5-4.9); Potassium 3.8 mEq/L (3.5-5.1)
[2024-10-03] MEDS: ASPIRIN EC 81 MG TAB PO SCH (09:00)
[2024-10-03 10:42] VITALS: O2SAT 97
[2024-10-03] MEDS ORDERED: ONDANSETRON 4 MG (ODT) TAB PO PRN (11:21)
[2024-10-03] MEDS: ONDANSETRON 4 MG (ODT) TAB PO PRN (12:25)
--- NOTE | 2024-10-03 14:43 | P.PN ---
Subjective Date of Service: 10/03/24 Chief Complaint: Acute CHF exacerbation Subjective: No new changes, No C/O voiced, Tolerating diet, Ambulating, Improving Review of Systems 10-point ROS is otherwise unremarkable Physical Examination - Vital Signs Temperature: 97.4 F Blood Pressure: 98/61 Pulse: 93 Respirations: 16 Pulse Ox (%): 98 - Physical Exam General: Alert, In no apparent distress HEENT: Atraumatic, PERRLA, EOMI Neck: Supple, JVD not distended Respiratory: Clear to auscultation bilaterally, Normal air movement Cardiovascular: Regular rate/rhythm, Normal S1 S2 Gastrointestinal: Normal bowel sounds, No tenderness Musculoskeletal: No tenderness Integumentary: No rashes Neurological: Normal speech, Normal tone, Normal affect Lymphatics: No axilla or inguinal lymphadenopathy - Studies Medications List Reviewed: Yes Assessment And Plan - Current Problems (Diagnosis) (1) Acute on chronic combined systolic and diastolic heart failure Current Visit: No Status: Acute Plan: Switch lasix to 40 mg oral daily continue Aldactone 25 mg daily Toprol and Enresto has not been given due to soft BP, patient mention that she doesnt take them at home too due to low BP, patient got advanced end stage HF and plan byt her stockroom selector in [place] is for palliative IV Milrinone infusion. can be discharged on lasix and aldactone and follow up with her stockroom selector (2) CAD (coronary artery disease) Current Visit: No Status: Acute Plan: mild in nature, patient had coronary angiogram in 2022 that shown very mild CAD. continue ASA 81 mg daily Continue statins (3) Mitral regurgitation Current Visit: No Status: Acute Plan: Moderate in nature, MR is secondary to LV dilation, continue to optimize medical management and outpatient follow up with echo
--- NOTE | 2024-10-03 14:51 | P.PN ---
Subjective Date of Service: 10/03/24 Chief Complaint: Acute CHF exacerbation seen with at bedside feels better some SOB on room air Review of Systems 10-point ROS is otherwise unremarkable Physical Examination - Vital Signs Temperature: 97.4 F Blood Pressure: 98/61 Pulse: 93 Respirations: 16 Pulse Ox (%): 98 - Physical Exam General: Oriented x3 HEENT: Atraumatic, Normocephalic Respiratory: Normal air movement Cardiovascular: No edema Gastrointestinal: Soft and benign - Studies Medications List Reviewed: Yes Assessment And Plan - Current Problems (Diagnosis) (1) Acute on chronic combined systolic and diastolic heart failure Current Visit: No Status: Acute - Plan 1. Acute systolic CHF exacerbation; patient with history of systolic dysfunction with an EF of 10 to 15% with defibrillator in place. - Continue IV diuretics, metoprolol, Entresto and Aldactone. -Repeat echo showed 15 to 20% EF, moderate mitral regurgitation - Cardiology is on board, appreciate recommendations 2. Type II myocardial infarction; troponins mildly elevated. Cardiology is following. 3. History of hypertension: Continue current medications. 4. History of anemia of chronic disease; monitor H&H. Hemoglobin stable 5. History of rheumatoid arthritis; resume her immunosuppressants soon 6. Hypophosphatemia: Replace and monitor. 7. debility --recommended rheumatology consultation, provider numbers for office appointment provided Plan discussed with patient, answered all questions. Discussed with family at bedside. 73-year-old patient admitted with acute on chronic systolic heart failure, currently on IV diuretics, Entresto , she is slowly improving, DC home once volume status better and cleared by cardiology. Discharge Plan: Home
[2024-10-03 17:11] VITALS: BP 101/56; TEMP 97.6
--- NOTE | 2024-10-03 17:51 | P.DS ---
Admission Date: 10/01/24 Discharge Date: 10/03/24 Disposition: ROUTINE DISCHARGE Discharge Condition: FAIR Reason for Admission: Acute CHF exacerbation Consultations: cardiology - Problems (1) Acute on chronic combined systolic and diastolic heart failure Current Visit: No Status: Acute Hospital Course: Patient is a 73-year-old female who comes into the emergency room with acute CHF exacerbation. Patient's had numerous admissions for similar complaints and her last echocardiogram revealed an ejection fraction of 10 to 15%. Patient's had a defibrillator placed as well. Patient also has had issues with being over diuresed at times and has developed cardiorenal syndrome. Currently, her renal function is stable. She came in with complaints of shortness of breath with orthopnea and PND. Patient also had lower extremity edema. She was seen in the emergency room and workup revealed acute CHF exacerbation. Patient's BNP was significantly elevated and patient had mildly elevated troponin which is most likely related to type II myocardial infarction. Chest x-ray also showed pulmonary edema. At this time, patient will be admitted for inpatient hospitalization for continued diuresing. Patient will get a repeat echocardiogram will get cardiology consultation. Monitor patient closely for cardiorenal syndrome. 1. Acute systolic CHF exacerbation; patient with history of systolic dysfunction with an EF of 10 to 15% with defibrillator in place. IV diuretics, metoprolol, Entresto and Aldactone. given -Repeat echo showed 15 to 20% EF, moderate mitral regurgitation - Cardiology is on board, appreciate recommendations 2. Type II myocardial infarction; troponins mildly elevated. Cardiology is followed statin, asa, plavix 3. History of hypertension: Continue current medications. 4. History of anemia of chronic disease; monitor H&H. Hemoglobin stable 5. History of rheumatoid arthritis; resumed her immunosuppressants soon 6. Hypophosphatemia: Replace and monitor. 7. debility --recommended rheumatology consultation, provider numbers for office appointment provided Plan discussed with patient, answered all questions. Discussed with family at bedside. 73-year-old patient admitted with acute on chronic systolic heart failure, cleared by cardiology for DC Vital Signs/Physical Exam: Temp Pulse Resp BP Pulse Ox 97.6 F 90 16 101/56 L 97 10/03/24 16:00 10/03/24 16:00 10/03/24 16:00 10/03/24 16:00 10/03/24 16:00 Laboratory Data at Discharge: WBC 7.20 thou/uL (4.3-10.9) 10/03/24 07:06 Hgb 12.3 g/dL (12.0-15.0) D 10/03/24 07:06 Hct 36.0 % (36.0-45.0) 10/03/24 07:06 Plt Count 239 thou/uL (152-406) D 10/03/24 07:06 PT 12.9 SECONDS (10-13.0) 10/01/24 03:16 INR 1.14 10/01/24 03:16 APTT 27.5 SECONDS (27.2-37.4) 10/01/24 03:16 Sodium 130 mEq/L (136-145) L D 10/03/24 07:06 Potassium 3.8 mEq/L (3.5-5.1) 10/03/24 07:06 BUN 21 mg/dL (7-18) H 10/03/24 07:06 Creatinine 0.74 mg/dL (0.55-1.02) 10/03/24 07:06 Glucose 116 mg/dL (74-106) H 10/03/24 07:06 Phosphorus 3.6 mg/dL (2.5-4.9) 10/03/24 07:06 Magnesium 1.8 mg/dL (1.6-2.4) 10/02/24 08:22 Total Bilirubin 0.9 mg/dL (0.2-1.0) 10/02/24 08:22 AST 13 U/L (15-37) L 10/02/24 08:22 ALT 17 U/L (13-56) 10/02/24 08:22 Alkaline Phosphatase 109 U/L (45-117) 10/02/24 08:22 Triglycerides 101 mg/dL (<150) 10/02/24 08:22 Cholesterol 121 mg/dL (<200) 10/02/24 08:22 HDL Cholesterol 51 mg/dL (40-60) 10/02/24 08:22 Cholesterol/HDL Ratio 2.37 10/02/24 08:22 Lipase 22 U/L (13-75) 10/01/24 03:16 Home Medications: Aspirin Chewable [Aspirin Chewable*] 81 mg PO DAILY 01/26/24 Atorvastatin Calcium [Lipitor] 80 mg PO DAILY 01/26/24 Clopidogrel Bisulfate [Plavix*] 75 mg PO DAILY 01/26/24 Spironolactone [Aldactone*] 25 mg PO BEDTIME 01/26/24 Folic Acid 1 mg PO DAILY 05/15/24 Magnesium Oxide [Mag 0X*] 400 mg PO DAILY 05/15/24 Potassium Chloride 20 meq PO DAILY #30 05/16/24 Celecoxib 100 mg PO SEECOM 06/14/24 Leflunomide 20 mg PO SEECOM 06/14/24 Digoxin 125 mcg PO DAILY #30 tab 06/28/24 Midodrine HCl [Proamatine*] 5 mg PO BID PRN 10/01/24 Furosemide [Lasix] 20 mg PO DAILY #30 10/03/24 Metoprolol Succinate [Toprol Xl*] 25 mg PO BEDTIME #60 tab 10/03/24 Sacubitril/Valsartan [Entresto 24 mg-26 mg Tablet] 1 tab PO BID #60 tab 10/03/24 New Medications: Sacubitril/Valsartan [Entresto 24 mg-26 mg Tablet] 1 tab PO BID #60 tab Furosemide [Lasix] 20 mg PO DAILY #30 Metoprolol Succinate [Toprol Xl*] 25 mg PO BEDTIME #60 tab Followup: OOT,OOT [Primary Care Provider] -
--- NOTE | 2024-10-03 21:01 | PN ---
Date of Progress Note: 10/03/2024 Subjective: No overnight event. Sodium dropped to 130. Advised to restrict fluid and increase fluid intake. Objective: Vital Signs: Temperature 97.4, pulse of 93, blood pressure 98/61. General: Awake and alert, not in distress. Neck: Supple. No elevated JVD. Heart: Regular rate and rhythm. Normal S1, S2. Chest: Clear to auscultation bilaterally. No rales or wheezes. Abdomen: Soft and nontender. Extremities: No edema. She has nodular deformity. Laboratory Data: Sodium 130, potassium 3.8, BUN 21, creatinine 0.7. Medications: Include aspirin, Lipitor, Lasix, hydralazine, metoprolol, potassium, Entresto, and Aldactone. Assessment And Plan: This is a 73-year-old woman with past medical history of heart failure, reduced ejection fraction, who presented for congestive heart failure exacerbation. 1. Mild hyponatremia. Encouraged to restrict fluid and increase fluid intake. Continue to monitor. Continue Lasix at this time. 2. Heart failure, reduced ejection fraction. Continue Lasix, Aldactone, and Entresto. Consider to hold Entresto, metoprolol. Blood pressure continued to be on the lower side. 3. Hypophosphatemia, replaced. 4. History of rheumatoid arthritis. Follow up with her physician as an outpatient. 5. Anemia of chronic disease. continue to monitor. Thanks for allowing me to participate in the patient's care. Total time spent 55 minutes including documentation, reviewing labs, and placing orders. FANNY Voice ID: [id number] Report ID: [id number]
== END 2024-10-03 20:22 | disposition home or self-care (01) | DRG 280 ==
LOC: ER 02:36 → ERHOLD 06:21 → 2ND 16:33
PROVIDERS: ADMIT Hospitalist; ATTEND Internal Medicine
DX: I13.0 Hypertensive heart and chronic kidney disease with heart failure and stage 1 through stage 4 chronic kidney disease, or unspecified chronic kidney disease (principal); I50.43 Acute on chronic combined systolic (congestive) and diastolic (congestive) heart failure; I21.A1 Myocardial infarction type 2; N17.9 Acute kidney failure, unspecified; E87.1 Hypo-osmolality and hyponatremia; N18.30 Chronic kidney disease, stage 3 unspecified; D63.1 Anemia in chronic kidney disease; D50.9 Iron deficiency anemia, unspecified; E87.6 Hypokalemia; M06.9 Rheumatoid arthritis, unspecified; E83.39 Other disorders of phosphorus metabolism; I34.0 Nonrheumatic mitral (valve) insufficiency; I25.10 Atherosclerotic heart disease of native coronary artery without angina pectoris; Z88.5 Allergy status to narcotic agent; Z88.2 Allergy status to sulfonamides; Z95.5 Presence of coronary angioplasty implant and graft; Z88.8 Allergy status to other drugs, medicaments and biological substances; Z79.82 Long term (current) use of aspirin; Z90.49 Acquired absence of other specified parts of digestive tract; Z79.02 Long term (current) use of antithrombotics/antiplatelets; Z91.012 Allergy to eggs; Z28.310 Unvaccinated for COVID-19; Z95.810 Presence of automatic (implantable) cardiac defibrillator; Z79.899 Other long term (current) drug therapy; Z87.891 Personal history of nicotine dependence
CPT/HCPCS: 36415; 71045; 80048; 80053; 80061; 80069; 80076; 80162; 81001; 82550; 82947; 83605; 83690; 83735; 83880; 84439; 84443; 84484; 85025; 85610; 85730; 87040; 93005; 93306; 96374; 97110; 97161; 97530; 99285; J1650; J1938; Q0162

== ENCOUNTER 2024-10-10 14:12 | Emergency (ER) | payer OTHER ==
--- OUTSIDE RECORDS SUMMARY | 2024-10-10 14:15 | XMS REPORT | Clinical Summary ---
Author Name Unknown Organization [facility] Address [address] [place] [address] Care Team Providers Care Mutual Fund Accountant Name Role Phone Xiomara Cardenas MD Primary Care Provider + [phone] Alexus Guerrero MD Unavailable Blossom vailable Alexus [...] (1 of - PCV) 003 COVID-19 Vaccine (2023-) 02/03/2024 Influenza Vaccine (Season Ended) 2025 Insurance MEDICARE [place] [employer] [employer] [employer] Care Teams Mutual [employer] Accountant Relationship Specialty Start Date End Date Xiomara Cardenas MD [email or web address] PCP - General Gynecologic Medical Oncology 12/22/16 Alexus Guerrero MD PCP - External Referring Obstetrics/Gynecology 12/22/16 Alexus Guerrero MD PCP - Cipriano Shelton Obstetrics/Gynecology 12/22/16
[2024-10-10 15:22] LABS: PT Prothrombin Time 14.5 SECONDS (10-13.0); PTT, Activated Partial Thromb 26.6 SECONDS (27.2-37.4); Protime INR 1.29
[2024-10-10 15:25] LABS: Absolute Lymphocytes (CBC) 1.2 K/uL (0.7-4.9); Absolute Monocytes 0.5 K/uL (0.1-1.3); Absolute Neutrophil 5.9 K/uL (1.8-8.0); Basophils % 0.2 % (0-1.3); Eosinophils % 0.1 % (0-4.4); Hematocrit 28.8 % (36.0-45.0); Hemoglobin 9.9 g/dL (12.0-15.0); Lymphocytes % 15.9 % (15.3-44.8); MCH 30.9 pg (27.0-35.0); MCHC 34.6 g/dL (32.0-36.0); MCV 89.4 fL (80-100); Monocytes % 6.8 % (3.3-12.3); Nucleated Red Blood Cells % 0.1 % (0-0); Platelets 174 thou/uL (152-406); RBC Red Blood Cell Count 3.22 M/uL (3.86-4.86); Red Cell Distribution Width 17.6 % (12.1-15.2)
[2024-10-10] MEDS ORDERED: NA CHLORIDE 0.9% 1,000 ML ONE (15:25)
[2024-10-10] MEDS ORDERED: ONDANSETRON 4 MG/2 ML VIAL ONE (15:25)
[2024-10-10 15:37] LABS: Albumin 3.5 g/dL (3.4-5.0); Albumin/Globulin Ratio 1.1 (1.1-1.8); Anion Gap 13.7 mEq/L (5.0-15.0); Bilirubin Total 0.9 mg/dL (0.2-1.0); Globulin 3.3 g/dL (2.3-3.5); Potassium 3.7 mEq/L (3.5-5.1); Protein, Total 6.8 g/dL (6.4-8.2)
[2024-10-10] MEDS ORDERED: ACETAMINOPHEN 325 MG TABLET ONE (16:43)
--- NOTE | 2024-10-10 17:43 | EDPHYS ---
Physician Documentation [facility] Name: Yokasta Hill Age: 73 yrs Sex: Female : 1950 Arrival Date: 10/10/2024 Time: 14:12 Bed 4 Private MD: ED Physician Yohan Lockett HPI: 10/10 14:37 This 73 yrs old Female presents to ER via Wheelchair with complaints of rn Vomiting/Diarrhea. 14:37 The patient presents to the emergency department with nausea, vomiting, diarrhea, rn abdominal pain. 14:37 Onset: The symptoms/episode began/occurred 3 day(s) ago. Possible causes: unknown. The rn symptoms are aggravated by nothing. The symptoms are alleviated by nothing. The patient has not experienced similar symptoms in the past. The patient has not recently seen a physician. Patient reports 3 days of middle abdominal pain, associated with vomiting and diarrhea. Nonbloody stool. No fever or chills. Reports generalized weakness and malaise. Patient reports equal parts vomiting and diarrhea.. Historical: - Allergies: 14:32 Codeine; iw 14:32 dextromethorphan; iw 14:32 Egg Derived; iw 14:32 Fentanyl; iw 14:32 Sulfa (Sulfonamide Antibiotics); iw 14:32 Sulfasalazine; iw 14:32 Ultram; iw - PMHx: 14:32 Congestive heart failure; Hypertensive disorder; Anemia; Rheumatoid Arthritis; iw - PSHx: 14:32 bilateral knees; Cholecystectomy; Bilateral hips; iw - Immunization history:: Adult Immunizations unknown. - Infectious Disease History:: Denies. - Family history:: not pertinent. - Hospitalizations: : No recent hospitalization is reported. - Social history:: Smoking status: unknown. ROS: 14:37 Constitutional: Negative for fever, chills, and weight loss, Cardiovascular: Negative rn for chest pain, palpitations, and edema, Respiratory: Negative for shortness of breath, cough, wheezing, and pleuritic chest pain, Abdomen/GI: + abd pain with vomiting and diarrhea MS/Extremity: Negative for injury and deformity, Skin: Negative for injury, rash, and discoloration, Neuro: + generalized weakness Exam: 14:37 Constitutional: This is a well developed, well nourished patient who is awake, alert, rn and in no acute distress. ENT: Dry mucous membranes Cardiovascular: Tachycardic, regular. No pulse deficits. Respiratory: No increased work of breathing, no retractions or nasal flaring. Abdomen/GI: Soft, no focal tenderness. No rebound or guarding MS/ Extremity: Pulses equal, no cyanosis. Neuro: Awake and alert, GCS 15 Vital Signs: 14:31 BP 109 / 80; Pulse 110; Resp 19; Temp 97.9; Pulse Ox 97% on R/A; iw MDM: 14:14 Medical Screening Exam initiated rn 17:40 Differential diagnosis: Nonspecific abd pain, gastritis, pancreatitis, appendicitis, rn diverticulitis, viral gastroenteritis, gastroenteritis. Data reviewed: vital signs, nurses notes, lab test result(s), radiologic studies, CT scan, and as a result, I will discharge patient. Counseling: I had a detailed discussion with the patient and/or guardian regarding the historical points, exam findings, and any diagnostic results supporting the discharge/admit diagnosis, lab results, radiology results, the need for outpatient follow up, to return to the emergency department if symptoms worsen or persist or if there are any questions or concerns that arise at home. Response to treatment: the patient's symptoms have markedly improved after treatment, and as a result, I will discharge patient. ED course: Patient feels much better. No longer vomiting or having diarrhea episodes. Was going to give Lomotil but patient allergic to codeine and reports breathing problems so we will avoid Lomotil. Will discharge home with antibiotics for enteritis/colitis as well as as needed Zofran. Offered patient observation in hospital and patient chooses to go home and states feels much better. Family member in the room and agrees with plan.. 10/10 14:36 Order name: Blood Culture Adult (2) rn 10/10 14:36 Order name: CBC with Diff; Complete Time: 15:54 rn 10/10 14:36 Order name: CMP; Complete Time: 15:54 rn 10/10 14:36 Order name: Lactate w/ 2H reflex if indic.; Complete Time: 15:54 rn 10/10 14:36 Order name: Protime (+inr); Complete Time: 15:54 rn 10/10 14:36 Order name: Ptt, Activated; Complete Time: 15:54 rn 10/10 14:36 Order name: CT Abd/Pelvis - IV Contrast Only rn 10/10 14:36 Order name: EKG; Complete Time: 14:36 rn 10/10 14:36 Order name: Accucheck; Complete Time: 14:59 rn 10/10 14:36 Order name: Cardiac monitoring; Complete Time: 14:59 rn 10/10 14:36 Order name: EKG - Nurse/Tech; Complete Time: 15:31 rn 10/10 14:36 Order name: IV Saline Lock - Large Bore; Complete Time: 14:59 rn 10/10 14:36 Order name: Labs collected and sent; Complete Time: 14:59 rn 10/10 14:36 Order name: O2 Per Protocol; Complete Time: 14:38 rn 10/10 14:36 Order name: O2 Sat Monitoring; Complete Time: 14:38 rn 10/10 14:36 Order name: Vital Signs; Complete Time: 14:59 rn Administered Medications: 15:29 Drug: NS 0.9% IV 250 ml IV at calculated rate once; to be given as a bolus over 30 ld1 minutes Route: IV; Rate: calculated rate; Site: right antecubital; 15:29 Drug: Ondansetron IVP 4 mg IVP once; over 2 minutes Route: IVP; Site: right antecubital;ld1 16:54 Drug: Acetaminophen PO 650 mg PO once Route: PO; bp Disposition Summary: 10/10/24 17:42 Discharge Ordered Notes: Location: Home rn Problem: new rn Symptoms: have improved rn Condition: Stable rn Diagnosis - Vomiting, unspecified rn - Diarrhea, unspecified rn - Weakness rn - Dehydration rn Followup: rn - With: Private Physician - When: As needed - Reason: Recheck today's complaints, Re-evaluation by your physician Discharge Instructions: - Discharge Summary Sheet rn - Dehydration, Adult rn - Diarrhea, Adult rn - Nausea and Vomiting, Adult rn Forms: - Medication Reconciliation Form rn - Antibiotic rn midwife - Prescription Opioid Use rn - Patient Portal Instructions rn - Leadership Thank You Letter rn Prescriptions: - ondansetron 4 mg Oral Tablet,disintegrating - take 1 tablet ORAL route every 8 hours As needed; 12 tablet; Refills: 0, rn Product Selection Permitted - Augmentin 875-125 mg Oral Tablet - take 1 tablet ORAL route every 12 hours for 10 days; 20 tablet; Refills: 0, rn Product Selection Permitted Signatures: Dispatcher [employer] Meghan Gordon RN RN Yohan Shabazz MD MD rn Peltier, Brian, RN RN Monica Salazar, RN RN ld1
--- NOTE | 2024-10-10 17:43 | ER ---
Nurse's Notes [facility] Name: Yokasta Hill Age: 73 yrs Sex: Female : 1950 Arrival Date: 10/10/2024 Time: 14:12 Bed 4 Private MD: Diagnosis: Vomiting, unspecified;Diarrhea, unspecified;Weakness;Dehydration Presentation: 10/10 14:31 Chief complaint: Patient states: vomiting, diarrhea, lower abd pain X 3 days. iw Coronavirus screen: Client presents with at least one sign or symptom that may indicate coronavirus-19. Ebola Screen: No symptoms or risks identified at this time. Initial Sepsis Screen: Does the patient meet any 2 criteria? HR > 90 bpm. Does the patient have a suspected source of infection? No. Patient's initial sepsis screen is negative. Risk Assessment: Do you want to hurt yourself or someone else? Patient reports no desire to harm self or others. Onset of symptoms was October 07, 2024. 14:31 Method Of Arrival: Wheelchair iw 14:31 Acuity: ROBERTO 3 iw Historical: - Allergies: 14:32 Codeine; iw 14:32 dextromethorphan; iw 14:32 Egg Derived; iw 14:32 Fentanyl; iw 14:32 Sulfa (Sulfonamide Antibiotics); iw 14:32 Sulfasalazine; iw 14:32 Ultram; iw - PMHx: 14:32 Congestive heart failure; Hypertensive disorder; Anemia; Rheumatoid Arthritis; iw - PSHx: 14:32 bilateral knees; Cholecystectomy; Bilateral hips; iw - Immunization history:: Adult Immunizations unknown. - Infectious Disease History:: Denies. - Family history:: not pertinent. - Hospitalizations: : No recent hospitalization is reported. - Social history:: Smoking status: unknown. Screenin:32 [facility] ED Fall Risk Assessment (Adult) History of falling in the last 3 months, bp including since admission No falls in past 3 months (0 pts) Confusion or Disorientation No (0 pts) Intoxicated or Sedated No (0 pts) Impaired Gait No (0 pts) Mobility Assist Device Used No (0 pt) Altered Elimination No (0 pt) Score/Fall Risk Level 0 - 2 = Low Risk Oriented to surroundings. 14:32 Abuse screen: Denies threats or abuse. Denies injuries from another. Nutritional bp screening: No deficits noted. Tuberculosis screening: No symptoms or risk factors identified. Assessment: 14:32 General: Appears in no apparent distress. Behavior is cooperative, appropriate for age, bp anxious. Pain: Denies pain. Neuro: No deficits noted. Cardiovascular: No deficits noted. Respiratory: No deficits noted. GI: Abdomen is non-distended. : No signs and/or symptoms were reported regarding the genitourinary system. EENT: No deficits noted. Derm: No deficits noted. 16:19 Reassessment: Patient appears in no apparent distress at this time. No changes from ld1 previously documented assessment. Patient and/or family updated on plan of care and expected duration. Pain level reassessed. Patient states symptoms have improved. Vital Signs: 14:31 BP 109 / 80; Pulse 110; Resp 19; Temp 97.9; Pulse Ox 97% on R/A; iw ED Course: 14:14 Patient arrived in ED. im 14:14 Yohan Lockett MD is Attending Physician. rn 14:32 Triage completed. iw 14:32 Arm band placed on. bp 14:32 Patient has correct armband on for positive identification. bp 14:50 Kali Mejia, SHERI is Primary Nurse. bp 15:00 Inserted saline lock: 22 gauge in right antecubital area, using aseptic technique. bp Blood collected. Flushed with 10 mL NS. 15:00 Initial lab(s) drawn, by me, sent to lab. First set of blood cultures drawn by me, bp Second set of blood cultures drawn by me. 16:28 CT Abd/Pelvis - IV Contrast Only In Process Unspecified. EDMS 17:56 No provider procedures requiring assistance completed. IV discontinued, intact, ld1 bleeding controlled, No redness/swelling at site. Administered Medications: 15:29 Drug: NS 0.9% IV 250 ml IV at calculated rate once; to be given as a bolus over 30 ld1 minutes Route: IV; Rate: calculated rate; Site: right antecubital; 15:29 Drug: Ondansetron IVP 4 mg IVP once; over 2 minutes Route: IVP; Site: right antecubital;ld1 16:54 Drug: Acetaminophen PO 650 mg PO once Route: PO; bp Medication: 17:59 VIS not applicable for this client. ld1 Outcome: 17:42 Discharge ordered by . rn 17:58 Discharged to home via wheelchair, ld1 17:58 Condition: stable 17:58 Discharge instructions given to patient, family, Instructed on discharge instructions, follow up and referral plans. medication usage, Demonstrated understanding of instructions, follow-up care, medications, Prescriptions given X 2, 18:00 Patient left the ED. ld1 Signatures: Dispatcher [employer] EDMeghan Hackett RN RN iw Yohan Lockett MD MD rn Peltier, Brian, RN RN bp Sims, Lauren, RN RN ld1 Sandy Gaytan Corrections: (The following items were deleted from the chart) 14:31 14:31 BP 109 / 80; Pulse 11bpm; Resp 19bpm; Pulse Ox 97% RA; Temp 97.9F; iw iw
[2024-10-10 18:14] VITALS: BP 109/80; TEMP 97.9; O2SAT 97
--- NOTE | 2024-10-10 22:01 | RAD REPORT ---
EXAMINATION: CT ABDOMEN AND PELVIS WITH CONTRAST CLINICAL INDICATION: abd pain, vomiting, diarrhea TECHNIQUE: CT abdomen and pelvis was performed, after the administration of IV contrast, as per [facility] protocol. Axial, sagittal and coronal reconstructions were obtained. One or more of the following dose reduction techniques were used: Automated exposure control, adjustment of the mA and k V according to patient size, and iterative reconstruction. Unless otherwise specified, incidental findings do not require dedicated imaging follow-up. COMPARISON: No prior exam. FINDINGS: LOWER CHEST: The visualized lung bases are clear. Cardiomegaly with pacer wires present. LIVER: Normal in size and contour. No focal lesion. Cholecystectomy clips. SPLEEN: Normal size. No focal lesion. PANCREAS: No mass, ductal dilation, or bernardo-pancreatic fluid. ADRENALS: Normal; no mass. KIDNEYS: Normal size and contour. No hydronephrosis. GASTROINTESTINAL TRACT: No evidence of free air, significant intra-abdominal free fluid, bowel obstru ction or abscess. APPENDIX: Normal appendix. LYMPH NODES: No lymphadenopathy. MUSCULOSKELETAL: Moderate multilevel degenerative spondylosis. Moderate dextroscoliosis. ADDITIONAL FINDINGS: Mild pelvic free fluid. Small fat-containing ventral hernia. IMPRESSION: No acute abnormalities seen in the abdomen or pelvis. Mild nonspecific pelvic free fluid. Electronically signed by: Charly Seay MD 10/10/2024 04:52 PM CDT Due to temporary technical issues with the [employer] reporting system, reports are being zachary d by the in-house radiologist without review as a courtesy to ensure prompt reporting the interpreting radiologist is fully responsible for the content of the report. Transcribed Date/Time: 10/10/2024 10:01 PM
== END 2024-10-10 18:00 | disposition home or self-care (01) ==
LOC: ER 14:12
DX: E86.0 Dehydration (principal); R19.7 Diarrhea, unspecified; R53.1 Weakness; I10 Essential (primary) hypertension; I50.9 Heart failure, unspecified
CPT/HCPCS: 87040 ×2; 85025; 36415; 85610; 83605; 85730; 80053; 74177; 96375; 96374; 99284; Q9967; J2405; J7030; 93005

== ENCOUNTER 2024-10-13 18:57 | Emergency (ER) | payer OTHER ==
--- OUTSIDE RECORDS SUMMARY | 2024-10-13 19:00 | XMS REPORT | Clinical Summary ---
Author Name Unknown Organization [facility] Address [address] [place] [address] Care Team Providers Care Financial Economist Name Role Phone Xiomara Cardenas MD Primary Care Provider + [phone] Alexus Guerrero MD Unavailable Blossom vailable Alexus [...] [place] [employer] Care Teams Financial Economist Relationship Specialty Start Date End Date Xiomara Cardenas MD [email or web address] PCP - General Gynecologic Medical Oncology 12/22/16 Alexus Guerrero MD PCP - External Referring Obstetrics/Gynecology 12/22/16 Alexus Guerrero MD PCP - Cipriano Shelton Obstetrics/Gynecology 12/22/16
[2024-10-13] MEDS ORDERED: METHYLPREDNISOLONE 40 MG INJ ONE (21:16)
[2024-10-13] MEDS ORDERED: DIPHENHYDRAMINE 50 MG/ML VIAL ONE ×2 (21:16→22:22)
[2024-10-13] MEDS ORDERED: NA CHLORIDE 0.9% 100 ML ONE (21:50)
[2024-10-13] MEDS ORDERED: METOCLOPRAMIDE 10 MG/2mL INJ ONE (21:50)
[2024-10-13 22:15] LABS: Absolute Lymphocytes (CBC) 0.5 K/uL (0.7-4.9); Absolute Monocytes 0.6 K/uL (0.1-1.3); Absolute Neutrophil 12.7 K/uL (1.8-8.0); Eosinophils % 0.1 % (0-4.4); Hematocrit 27.9 % (36.0-45.0); Hemoglobin 9.5 g/dL (12.0-15.0); Lymphocytes % 3.7 % (15.3-44.8); MCH 30.8 pg (27.0-35.0); MCV 90.3 fL (80-100); MPV 10.4 fL (7.6-11.3); Monocytes % 4.5 % (3.3-12.3); Neutrophils % 91.7 % (41.7-73.7); Nucleated Red Blood Cells % 0.1 % (0-0); Platelets 137 thou/uL (152-406); RBC Red Blood Cell Count 3.09 M/uL (3.86-4.86); Red Cell Distribution Width 17.5 % (12.1-15.2)
[2024-10-13] MEDS ORDERED: FAMOTIDINE 20 MG/2 ML VIAL IV ONE (22:22)
[2024-10-13 22:30] LABS: Anion Gap 14.6 mEq/L (5.0-15.0); Magnesium 2.1 mg/dL (1.6-2.4); Potassium 3.6 mEq/L (3.5-5.1)
[2024-10-13 23:25] LABS: Band Neutrophils 47 % (0-1); Differential Total Cells Count 100; Lymphocytes 3 % (15-42); Monocytes 5 % (0-10); Segmented Neutrophils 45 % (40-80)
[2024-10-13 23:27] LABS: Anisocytosis 1+; Blood Morphology Comment NOTED (NOT SEEN); Ovalocytes 2+; Platelet Estimate ADEQ; Platelets, Giant 2/100 WBCs; Polychromasia 1+
[2024-10-14 01:14] LABS: Sqamous Epithelial <5 /HPF (None Seen); Urine Bacteria None Seen /HPF (<20); Urine Bilirubin NEGATIVE (Negative); Urine Blood Negative (Negative); Urine Clarity Extremely Turbid (Clear); Urine Color Yellow (Yellow); Urine Culture Reflex Order NOT NEEDED; Urine Glucose NEGATIVE (Negative); Urine Ketones NEGATIVE (Negative); Urine Microscopic Reflex YN ORDER UMIC; Urine Nitrite NEGATIVE (Negative); Urine Protein TRACE (Negative); Urine RBC None Seen /HPF (None Seen); Urine Urobilinogen 1+ (Normal); Urine pH 5.5 (5.0-7.0)
--- NOTE | 2024-10-14 03:52 | RAD REPORT ---
EXAM: CT Chest, Abdomen and Pelvis With Intravenous Contrast CLINICAL HISTORY: diarrhea; Cough TECHNIQUE: Axial computed tomography images of the chest, abdomen and pelvis with intravenous contrast. Sagitt al and coronal reformatted images were created and reviewed. This CT exam was performed using one or more of the following dose reduction techniques: automated exposure control, adjustment of the m A and/or kV according to patient size, and/or use of iterative reconstruction technique. COMPARISON: CT Chest Abdomen Pelvis dated 06/12/[address] Abdomen Pelvis dated 10/10/2024 FINDINGS: Artifacts: Motion artifact degrades image quality. CHEST: Lungs: Bilateral subsegmental atelectasis/pleural parenchymal scar. No mass. Pleural space: Trace right pleural effusion. No pneumothorax. Heart: The heart is moderately enlarged. Coronary artery calcification. No significant pericardia l effusion. Thyroid: Stable 1.3 cm peripherally calcified right thyroid nodule. ABDOMEN: Liver: Unremarkable. No mass. Gallbladder and bile ducts: There has been a cholecystectomy. No ductal dilation. Pancreas: Unremarkable. No ductal dilation. No mass. Spleen: Unremarkable. No splenomegaly. Adrenals: Unremarkable. No mass. Kidneys and ureters: Normal renal cortical enhancement. No calculi. No hydronephrosis. Stomach and bowel: Proximal large bowel air-fluid levels. No obstruction. Colonic diverticula witho ut adjacent inflammatory change. No mucosal thickening. PELVIS: Appendix: Normal caliber appendix. No findings to suggest acute appendicitis. Bladder: Unremarkable. No mass. Reproductive: Unremarkable as visualized. CHEST, ABDOMEN and PELVIS: Intraperitoneal space: Unremarkable. No significant fluid collection. No free air. Bones/joints: Multilevel spondylosis. Bilateral total hip arthroplasty. No acute fracture. No dis location. Soft tissues: Unremarkable. Vasculature: Mild atherosclerotic disease. No thoracic or abdominal aortic aneurysm. Lymph nodes: Unremarkable. No enlarged lymph nodes. Tubes, lines and devices: Left chest wall triple lead pacer/ICD remains in place. IMPRESSION: 1. Trace right pleural effusion. No focal infiltrate. 2. Nonspecific proximal large bowel air-fluid levels which can be seen in the clinical setting of d iarrhea. Colonic diverticulosis without radiologic evidence for acute diverticulitis. 3. Other findings as above. Electronically signed by: Jhon Malhotra MD 10/14/2024 03:46 AM CDT RP Due to temporary technical issues with the PACS/Powerscribe reporting system, reports are being zachary d by the in-house radiologist without review as a courtesy to ensure prompt reporting the interpreting radiologist is fully responsible for the content of the report. Transcribed Date/Time: 10/14/2024 3:52 AM
--- NOTE | 2024-10-14 04:23 | EDPHYS ---
Physician Documentation [facility] Name: Yokasta Hill Age: 73 yrs Sex: Female : 1950 Arrival Date: 10/13/2024 Time: 18:57 Bed 5 Private MD: ED Physician Parveen Fung HPI: 10/13 19:20 This 73 yrs old Female presents to ER via Wheelchair with complaints of cp Nausea, Allergic Reaction, Facial Swelling. 19:20 The patient presents to the emergency department with nausea, that is moderate. cp 19:20 Onset: The symptoms/episode began/occurred today. Possible causes: antibiotics, cp penicillin, prescribed Zofran. 19:20 Associated signs and symptoms: Pertinent positives: abdominal pain, diarrhea, nausea, cp Pertinent negatives: fever. Son reports noticing rash earlier today to left upper leg that has gone away. Historical: - Allergies: 19:07 Codeine; hb 19:07 dextromethorphan; hb 19:07 Egg Derived; hb 19:07 Fentanyl; hb 19:07 Sulfa (Sulfonamide Antibiotics); hb 19:07 Sulfasalazine; hb 19:07 Ultram; hb - PMHx: 19:07 Anemia; Congestive heart failure; Hypertensive disorder; Rheumatoid Arthritis; hb - PSHx: 19:07 bilateral knees; Cholecystectomy; Bilateral hips; hb - Immunization history:: Adult Immunizations up to date. - Infectious Disease History:: Denies. - Social history:: Smoking status: . ROS: 19:25 Constitutional: Negative for fever, cp 19:25 Cardiovascular: Negative for chest pain, edema, palpitations, cp 19:25 Respiratory: Positive for cough, 19:25 Abdomen/GI: Positive for abdominal pain, nausea, diarrhea, Negative for constipation, active vomiting, 19:25 Skin: Positive for swelling, of the face, right hand and left hand, 19:25 Neuro: Negative for altered mental status, dizziness, headache, 19:25 All other systems are negative, cp 10/14 04:27 Constitutional: Negative for fever, chills, and weight loss, positive for facial sp4 swelling, positive for nausea Exam: 10/13 19:30 Constitutional: The patient appears in no acute distress, alert, awake, cp non-diaphoretic, non-toxic, well developed, well nourished, 19:30 Head/face: Noted is swelling, that is mild, of the right cheek and left cheek, cp 19:30 Eyes: Pupils: equal, round, and reactive to light and accomodation, Extraocular movements: intact throughout, Conjunctiva: normal, no exudate, no injection, Sclera: no appreciated abnormality, Lids and lashes: appear normal, bilaterally, 19:30 ENT: External ear(s): are unremarkable, Nose: is normal, Mouth: Lips: moist, Oral mucosa: moist, Posterior pharynx: Airway: no evidence of obstruction, patent, 19:30 Chest/axilla: Inspection: normal, 19:30 Cardiovascular: Rate: normal, Rhythm: regular, Edema: ankle edema, that is very mild, JVD: is not appreciated, 19:30 Respiratory: the patient does not display signs of respiratory distress, Respirations: normal, no use of accessory muscles, no retractions, labored breathing, is not present, Breath sounds: are clear throughout, no decreased breath sounds, no stridor, no wheezing, 19:30 Abdomen/GI: Inspection: abdomen appears normal, Bowel sounds: active, all quadrants, Palpation: soft, in all quadrants, mild abdominal tenderness, in all quadrants, rebound tenderness, is not appreciated, 19:30 Neuro: Orientation: to person, place \T\ time. Mentation: is normal, 21:33 ECG was reviewed by the Attending Physician. cp 10/14 04:26 Constitutional: Patient is frail elderly female with multiple areas of rheumatoid sp4 arthritic joint deformities.. Moderate to severe physical debility Head/Face: Normocephalic, atraumatic. Eyes: Pupils equal round and reactive to light, extra-ocular motions intact. Lids and lashes normal. Conjunctiva and sclera are not injected. Cornea within normal limits. Periorbital areas with no swelling, redness, or edema. ENT: Nares patent. No nasal discharge, no septal abnormalities noted. Tympanic membranes are normal and external auditory canals are clear. Oropharynx with no redness, swelling, or masses, exudates, or evidence of obstruction, uvula midline. Mucous membranes moist. Neck: Trachea midline, no thyromegaly or masses palpated, and no cervical lymphadenopathy. Supple, full range of motion without nuchal rigidity, or vertebral point tenderness. Chest/axilla: Normal chest wall appearance and motion. Nontender with no deformity. No lesions are appreciated. Cardiovascular: Regular rate and rhythm with a normal S1 and S2. No gallops, murmurs, or rubs. Normal PMI, no JVD. No pulse deficits. Respiratory: Lungs have equal breath sounds bilaterally, clear to auscultation and percussion. No rales, rhonchi or wheezes noted. No increased work of breathing, no retractions or nasal flaring. Abdomen/GI: Soft, with normal bowel sounds. No distension or tympany. No guarding or rebound. No evidence of tenderness throughout. Back: No spinal tenderness. No costovertebral tenderness. Skin: Warm, dry with normal turgor. Normal color with no rashes, no lesions, and no evidence of cellulitis. MS/ Extremity: Pulses equal, no cyanosis. Neurovascular intact. Multiple chronic joint deformities indicative of diffuse rheumatoid arthritis. Neuro: Awake and alert, GCS 15, oriented to person, place, time, and situation. Cranial nerves II-XII grossly intact. Motor strength 5/5 in all extremities. Sensory grossly intact. Psych: Awake, alert, with orientation to person, place and time. Behavior, mood, and affect are within normal limits Vital Signs: 10/13 19:05 BP 101 / 68; Pulse 68; Resp 16; Temp 97.8; Pulse Ox 100% on R/A; hb 23:15 BP 118 / 77; Pulse 66; Resp 15; Pulse Ox 99% on R/A; kd3 /13 00:29 BP 121 / 71; Pulse 69; Resp 18; Pulse Ox 97% on R/A; kd3 02:03 BP 95 / 68; Pulse 97; Resp 17; Temp 97.8; Pulse Ox 95% ; Pain 0/10; bm8 04:55 BP 98 / 71; Pulse 85; Resp 18; Pulse Ox 97% on R/A; jb4 02:03 Pain Scale: Adult bm8 [place] Coma Score: 02:03 Eye Response: spontaneous(4). Motor Response: obeys commands(6). Verbal Response: bm8 oriented(5). Total: 15. 04:26 Eye Response: spontaneous(4). Motor Response: obeys commands(6). Verbal Response: sp4 oriented(5). Total: 15. MDM: 10/13 19:06 Medical Screening Exam initiated cp 10/14 02:20 Transition of care: After a detail discussion of the patient's case, care is cp transferred to Parveen Fung MD. 04:12 ED course: COMPARISON: CT Chest Abdomen Pelvis dated 06/12/2024 and CTAbdomen Pelvis sp4 dated 10/10/2024 FINDINGS: Artifacts: Motion artifact degrades image quality. CHEST: Lungs: Bilateral subsegmental atelectasis/pleural parenchymal scar. No mass. Pleural space: Trace right pleural effusion. No pneumothorax. Heart: The heart is moderately enlarged. Coronary artery calcification. No significant pericardial effusion. Thyroid: Stable 1.3 cm peripherally calcified right thyroid nodule. ABDOMEN: Liver: Unremarkable. No mass. Gallbladder and bile ducts: There has been a cholecystectomy. No ductal dilation. Pancreas: Unremarkable. No ductal dilation. No mass. Spleen: Unremarkable. No splenomegaly. Adrenals: Unremarkable. No mass. Kidneys and ureters: Normal renal cortical enhancement. No calculi. No hydronephrosis. Stomach and bowel: Proximal large bowel air-fluid levels. No obstruction. Colonic diverticula without adjacent inflammatory change. No mucosal thickening. PELVIS: Appendix: Normal caliber appendix. No findings to suggest acute appendicitis. Bladder: Unremarkable. No mass. Reproductive: Unremarkable as visualized. CHEST, ABDOMEN and PELVIS: Intraperitoneal space: Unremarkable. No significant fluid collection. No free air. Bones/joints: Multilevel spondylosis. Bilateral total hip arthroplasty. No acute fracture. No dislocation. Soft tissues: Unremarkable. Vasculature: Mild atherosclerotic disease. No thoracic or abdominal aortic aneurysm. Lymph nodes: Unremarkable. No enlarged lymph nodes. Tubes, lines and devices: Left chest wall triple lead pacer/ICD remains in place. IMPRESSION: 1. Trace right pleural effusion. No focal infiltrate. 2. Nonspecific proximal large bowel air-fluid levels which can be seen in the clinical setting of diarrhea. Colonic diverticulosis without radiologic evidence for acute diverticulitis. . 04:25 Differential diagnosis: Nonspecific abd pain, gastritis, diverticulitis, viral sp4 gastroenteritis, gastroenteritis. Data reviewed: vital signs, nurses notes, lab test result(s), radiologic studies, CT scan. Consideration of Admission/Observation Escalation of care including admission/observation considered. ED course: CT revealed - IMPRESSION: 1. Trace right pleural effusion. No focal infiltrate. 2. Nonspecific proximal large bowel air-fluid levels which can be seen in the clinical setting of diarrhea. Colonic diverticulosis without radiologic evidence for acute diverticulitis. 3. Other findings as above. . ED course: CT findings non worrisome. Patient advised to discontinue Augmentin. Advised to continue ondansetron as needed.. 10/13 19:15 Order name: Basic Metabolic Panel; Complete Time: 23:07 cp / 23:07 Interpretation: Normal except: NA 128; CL 96; BUN 27; CRE 1.24; GFR 47; CA 8.3. cp 10/13 19:15 Order name: CBC with Diff; Complete Time: 23:46 cp 10/13 23:07 Interpretation: Normal except: WBC 13.80; RBC 3.09; HGB 9.5; HCT 27.9; PLT 137; RDW cp 17.5; CHEN% 91.7; LYM% 3.7; NEUT A 12.7; LYMA 0.5. 05 19:15 Order name: Magnesium; Complete Time: 23:07 cp 10/13 19:15 Order name: NT PRO-BNP; Complete Time: 23:07 cp 10/13 22:32 Order name: Manual Differential; Complete Time: 23:46 EDMS 10/13 23:46 Interpretation: Normal except: BANDS [F] 47. cp 10/13 23:57 Order name: UA Rfx Brian Cult if indicated; Complete Time: 01:16 cp 10/14 01:16 Interpretation: Normal except: [facility] Extremely Turbid; UPROT TRACE; UUROB 1+; UESTR 25. cp 10/13 23:57 Order name: XRAY Chest (1 view) cp 10/13 23:58 Order name: CT Chest, Abdomen, Pelvis - W/Contrast; Complete Time: 04:11 cp 10/13 19:15 Order name: Cardiac monitoring; Complete Time: 21:35 cp 10/13 19:15 Order name: EKG - Nurse/Tech; Complete Time: 21:35 cp 10/13 19:15 Order name: IV Saline Lock; Complete Time: 21:59 cp 10/13 19:15 Order name: Labs collected and sent; Complete Time: 21:59 cp 10/13 19:15 Order name: O2 Per Protocol; Complete Time: 21:35 cp 10/13 19:15 Order name: O2 Sat Monitoring; Complete Time: 21:35 cp EC 21:33 Rate is 90 beats/min. Rhythm is regular, Paced. HI interval is normal. QRS interval is cp prolonged at 134 msec. QT interval is normal. Interpreted by me. Reviewed by me. Administered Medications: 21:59 Drug: diphenhydrAMINE IVP 25 mg IVP once Route: IVP; Site: right antecubital; kd3 21:59 Drug: MethylPrednisoLONE IVP 80 mg IVP once Route: IVP; Site: right antecubital; kd3 21:59 Drug: metoCLOPramide IVP 10 mg IVP once; over 1 to 2 minutes Route: IVP; Site: right kd3 antecubital; 22:27 Drug: diphenhydrAMINE IVP 25 mg IVP once Route: IVP; Site: right antecubital; kd3 22:27 Drug: Famotidine IVP 20 mg IVP once; dilute with 10 mL 0.9% NaCl; give over 2 minutes kd3 Route: IVP; Site: right antecubital; Disposition: 10/14 04:21 Co-signature as Attending Physician, Parveen Fung MD I agree with the assessment sp4 and plan of care. I reviewed the patient's care provided by Advanced Practice Provider \T\ agree w/ the diagnosis \T\ care plan. I personally saw the pt \T\ performed a substantive portion of the visit, incldng all aspects of the (History/Exam/Medical Decision Making). Disposition Summary: 10/14/24 04:23 Discharge Ordered Problem: new sp4 Symptoms: have improved sp4 Condition: Stable sp4 Diagnosis - Acute Nausea , Actue Facial Swelling, Acute Reaction to Amoxicillin sp4 Followup: sp4 - With: Private Physician - When: 7 - 10 days - Reason: Recheck today's complaints Discharge Instructions: - Discharge Summary Sheet sp4 - Viral Gastroenteritis, Adult, [id number] sp4 Forms: - Patient Portal Instructions sp4 Signatures: Dispatcher [employer] EDThaddeus Larose PA PA cp Baxter, Heather, RN RN hb Doucette, Kyli, RN RN kd3 Parveen Fung MD MD sp4 Corrections: (The following items were deleted from the chart) 10/13 19:15 19:15 BASIC METABOLIC PANEL+C.LAB.BRZ ordered. EDMS EDMS 19:15 19:15 CBC+H.LAB.BRZ ordered. EDMS EDMS 19:15 19:15 MAGNESIUM+C.LAB.BRZ ordered. EDMS EDMS 19:15 19:15 PROBNP+C.LAB.BRZ ordered. EDMS EDMS
--- NOTE | 2024-10-14 04:23 | ER ---
Nurse's Notes [facility] Name: Yokasta Hill Age: 73 yrs Sex: Female : 1950 Arrival Date: 10/13/2024 Time: 18:57 Bed 5 Private MD: Diagnosis: Acute Nausea , Actue Facial Swelling, Acute Reaction to Amoxicillin Presentation: 10/13 19:05 Chief complaint: Facial redness, and swelling of face and hands that started Sunday. hb Concerned it is from the Acumentin she started Sunday for N/V?D which persists today. Coronavirus screen: At this time, the client does not indicate any symptoms associated with coronavirus-19. Ebola Screen: No symptoms or risks identified at this time. Initial Sepsis Screen: Does the patient meet any 2 criteria? No. Patient's initial sepsis screen is negative. Does the patient have a suspected source of infection? No. Patient's initial sepsis screen is negative. Risk Assessment: Do you want to hurt yourself or someone else? Patient reports no desire to harm self or others. Onset of symptoms was October 11, 2024. 19:05 Method Of Arrival: Wheelchair hb 19:05 Acuity: ROBERTO 3 hb Triage Assessment: 10/14 04:56 GI: Reports. jb4 Historical: - Allergies: 10/13 19:07 Codeine; hb 19:07 dextromethorphan; hb 19:07 Egg Derived; hb 19:07 Fentanyl; hb 19:07 Sulfa (Sulfonamide Antibiotics); hb 19:07 Sulfasalazine; hb 19:07 Ultram; hb - PMHx: 19:07 Anemia; Congestive heart failure; Hypertensive disorder; Rheumatoid Arthritis; hb - PSHx: 19:07 bilateral knees; Cholecystectomy; Bilateral hips; hb - Immunization history:: Adult Immunizations up to date. - Infectious Disease History:: Denies. - Social history:: Smoking status: . Screenin/13 00:28 [facility] ED Fall Risk Assessment (Adult) History of falling in the last 3 months, kd3 including since admission No falls in past 3 months (0 pts) Confusion or Disorientation No (0 pts) Intoxicated or Sedated No (0 pts) Impaired Gait Yes (1 pt) Mobility Assist Device Used Yes (1 pt) Altered Elimination No (0 pt) Score/Fall Risk Level 0 - 2 = Low Risk Oriented to surroundings. Abuse screen: Denies threats or abuse. Denies injuries from another. 02:03 Nutritional screening: No deficits noted. Tuberculosis screening: No symptoms or risk bm8 factors identified. Assessment: 10/13 21:30 General: Appears in no apparent distress. Behavior is calm, cooperative. Pain: Denies kd3 pain. Neuro: Level of Consciousness is awake, alert, obeys commands, Oriented to person, place, time, situation. Cardiovascular: Patient's skin is warm and dry. Respiratory: Airway is patent Trachea midline Respiratory effort is even, unlabored, Respiratory pattern is regular, symmetrical. GI: Abdomen is non-distended. 10/14 00:28 Reassessment: Patient and/or family updated on plan of care and expected duration. Pain kd3 level reassessed. Patient is alert, oriented x 3, equal unlabored respirations, skin warm/dry/pink. 02:01 Reassessment: pt's pur wic became displaced and pt urinated on bed. Sheets were removed bm8 mattress cleaned, new linen added. New purwic and diaper put in place. and new fresh warm blanets provided. Vital Signs: 10/13 19:05 BP 101 / 68; Pulse 68; Resp 16; Temp 97.8; Pulse Ox 100% on R/A; hb 23:15 BP 118 / 77; Pulse 66; Resp 15; Pulse Ox 99% on R/A; kd3 10/14 00:29 BP 121 / 71; Pulse 69; Resp 18; Pulse Ox 97% on R/A; kd3 02:03 BP 95 / 68; Pulse 97; Resp 17; Temp 97.8; Pulse Ox 95% ; Pain 0/10; bm8 04:55 BP 98 / 71; Pulse 85; Resp 18; Pulse Ox 97% on R/A; jb4 02:03 Pain Scale: Adult bm8 [place] Coma Score: 02:03 Eye Response: spontaneous(4). Motor Response: obeys commands(6). Verbal Response: bm8 oriented(5). Total: 15. 04:26 Eye Response: spontaneous(4). Motor Response: obeys commands(6). Verbal Response: sp4 oriented(5). Total: 15. ED Course: 10/13 18:59 Patient arrived in ED. im 19:06 Thaddeus Green [facility]. cp 19:06 Kellie Turcios MD is Attending Physician. cp 19:07 Triage completed. hb 19:10 Arm band placed on. hb 21:13 Charlene Lucas, SHERI is Primary Nurse. kd3 21:59 Basic Metabolic Panel Sent. kd3 21:59 CBC with Diff Sent. kd3 21:59 Magnesium Sent. kd3 21:59 NT PRO-BNP Sent. kd3 21:59 Inserted saline lock: 22 gauge in right antecubital area, using aseptic technique. kd3 Blood collected. Flushed with 10 mL NS. 23:56 Parveen Fung MD is Attending Physician. cp 10/14 00:40 UA Rfx Brian Cult if indicated Sent. kd3 00:48 XRAY Chest (1 view) In Process Unspecified. EDMS 01:01 CT Chest, Abdomen, Pelvis - W/Contrast In Process Unspecified. EDMS 02:03 Patient has correct armband on for positive identification. Placed in gown. Bed in low bm8 position. Call light in reach. Side rails up X2. Adult w/ patient. Client placed on continuous cardiac and pulse oximetry monitoring. NIBP monitoring applied. residential monitor on. Pulse ox on. NIBP on. Door closed. Noise minimized. Warm blanket given. Pillow given. Verbal reassurance given. Head of bed elevated. 02:03 No provider procedures requiring assistance completed. Patient maintains SpO2 bm8 saturation greater than 95% on room air. 04:56 IV discontinued, intact, bleeding controlled, No redness/swelling at site. Pressure jb4 dressing applied. Administered Medications: 10/13 21:59 Drug: diphenhydrAMINE IVP 25 mg IVP once Route: IVP; Site: right antecubital; kd3 21:59 Drug: MethylPrednisoLONE IVP 80 mg IVP once Route: IVP; Site: right antecubital; kd3 21:59 Drug: metoCLOPramide IVP 10 mg IVP once; over 1 to 2 minutes Route: IVP; Site: right kd3 antecubital; 22:27 Drug: diphenhydrAMINE IVP 25 mg IVP once Route: IVP; Site: right antecubital; kd3 22:27 Drug: Famotidine IVP 20 mg IVP once; dilute with 10 mL 0.9% NaCl; give over 2 minutes kd3 Route: IVP; Site: right antecubital; Medication: 10/14 02:03 VIS not applicable for this client. bm8 Outcome: 04:23 Discharge ordered by . mary 04:56 Discharged to home via wheelchair, with family, oscar 04:56 Condition: stable 04:56 Discharge instructions given to patient, Instructed on discharge instructions, follow up and referral plans. medication usage, 04:58 Patient left the ED. jb4 Signatures: Dispatcher [employer] EDMS Thaddeus Green PA PA cp Baxter, Heather, RN RN hb Marcelo Rodriguez, RN RN jb4 Charlene Lucas, RN RN kd3 Parveen Fung MD MD sp4 Sandy Gaytan Brad, RN RN bm8 Corrections: (The following items were deleted from the chart) 10/13 19:10 19:05 Chief complaint: Facial redness, and swelling of face and hands that started hb Sunday. Concerned it is from the Acumentin she started Sunday. hb 19:10 19:05 Acuity: ROBERTO 4 hb hb
[2024-10-14 05:06] VITALS: TEMP 97.8
[2024-10-14 05:11] VITALS: BP 98/71; O2SAT 97
--- NOTE | 2024-10-14 06:11 | RAD REPORT ---
EXAM: XR Chest, 1 View CLINICAL HISTORY: The patient is 73 years old and is Female; COUGH TECHNIQUE: Frontal view of the chest. COMPARISON: No relevant prior studies available. FINDINGS: Lungs: Mildly prominent interstitial markings. No consolidation. Pleural space: Unremarkable. No pneumothorax. Heart: Unremarkable. Mediastinum: Unremarkable. Normal mediastinal contour. Bones/joints: No acute findings. Tubes, lines and devices: Left-sided pacemaker. IMPRESSION: Mildly prominent interstitial markings. No consolidation. Electronically signed by: Davis Martínez MD 10/14/2024 01:48 AM CDT 8 Due to temporary technical issues with the PACS/GoWorkaBit reporting system, reports are being zachary d by the in-house radiologist without review as a courtesy to ensure prompt reporting the interpreting radiologist is fully responsible for the content of the report. Transcribed Date/Time: 10/14/2024 6:11 AM
--- NOTE | 2024-10-15 12:23 | EKG ---
Test Date: 2024-10-13 Test Time: 21:25:07 Board Operator: GUY MEASUREMENT RESULTS: Intervals: Rate: 90 KS: 152 QRSD: 134 QT: 402 QTc: 491 [place]: P: 61 KS: 152 QRS: -5 T: 216 INTERPRETIVE STATEMENTS: Atrial-sensed ventricular-paced rhythm Abnormal ECG Compared to ECG 10/10/2024 15:23:22 No significant changes Electronically Signed On 10-15-24 12:20:58 CDT by Tarun Menjivar
== END 2024-10-14 04:58 | disposition home or self-care (01) ==
LOC: ER 18:57
DX: R11.0 Nausea (principal); R22.0 Localized swelling, mass and lump, head; Z88.1 Allergy status to other antibiotic agents; R19.7 Diarrhea, unspecified; R10.9 Unspecified abdominal pain
CPT/HCPCS: 93005; 85025; 81001; 80048; 36415; 83735; 83880; 71260; 74177; 71045; Q9967; J2765; J1200 ×2; J2919

== ENCOUNTER 2024-10-21 14:48 | Emergency (ER) | payer OTHER ==
--- OUTSIDE RECORDS SUMMARY | 2024-10-21 14:51 | XMS REPORT | Clinical Summary ---
Author Name Unknown Organization [facility] Address [address] [place] [address] Care Team Providers Care Serials Librarian Name Role Phone Xiomara Cardenas MD Primary Care Provider + [phone] Alexus Guerrero MD Unavailable Blossom vailable Alexus [...] [place] [employer] Care Teams Serials Librarian Relationship Specialty Start Date End Date Xiomara Cardenas MD [email or web address] PCP - General Gynecologic Medical Oncology 12/22/16 Alexus Guerrero MD PCP - External Referring Obstetrics/Gynecology 12/22/16 Alexus Guerrero MD PCP - Cipriano Shelton Obstetrics/Gynecology 12/22/16
[2024-10-21] MEDS ORDERED: NA CHLORIDE 0.9% 1,000 ML ONE (17:11)
[2024-10-21 17:19] LABS: PT Prothrombin Time 13.3 SECONDS (10-13.0); Protime INR 1.18
[2024-10-21 17:45] LABS: Absolute Lymphocytes (CBC) 1.1 K/uL (0.7-4.9); Absolute Monocytes 0.5 K/uL (0.1-1.3); Absolute Neutrophil 10.1 K/uL (1.8-8.0); Basophils % 0.3 % (0-1.3); Eosinophils % 0.1 % (0-4.4); Hematocrit 28.4 % (36.0-45.0); Hemoglobin 9.7 g/dL (12.0-15.0); Lymphocytes % 9.3 % (15.3-44.8); MCH 30.3 pg (27.0-35.0); MCHC 34.1 g/dL (32.0-36.0); MPV 10.1 fL (7.6-11.3); Monocytes % 4.6 % (3.3-12.3); Neutrophils % 85.7 % (41.7-73.7); Nucleated Red Blood Cells % 0.3 % (0-0); Platelets 145 thou/uL (152-406); RBC Red Blood Cell Count 3.19 M/uL (3.86-4.86); Red Cell Distribution Width 18.2 % (12.1-15.2)
[2024-10-21 18:08] LABS: Albumin 2.7 g/dL (3.4-5.0); Albumin/Globulin Ratio 0.8 (1.1-1.8); Anion Gap 11.7 mEq/L (5.0-15.0); Bilirubin Total 1.7 mg/dL (0.2-1.0); Globulin 3.6 g/dL (2.3-3.5); Potassium 3.7 mEq/L (3.5-5.1); Protein, Total 6.3 g/dL (6.4-8.2)
[2024-10-21 18:17] LABS: Troponin High Sensitivity 94.7 pg/mL (<58.9)
--- NOTE | 2024-10-21 18:19 | RAD REPORT ---
EXAMINATION: ONE VIEW CHEST XR CLINICAL INDICATION: Female, 73 years old.,MALAISE TECHNIQUE: Frontal chest projection is submitted. Examination is limited by patient positioning and t echnique. COMPARISON: 10/14/2024 FINDINGS: The lungs are well inflated. Stable central vascular prominence. Peripheral right mild hazy opacity i s new. No pneumothorax or sizable effusion. Stable cardiomegaly. Mediastinal contours are unchanged with left chest wall pacer in place.. IMPRESSION: Peripheral mild right hazy opacity, may relate to atelectasis or mild focal airspace disease. Stable cardiomegaly and probable mild central venous congestion.
--- NOTE | 2024-10-21 18:42 | ER ---
Nurse's Notes [facility] Name: Yokasta Hill Age: 73 yrs Sex: Female : 1950 Arrival Date: 10/21/2024 Time: 14:48 Bed 16 Private MD: Diagnosis: Rash and other nonspecific skin eruption;Heart failure, unspecified;Transaminitis;Acute Kidney Injury;Anemia, unspecified;Erythema nodosum;No acute oral ulcers, Presentation: 10/21 15:12 Chief complaint: Patient states: STATES WANTS TO BE RE-EVALUATED AFTER SEEN FOR db ALLERGIC REACTION TO AMOXICILLIN. STATES WAS SEEN ON 10/13 GIVEN NYSTATIN FOR THRUSH AND STEROID. WANTS TO BE SEEN BECAUSE HAS SOME FACIAL SWELLING AND BILATERAL LEG WOUND AND RASH FROM REACTION. HAS NOT FINISHED MEDICATION. Coronavirus screen: Client denies travel out of the [place] in the last 14 days. At this time, the client does not indicate any symptoms associated with coronavirus-19. Ebola Screen: Patient negative for fever greater than or equal to 101.5 degrees Fahrenheit, and additional compatible Ebola Virus Disease symptoms Patient denies exposure to infectious person. Patient denies travel to an Ebola-affected area in the 21 days before illness onset. No symptoms or risks identified at this time. Initial Sepsis Screen: Does the patient meet any 2 criteria? No. Patient's initial sepsis screen is negative. Does the patient have a suspected source of infection? No. Patient's initial sepsis screen is negative. Risk Assessment: Do you want to hurt yourself or someone else? Patient reports no desire to harm self or others. Onset of symptoms was October 21, 2024. 15:12 Method Of Arrival: Wheelchair db 15:12 Acuity: ROBERTO 3 db Triage Assessment: 15:17 Pain: Complains of pain in tongue. Pain: Complains of pain in right leg and left leg. db Neuro: Level of Consciousness is awake, alert, obeys commands, Oriented to person, place, time, situation. Respiratory: Airway is patent Respiratory effort is even, unlabored, Respiratory pattern is regular, symmetrical. GI: Reports diarrhea, nausea. 17:40 General: Appears in no apparent distress. kj2 Historical: - Allergies: 15:17 Codeine; db 15:17 dextromethorphan; db 15:17 Fentanyl; db 15:17 Egg Derived; db 15:17 Sulfa (Sulfonamide Antibiotics); db 15:17 Sulfasalazine; db 15:17 Ultram; db - PMHx: 15:17 Congestive heart failure; Anemia; Hypertensive disorder; Rheumatoid Arthritis; db - PSHx: 15:17 bilateral knees; Bilateral hips; Cholecystectomy; db - Immunization history:: Adult Immunizations unknown. - Infectious Disease History:: Denies. - Social history:: Smoking status: Patient denies any tobacco usage or history of. Screenin:00 [facility] ED Fall Risk Assessment (Adult) History of falling in the last 3 months, kj2 including since admission No falls in past 3 months (0 pts) Confusion or Disorientation No (0 pts) Intoxicated or Sedated No (0 pts) Impaired Gait Yes (1 pt) Mobility Assist Device Used Yes (1 pt) Altered Elimination No (0 pt) Score/Fall Risk Level 0 - 2 = Low Risk Maintained a safe environment, Hourly rounding (assess needs \T\ fall precautionary measures) done. Abuse screen: Denies threats or abuse. Denies injuries from another. Nutritional screening: No deficits noted. Tuberculosis screening: No symptoms or risk factors identified. Assessment: 16:00 General: Behavior is calm, cooperative. Pain: Complains of pain in left leg and right kj2 leg and mouth. Neuro: Level of Consciousness is awake, alert, obeys commands, Oriented to person, place, time, situation. Cardiovascular: Patient's skin is warm and dry. Respiratory: Airway is patent Respiratory effort is unlabored. GI: No signs and/or symptoms were reported involving the gastrointestinal system. GI: Reports nausea. : No signs and/or symptoms were reported regarding the genitourinary system. 17:00 Reassessment: Patient appears in no apparent distress at this time. Patient and/or kj2 family updated on plan of care and expected duration. Pain level reassessed. Patient is alert, oriented x 3, equal unlabored respirations, skin warm/dry/pink. 17:31 Reassessment: Patient appears in no apparent distress at this time. Patient and/or kj2 family updated on plan of care and expected duration. Pain level reassessed. Patient is alert, oriented x 3, equal unlabored respirations, skin warm/dry/pink. 18:37 Reassessment: Patient appears in no apparent distress at this time. Patient and/or kj2 family updated on plan of care and expected duration. Pain level reassessed. Patient is alert, oriented x 3, equal unlabored respirations, skin warm/dry/pink. 19:35 Reassessment: Patient appears in no apparent distress at this time. Patient and/or kj2 family updated on plan of care and expected duration. Pain level reassessed. Patient is alert, oriented x 3, equal unlabored respirations, skin warm/dry/pink. 20:35 Reassessment: Patient appears in no apparent distress at this time. Patient and/or kj2 family updated on plan of care and expected duration. Pain level reassessed. Patient is alert, oriented x 3, equal unlabored respirations, skin warm/dry/pink. 21:35 Reassessment: Patient appears in no apparent distress at this time. Patient and/or kj2 family updated on plan of care and expected duration. Pain level reassessed. Patient is alert, oriented x 3, equal unlabored respirations, skin warm/dry/pink. 22:30 Reassessment: EMS arrived to transport to [facility]. kj2 Vital Signs: 15:12 BP 123 / 77; Pulse 111; Resp 14; Temp 98.5; Pulse Ox 94% ; Weight 64.86 kg; Height 5 db ft. 7 in. ; 17:24 BP 111 / 78; Pulse 98; Resp 20; Pulse Ox 98% ; kj2 18:37 BP 118 / 79; Pulse 80; Resp 18; Pulse Ox 100% on R/A; kj2 19:35 BP 108 / 76; Pulse 70; Resp 20; Pulse Ox 100% ; kj2 20:35 BP 113 / 77; Pulse 68; Resp 20; Pulse Ox 100% on R/A; kj2 21:35 BP 107 / 77; Pulse 66; Resp 20; Pulse Ox 100% on R/A; kj2 15:12 Body Mass Index 22.40 (64.86 kg, 170.18 cm) db ED Course: 14:52 Patient arrived in ED. mr 15:01 Kellie Turcios MD is Attending Physician. sp3 15:17 Triage completed. db 15:17 Arm band placed on. db 15:34 Chest Single View XRAY In Process Unspecified. EDMS 15:49 Toshia Rowland, SHERI is Primary Nurse. kj2 16:00 Patient has correct armband on for positive identification. Provided Education on: call kj2 light. 16:00 No provider procedures requiring assistance completed. kj2 17:08 Inserted saline lock: 22 gauge in left antecubital area, using aseptic technique. Blood ss collected. Flushed with 10 mL NS. 18:08 Attending Physician role handed off by Kellie Turcios MD ms3 18:08 Luis Miguel Dennis DO is Attending Physician. ms3 19:28 initiated transfer with BS. vk 19:31 No answer with BSL. vk 20:08 Attending Physician role handed off by Luis iMguel Dennis DO sp4 20:08 Parveen Fung MD is Attending Physician. sp4 20:20 doc to doc consult. vk 20:36 Patient was accepted to [facility] to sarah Basilio \T\2025 to 1219 accepting admin amado Harmony Jeffrey \T\2030 Report number [id number]. 22:06 initiated transport with [facility] out advertising production manager as well as transport. vk 22:58 Patient transferred, IV remains in place. kj2 Administered Medications: 17:22 Drug: NS 0.9% IV 1000 ml IV at 1 bolus Per protocol; to be given as a bolus over 60 kj2 minutes Route: IV; Rate: 1 bolus; Site: left antecubital; 22:59 Follow up: IV Status: Completed infusion; IV Intake: 1000ml kj2 21:05 Drug: Furosemide IVP 40 mg IVP once; give over 2 minutes Route: IVP; Site: left kj2 antecubital; 22:58 Follow up: Response: No adverse reaction kj2 21:05 Not Given (Patient Refused): [id number] grams 100 ml IVPB once; (Note: Albumin 25% kj2 concentration) 21:05 Drug: Acetaminophen PO 1000 mg PO once Route: PO; kj2 22:58 Follow up: Response: No adverse reaction kj2 Medication: 22:58 VIS not applicable for this client. kj2 Intake: 22:59 IV: 1000ml; Total: 1000ml. kj2 Outcome: 18:42 ER care complete, transfer ordered by . ms3 22:58 Transferred by ground EMS to [facility] kj2 22:58 Condition: stable 22:58 Instructed on the need for transfer, 22:59 Patient left the ED. kj2 Signatures: Dispatcher [employer] EDMS Lashaun Rojo, Reg Reg mr Ramona Suárez, RN RN ss Luis Miguel Dennis, DO FLORES ms3 Kellie Turcios MD MD sp3 Danna Whitman, SHERI RN db Parveen Fung MD MD sp4 Leslie Valentin Krystal, RN RN kj2
--- NOTE | 2024-10-21 18:42 | EDPHYS ---
Physician Documentation [facility] Name: Yokasta Hill Age: 73 yrs Sex: Female : 1950 Arrival Date: 10/21/2024 Time: 14:48 Bed 16 Private MD: ED Physician Parveen Fung HPI: 10/21 17:14 This 73 yrs old Female presents to ER via Wheelchair with complaints of sp3 Nausea, Rash, Leg Pain. 17:14 73-year-old female with history of CHF, anemia, hypertension, rheumatoid sp3 arthritis, now presents with mild difficulty breathing, lower extremity rash and facial swelling. Patient initially was seen on October 10, 11 days ago here in the ED and received p.o. Augmentin for diarrhea and GI pathology. Subsequent to that patient had allergic reaction with facial swelling and rash developing on her bilateral lower extremities. Patient saw PCP for that and was concerned about Richard-Kb syndrome. Patient has had 2 steroid injections Solu-Medrol intramuscularly once in the ED here on a subsequent visit and once at her PCP office. Today family brings patient in for continued facial swelling worsening lower extremity rash which has now extended up to the pelvis. PCP said if the rash increase up to the abdomen, patient will likely need to be admitted. Patient denies any fever, chest pain, abdominal pain, vomiting, diarrhea, bleeding, melena, syncope or any other signs or symptoms on ROS at this time.. Historical: - Allergies: 15:17 Codeine; db 15:17 dextromethorphan; db 15:17 Fentanyl; db 15:17 Egg Derived; db 15:17 Sulfa (Sulfonamide Antibiotics); db 15:17 Sulfasalazine; db 15:17 Ultram; db - PMHx: 15:17 Congestive heart failure; Anemia; Hypertensive disorder; Rheumatoid Arthritis; db - PSHx: 15:17 bilateral knees; Bilateral hips; Cholecystectomy; db - Immunization history:: Adult Immunizations unknown. - Infectious Disease History:: Denies. - Social history:: Smoking status: Patient denies any tobacco usage or history of. ROS: 17:21 Eyes: Negative for injury, pain, redness, and discharge, Neck: Negative for injury, sp3 pain, and swelling, Respiratory: Negative for shortness of breath, cough, wheezing, and pleuritic chest pain, Abdomen/GI: Negative for abdominal pain, nausea, vomiting, diarrhea, and constipation, Back: Negative for injury and pain, MS/Extremity: Negative for injury and deformity, Neuro: Negative for headache, weakness, numbness, tingling, and seizure, Psych: Negative for depression, anxiety, suicide ideation, homicidal ideation, and hallucinations, Allergy/Immunology: Negative for hives, rash, and allergies, Endocrine: Negative for neck swelling, polydipsia, polyuria, polyphagia, and marked weight changes, 17:21 All other systems are negative, Exam: 17:23 Constitutional: This is a well developed, well nourished patient who is awake, alert, sp3 and in no acute distress. ENT: Nares patent. No nasal discharge, no septal abnormalities noted. External auditory canals are clear. Oropharynx with no redness, swelling, or masses, exudates, or evidence of obstruction, uvula midline. Mucous membranes moist. Neck: Trachea midline, no thyromegaly or masses palpated, and no cervical lymphadenopathy. Supple, full range of motion without nuchal rigidity, or vertebral point tenderness. No Meningismus. Chest/axilla: Normal chest wall appearance and motion. Nontender with no deformity. No lesions are appreciated. Respiratory: Lungs have equal breath sounds bilaterally, clear to auscultation and percussion. No rales, rhonchi or wheezes noted. No increased work of breathing, no retractions or nasal flaring. Abdomen/GI: Soft, non-tender, with normal bowel sounds. No distension or tympany. No guarding or rebound. No evidence of tenderness throughout. Back: No spinal tenderness. No costovertebral tenderness. Full range of motion. Neuro: Awake and alert, GCS 15, oriented to person, place, time, and situation. Cranial nerves II-XII grossly intact. Motor strength 5/5 in all extremities. Sensory grossly intact. Cerebellar exam normal. Normal gait. Psych: Awake, alert, with orientation to person, place and time. Behavior, mood, and affect are within normal limits. 17:26 Head/face: Mild edema noted on the face without any laterality. Patient also has sp3 thrush in her mouth which is being treated with nystatin by PCP. No oral involvement of nonthrush lesions. 17:26 Skin: Bilateral purpuric lesions in various stages of healing with some erythema. Small amount of blistering noted. Rash has been there for greater than 1 week and is slowly ascending.. Vital Signs: 15:12 BP 123 / 77; Pulse 111; Resp 14; Temp 98.5; Pulse Ox 94% ; Weight 64.86 kg; Height 5 db ft. 7 in. ; 17:24 BP 111 / 78; Pulse 98; Resp 20; Pulse Ox 98% ; kj2 18:37 BP 118 / 79; Pulse 80; Resp 18; Pulse Ox 100% on R/A; kj2 19:35 BP 108 / 76; Pulse 70; Resp 20; Pulse Ox 100% ; kj2 20:35 BP 113 / 77; Pulse 68; Resp 20; Pulse Ox 100% on R/A; kj2 21:35 BP 107 / 77; Pulse 66; Resp 20; Pulse Ox 100% on R/A; kj2 15:12 Body Mass Index 22.40 (64.86 kg, 170.18 cm) db MDM: 15:19 Medical Screening Exam initiated sp3 17:28 Data reviewed: vital signs, nurses notes, old medical records, lab test result(s), EKG, sp3 radiologic studies. ED course: 73-year-old female with generalized weakness, shortness of breath and ascending rash. Differential diagnosis includes Richard-Kb syndrome, allergic reaction, other metabolic syndrome, cellulitis, autoimmune disease, among others. Workup will include full sepsis workup, general labs, chest x-ray, EKG and potential intervention with steroids once data is reviewed. Patient will likely need to be transferred for dermatology another consultations.. 20:39 Differential diagnosis: Nonspecific abd pain, gastritis, viral gastroenteritis, sp4 gastroenteritis. ED course: CT report from 10/14/2024 - CT Chest, Abdomen and Pelvis With Intravenous Contrast CLINICAL HISTORY: diarrhea; Cough TECHNIQUE: Axial computed tomography images of the chest, abdomen and pelvis with intravenous contrast. Sagittal and coronal reformatted images were created and reviewed. This CT exam was performed using one or more of the following dose reduction techniques: automated exposure control, adjustment of the mA and/or kV according to patient size, and/or use of iterative reconstruction technique. COMPARISON: CT Chest Abdomen Pelvis dated 06/12/[address] Abdomen Pelvis dated 10/10/2024 FINDINGS: Artifacts: Motion artifact degrades image quality. CHEST: Lungs: Bilateral subsegmental atelectasis/pleural parenchymal scar. No mass. Pleural space: Trace right pleural effusion. No pneumothorax. Heart: The heart is moderately enlarged. Coronary artery calcification. No significant pericardial effusion. Thyroid: Stable 1.3 cm peripherally calcified right thyroid nodule. ABDOMEN: Liver: Unremarkable. No mass. Gallbladder and bile ducts: There has been a cholecystectomy. No ductal dilation. RADIOLOGY SERVICES REPORT Pancreas: Unremarkable. No ductal dilation. No mass. Spleen: Unremarkable. No splenomegaly. Adrenals: Unremarkable. No mass. Kidneys and ureters: Normal renal cortical enhancement. No calculi. No hydronephrosis. Stomach and bowel: Proximal large bowel air-fluid levels. No obstruction. Colonic diverticula without adjacent inflammatory change. No mucosal thickening. PELVIS: Appendix: Normal caliber appendix. No findings to suggest acute appendicitis. Bladder: Unremarkable. No mass. Reproductive: Unremarkable as visualized. CHEST, ABDOMEN and PELVIS: Intraperitoneal space: Unremarkable. No significant fluid collection. No free air. Bones/joints: Multilevel spondylosis. Bilateral total hip arthroplasty. No acute fracture. No dislocation. Soft tissues: Unremarkable. Vasculature: Mild atherosclerotic disease. No thoracic or abdominal aortic aneurysm. Lymph nodes: Unremarkable. No enlarged lymph nodes. Tubes, lines and devices: Left chest wall triple lead pacer/ICD remains in place. IMPRESSION: 1. Trace right pleural effusion. No focal infiltrate. 2. Nonspecific proximal large bowel air-fluid levels which can be seen in the clinical setting of diarrhea. Colonic diverticulosis without radiologic evidence for acute diverticulitis. 3. Other findings as above. Electronically signed by: Jhon Malhotra MD 10/14/2024 03:46. 22:11 Consideration of Admission/Observation Escalation of care including sp4 admission/observation considered. ED course: Patient discussed with Dr. Li at [facility] in detail. Stable for transfer.. 10/21 15:21 Order name: Blood Culture Adult (2) 3 10/21 15:21 Order name: CBC with Diff; Complete Time: 17:58 [facility] 10/21 15:21 Order name: Lactate w/ 2H reflex if indic.; Complete Time: 17:41 3 10/21 15:21 Order name: Protime (+inr); Complete Time: 17:41 [facility] 10/21 16:43 Order name: Troponin High Sensitivity; Complete Time: 18:21 [facility] 10/21 16:43 Order name: BNP; Complete Time: 18:21 sp3 10/21 16:43 Order name: CRP; Complete Time: 18:21 sp3 10/21 17:25 Order name: Comprehensive Metabolic Panel; Complete Time: 18:21 EDMS 10/21 15:21 Order name: Chest Single View XRAY; Complete Time: 18:21 sp3 10/21 15:21 Order name: Cardiac monitoring; Complete Time: 18:21 sp3 10/21 15:21 Order name: EKG - Nurse/Tech; Complete Time: 18:21 sp3 10/21 15:21 Order name: IV Saline Lock - Large Bore; Complete Time: 17:08 sp3 10/21 15:21 Order name: Labs collected and sent; Complete Time: 18:21 3 10/21 15:21 Order name: O2 Per Protocol; Complete Time: 18:21 sp3 10/21 15:21 Order name: O2 Sat Monitoring; Complete Time: 18:21 sp3 10/21 15:21 Order name: Vital Signs; Complete Time: 18:22 3 10/21 17:21 Order name: Labs - recollect needed: blue, green and lavender; Complete Time: 18:21 ss Administered Medications: 17:22 Drug: NS 0.9% IV 1000 ml IV at 1 bolus Per protocol; to be given as a bolus over 60 kj2 minutes Route: IV; Rate: 1 bolus; Site: left antecubital; 22:59 Follow up: IV Status: Completed infusion; IV Intake: 1000ml kj2 21:05 Drug: Furosemide IVP 40 mg IVP once; give over 2 minutes Route: IVP; Site: left kj2 antecubital; 22:58 Follow up: Response: No adverse reaction kj2 21:05 Not Given (Patient Refused): [id number] grams 100 ml IVPB once; (Note: Albumin 25% kj2 concentration) 21:05 Drug: Acetaminophen PO 1000 mg PO once Route: PO; kj2 22:58 Follow up: Response: No adverse reaction kj2 Disposition Summary: 10/21/24 18:42 Transfer Ordered Notes: Transfer Location: [facility] ms3 Reason: Higher level of care ms3 Condition: Stable ms3 Problem: new ms3 Symptoms: are unchanged ms3 Accepting Physician: (10/21/24 22:59) kj2 Diagnosis - Rash and other nonspecific skin eruption ms3 - Heart failure, unspecified ms3 - Transaminitis ms3 - Acute Kidney Injury ms3 - Anemia, unspecified ms3 - Erythema nodosum sp4 - No acute oral ulcers, sp4 Forms: - Medication Reconciliation Form ms3 - SBAR form ms3 Signatures: Dispatcher [employer] EDMS Ramona Suárez RN RN ss Luis Miguel Dennis DO DO ms3 Kellie Turcios MD MD sp3 Danna Whitman RN RN db Potepalov, Sergey, MD MD sp4 Toshia Rowland RN RN kj2 Corrections: (The following items were deleted from the chart) 15:22 15:22 BLOOD CULTURE*+BA.LAB.BRZ ordered. EDMS EDMS 15:22 15:22 CBC+H.LAB.BRZ ordered. EDMS EDMS 15:22 15:22 LACTATE+C.LAB.BRZ ordered. EDMS EDMS 15:22 15:22 PROTIME (+INR)+COAG.LAB.BRZ ordered. EDMS EDMS 15:22 15:22 Chest Single View+RAD.RAD.BRZ ordered. EDMS EDMS 17:21 17:14 73-year-old female with history of CHF, anemia, hypertension, rheumatoid sp3 arthritis, now presents with mild difficulty breathing, lower extremity rash and facial swelling. Patient initially was seen on October 10, 11 days ago here in the ED and received p.o. Augmentin for diarrhea and GI pathology. Subsequent to that patient had allergic reaction with facial swelling and rash developing on her bilateral lower extremities. Patient saw PCP for that and was concerned about Richard-Kb syndrome. Patient has had 2 steroid injections Solu-Medrol intramuscularly once in the ED here on a subsequent visit and once at her PCP office. Today family brings patient in for continued facial swelling. sp3 17:24 15:22 COMPREHENSIVE METABOLIC PANEL+C.LAB.BRZ ordered. EDMS EDMS 17:28 17:23 Constitutional: This is a well developed, well nourished patient who is awake, sp3 alert, and in no acute distress. ENT: Nares patent. No nasal discharge, no septal abnormalities noted. External auditory canals are clear. Oropharynx with no redness, swelling, or masses, exudates, or evidence of obstruction, uvula midline. Mucous membranes moist. Neck: Trachea midline, no thyromegaly or masses palpated, and no cervical lymphadenopathy. Supple, full range of motion without nuchal rigidity, or vertebral point tenderness. No Meningismus. Chest/axilla: Normal chest wall appearance and motion. Nontender with no deformity. No lesions are appreciated. Respiratory: Lungs have equal breath sounds bilaterally, clear to auscultation and percussion. No rales, rhonchi or wheezes noted. No increased work of breathing, no retractions or nasal flaring. Abdomen/GI: Soft, non-tender, with normal bowel sounds. No distension or tympany. No guarding or rebound. No evidence of tenderness throughout. Back: No spinal tenderness. No costovertebral tenderness. Full range of motion. sp3 18:42 18:42 Dr ms3 ms3 20:39 18:42 Dr ms3 sp4 22:59 20:39 Dr sp4 kj2
[2024-10-21] MEDS ORDERED: ACETAMINOPHEN 500 MG TAB ONE (20:46)
[2024-10-21] MEDS ORDERED: FUROSEMIDE 40 MG/4 ML VIAL ONE (20:46)
[2024-10-21] MEDS ORDERED: ALBUMIN HUMAN 25% 0 ML IV ONE (20:47)
[2024-10-21 23:13] VITALS: TEMP 98.5
[2024-10-21 23:25] VITALS: O2SAT 100
[2024-10-21 23:28] VITALS: BP 107/77
== END 2024-10-21 22:59 | disposition short-term general hospital (02) ==
LOC: ER 14:48
DX: I50.9 Heart failure, unspecified (principal); L52 Erythema nodosum; R74.01 Elevation of levels of liver transaminase levels; N17.9 Acute kidney failure, unspecified; D64.9 Anemia, unspecified; I10 Essential (primary) hypertension
CPT/HCPCS: 87040 ×2; 85025; 36415; 85610; 83605; 84484; 80053; 83880; 86140; 71045; J1938; J7030; 93005; P9047